=== PATIENT | male | born 1985 | race Caucasian/White ===

== ENCOUNTER 2017-04-21 11:52 | Inpatient (IN) | payer BC, OTHER ==
[2017-04-21] VITALS (11 sets, daily range): BP systolic 168–203; BP diastolic 66–102
[~2017-04-21] VITALS: Ht 180.3 cm; Wt 75.3 kg
[~2017-04-21 11:52] MED LIST: Insulin
[2017-04-21] MEDS ORDERED: PROTONIX40 MG ORAL (12:29)
[2017-04-21] MEDS ORDERED: AMLODIPINE BES2.5 MG ORAL (12:29)
[2017-04-21] MEDS ORDERED: ZOLOFT25 MG ORAL (12:29)
[2017-04-21] MEDS ORDERED: RENVELA0.8 GM ORAL (12:29)
[2017-04-21] MEDS ORDERED: ZANTAC150 MG ORAL (12:29)
[2017-04-21] MEDS ORDERED: LANTUS SOL100 UNIT/1 SUBQ (12:29)
[2017-04-21] MEDS ORDERED: REGLAN5 MG ORAL (12:29)
[2017-04-21] MEDS ORDERED: LYRICA75 M1 ORAL (12:29)
[2017-04-21] MEDS ORDERED: ZOFRAN4 M3 ORAL (12:29)
[2017-04-21 12:49] LABS: ALANINE AMINOTRANSFERASE 16 U/L (12-78); ALBUMIN/GLOBULIN RATIO 0.8 (1.0-2.7); ANION GAP 18 mmol/L (5-15); ASPARTATE AMINO TRANSFERASE 17 U/L (15-37); CALCIUM 9.2 MG/DL (8.5-10.1); CARBON DIOXIDE 20 MMOL/L (21-32); CHLORIDE 90 MMOL/L (98-107); CREATININE 9.5 MG/DL (0.55-1.30); GLOMERULAR FILTRATION RATE 6.4 mL/min (>60); MAGNESIUM 2.8 MG/DL (1.8-2.4); POTASSIUM 6.1 MMOL/L (3.5-5.1); SODIUM 128 MMOL/L (136-145)
[2017-04-21 12:53] LABS: EOSINOPHILS % (AUTO) 1.8 % (0.0-3.0); LYMPHOCYTES % (AUTO) 12.3 % (20.0-45.0); MEAN CORPUSCULAR HEMOGLOBIN 25.8 PG (27.0-31.0); MEAN CORPUSCULAR HGB CONC 29.6 G/DL (32.0-36.0); MEAN CORPUSCULAR VOLUME 87 FL (80-99); MEAN PLATELET VOLUME 6.9 FL (6.5-10.1); MONOCYTES % (AUTO) 4.1 % (1.0-10.0); NEUTROPHILS % (AUTO) 80.8 % (45.0-75.0); PLATELET COUNT 200 K/UL (150-450); RED BLOOD COUNT 4.18 M/UL (4.70-6.10); RED CELL DISTRIBUTION WIDTH 16.1 % (11.6-14.8); WHITE BLOOD COUNT 6.6 K/UL (4.8-10.8)
--- NOTE | 2017-04-21 13:00 | Diagnostic Imaging Report ---
Indications: Altered metal status Technique: Spiral acquisitions obtained through the brain. Angled axial and coronal 5 x 5 mm slices were reconstructed. Total dose length product 1407 mGycm. CTDI vol(s) 70 mGy. Dose reduction achieved using automated exposure control Comparison: None Findings: There is slight image degradation due to slight motion artifact. There is mild prominence of the ventricles and extra-axial CSF spaces. There is some periventricular deep white matter low-attenuation, particular the right frontal region. No acute intracranial hemorrhage or edema. No mass effect or midline shift. Henry-white differentiation is normal. Intact calvarium. Mastoids are clear. Visualized orbits and sinuses are unremarkable. Impression: Negative for acute intracranial bleed or mass effect Somewhat prominent ventricles and extra-axial CSF spaces, consistent with volume loss, advanced for age Periventricular deep white matter low-attenuation, appearance typical of chronic ischemic changes but given patient's age possibility of demyelinating disease should be considered. The CT scanner at [facility] [place] is accredited by the [employer] and the scans are performed using protocols designed to limit radiation exposure to as low as reasonably achievable to attain images of sufficient resolution adequate for diagnostic evaluation.
[2017-04-21] MEDS ORDERED: Calcium Gluconate 1gm/10ml vial IVP ONE ×2 (13:15→14:00)
--- NOTE | 2017-04-21 13:49 | Emergency Room Report ---
History of Present Illness General Chief Complaint: Abnormal Labs Source: Family Member, EMS Present Illness HPI 31-year-old male presents ED for evaluation. Per EMS patient was found down at home. Patient has an insulin pump which was disconnected. Accu-Chek was critically high. Initially patient was confused and altered. Patient also has history of end-stage renal disease and gets dialysis Wednesday. Missed dialysis today. Denies fevers or chills. Denies chest pain or shortness of breath. Father states that patient was recently admitted to [facility] for treatment of a leg infection. No other aggravating relieving factors. Denies any other associated symptoms Allergies: Coded Allergies: No Known Allergies (Verified , 02/14/10) Patient History Past Medical History: HTN, psych hx, renal disease, dialysis Past Surgical History: none Pertinent Family History: none Social History: Denies: smoking, alcohol use, drug use Immunizations: UTD Reviewed Nursing Documentation: PMH: Agreed, PSxH: Agreed Nursing Documentation-PMH Past Medical History: No History, Except For Hx Cardiac Problems: No Hx Hypertension: Yes Hx Diabetes: Yes Hx Cancer: No Hx Gastrointestinal Problems: No Hx Dialysis: Yes - MWF History Of Psychiatric Problem: Yes Hx Neurological Problems: No Review of Systems All Other Systems: negative except mentioned in HPI Physical Exam Vital Signs Date Time Temp Pulse Resp B/P (MAP) Pulse Ox O2 Delivery O2 Flow Rate FiO2 04/21/17 11:42 75 20 206/118 96 Room Air 04/21/17 11:53 97.8 Sp02 EP Interpretation: reviewed, normal General Appearance: lethargic Head: normocephalic, atraumatic Eyes: bilateral eye normal inspection, bilateral eye PERRL ENT: hearing grossly normal, normal pharynx, no angioedema, normal voice Neck: full range of motion, supple/symm/no masses Respiratory: chest non-tender, lungs clear, normal breath sounds, speaking full sentences Cardiovascular #1: regular rate, rhythm, no edema Cardiovascular #2: 2+ carotid (R), 2+ carotid (L), 2+ radial (R), 2+ radial (L) , 2+ dorsalis pedis (R), 2+ dorsalis pedis (L) Gastrointestinal: normal bowel sounds, non tender, soft, non-distended, no guarding, no rebound Rectal: deferred Genitourinary: normal inspection, no CVA tenderness Musculoskeletal: back normal, gait/station normal, normal range of motion, non- tender Neurologic: other - lethargic Psychiatric: other - confused Reflexes: 3+ bicep (R), 3+ bicep (L), 3+ tricep (R), 3+ tricep (L), 3+ knee (R) , 3+ knee (L) Skin: normal color, no rash, warm/dry, well hydrated Lymphatic: no adenopathy Procedures Critical Care Time Critical Care Time i. I feel this is a highly complex case requiring extensive working including EKG/Rhythm strip, Xray/CT/US, Blood/urine lab work, repeat exams while in ED, and administration of strong opiates/narcotics for pain control, admission to hospital or close patient follow up. Total time: 30 min bedside evaluation and treatment excludes procedures (EKG). Reason for critical care: altered mental status. hyperglycemia Possible complications: hypotension, hypertension, MO, shock, arrhythmias, metabolic acidosis, end organ damage, respiratory failure. Interventions: labs, ivfs, ekg, ct head. insulin, calcium. insulin drip Course: Patient presenting with altered mental status. Found down. Insulin pump disconnected. Accu-Chek critically high. missed dialysis today. Potassium elevated. Glucose greater than [address] head unremarkable. Given insulin, calcium. Started on insulin drip. Consultations: nursing staff, EMS, family Performed by: Dr Stein Tolerated well condition = critical j. because of unstable vital signs this patient had a condition that could potentially threaten life or limb. I feel this is a critical patient who required my full attention while patient was considered critical. Total Critical Care Time excluding procedures was greater than 35 minutes Medical Decision Making Diagnostic Impression: Primary Impression: Hyperglycemia Additional Impressions: DKA (diabetic ketoacidoses) Qualified Codes: E13.10 - Other specified diabetes mellitus with ketoacidosis without coma ESRD (end stage renal disease) on dialysis Hyperkalemia, diminished renal excretion Altered level of consciousness ER Course Hospital Course 31-year-old male presenting to ED with altered mental status, glucometer critically high Differential diagnoses include: ETOH/drug ingestion, sepsis, DKA, head injury Clinical course Patient placed on stretcher. On quality assurance monitor chassis. After initial history and physical I ordered labs, EKG, CT Head, IVFs Labs-glucose greater than 600, anion gap 18, bicarbonate 20, BUN/creatinine elevated. K > 6 CT Head unremarkable EKG - NSR, no acute ischemic changes interpreted by me Patient given calcium, insulin bolus. Started on 2 units per hour insulin drip. Discussed case with ship cleaner Dr. Zapien; he agrees that patient should be admitted to ICU will require dialysis today. Case discussed with Dr. Mejia and he agreed to accept the patient to his service for further care and support i. I feel this is a highly complex case requiring extensive working including EKG/Rhythm strip, Xray/CT/US, Blood/urine lab work, repeat exams while in ED, and administration of strong opiates/narcotics for pain control, admission to hospital or close patient follow up. j. because of unstable vital signs this patient had a condition that could potentially threaten life or limb. I feel this is a critical patient who required my full attention while patient was considered critical. Total Critical Care Time excluding procedures was greater than 35 minutes diagnosis - DKA, hyperglycemia, ESRD on dialysis, hyperkalemia, aloc admitted to ICU in critical condition Labs Test 04/21/17 12:00 White Blood Count 6.6 K/UL (4.8-10.8) Red Blood Count 4.18 M/UL (4.70-6.10) Hemoglobin 10.8 G/DL (14.2-18.0) Hematocrit 36.4 % (42.0-52.0) Mean Corpuscular Volume 87 FL (80-99) Mean Corpuscular Hemoglobin 25.8 PG (27.0-31.0) Mean Corpuscular Hemoglobin Concent 29.6 G/DL (32.0-36.0) Red Cell Distribution Width 16.1 % (11.6-14.8) Platelet Count 200 K/UL (150-450) Mean Platelet Volume 6.9 FL (6.5-10.1) Neutrophils (%) (Auto) 80.8 % (45.0-75.0) Lymphocytes (%) (Auto) 12.3 % (20.0-45.0) Monocytes (%) (Auto) 4.1 % (1.0-10.0) Eosinophils (%) (Auto) 1.8 % (0.0-3.0) Basophils (%) (Auto) 1.0 % (0.0-2.0) Sodium Level 128 MMOL/L (136-145) Potassium Level 6.1 MMOL/L (3.5-5.1) Chloride Level 90 MMOL/L (98-107) Carbon Dioxide Level 20 MMOL/L (21-32) Anion Gap 18 mmol/L (5-15) Blood Urea Nitrogen 76 mg/dL (7-18) Creatinine 9.5 MG/DL (0.55-1.30) Estimat Glomerular Filtration Rate 6.4 mL/min (>60) Glucose Level 629 MG/DL (74-106) Calcium Level 9.2 MG/DL (8.5-10.1) Magnesium Level 2.8 MG/DL (1.8-2.4) Total Bilirubin 0.4 MG/DL (0.2-1.0) Aspartate Amino Transf (AST/SGOT) 17 U/L (15-37) Alanine Aminotransferase (ALT/SGPT) 16 U/L (12-78) Alkaline Phosphatase 102 U/L (46-116) Total Protein 9.0 G/DL (6.4-8.2) Albumin 4.1 G/DL (3.4-5.0) Globulin 4.9 g/dL Albumin/Globulin Ratio 0.8 (1.0-2.7) Acetone Level Positive-small (NEGATIVE) EKG Diagnostic Results Rate: normal Rhythm: NSR ST Segments: no acute changes ASA given to the pt in ED: No Rhythm Strip Diag. Results EP Interpretation: yes Rhythm: NSR, no PVC's, no ectopy CT/MRI/US Diagnostic Results CT/MRI/US Diagnostic Results : Imaging Test Ordered: CT head Impression no acute process Last Vital Signs Date Time Temp Pulse Resp B/P (MAP) Pulse Ox O2 Delivery O2 Flow Rate FiO2 04/21/17 11:53 97.8 73 13 203/87 100 Room Air Status: improved Disposition: ADMITTED INPATIENT Condition: Critical Referrals: NON PHYSICIAN (PCP) DRAKE STEIN M.D. Apr 21, 2017 13:49
[2017-04-21] MEDS ORDERED: Morphine Sulfate 2mg/ml Inj IVP PRN (14:00)
[2017-04-21] MEDS ORDERED: Albuterol/Ipratropium 3ml neb HHN PRN (14:00)
[2017-04-21] MEDS ORDERED: Insulin Rate Change 1 Each MISC PRN (14:00)
[2017-04-21] MEDS ORDERED: Zolpidem 5mg tab ORAL PRN (14:00)
[2017-04-21] MEDS ORDERED: Miralax 17gm pkt ORAL PRN (14:00)
[2017-04-21] MEDS ORDERED: Mylanta II UD 30ml ORAL PRN (14:00)
[2017-04-21 14:03] LABS: ABG ALLEN TEST POSITIVE; ABG BASE EXCESS -12.2; ABG PCO2 35.6 mmHg (35.0-45.0)
--- NOTE | 2017-04-21 14:56 | Consultation ---
Consult Note Consult Note asked to eval for dialysis management 31-year-old male presents ED for evaluation. Per EMS patient was found down at home. Patient has an insulin pump which was disconnected. Accu-Chek was critically high. Initially patient was confused and altered. Patient also has history of end-stage renal disease and gets dialysis Wednesday. Missed dialysis today. Denies fevers or chills. Denies chest pain or shortness of breath. Father states that patient was recently admitted to [facility] for treatment of a leg infection. No other aggravating relieving factors. Denies any other associated symptoms Past Medical History: HTN, psych hx, renal disease, dialysis Past Medical History: No History, Except For Hx Hypertension: Yes Hx Diabetes: Yes Hx Dialysis: Yes - MWF History Of Psychiatric Problem: Yes patient confused- examined- history taken from his father discharged from 2 days ago- Last HD 2 days ago due for HD today Assessment/Plan ESRD Type ! DM presents with: Encephalopathy HyperKalemia Hyperglycemia Has a collection on his left lat plantar foot ? infected Anemia Plan: HD hannah check vanco level per ANUPAM Chapman Apr 21, 2017 14:56
[2017-04-21 15:14] LABS: ANION GAP 18 mmol/L (5-15); CALCIUM 9.2 MG/DL (8.5-10.1); CARBON DIOXIDE 19 MMOL/L (21-32); CHLORIDE 91 MMOL/L (98-107); CREATININE 9.8 MG/DL (0.55-1.30); GLOMERULAR FILTRATION RATE 6.2 mL/min (>60); SODIUM 128 MMOL/L (136-145)
[2017-04-21 15:44] LABS: URIC ACID 5.5 MG/DL (2.6-7.2)
[2017-04-21 15:45] LABS: PHOSPHORUS 9.2 MG/DL (2.5-4.9)
[2017-04-21] MEDS ORDERED: Sodium Polystyrene Sulfonate 15gm Powder ORAL ONE (16:00)
[2017-04-21] MEDS: LORazepam Inj 2mg/ml 1ml IV PRN ×3 (16:38→23:00)
[2017-04-21] MEDS: Renvela 800mg Pkt ORAL SCH (18:00)
[2017-04-21] MEDS ORDERED: Vancomycin 500 MG in NS 110 ML IVPB ONE (20:00)
[2017-04-21 20:29] LABS: ANION GAP 11 mmol/L (5-15); CALCIUM 8.8 MG/DL (8.5-10.1); CARBON DIOXIDE 31 MMOL/L (21-32); CHLORIDE 100 MMOL/L (98-107); CREATININE 5.7 MG/DL (0.55-1.30); GLOMERULAR FILTRATION RATE 11.5 mL/min (>60); POTASSIUM 3.3 MMOL/L (3.5-5.1); SODIUM 142 MMOL/L (136-145)
[2017-04-21] MEDS: Insulin Rate Change 1 Each MISC PRN ×2 (20:52→22:01)
[2017-04-21] MEDS: Heparin 5000 units/ml inj SUBQ SCH (21:00)
[2017-04-21] MEDS: Zosyn 2.25 gm in D5W 55ml IV SCH (22:01)
[2017-04-22] VITALS (24 sets, daily range): BP systolic 133–198; BP diastolic 50–98
[2017-04-22] MEDS: Insulin Rate Change 1 Each MISC PRN ×14 (01:11→23:58)
[2017-04-22] MEDS: LORazepam Inj 2mg/ml 1ml IV PRN (01:27)
[2017-04-22 05:04] LABS: BASOPHILS % (AUTO) 0.8 % (0.0-2.0); EOSINOPHILS % (AUTO) 1.1 % (0.0-3.0); LYMPHOCYTES % (AUTO) 16.8 % (20.0-45.0); MEAN CORPUSCULAR HEMOGLOBIN 26.7 PG (27.0-31.0); MEAN CORPUSCULAR HGB CONC 31.9 G/DL (32.0-36.0); MEAN CORPUSCULAR VOLUME 84 FL (80-99); MEAN PLATELET VOLUME 6.6 FL (6.5-10.1); MONOCYTES % (AUTO) 7.8 % (1.0-10.0); NEUTROPHILS % (AUTO) 73.5 % (45.0-75.0); PLATELET COUNT 173 K/UL (150-450); RED BLOOD COUNT 3.64 M/UL (4.70-6.10); RED CELL DISTRIBUTION WIDTH 15.7 % (11.6-14.8); WHITE BLOOD COUNT 7.1 K/UL (4.8-10.8)
[2017-04-22 05:30] LABS: AMMONIA 19 umol/L (11-32)
[2017-04-22 05:45] LABS: CRP QUANT 3.4 mg/dL (0.00-0.90); MAGNESIUM 2.2 MG/DL (1.8-2.4); PHOSPHORUS 4.1 MG/DL (2.5-4.9); URIC ACID 3.7 MG/DL (2.6-7.2)
[2017-04-22 05:46] LABS: ALANINE AMINOTRANSFERASE 15 U/L (12-78); ALBUMIN/GLOBULIN RATIO 0.8 (1.0-2.7); ANION GAP 11 mmol/L (5-15); ASPARTATE AMINO TRANSFERASE 16 U/L (15-37); CALCIUM 9.1 MG/DL (8.5-10.1); CARBON DIOXIDE 28 MMOL/L (21-32); CHLORIDE 99 MMOL/L (98-107); CHOLESTEROL 131 MG/DL (< 200); CREATININE 6.8 MG/DL (0.55-1.30); GLOMERULAR FILTRATION RATE 9.4 mL/min (>60); POTASSIUM 3.7 MMOL/L (3.5-5.1); SODIUM 138 MMOL/L (136-145); THYROID STIMULATING HORMONE 3.145 uiU/mL (0.358-3.740); TOTAL PROTEIN 7.5 G/DL (6.4-8.2)
[2017-04-22 06:00] LABS: HEMOGLOBIN A1C 8.3 % (4.3-6.0)
[2017-04-22] MEDS: Zosyn 2.25 gm in D5W 55ml IV SCH (06:02)
[2017-04-22] MEDS: Renvela 800mg Pkt ORAL SCH ×3 (09:29→17:59)
[2017-04-22] MEDS: Heparin 5000 units/ml inj SUBQ SCH ×2 (09:32→20:55)
--- NOTE | 2017-04-22 10:13 | History and Physical ---
History of Present Illness General Date patient seen: Apr 21, 2017 Reason for Hospitalization: Abnormal Labs Present Illness HPI 31 year old male with hx of DM, insulin pump, ? osteomyelitis brought in by paramedics with CC of ALOC. Apparently pts insulin pump was not functioning. Pt missed his outpatient HD as well. He was found to be in DKA and admitted to ICU, pt has been seen by nephro and HD has been ordered. Allergies: Coded Allergies: GABAPENTIN (Verified Allergy, Unknown, 04/21/17) Dizziness, syncope Medication History Scheduled Amlodipine Besylate* (Amlodipine Besylate*), Unknown Dose ORAL DAILY, (Reported) Insulin Glargine (Lantus), 0 SUBQ BEDTIME, (Reported) Metoclopramide Hcl* (Reglan*), Unknown Dose ORAL EVERY 6 HOURS, (Reported) Pantoprazole* (Protonix*), Unknown Dose ORAL DAILY, (Reported) Pregabalin* (Lyrica*), Unknown Dose ORAL THREE TIMES A DAY, (Reported) Ranitidine Hcl* (Zantac*), Unknown Dose ORAL DAILY, (Reported) Sertraline Hcl* (Zoloft*), Unknown Dose ORAL DAILY, (Reported) Sevelamer Carbonate* (Renvela*), Unknown Dose ORAL THREE TIMES A DAY, (Reported) Scheduled PRN Ondansetron* (Zofran*), Unknown Dose ORAL Q6H PRN for Nausea & Vomiting, ( Reported) Miscellaneous Medications [Insulin], (Reported) Patient History Healthcare decision maker Raad Benites /Father Resuscitation status Full Code Advanced Directive on File No Past Medical/Surgical History Past Medical/Surgical History: (1) Poorly controlled diabetes mellitus (2) ESRD (end stage renal disease) on dialysis Physical Exam General Appearance: WD/WN Lines, tubes and drains: peripheral HEENT: normocephalic, atraumatic Neck: non-tender, normal alignment Respiratory/Chest: chest wall non-tender, lungs clear Breasts: no masses Cardiovascular/Chest: normal peripheral pulses Abdomen: normal bowel sounds, non tender Genitourinary/Rectal: normal genital exam Extremities: normal range of motion Skin Exam: normal pigmentation Neurologic: installation tech 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 normal Last 24 Hour Vital Signs Date Time Temp Pulse Resp B/P (MAP) Pulse Ox O2 Delivery O2 Flow Rate FiO2 04/22/17 09:38 74 147/82 04/22/17 09:01 73 14 Room Air 21 04/22/17 07:00 72 15 145/57 97 Room Air 04/22/17 06:13 195/77 04/22/17 06:00 72 12 195/77 94 Room Air 04/22/17 05:00 72 16 176/68 97 Room Air 04/22/17 04:00 75 04/22/17 04:00 98.2 73 12 173/79 93 Room Air 04/22/17 03:00 75 12 173/60 95 Room Air 04/22/17 02:30 198/75 04/22/17 02:00 75 17 198/75 95 Room Air 04/22/17 01:00 74 17 179/71 97 Room Air 04/22/17 00:00 97.9 74 16 170/67 93 Room Air 04/22/17 00:00 74 04/21/17 23:00 75 17 168/66 99 Room Air 04/21/17 22:32 201/86 04/21/17 22:00 72 18 201/86 97 Room Air 04/21/17 21:00 69 16 187/94 97 Room Air 04/21/17 20:44 69 16 Room Air 21 04/21/17 20:16 191/91 04/21/17 20:00 97.8 70 16 187/93 94 Room Air 04/21/17 20:00 70 04/21/17 19:39 Room Air 04/21/17 19:36 Room Air 04/21/17 19:00 72 16 173/88 99 Room Air 04/21/17 18:00 74 16 172/89 98 Room Air 04/21/17 17:00 71 16 179/94 98 Room Air 04/21/17 16:00 98.2 72 16 200/102 97 Room Air 04/21/17 15:38 75 04/21/17 15:18 181/85 04/21/17 15:15 Room Air 04/21/17 14:33 77 04/21/17 14:30 98.1 77 14 193/93 97 Room Air 04/21/17 14:21 97.8 72 16 187/77 100 Room Air 04/21/17 13:30 98.0 70 16 193/84 100 Room Air 04/21/17 11:53 97.8 73 13 203/87 100 Room Air 04/21/17 11:53 73 13 Room Air 04/21/17 11:42 75 20 206/118 96 Room Air Intake and Output 04/22/17 04/23/17 19:00 07:00 Intake Total 0.4 ml Balance 0.4 ml Intake Oral 0 ml IV Total 0.4 ml Laboratory Tests Test 04/21/17 12:00 04/21/17 13:52 04/21/17 14:35 04/21/17 15:18 White Blood Count 6.6 K/UL (4.8-10.8) Red Blood Count 4.18 M/UL (4.70-6.10) L Hemoglobin 10.8 G/DL (14.2-18.0) L Hematocrit 36.4 % (42.0-52.0) L Mean Corpuscular Volume 87 FL (80-99) Mean Corpuscular Hemoglobin 25.8 PG (27.0-31.0) L Mean Corpuscular Hemoglobin Concent 29.6 G/DL (32.0-36.0) L Red Cell Distribution Width 16.1 % (11.6-14.8) H Platelet Count 200 K/UL (150-450) Mean Platelet Volume 6.9 FL (6.5-10.1) Neutrophils (%) (Auto) 80.8 % (45.0-75.0) H Lymphocytes (%) (Auto) 12.3 % (20.0-45.0) L Monocytes (%) (Auto) 4.1 % (1.0-10.0) Eosinophils (%) (Auto) 1.8 % (0.0-3.0) Basophils (%) (Auto) 1.0 % (0.0-2.0) Sodium Level 128 MMOL/L (136-145) L 128 MMOL/L (136-145) L Potassium Level 6.1 MMOL/L (3.5-5.1) *H 5.0 MMOL/L (3.5-5.1) Chloride Level 90 MMOL/L (98-107) L 91 MMOL/L (98-107) L Carbon Dioxide Level 20 MMOL/L (21-32) L 19 MMOL/L (21-32) L Anion Gap 18 mmol/L (5-15) H 18 mmol/L (5-15) H Blood Urea Nitrogen 76 mg/dL (7-18) H 79 mg/dL (7-18) H Creatinine 9.5 MG/DL (0.55-1.30) H 9.8 MG/DL (0.55-1.30) H Estimat Glomerular Filtration Rate 6.4 mL/min (>60) 6.2 mL/min (>60) Glucose Level 629 MG/DL (74-106) *H 587 MG/DL (74-106) *H Calcium Level 9.2 MG/DL (8.5-10.1) 9.2 MG/DL (8.5-10.1) Magnesium Level 2.8 MG/DL (1.8-2.4) H Total Bilirubin 0.4 MG/DL (0.2-1.0) Aspartate Amino Transf (AST/SGOT) 17 U/L (15-37) Alanine Aminotransferase (ALT/SGPT) 16 U/L (12-78) Alkaline Phosphatase 102 U/L (46-116) Total Protein 9.0 G/DL (6.4-8.2) H Albumin 4.1 G/DL (3.4-5.0) Globulin 4.9 g/dL Albumin/Globulin Ratio 0.8 (1.0-2.7) L Acetone Level Positive-small (NEGATIVE) Arterial Blood pH 7.227 (7.350-7.450) Arterial Blood Partial Pressure CO2 35.6 mmHg (35.0-45.0) Arterial Blood Partial Pressure O2 97.2 mmHg (75.0-100.0) Arterial Blood HCO3 14.5 mmol/L (22.0-26.0) L Arterial Blood Oxygen Saturation 95.5 % (92.0-98.0) Arterial Blood Base Excess -12.2 Andre Test Positive Uric Acid 5.5 MG/DL (2.6-7.2) Phosphorus Level 9.2 MG/DL (2.5-4.9) H Random Vancomycin Level 18.3 ug/mL Test 04/21/17 19:55 04/22/17 04:15 Sodium Level 142 MMOL/L (136-145) # 138 MMOL/L (136-145) Potassium Level 3.3 MMOL/L (3.5-5.1) L 3.7 MMOL/L (3.5-5.1) Chloride Level 100 MMOL/L (98-107) 99 MMOL/L (98-107) Carbon Dioxide Level 31 MMOL/L (21-32) 28 MMOL/L (21-32) Anion Gap 11 mmol/L (5-15) 11 mmol/L (5-15) Blood Urea Nitrogen 43 mg/dL (7-18) H 47 mg/dL (7-18) H Creatinine 5.7 MG/DL (0.55-1.30) H 6.8 MG/DL (0.55-1.30) H Estimat Glomerular Filtration Rate 11.5 mL/min (>60) 9.4 mL/min (>60) Glucose Level 123 MG/DL (74-106) #H 114 MG/DL (74-106) H Calcium Level 8.8 MG/DL (8.5-10.1) 9.1 MG/DL (8.5-10.1) White Blood Count 7.1 K/UL (4.8-10.8) Red Blood Count 3.64 M/UL (4.70-6.10) L Hemoglobin 9.7 G/DL (14.2-18.0) L Hematocrit 30.5 % (42.0-52.0) L Mean Corpuscular Volume 84 FL (80-99) Mean Corpuscular Hemoglobin 26.7 PG (27.0-31.0) L Mean Corpuscular Hemoglobin Concent 31.9 G/DL (32.0-36.0) L Red Cell Distribution Width 15.7 % (11.6-14.8) H Platelet Count 173 K/UL (150-450) Mean Platelet Volume 6.6 FL (6.5-10.1) Neutrophils (%) (Auto) 73.5 % (45.0-75.0) Lymphocytes (%) (Auto) 16.8 % (20.0-45.0) L Monocytes (%) (Auto) 7.8 % (1.0-10.0) Eosinophils (%) (Auto) 1.1 % (0.0-3.0) Basophils (%) (Auto) 0.8 % (0.0-2.0) Hemoglobin A1c 8.3 % (4.3-6.0) H Uric Acid 3.7 MG/DL (2.6-7.2) Phosphorus Level 4.1 MG/DL (2.5-4.9) Magnesium Level 2.2 MG/DL (1.8-2.4) Total Bilirubin 0.4 MG/DL (0.2-1.0) Gamma Glutamyl Transpeptidase 13 U/L (5-85) Aspartate Amino Transf (AST/SGOT) 16 U/L (15-37) Alanine Aminotransferase (ALT/SGPT) 15 U/L (12-78) Alkaline Phosphatase 76 U/L (46-116) Ammonia 19 umol/L (11-32) C-Reactive Protein, Quantitative 3.4 mg/dL (0.00-0.90) H Pro-B-Type Natriuretic Peptide > 46369 pg/mL (0-125) H Total Protein 7.5 G/DL (6.4-8.2) Albumin 3.3 G/DL (3.4-5.0) L Globulin 4.2 g/dL Albumin/Globulin Ratio 0.8 (1.0-2.7) L Triglycerides Level 52 MG/DL (30-150) Cholesterol Level 131 MG/DL (< 200) LDL Cholesterol 89 mg/dL (<100) HDL Cholesterol 33 MG/DL (40-60) L Cholesterol/HDL Ratio 4.0 (3.3-4.4) Thyroid Stimulating Hormone (TSH) 3.145 uiU/mL (0.358-3.740) Height (Feet): 5 Height (Inches): 11.00 Weight (Pounds): 165 Medications Current Medications Medications (Trade) Dose Ordered Sig/Aura Route PRN Reason Start Time Stop Time Status Last Admin Dose Admin Acetaminophen (Tylenol) 650 mg Q4H PRN ORAL fever 04/21/17 14:00 05/21/17 13:59 Albuterol/ Ipratropium (Albuterol/ Ipratropium) 3 ml Q6H PRN HHN dyspnea 04/21/17 14:00 04/26/17 13:59 Amlodipine Besylate (Norvasc) 10 mg DAILY ORAL 04/22/17 09:00 05/22/17 08:59 04/22/17 09:38 Clonidine HCl (Catapres) 0.1 mg Q4H PRN ORAL SBP > 160 04/21/17 14:00 05/21/17 13:59 04/22/17 02:30 Dextrose (Dextrose 50%) PRN PRN IV HYPOGLYCEMIA 04/21/17 20:00 05/21/17 19:59 Heparin Sodium (Porcine) (Heparin 5000 units/ml) 5,000 units EVERY 12 HOURS SUBQ 04/21/17 21:00 05/21/17 20:59 04/22/17 09:32 Hydralazine HCl (Apresoline) 20 mg Q6H PRN IV SBP>160 04/21/17 21:45 05/21/17 21:44 04/22/17 06:13 Insulin Human Regular (NovoLIN R) 5 units PRN PRN IV BS 200-299 04/21/17 20:00 05/21/17 19:59 04/22/17 02:09 Insulin Human Regular (NovoLIN R) 10 units PRN PRN IV BS=>300 04/21/17 20:00 05/21/17 19:59 Insulin Human Regular 100 units/ Sodium Chloride 101 ml @ 0 mls/hr Q24H IV 04/21/17 20:15 05/21/17 20:14 04/21/17 20:23 Lorazepam (Ativan 2mg/ml 1ml) 2 mg EVERY 2 HOURS PRN IV For Anxiety 04/21/17 16:30 04/28/17 16:29 04/22/17 01:27 Miscellaneous Medication (Insulin Rate Change) 1 ea PRN PRN MISC Hyperglycemia 04/21/17 20:00 05/21/17 19:59 04/22/17 09:20 Morphine Sulfate (Morphine Sulfate) 1 mg Q4H PRN IVP For Pain Scale 4-10 04/21/17 14:00 04/28/17 13:59 04/21/17 16:07 Ondansetron HCl (Zofran) 4 mg Q6H PRN IVP Nausea & Vomiting 04/21/17 14:00 05/21/17 13:59 Pantoprazole (Protonix) 40 mg DAILY ORAL 04/22/17 09:00 05/22/17 08:59 04/22/17 09:29 Piperacillin Sod/ Tazobactam Sod 2.25 gm/Dextrose 55 ml @ 110 mls/hr Q8HR IV 04/21/17 22:00 04/26/17 21:59 04/22/17 06:02 Polyethylene Glycol (Miralax) 17 gm HSPRN PRN ORAL Constipation 1st line agent 04/21/17 14:00 05/21/17 13:59 Sevelamer Carbonate (Renvela) 800 mg THREE TIMES A DAY ORAL 04/21/17 18:00 05/21/17 17:59 04/22/17 09:29 Sodium Chloride 1,000 ml @ 50 mls/hr Q20H IV 04/22/17 15:45 05/22/17 15:44 Vancomycin HCl (Vanco rx to dose) 1 ea DAILY PRN MISC . 04/21/17 16:45 05/21/17 16:44 Zolpidem Tartrate (Ambien) 5 mg HSPRN PRN ORAL Insomnia 04/21/17 14:00 04/28/17 13:59 Assessment/Plan Problem List: (1) DKA (diabetic ketoacidoses) ICD Codes: E13.10 - Other specified diabetes mellitus with ketoacidosis without coma SNOMED: 148849025, [id number] Qualifiers: Qualified Codes: E13.10 - Other specified diabetes mellitus with ketoacidosis without coma (2) Altered level of consciousness ICD Codes: R40.4 - Transient alteration of awareness SNOMED: 8604185 (3) ESRD (end stage renal disease) on dialysis ICD Codes: N18.6 - End stage renal disease; Z99.2 - Dependence on renal dialysis SNOMED: [id number], [id number] Assessment/Plan insulin drip IV fluids check electrolytes continue outpatient iv abx review records from [facility]. dvt prophylaxis Podiatry and ID evaluation INEZ MEHTA Apr 22, 2017 10:13
--- NOTE | 2017-04-22 11:14 | Consultation ---
History of Present Illness General Date patient seen: Apr 22, 2017 Time patient seen: 11:38 Chief Complaint: Abnormal Labs Present Illness HPI 31 y/o M with hx of DM 1 on insulin pump, HTN, ESRD on HD MWF, psychiatric illness is brought by paramedics on 04/21 after being found down at home. Apparently insulin pump not functioning and patient has also missed outpatient HD session. In ED found to be on DKA and admitted to ICU. HD done emergently upon admission. Denies f/c, CP, SOB, n/v/d Of note patient has been recently admitted and discharged 2 days ago from [facility] for a treatment of L foot OM. Discharged on Vanco 500mg and Cefepime 2g after HD on HD days planned for 6 weeks; end date 05/28/17 MRI 04/08: L Foot wo: 2.1x 0.7 x2.5 cm fluid collection in plantar aspect of 5th metatarsal head. Cannot exclude abscess. Minimal Bone marrow edema involving 5th metatarsal head. Although no cortical erosive chanegs noted, an early medullary OM cannot be excluded. afebrile, no leukocytosis. Started on Vanco adn Zosyn. Allergies: Coded Allergies: GABAPENTIN (Verified Allergy, Unknown, 04/21/17) Dizziness, syncope Medication History Scheduled Amlodipine Besylate* (Amlodipine Besylate*), Unknown Dose ORAL DAILY, (Reported) Insulin Glargine (Lantus), 0 SUBQ BEDTIME, (Reported) Metoclopramide Hcl* (Reglan*), Unknown Dose ORAL EVERY 6 HOURS, (Reported) Pantoprazole* (Protonix*), Unknown Dose ORAL DAILY, (Reported) Pregabalin* (Lyrica*), Unknown Dose ORAL THREE TIMES A DAY, (Reported) Ranitidine Hcl* (Zantac*), Unknown Dose ORAL DAILY, (Reported) Sertraline Hcl* (Zoloft*), Unknown Dose ORAL DAILY, (Reported) Sevelamer Carbonate* (Renvela*), Unknown Dose ORAL THREE TIMES A DAY, (Reported) Scheduled PRN Ondansetron* (Zofran*), Unknown Dose ORAL Q6H PRN for Nausea & Vomiting, ( Reported) Miscellaneous Medications [Insulin], (Reported) Patient History Healthcare decision maker Raad Benites /Father Resuscitation status Full Code Advanced Directive on File No Patient History Narrative Pmhx: as above Shx: Denies: smoking, alcohol use, drug use Fhx: non contributory Review of Systems All Other Systems: negative except mentioned in HPI Physical Exam Physical Exam Narrative General Appearance: WD/WN Lines, tubes and drains: peripheral HEENT: normocephalic, atraumatic Neck: non-tender, normal alignment Respiratory/Chest: chest wall non-tender, lungs clear Breasts: no masses Cardiovascular/Chest: normal peripheral pulses Abdomen: normal bowel sounds, non tender Genitourinary/Rectal: normal genital exam Extremities: normal range of motion, L foot with area of fluctuance over 5th metatarsum with small and callous opening, no draiange, no TTP, no warmth, slightly erythematous Skin Exam: normal pigmentation Neurologic: printing grey cloth tender II-XII grossly normal Last 24 Hour Vital Signs Date Time Temp Pulse Resp B/P (MAP) Pulse Ox O2 Delivery O2 Flow Rate FiO2 04/22/17 11:00 74 16 142/50 97 Room Air 04/22/17 10:00 72 15 170/66 97 Room Air 04/22/17 09:38 74 147/82 04/22/17 09:01 73 14 Room Air 21 04/22/17 09:00 72 15 144/77 97 Room Air 04/22/17 08:00 98.2 73 12 146/80 93 Room Air 04/22/17 08:00 76 04/22/17 07:00 72 15 145/57 97 Room Air 04/22/17 06:13 195/77 04/22/17 06:00 72 12 195/77 94 Room Air 04/22/17 05:00 72 16 176/68 97 Room Air 04/22/17 04:00 75 04/22/17 04:00 98.2 73 12 173/79 93 Room Air 04/22/17 03:00 75 12 173/60 95 Room Air 04/22/17 02:30 198/75 04/22/17 02:00 75 17 198/75 95 Room Air 04/22/17 01:00 74 17 179/71 97 Room Air 04/22/17 00:00 97.9 74 16 170/67 93 Room Air 04/22/17 00:00 74 04/21/17 23:00 75 17 168/66 99 Room Air 04/21/17 22:32 201/86 04/21/17 22:00 72 18 201/86 97 Room Air 04/21/17 21:00 69 16 187/94 97 Room Air 04/21/17 20:44 69 16 Room Air 21 04/21/17 20:16 191/91 04/21/17 20:00 97.8 70 16 187/93 94 Room Air 04/21/17 20:00 70 04/21/17 19:39 Room Air 04/21/17 19:36 Room Air 04/21/17 19:00 72 16 173/88 99 Room Air 04/21/17 18:00 74 16 172/89 98 Room Air 04/21/17 17:00 71 16 179/94 98 Room Air 04/21/17 16:00 98.2 72 16 200/102 97 Room Air 04/21/17 15:38 75 04/21/17 15:18 181/85 04/21/17 15:15 Room Air 04/21/17 14:33 77 04/21/17 14:30 98.1 77 14 193/93 97 Room Air 04/21/17 14:21 97.8 72 16 187/77 100 Room Air 04/21/17 13:30 98.0 70 16 193/84 100 Room Air 04/21/17 11:53 97.8 73 13 203/87 100 Room Air 04/21/17 11:53 73 13 Room Air 04/21/17 11:42 75 20 206/118 96 Room Air Intake and Output 04/22/17 04/23/17 19:00 07:00 Intake Total 0.4 ml Balance 0.4 ml Intake Oral 0 ml IV Total 0.4 ml Laboratory Tests Test 04/21/17 12:00 04/21/17 13:52 04/21/17 14:35 04/21/17 15:18 White Blood Count 6.6 K/UL (4.8-10.8) Red Blood Count 4.18 M/UL (4.70-6.10) L Hemoglobin 10.8 G/DL (14.2-18.0) L Hematocrit 36.4 % (42.0-52.0) L Mean Corpuscular Volume 87 FL (80-99) Mean Corpuscular Hemoglobin 25.8 PG (27.0-31.0) L Mean Corpuscular Hemoglobin Concent 29.6 G/DL (32.0-36.0) L Red Cell Distribution Width 16.1 % (11.6-14.8) H Platelet Count 200 K/UL (150-450) Mean Platelet Volume 6.9 FL (6.5-10.1) Neutrophils (%) (Auto) 80.8 % (45.0-75.0) H Lymphocytes (%) (Auto) 12.3 % (20.0-45.0) L Monocytes (%) (Auto) 4.1 % (1.0-10.0) Eosinophils (%) (Auto) 1.8 % (0.0-3.0) Basophils (%) (Auto) 1.0 % (0.0-2.0) Sodium Level 128 MMOL/L (136-145) L 128 MMOL/L (136-145) L Potassium Level 6.1 MMOL/L (3.5-5.1) *H 5.0 MMOL/L (3.5-5.1) Chloride Level 90 MMOL/L (98-107) L 91 MMOL/L (98-107) L Carbon Dioxide Level 20 MMOL/L (21-32) L 19 MMOL/L (21-32) L Anion Gap 18 mmol/L (5-15) H 18 mmol/L (5-15) H Blood Urea Nitrogen 76 mg/dL (7-18) H 79 mg/dL (7-18) H Creatinine 9.5 MG/DL (0.55-1.30) H 9.8 MG/DL (0.55-1.30) H Estimat Glomerular Filtration Rate 6.4 mL/min (>60) 6.2 mL/min (>60) Glucose Level 629 MG/DL (74-106) *H 587 MG/DL (74-106) *H Calcium Level 9.2 MG/DL (8.5-10.1) 9.2 MG/DL (8.5-10.1) Magnesium Level 2.8 MG/DL (1.8-2.4) H Total Bilirubin 0.4 MG/DL (0.2-1.0) Aspartate Amino Transf (AST/SGOT) 17 U/L (15-37) Alanine Aminotransferase (ALT/SGPT) 16 U/L (12-78) Alkaline Phosphatase 102 U/L (46-116) Total Protein 9.0 G/DL (6.4-8.2) H Albumin 4.1 G/DL (3.4-5.0) Globulin 4.9 g/dL Albumin/Globulin Ratio 0.8 (1.0-2.7) L Acetone Level Positive-small (NEGATIVE) Arterial Blood pH 7.227 (7.350-7.450) Arterial Blood Partial Pressure CO2 35.6 mmHg (35.0-45.0) Arterial Blood Partial Pressure O2 97.2 mmHg (75.0-100.0) Arterial Blood HCO3 14.5 mmol/L (22.0-26.0) L Arterial Blood Oxygen Saturation 95.5 % (92.0-98.0) Arterial Blood Base Excess -12.2 Andre Test Positive Uric Acid 5.5 MG/DL (2.6-7.2) Phosphorus Level 9.2 MG/DL (2.5-4.9) H Random Vancomycin Level 18.3 ug/mL Test 04/21/17 19:55 04/22/17 04:15 Sodium Level 142 MMOL/L (136-145) # 138 MMOL/L (136-145) Potassium Level 3.3 MMOL/L (3.5-5.1) L 3.7 MMOL/L (3.5-5.1) Chloride Level 100 MMOL/L (98-107) 99 MMOL/L (98-107) Carbon Dioxide Level 31 MMOL/L (21-32) 28 MMOL/L (21-32) Anion Gap 11 mmol/L (5-15) 11 mmol/L (5-15) Blood Urea Nitrogen 43 mg/dL (7-18) H 47 mg/dL (7-18) H Creatinine 5.7 MG/DL (0.55-1.30) H 6.8 MG/DL (0.55-1.30) H Estimat Glomerular Filtration Rate 11.5 mL/min (>60) 9.4 mL/min (>60) Glucose Level 123 MG/DL (74-106) #H 114 MG/DL (74-106) H Calcium Level 8.8 MG/DL (8.5-10.1) 9.1 MG/DL (8.5-10.1) White Blood Count 7.1 K/UL (4.8-10.8) Red Blood Count 3.64 M/UL (4.70-6.10) L Hemoglobin 9.7 G/DL (14.2-18.0) L Hematocrit 30.5 % (42.0-52.0) L Mean Corpuscular Volume 84 FL (80-99) Mean Corpuscular Hemoglobin 26.7 PG (27.0-31.0) L Mean Corpuscular Hemoglobin Concent 31.9 G/DL (32.0-36.0) L Red Cell Distribution Width 15.7 % (11.6-14.8) H Platelet Count 173 K/UL (150-450) Mean Platelet Volume 6.6 FL (6.5-10.1) Neutrophils (%) (Auto) 73.5 % (45.0-75.0) Lymphocytes (%) (Auto) 16.8 % (20.0-45.0) L Monocytes (%) (Auto) 7.8 % (1.0-10.0) Eosinophils (%) (Auto) 1.1 % (0.0-3.0) Basophils (%) (Auto) 0.8 % (0.0-2.0) Hemoglobin A1c 8.3 % (4.3-6.0) H Uric Acid 3.7 MG/DL (2.6-7.2) Phosphorus Level 4.1 MG/DL (2.5-4.9) Magnesium Level 2.2 MG/DL (1.8-2.4) Total Bilirubin 0.4 MG/DL (0.2-1.0) Gamma Glutamyl Transpeptidase 13 U/L (5-85) Aspartate Amino Transf (AST/SGOT) 16 U/L (15-37) Alanine Aminotransferase (ALT/SGPT) 15 U/L (12-78) Alkaline Phosphatase 76 U/L (46-116) Ammonia 19 umol/L (11-32) C-Reactive Protein, Quantitative 3.4 mg/dL (0.00-0.90) H Pro-B-Type Natriuretic Peptide > 79888 pg/mL (0-125) H Total Protein 7.5 G/DL (6.4-8.2) Albumin 3.3 G/DL (3.4-5.0) L Globulin 4.2 g/dL Albumin/Globulin Ratio 0.8 (1.0-2.7) L Triglycerides Level 52 MG/DL (30-150) Cholesterol Level 131 MG/DL (< 200) LDL Cholesterol 89 mg/dL (<100) HDL Cholesterol 33 MG/DL (40-60) L Cholesterol/HDL Ratio 4.0 (3.3-4.4) Thyroid Stimulating Hormone (TSH) 3.145 uiU/mL (0.358-3.740) Height (Feet): 5 Height (Inches): 11.00 Weight (Pounds): 165 Medications Current Medications Medications (Trade) Dose Ordered Sig/Aura Route PRN Reason Start Time Stop Time Status Last Admin Dose Admin Acetaminophen (Tylenol) 650 mg Q4H PRN ORAL fever 04/21/17 14:00 05/21/17 13:59 Albuterol/ Ipratropium (Albuterol/ Ipratropium) 3 ml Q6H PRN HHN dyspnea 04/21/17 14:00 04/26/17 13:59 Amlodipine Besylate (Norvasc) 10 mg DAILY ORAL 04/22/17 09:00 05/22/17 08:59 04/22/17 09:38 Clonidine HCl (Catapres) 0.1 mg Q4H PRN ORAL SBP > 160 04/21/17 14:00 05/21/17 13:59 04/22/17 02:30 Dextrose (Dextrose 50%) PRN PRN IV HYPOGLYCEMIA 04/21/17 20:00 05/21/17 19:59 Heparin Sodium (Porcine) (Heparin 5000 units/ml) 5,000 units EVERY 12 HOURS SUBQ 04/21/17 21:00 05/21/17 20:59 04/22/17 09:32 Hydralazine HCl (Apresoline) 20 mg Q6H PRN IV SBP>160 04/21/17 21:45 05/21/17 21:44 04/22/17 06:13 Insulin Human Regular (NovoLIN R) 5 units PRN PRN IV BS 200-299 04/21/17 20:00 05/21/17 19:59 04/22/17 02:09 Insulin Human Regular (NovoLIN R) 10 units PRN PRN IV BS=>300 04/21/17 20:00 05/21/17 19:59 Insulin Human Regular 100 units/ Sodium Chloride 101 ml @ 0 mls/hr Q24H IV 04/21/17 20:15 05/21/17 20:14 04/21/17 20:23 Lorazepam (Ativan 2mg/ml 1ml) 2 mg EVERY 2 HOURS PRN IV For Anxiety 04/21/17 16:30 04/28/17 16:29 04/22/17 01:27 Miscellaneous Medication (Insulin Rate Change) 1 ea PRN PRN MISC Hyperglycemia 04/21/17 20:00 05/21/17 19:59 04/22/17 09:20 Morphine Sulfate (Morphine Sulfate) 1 mg Q4H PRN IVP For Pain Scale 4-10 04/21/17 14:00 04/28/17 13:59 04/21/17 16:07 Ondansetron HCl (Zofran) 4 mg Q6H PRN IVP Nausea & Vomiting 04/21/17 14:00 05/21/17 13:59 Pantoprazole (Protonix) 40 mg DAILY ORAL 04/22/17 09:00 05/22/17 08:59 04/22/17 09:29 Piperacillin Sod/ Tazobactam Sod 2.25 gm/Dextrose 55 ml @ 110 mls/hr Q8HR IV 04/21/17 22:00 04/26/17 21:59 04/22/17 06:02 Polyethylene Glycol (Miralax) 17 gm HSPRN PRN ORAL Constipation 1st line agent 04/21/17 14:00 05/21/17 13:59 Sevelamer Carbonate (Renvela) 800 mg THREE TIMES A DAY ORAL 04/21/17 18:00 05/21/17 17:59 04/22/17 09:29 Vancomycin HCl (Vanco rx to dose) 1 ea DAILY PRN MISC . 04/21/17 16:45 05/21/17 16:44 Zolpidem Tartrate (Ambien) 5 mg HSPRN PRN ORAL Insomnia 04/21/17 14:00 04/28/17 13:59 Assessment/Plan Assessment/Plan Abx: Vanco 04/21- Zosyn 04/21- Assesment: DKA ALOC/AMS- 2ry to above -CT head: Negative for acute intracranial bleed or mass effect. Somewhat prominent ventricles and extra-axial CSF spaces, consistent with volume loss, advanced for age. Periventricular deep white matter low-attenuation, appearance typical of chronic ischemic changes but given patient's age possibility of demyelinating disease should be considered.] Afebrile, no leukocytosis Leg 5th metatarsal fluid collection with possible underlying OM- on IV Abx tx -MRI 04/08: L Foot wo: 2.1x 0.7 x2.5 cm fluid collection in plantar aspect of 5th metatarsal head. Cannot exclude abscess. Minimal Bone marrow edema involving 5th metatarsal head. Although no cortical erosive changes noted, an early medullary OM cannot be excluded. -Vanco 500mg and Cefepime 2g after HD on HD days planned for 6 weeks; end date 05/28/17 DM 1 on insulin pump, HTN, ESRD on HD MWF, psychiatric illness Plan: -Continue IV Vancomycin and switch Zosyn to Cefepime as per his already established abx tx for presumed OM -Agree with Podiatry evaluation- ?I+D -ESR, CRP, foot xray -obtain CXR -Monitor CBC/BMP, temperatures Thank you for this consultation. Will continue to follow along with you. Discussed with BECKY. Livier Woods M.D. Apr 22, 2017 11:14
--- NOTE | 2017-04-22 11:44 | Nephrology Progress Note ---
Assessment/Plan Problem List: (1) ESRD (end stage renal disease) on dialysis (2) Hyperkalemia, diminished renal excretion (3) Hyperglycemia Assessment ESRD Type I DM presents with: Encephalopathy improved HyperKalemia improved Hyperglycemia improved Has a collection on his left lat plantar foot ? infected Anemia Plan Plan: HD 04/21 and 04/23 check vanco level: 18 per Endo keep BP and BS in check Objective Objective Last 24 Hour Vital Signs Date Time Temp Pulse Resp B/P (MAP) Pulse Ox O2 Delivery O2 Flow Rate FiO2 04/22/17 11:00 74 16 142/50 97 Room Air 04/22/17 10:00 72 15 170/66 97 Room Air 04/22/17 09:38 74 147/82 04/22/17 09:01 73 14 Room Air 04/22/17 09:00 72 15 144/77 97 Room Air 04/22/17 08:00 98.2 73 12 146/80 93 Room Air 04/22/17 08:00 76 04/22/17 07:00 72 15 145/57 97 Room Air 04/22/17 06:13 195/77 04/22/17 06:00 72 12 195/77 94 Room Air 04/22/17 05:00 72 16 176/68 97 Room Air 04/22/17 04:00 75 04/22/17 04:00 98.2 73 12 173/79 93 Room Air 04/22/17 03:00 75 12 173/60 95 Room Air 04/22/17 02:30 198/75 04/22/17 02:00 75 17 198/75 95 Room Air 04/22/17 01:00 74 17 179/71 97 Room Air 04/22/17 00:00 97.9 74 16 170/67 93 Room Air 04/22/17 00:00 74 04/21/17 23:00 75 17 168/66 99 Room Air 04/21/17 22:32 201/86 04/21/17 22:00 72 18 201/86 97 Room Air 04/21/17 21:00 69 16 187/94 97 Room Air 04/21/17 20:44 69 16 Room Air 21 04/21/17 20:16 191/91 04/21/17 20:00 97.8 70 16 187/93 94 Room Air 04/21/17 20:00 70 04/21/17 19:39 Room Air 04/21/17 19:36 Room Air 04/21/17 19:00 72 16 173/88 99 Room Air 04/21/17 18:00 74 16 172/89 98 Room Air 04/21/17 17:00 71 16 179/94 98 Room Air 04/21/17 16:00 98.2 72 16 200/102 97 Room Air 04/21/17 15:38 75 04/21/17 15:18 181/85 04/21/17 15:15 Room Air 04/21/17 14:33 77 04/21/17 14:30 98.1 77 14 193/93 97 Room Air 04/21/17 14:21 97.8 72 16 187/77 100 Room Air 04/21/17 13:30 98.0 70 16 193/84 100 Room Air 04/21/17 11:53 97.8 73 13 203/87 100 Room Air 04/21/17 11:53 73 13 Room Air 04/21/17 11:42 75 20 206/118 96 Room Air Intake and Output 04/22/17 04/23/17 19:00 07:00 Intake Total 2.0 ml Balance 2.0 ml Intake Oral 0 ml IV Total 2.0 ml Laboratory Tests 04/21/17 12:00: White Blood Count 6.6, Red Blood Count 4.18L, Hemoglobin 10.8L, Hematocrit 36.4L , Mean Corpuscular Volume 87, Mean Corpuscular Hemoglobin 25.8L, Mean Corpuscular Hemoglobin Concent 29.6L, Red Cell Distribution Width 16.1H, Platelet Count 200, Mean Platelet Volume 6.9, Neutrophils (%) (Auto) 80.8H, Lymphocytes (%) (Auto) 12.3L, Monocytes (%) (Auto) 4.1, Eosinophils (%) (Auto) 1.8, Basophils (%) (Auto) 1.0, Sodium Level 128L, Potassium Level 6.1*H, Chloride Level 90L, Carbon Dioxide Level 20L, Anion Gap 18H, Blood Urea Nitrogen 76H, Creatinine 9.5H, Estimat Glomerular Filtration Rate 6.4, Glucose Level 629*H, Calcium Level 9.2, Magnesium Level 2.8H, Total Bilirubin 0.4, Aspartate Amino Transf (AST/SGOT) 17, Alanine Aminotransferase (ALT/SGPT) 16, Alkaline Phosphatase 102, Total Protein 9.0H, Albumin 4.1, Globulin 4.9, Albumin /Globulin Ratio 0.8L, Acetone Level Positive-small 04/21/17 13:52: Arterial Blood pH 7.227*L, Arterial Blood Partial Pressure CO2 35.6, Arterial Blood Partial Pressure O2 97.2, Arterial Blood HCO3 14.5L, Arterial Blood Oxygen Saturation 95.5, Arterial Blood Base Excess -12.2, Andre Test Positive 04/21/17 14:35: Sodium Level 128L, Potassium Level 5.0, Chloride Level 91L, Carbon Dioxide Level 19L, Anion Gap 18H, Blood Urea Nitrogen 79H, Creatinine 9.8H, Estimat Glomerular Filtration Rate 6.2, Glucose Level 587*H, Calcium Level 9.2 04/21/17 15:18: Uric Acid 5.5, Phosphorus Level 9.2H, Random Vancomycin Level 18.3 04/21/17 19:55: Sodium Level 142#, Potassium Level 3.3L, Chloride Level 100, Carbon Dioxide Level 31, Anion Gap 11, Blood Urea Nitrogen 43H, Creatinine 5.7H, Estimat Glomerular Filtration Rate 11.5, Glucose Level 123#H, Calcium Level 8.8 04/22/17 04:15: Sodium Level 138, Potassium Level 3.7, Chloride Level 99, Carbon Dioxide Level 28, Anion Gap 11, Blood Urea Nitrogen 47H, Creatinine 6.8H, Estimat Glomerular Filtration Rate 9.4, Glucose Level 114H, Calcium Level 9.1, White Blood Count 7.1, Red Blood Count 3.64L, Hemoglobin 9.7L, Hematocrit 30.5L, Mean Corpuscular Volume 84, Mean Corpuscular Hemoglobin 26.7L, Mean Corpuscular Hemoglobin Concent 31.9L, Red Cell Distribution Width 15.7H, Platelet Count 173, Mean Platelet Volume 6.6, Neutrophils (%) (Auto) 73.5, Lymphocytes (%) (Auto) 16.8L, Monocytes (%) (Auto) 7.8, Eosinophils (%) (Auto) 1.1, Basophils (%) (Auto) 0.8, Hemoglobin A1c 8.3H, Uric Acid 3.7, Phosphorus Level 4.1, Magnesium Level 2.2, Total Bilirubin 0.4, Gamma Glutamyl Transpeptidase 13, Aspartate Amino Transf ( AST/SGOT) 16, Alanine Aminotransferase (ALT/SGPT) 15, Alkaline Phosphatase 76, Ammonia 19, C-Reactive Protein, Quantitative 3.4H, Pro-B-Type Natriuretic Peptide > [id number], Total Protein 7.5, Albumin 3.3L, Globulin 4.2, Albumin/ Globulin Ratio 0.8L, Triglycerides Level 52, Cholesterol Level 131, LDL Cholesterol 89, HDL Cholesterol 33L, Cholesterol/HDL Ratio 4.0, Thyroid Stimulating Hormone (TSH) 3.145 Height (Feet): 5 Height (Inches): 11.00 Weight (Pounds): 165 General Appearance: no apparent distress Cardiovascular: regular rhythm Respiratory/Chest: lungs clear Abdomen: soft Extremities: other - left lat plantar collection ANUPAM PUENTES Apr 22, 2017 11:44
--- NOTE | 2017-04-22 13:35 | Wound Care Consultation ---
Wound Assessment Wound Assessment #1: Wound Number: 1 Wound Present on Admission: Yes New Wound: No Status Change of Wound: No Wound Location Body Site Modif: left, right, anterior Wound Location Body Site: toe - 2nd Wound Type: other - callus Payton Test: Does not Payton Percent of Wound [place]/Red: 100 Wound Drainage Amount: None Wound Drainage Odor: None/Absent Tissue Surrounding Wound: Intact Wound General Appearance: Reddened Wound Assessment #2: Wound Number: 2 Wound Present on Admission: Yes New Wound: No Status Change of Wound: No Wound Location Body Site Modif: left, plantar Wound Location Body Site: metatarsal head - 5th Wound Type: abscess Payton Test: Does not Payton Wound Thickness: Full Thickness Wound Length: 3.0 Wound Width: 3.0 Percent of Wound [place]/Red: 95 Percent of Wound Black/Brown: 5 Wound Drainage Amount: None Wound Drainage Odor: None/Absent Tissue Surrounding Wound: Indurated Wound General Appearance: Reddened Wound Assessment #3: Wound Number: 3 Wound Present on Admission: Yes New Wound: No Status Change of Wound: No Wound Location Body Site Modif: right, plantar Wound Location Body Site: metatarsal head - 5th Wound Type: other - callus Payton Test: Does not Payton Wound Drainage Amount: None Wound Drainage Odor: None/Absent Tissue Surrounding Wound: Intact Wound General Appearance: Asymptomatic Wound Comment #1 Left and right anterior 2nd toe with callus formation. #2 Left plantar 5th metatarsal head abscess with back scab in the middle. According to father at bed side Pt was admitted in [facility] to treat the abscess with antibiotic and specimen was take with needle from the site. #3 Right plantar 5th metatarsal head with hard callus formation. skin intact Recommendation -F/u with Dr Boudreaux for podiatry consult -Offload both heels -Heel protector on both heels ' -Remind Pt to shift body every 15 min while in bed to prevent pressure related injuries -Assess and f/u with for any changes OSCAR GONZÁLES RN Apr 22, 2017 13:35
[2017-04-22] MEDS ORDERED: Tubing IV Secondary IV ONE (13:37)
[2017-04-22] MEDS ORDERED: Cefepime HCl 1 GM in D5W 55 ML IVPB SCH (14:00)
[2017-04-22 14:21] LABS: IRON 28 ug/dL (50-175); TOTAL IRON BINDING CAPACITY 130 ug/dL (250-450)
--- NOTE | 2017-04-22 14:28 | Diagnostic Imaging Report ---
Indication: Pain Technique: 3 views left foot Comparison: none Findings: Unusual appearance to the first possible phalanx, with an osseous fragment at the medial head surrounded by a bony defect, both of which are somewhat irregular in appearance. There is some overlying soft tissue swelling. There is mild esophagus. There is some bony sclerosis surrounding the defect. No evidence of acute fracture. No dislocations. There are vascular calcifications there is soft tissue swelling adjacent to the fifth metatarsal head.. Impression: Osseous defect in fragment of the medial head of the first proximal phalanx. There is overlying soft tissue swelling, but bony abnormality does not appear acute. May reflect an old injury. Correlate with clinical findings, consider MRI for further evaluation as clinically indicated. Soft tissue swelling in the region of the left fifth metatarsal head. No plain radiographic findings to suggest acute osteomyelitis. Note, however, limited sensitivity of plain radiographs for such. Consider MRI for better characterization if there is high clinical suspicion
[2017-04-22 14:35] LABS: FERRITIN 348 NG/ML (8-388)
--- NOTE | 2017-04-22 14:35 | Diagnostic Imaging Report ---
Indication: SOB Technique: One view of the chest Comparison: 11/22/2012 Findings: The heart appears enlarged, was normal previously. There is equivocal mild interstitial congestion. No focal airspace consolidation. No effusions. Normal variant azygos lobe and fissure again noted Impression: Mild ovale. Borderline interstitial congestion-correlate with clinical findings
[2017-04-23] VITALS (23 sets, daily range): BP systolic 150–206; BP diastolic 76–104
[2017-04-23] MEDS: Insulin Rate Change 1 Each MISC PRN ×3 (01:58→05:02)
[2017-04-23 05:13] LABS: BASOPHILS % (AUTO) 1.1 % (0.0-2.0); EOSINOPHILS % (AUTO) 2.9 % (0.0-3.0); LYMPHOCYTES % (AUTO) 31.6 % (20.0-45.0); MEAN CORPUSCULAR HEMOGLOBIN 26.9 PG (27.0-31.0); MEAN CORPUSCULAR HGB CONC 31.7 G/DL (32.0-36.0); MEAN CORPUSCULAR VOLUME 85 FL (80-99); MEAN PLATELET VOLUME 7.4 FL (6.5-10.1); MONOCYTES % (AUTO) 6.3 % (1.0-10.0); NEUTROPHILS % (AUTO) 58.2 % (45.0-75.0); PLATELET COUNT 178 K/UL (150-450); RED BLOOD COUNT 3.51 M/UL (4.70-6.10); WHITE BLOOD COUNT 6.2 K/UL (4.8-10.8)
[2017-04-23 05:32] LABS: ALANINE AMINOTRANSFERASE 12 U/L (12-78); ALBUMIN/GLOBULIN RATIO 0.8 (1.0-2.7); ANION GAP 11 mmol/L (5-15); ASPARTATE AMINO TRANSFERASE 12 U/L (15-37); CALCIUM 8.9 MG/DL (8.5-10.1); CARBON DIOXIDE 28 MMOL/L (21-32); CHLORIDE 95 MMOL/L (98-107); CREATININE 8.7 MG/DL (0.55-1.30); GLOMERULAR FILTRATION RATE 7.1 mL/min (>60); MAGNESIUM 2.1 MG/DL (1.8-2.4); POTASSIUM 4.6 MMOL/L (3.5-5.1); SODIUM 134 MMOL/L (136-145)
[2017-04-23] MEDS: Enalaprilat 2.5mg/2ml Inj IV PRN (06:19)
[2017-04-23] MEDS: Renvela 800mg Pkt ORAL SCH ×3 (09:04→18:06)
[2017-04-23] MEDS: Heparin 5000 units/ml inj SUBQ SCH ×2 (09:05→21:27)
--- NOTE | 2017-04-23 09:39 | Infectious Diseases Prog Note ---
Assessment/Plan Assessment/Plan Abx: Vanco 04/21- Zosyn 04/21-04/22 Cefepime 04/22- Assesment: DKA, resolved ALOC/AMS- 2ry to above; resolved -CT head: Negative for acute intracranial bleed or mass effect. Somewhat prominent ventricles and extra-axial CSF spaces, consistent with volume loss, advanced for age. Periventricular deep white matter low-attenuation, appearance typical of chronic ischemic changes but given patient's age possibility of demyelinating disease should be considered.] -CXR: There is equivocal mild interstitial congestion. No focal airspace consolidation. No effusions Afebrile, no leukocytosis Leg 5th metatarsal fluid collection with possible underlying OM- on IV Abx tx -XRay L foot 04/22: Osseous defect in fragment of the medial head of the first proximal phalanx. There is overlying soft tissue swelling, but bony abnormality does not appear acute. May reflect an old injury. Correlate with clinical findings, consider MRI for further evaluation as clinically indicated. Soft tissue swelling in the region of the left fifth metatarsal head. No plain radiographic findings to suggest acute osteomyelitis. Note, however, limited sensitivity of plain radiographs for such. Consider MRI for better characterization if there is high clinical suspicion -04/23: ESR 40, CRP 3.4 -MRI 04/08: L Foot wo: 2.1x 0.7 x2.5 cm fluid collection in plantar aspect of 5th metatarsal head. Cannot exclude abscess. Minimal Bone marrow edema involving 5th metatarsal head. Although no cortical erosive changes noted, an early medullary OM cannot be excluded. -Vanco 500mg and Cefepime 2g after HD on HD days planned for 6 weeks; end date 05/28/17 DM 1 on insulin pump, HTN, ESRD on HD MWF, psychiatric illness Plan: -Continue IV Vancomycin and Cefepime as per his already established abx tx for presumed OM (regimen started at [facility])- until 05/28/2017 -04/22 EDWINA Mckenzie #1 -Agree with Podiatry evaluation- ?I+D -Monitor CBC/BMP, temperatures Thank you for this consultation. Will continue to follow along with you. Discussed with RN. Subjective Allergies: Coded Allergies: GABAPENTIN (Verified Allergy, Unknown, 04/21/17) Dizziness, syncope Subjective afebrile no leukocytosis mental stastus back to baseline Objective Vital Signs Last 24 Hour Vital Signs Date Time Temp Pulse Resp B/P (MAP) Pulse Ox O2 Delivery O2 Flow Rate FiO2 04/23/17 09:04 74 150/104 04/23/17 09:00 73 16 168/80 99 Room Air 04/23/17 08:00 98.9 72 15 150/104 98 Room Air 04/23/17 08:00 77 04/23/17 07:47 71 16 Room Air 21 04/23/17 07:00 68 13 161/83 96 Room Air 04/23/17 06:19 182/87 04/23/17 06:00 70 14 182/87 96 Room Air 04/23/17 05:11 173/96 04/23/17 05:00 70 13 173/96 98 Room Air 04/23/17 04:00 73 04/23/17 04:00 98.0 70 13 174/89 98 Room Air 04/23/17 03:00 76 15 166/87 98 Room Air 04/23/17 02:00 69 13 206/83 96 Room Air 04/23/17 01:04 188/76 04/23/17 01:00 70 12 196/78 96 Room Air 04/23/17 00:00 98.0 70 12 188/76 96 Room Air 04/23/17 00:00 70 04/22/17 23:00 70 12 193/78 96 Room Air 04/22/17 22:00 69 16 181/81 97 Room Air 04/22/17 21:13 191/78 04/22/17 21:00 68 12 191/78 96 Room Air 04/22/17 20:51 67 16 Room Air 04/22/17 20:00 97.9 72 14 169/63 98 Room Air 04/22/17 20:00 73 04/22/17 19:00 73 13 162/63 97 Room Air 04/22/17 18:00 72 20 170/67 98 Room Air 04/22/17 17:07 175/74 04/22/17 17:01 74 19 169/70 98 Room Air 04/22/17 16:00 78 04/22/17 16:00 98.0 80 17 165/98 97 Room Air 04/22/17 15:00 77 19 133/57 98 Room Air 04/22/17 14:00 72 18 137/58 98 Room Air 04/22/17 13:05 175/81 04/22/17 13:00 74 17 160/81 97 Room Air 04/22/17 12:00 73 04/22/17 12:00 98.4 73 16 164/66 97 Room Air 04/22/17 11:00 74 16 142/50 97 Room Air 04/22/17 10:00 72 15 170/66 97 Room Air 04/22/17 09:38 74 147/82 Height (Feet): 5 Height (Inches): 11.00 Weight (Pounds): 170 Microbiology Date/Time Source Procedure Growth Status 04/21/17 13:30 Nasal Nares MRSA Culture - Final NO METHICILLIN RESISTANT STAPH AUREUS... Complete 04/21/17 13:30 Rectum VRE Culture - Final NO VANCOMYCIN RESISTANT ENTEROCOCCUS ... Complete Laboratory Tests Test 04/22/17 13:35 04/23/17 03:50 Iron Level 28 ug/dL (50-175) L Total Iron Binding Capacity 130 ug/dL (250-450) L Percent Iron Saturation 22 % (15-50) Unsaturated Iron Binding 102 ug/dL (112-346) L Ferritin 348 NG/ML (8-388) White Blood Count 6.2 K/UL (4.8-10.8) Red Blood Count 3.51 M/UL (4.70-6.10) L Hemoglobin 9.4 G/DL (14.2-18.0) L Hematocrit 29.8 % (42.0-52.0) L Mean Corpuscular Volume 85 FL (80-99) Mean Corpuscular Hemoglobin 26.9 PG (27.0-31.0) L Mean Corpuscular Hemoglobin Concent 31.7 G/DL (32.0-36.0) L Red Cell Distribution Width 16.0 % (11.6-14.8) H Platelet Count 178 K/UL (150-450) Mean Platelet Volume 7.4 FL (6.5-10.1) Neutrophils (%) (Auto) 58.2 % (45.0-75.0) Lymphocytes (%) (Auto) 31.6 % (20.0-45.0) Monocytes (%) (Auto) 6.3 % (1.0-10.0) Eosinophils (%) (Auto) 2.9 % (0.0-3.0) Basophils (%) (Auto) 1.1 % (0.0-2.0) Erythrocyte Sedimentation Rate 40 MM/HR (0-15) H Sodium Level 134 MMOL/L (136-145) L Potassium Level 4.6 MMOL/L (3.5-5.1) Chloride Level 95 MMOL/L (98-107) L Carbon Dioxide Level 28 MMOL/L (21-32) Anion Gap 11 mmol/L (5-15) Blood Urea Nitrogen 56 mg/dL (7-18) H Creatinine 8.7 MG/DL (0.55-1.30) H Estimat Glomerular Filtration Rate 7.1 mL/min (>60) Glucose Level 103 MG/DL (74-106) Calcium Level 8.9 MG/DL (8.5-10.1) Phosphorus Level 7.0 MG/DL (2.5-4.9) H Magnesium Level 2.1 MG/DL (1.8-2.4) Total Bilirubin 0.4 MG/DL (0.2-1.0) Aspartate Amino Transf (AST/SGOT) 12 U/L (15-37) L Alanine Aminotransferase (ALT/SGPT) 12 U/L (12-78) Alkaline Phosphatase 70 U/L (46-116) Total Protein 7.0 G/DL (6.4-8.2) Albumin 3.0 G/DL (3.4-5.0) L Globulin 4.0 g/dL Albumin/Globulin Ratio 0.8 (1.0-2.7) L Current Medications Medications (Trade) Dose Ordered Sig/Aura Route PRN Reason Start Time Stop Time Status Last Admin Dose Admin Acetaminophen (Tylenol) 650 mg Q4H PRN ORAL fever 04/21/17 14:00 05/21/17 13:59 Albuterol/ Ipratropium (Albuterol/ Ipratropium) 3 ml Q6H PRN HHN dyspnea 04/21/17 14:00 04/26/17 13:59 Amlodipine Besylate (Norvasc) 10 mg DAILY ORAL 04/22/17 09:00 05/22/17 08:59 04/23/17 09:04 Cefepime HCl 1 gm/ Dextrose 55 ml @ 110 mls/hr Q24H IVPB 04/22/17 14:00 04/29/17 13:59 04/22/17 14:41 Clonidine HCl (Catapres) 0.1 mg Q4H PRN ORAL SBP > 160 04/21/17 14:00 05/21/17 13:59 04/23/17 05:11 Dextrose (Dextrose 50%) PRN PRN IV HYPOGLYCEMIA 04/21/17 20:00 05/21/17 19:59 Enalaprilat (Vasotec) 2.5 mg EVERY 4 HOURS PRN IV For High Blood Pressure 04/23/17 06:15 05/23/17 06:14 04/23/17 06:19 Heparin Sodium (Porcine) (Heparin 5000 units/ml) 5,000 units EVERY 12 HOURS SUBQ 04/21/17 21:00 05/21/17 20:59 04/23/17 09:05 Insulin Human Regular (NovoLIN R) 5 units PRN PRN IV BS 200-299 04/21/17 20:00 05/21/17 19:59 04/22/17 14:15 Insulin Human Regular (NovoLIN R) 10 units PRN PRN IV BS=>300 04/21/17 20:00 05/21/17 19:59 Insulin Human Regular 100 units/ Sodium Chloride 101 ml @ 0 mls/hr Q24H IV 04/21/17 20:15 05/21/17 20:14 04/22/17 23:57 Lorazepam (Ativan 2mg/ml 1ml) 2 mg EVERY 2 HOURS PRN IV For Anxiety 04/21/17 16:30 04/28/17 16:29 04/22/17 01:27 Miscellaneous Medication (Insulin Rate Change) 1 ea PRN PRN MISC Hyperglycemia 04/21/17 20:00 05/21/17 19:59 04/23/17 05:02 Morphine Sulfate (Morphine Sulfate) 1 mg Q4H PRN IVP For Pain Scale 4-10 04/21/17 14:00 04/28/17 13:59 04/21/17 16:07 Ondansetron HCl (Zofran) 4 mg Q6H PRN IVP Nausea & Vomiting 04/21/17 14:00 05/21/17 13:59 Pantoprazole (Protonix) 40 mg DAILY ORAL 04/22/17 09:00 05/22/17 08:59 04/23/17 09:04 Polyethylene Glycol (Miralax) 17 gm HSPRN PRN ORAL Constipation 1st line agent 04/21/17 14:00 05/21/17 13:59 Sevelamer Carbonate (Renvela) 800 mg THREE TIMES A DAY ORAL 04/21/17 18:00 05/21/17 17:59 04/23/17 09:04 Vancomycin HCl (Vanco rx to dose) 1 ea DAILY PRN MISC . 04/21/17 16:45 05/21/17 16:44 Zolpidem Tartrate (Ambien) 5 mg HSPRN PRN ORAL Insomnia 04/21/17 14:00 04/28/17 13:59 Livier Woods M.D. Apr 23, 2017 09:39
--- NOTE | 2017-04-23 12:49 | Pulmonolgy Critical Care Note ---
Critical Care - Asmt/Plan Problems: (1) DKA (diabetic ketoacidoses) (2) Altered level of consciousness (3) Poorly controlled diabetes mellitus (4) ESRD (end stage renal disease) on dialysis Respiratory: monitor respiratory rate, adjust FIO2, CXR Cardiac: d/c vehicle monitor technician Renal: F/U I&O, keep IV fluid Infectious Disease: check cultures Gastrointestinal: continue feedings/current rate Endocrine: monitor blood sugar, check HgA1C, d/c insulin drip, continue sliding scale insulin Affect: PRN ativan Disposition: transfer to - med/surg Critical Care - Objective Last 24 Hour Vital Signs Date Time Temp Pulse Resp B/P (MAP) Pulse Ox O2 Delivery O2 Flow Rate FiO2 04/23/17 12:00 98.2 69 18 161/90 98 Room Air 04/23/17 12:00 70 04/23/17 11:00 70 16 154/88 95 Room Air 04/23/17 10:00 69 17 158/82 99 Room Air 04/23/17 09:04 74 150/104 04/23/17 09:00 73 16 168/80 99 Room Air 04/23/17 08:00 98.9 72 15 150/104 98 Room Air 04/23/17 08:00 77 04/23/17 07:47 71 16 Room Air 21 04/23/17 07:00 68 13 161/83 96 Room Air 04/23/17 06:19 182/87 04/23/17 06:00 70 14 182/87 96 Room Air 04/23/17 05:11 173/96 04/23/17 05:00 70 13 173/96 98 Room Air 04/23/17 04:00 73 04/23/17 04:00 98.0 70 13 174/89 98 Room Air 04/23/17 03:00 76 15 166/87 98 Room Air 04/23/17 02:00 69 13 206/83 96 Room Air 04/23/17 01:04 188/76 04/23/17 01:00 70 12 196/78 96 Room Air 04/23/17 00:00 98.0 70 12 188/76 96 Room Air 04/23/17 00:00 70 04/22/17 23:00 70 12 193/78 96 Room Air 04/22/17 22:00 69 16 181/81 97 Room Air 04/22/17 21:13 191/78 04/22/17 21:00 68 12 191/78 96 Room Air 04/22/17 20:51 67 16 Room Air 21 04/22/17 20:00 97.9 72 14 169/63 98 Room Air 04/22/17 20:00 73 04/22/17 19:00 73 13 162/63 97 Room Air 04/22/17 18:00 72 20 170/67 98 Room Air 04/22/17 17:07 175/74 04/22/17 17:01 74 19 169/70 98 Room Air 04/22/17 16:00 78 04/22/17 16:00 98.0 80 17 165/98 97 Room Air 04/22/17 15:00 77 19 133/57 98 Room Air 04/22/17 14:00 72 18 137/58 98 Room Air 04/22/17 13:05 175/81 04/22/17 13:00 74 17 160/81 97 Room Air Status: awake Condition: critical HEENT: atraumatic Neck: full ROM Lungs: clear Heart: HR/BP stable, HR/BP unstable Abdomen: soft, non-tender, active bowel sounds, feeding tube Extremities: no C/C/E Decubiti: location Micro: Microbiology Date/Time Source Procedure Growth Status 04/21/17 13:30 Nasal Nares MRSA Culture - Final NO METHICILLIN RESISTANT STAPH AUREUS... Complete 04/21/17 13:30 Rectum VRE Culture - Final NO VANCOMYCIN RESISTANT ENTEROCOCCUS ... Complete Accucheck: 131 Critical Care - Subjective ROS Limited/Unobtainable: No Interval Events: ate well, no new complains Condition: improving EKG Rhythm: Sinus Rhythm FI02: 21 I&O: Intake and Output 04/23/17 04/24/17 19:00 07:00 Intake Total 43.7 ml Balance 43.7 ml Intake Oral 40 ml IV Total 3.7 ml Labs: Laboratory Tests Test 04/22/17 13:35 04/23/17 03:50 Iron Level 28 ug/dL (50-175) L Total Iron Binding Capacity 130 ug/dL (250-450) L Percent Iron Saturation 22 % (15-50) Unsaturated Iron Binding 102 ug/dL (112-346) L Ferritin 348 NG/ML (8-388) White Blood Count 6.2 K/UL (4.8-10.8) Red Blood Count 3.51 M/UL (4.70-6.10) L Hemoglobin 9.4 G/DL (14.2-18.0) L Hematocrit 29.8 % (42.0-52.0) L Mean Corpuscular Volume 85 FL (80-99) Mean Corpuscular Hemoglobin 26.9 PG (27.0-31.0) L Mean Corpuscular Hemoglobin Concent 31.7 G/DL (32.0-36.0) L Red Cell Distribution Width 16.0 % (11.6-14.8) H Platelet Count 178 K/UL (150-450) Mean Platelet Volume 7.4 FL (6.5-10.1) Neutrophils (%) (Auto) 58.2 % (45.0-75.0) Lymphocytes (%) (Auto) 31.6 % (20.0-45.0) Monocytes (%) (Auto) 6.3 % (1.0-10.0) Eosinophils (%) (Auto) 2.9 % (0.0-3.0) Basophils (%) (Auto) 1.1 % (0.0-2.0) Erythrocyte Sedimentation Rate 40 MM/HR (0-15) H Sodium Level 134 MMOL/L (136-145) L Potassium Level 4.6 MMOL/L (3.5-5.1) Chloride Level 95 MMOL/L (98-107) L Carbon Dioxide Level 28 MMOL/L (21-32) Anion Gap 11 mmol/L (5-15) Blood Urea Nitrogen 56 mg/dL (7-18) H Creatinine 8.7 MG/DL (0.55-1.30) H Estimat Glomerular Filtration Rate 7.1 mL/min (>60) Glucose Level 103 MG/DL (74-106) Calcium Level 8.9 MG/DL (8.5-10.1) Phosphorus Level 7.0 MG/DL (2.5-4.9) H Magnesium Level 2.1 MG/DL (1.8-2.4) Total Bilirubin 0.4 MG/DL (0.2-1.0) Aspartate Amino Transf (AST/SGOT) 12 U/L (15-37) L Alanine Aminotransferase (ALT/SGPT) 12 U/L (12-78) Alkaline Phosphatase 70 U/L (46-116) Total Protein 7.0 G/DL (6.4-8.2) Albumin 3.0 G/DL (3.4-5.0) L Globulin 4.0 g/dL Albumin/Globulin Ratio 0.8 (1.0-2.7) L INEZ MEHTA Apr 23, 2017 12:49
--- NOTE | 2017-04-23 15:38 | Internal Med Progress Note ---
Subjective Physician Name Nickolas Mills Attending Physician Mellissa Mejia Current Medications Medications (Trade) Dose Ordered Sig/Aura Route PRN Reason Start Time Stop Time Status Last Admin Dose Admin Acetaminophen (Tylenol) 650 mg Q4H PRN ORAL fever 04/21/17 14:00 05/21/17 13:59 Albuterol/ Ipratropium (Albuterol/ Ipratropium) 3 ml Q6H PRN HHN dyspnea 04/21/17 14:00 04/26/17 13:59 Amlodipine Besylate (Norvasc) 10 mg DAILY ORAL 04/22/17 09:00 05/22/17 08:59 04/23/17 09:04 Cefepime HCl 0.5 gm/Sodium Chloride 55 ml @ 110 mls/hr Q24H IVPB 04/23/17 18:00 04/30/17 17:59 Clonidine HCl (Catapres) 0.1 mg Q4H PRN ORAL SBP > 160 04/21/17 14:00 05/21/17 13:59 04/23/17 05:11 Dextrose (Dextrose 50%) PRN PRN IV HYPOGLYCEMIA 04/21/17 20:00 05/21/17 19:59 Enalaprilat (Vasotec) 2.5 mg EVERY 4 HOURS PRN IV For High Blood Pressure 04/23/17 06:15 05/23/17 06:14 04/23/17 06:19 Heparin Sodium (Porcine) (Heparin 5000 units/ml) 5,000 units EVERY 12 HOURS SUBQ 04/21/17 21:00 05/21/17 20:59 04/23/17 09:05 Insulin Human Regular (NovoLIN R) 5 units PRN PRN IV BS 200-299 04/21/17 20:00 05/21/17 19:59 04/22/17 14:15 Insulin Human Regular (NovoLIN R) 10 units PRN PRN IV BS=>300 04/21/17 20:00 05/21/17 19:59 Insulin Human Regular 100 units/ Sodium Chloride 101 ml @ 0 mls/hr Q24H IV 04/21/17 20:15 05/21/17 20:14 04/22/17 23:57 Lorazepam (Ativan 2mg/ml 1ml) 2 mg EVERY 2 HOURS PRN IV For Anxiety 04/21/17 16:30 04/28/17 16:29 04/22/17 01:27 Miscellaneous Medication (Insulin Rate Change) 1 ea PRN PRN MISC Hyperglycemia 04/21/17 20:00 05/21/17 19:59 04/23/17 05:02 Morphine Sulfate (Morphine Sulfate) 1 mg Q4H PRN IVP For Pain Scale 4-10 04/21/17 14:00 04/28/17 13:59 04/21/17 16:07 Ondansetron HCl (Zofran) 4 mg Q6H PRN IVP Nausea & Vomiting 04/21/17 14:00 05/21/17 13:59 Pantoprazole (Protonix) 40 mg DAILY ORAL 04/22/17 09:00 05/22/17 08:59 04/23/17 09:04 Polyethylene Glycol (Miralax) 17 gm HSPRN PRN ORAL Constipation 1st line agent 04/21/17 14:00 05/21/17 13:59 Sevelamer Carbonate (Renvela) 800 mg THREE TIMES A DAY ORAL 04/21/17 18:00 05/21/17 17:59 04/23/17 13:09 Vancomycin HCl (Vanco rx to dose) 1 ea DAILY PRN MISC . 04/21/17 16:45 05/21/17 16:44 Zolpidem Tartrate (Ambien) 5 mg HSPRN PRN ORAL Insomnia 04/21/17 14:00 04/28/17 13:59 Allergies: Coded Allergies: GABAPENTIN (Verified Allergy, Unknown, 04/21/17) Dizziness, syncope Subjective awake, responsive, father at bedside, in ICU, confused and forgetful, NAD Objective Last Vital Signs Date Time Temp Pulse Resp B/P (MAP) Pulse Ox O2 Delivery O2 Flow Rate FiO2 04/23/17 15:00 72 12 169/98 100 Room Air 04/23/17 12:00 98.2 04/23/17 07:47 21 Laboratory Tests Test 04/23/17 03:50 White Blood Count 6.2 K/UL (4.8-10.8) Red Blood Count 3.51 M/UL (4.70-6.10) L Hemoglobin 9.4 G/DL (14.2-18.0) L Hematocrit 29.8 % (42.0-52.0) L Mean Corpuscular Volume 85 FL (80-99) Mean Corpuscular Hemoglobin 26.9 PG (27.0-31.0) L Mean Corpuscular Hemoglobin Concent 31.7 G/DL (32.0-36.0) L Red Cell Distribution Width 16.0 % (11.6-14.8) H Platelet Count 178 K/UL (150-450) Mean Platelet Volume 7.4 FL (6.5-10.1) Neutrophils (%) (Auto) 58.2 % (45.0-75.0) Lymphocytes (%) (Auto) 31.6 % (20.0-45.0) Monocytes (%) (Auto) 6.3 % (1.0-10.0) Eosinophils (%) (Auto) 2.9 % (0.0-3.0) Basophils (%) (Auto) 1.1 % (0.0-2.0) Erythrocyte Sedimentation Rate 40 MM/HR (0-15) H Sodium Level 134 MMOL/L (136-145) L Potassium Level 4.6 MMOL/L (3.5-5.1) Chloride Level 95 MMOL/L (98-107) L Carbon Dioxide Level 28 MMOL/L (21-32) Anion Gap 11 mmol/L (5-15) Blood Urea Nitrogen 56 mg/dL (7-18) H Creatinine 8.7 MG/DL (0.55-1.30) H Estimat Glomerular Filtration Rate 7.1 mL/min (>60) Glucose Level 103 MG/DL (74-106) Calcium Level 8.9 MG/DL (8.5-10.1) Phosphorus Level 7.0 MG/DL (2.5-4.9) H Magnesium Level 2.1 MG/DL (1.8-2.4) Total Bilirubin 0.4 MG/DL (0.2-1.0) Aspartate Amino Transf (AST/SGOT) 12 U/L (15-37) L Alanine Aminotransferase (ALT/SGPT) 12 U/L (12-78) Alkaline Phosphatase 70 U/L (46-116) Total Protein 7.0 G/DL (6.4-8.2) Albumin 3.0 G/DL (3.4-5.0) L Globulin 4.0 g/dL Albumin/Globulin Ratio 0.8 (1.0-2.7) L Microbiology Date/Time Source Procedure Growth Status 04/21/17 13:30 Nasal Nares MRSA Culture - Final NO METHICILLIN RESISTANT STAPH AUREUS... Complete 04/21/17 13:30 Rectum VRE Culture - Final NO VANCOMYCIN RESISTANT ENTEROCOCCUS ... Complete Intake and Output 04/23/17 04/24/17 19:00 07:00 Intake Total 176.0 ml Balance 176.0 ml Intake Oral 170 ml IV Total 6.0 ml Objective General: No acute distress, awake and alert HEENT: NCAT, sclera anicteric, PERRL, EOMI. Neck: Supple, no significant jugular venous distention, Lungs: Good inspiratory effort, clear to auscultation bilaterally, no Wheeze or Rales. Heart: Regular rate and rhythm, normal S1/S2, no murmurs Abdomen: soft, nontender, nondistended. Normoactive bowel sounds. / Rectal: Refused and deferred. Extremities: No Cyanosis , clubbing or edema. Left UE AVF, Left foot 5th metatarsal ulceration. Neuro: A&O x 3, Able to move all extremities Skin: warm, no rashes or lesions Psych: Normal mood and affect Assessment/Plan Assessment/Plan DKA (diabetic ketoacidoses) Altered level of consciousness most likely due to toxic Metabolic encephalopathy Poorly controlled diabetes mellitus type 1 ESRD (end stage renal disease) on dialysis Leg 5th metatarsal fluid collection with underlining osteomyelitis Anemia of CKD Plan: start on Insulin pump discuss with father at bedside transfer to medical floor Stat MRI of brain R/O CVA Abx: Vanco and Cefepime IV F/U with Dr. Zapien Recommendations Nickolas Mills MD Apr 23, 2017 15:38
--- NOTE | 2017-04-23 16:39 | Nephrology Progress Note ---
Assessment/Plan Problem List: (1) ESRD (end stage renal disease) on dialysis (2) Hyperkalemia, diminished renal excretion (3) Hyperglycemia Assessment ESRD Type I DM presents with: Encephalopathy improved HyperKalemia improved Hyperglycemia improved Has a collection on his left lat plantar foot ? infected Anemia Plan Plan: suggest MRI , r/o stroke for decrease memory HD 04/21 and 04/23 check vanco level: 18 per Endo keep BP and BS in check Subjective ROS Limited/Unobtainable: No Constitutional: Reports: other - poor memory Objective Objective Last 24 Hour Vital Signs Date Time Temp Pulse Resp B/P (MAP) Pulse Ox O2 Delivery O2 Flow Rate FiO2 04/23/17 15:00 72 12 169/98 100 Room Air 04/23/17 14:00 76 20 158/84 96 Room Air 04/23/17 13:00 76 22 163/93 96 Room Air 04/23/17 12:00 98.2 69 18 161/90 98 Room Air 04/23/17 12:00 70 04/23/17 11:00 70 16 154/88 95 Room Air 04/23/17 10:00 69 17 158/82 99 Room Air 04/23/17 09:04 74 150/104 04/23/17 09:00 73 16 168/80 99 Room Air 04/23/17 08:00 98.9 72 15 150/104 98 Room Air 04/23/17 08:00 77 04/23/17 07:47 71 16 Room Air 21 04/23/17 07:00 68 13 161/83 96 Room Air 04/23/17 06:19 182/87 04/23/17 06:00 70 14 182/87 96 Room Air 04/23/17 05:11 173/96 04/23/17 05:00 70 13 173/96 98 Room Air 04/23/17 04:00 73 04/23/17 04:00 98.0 70 13 174/89 98 Room Air 04/23/17 03:00 76 15 166/87 98 Room Air 04/23/17 02:00 69 13 206/83 96 Room Air 04/23/17 01:04 188/76 04/23/17 01:00 70 12 196/78 96 Room Air 04/23/17 00:00 98.0 70 12 188/76 96 Room Air 12/1/17 00:00 70 04/22/17 23:00 70 12 193/78 96 Room Air 04/22/17 22:00 69 16 181/81 97 Room Air 04/22/17 21:13 191/78 04/22/17 21:00 68 12 19178 96 Room Air 04/22/17 20:51 67 16 Room Air 21 04/22/17 20:00 97.9 72 14 169/63 98 Room Air 04/22/17 20:00 73 04/22/17 19:00 73 13 162/63 97 Room Air 04/22/17 18:00 72 20 170/67 98 Room Air 04/22/17 17:07 175/74 04/22/17 17:01 74 19 169/70 98 Room Air Intake and Output 04/23/17 04/24/17 19:00 07:00 Intake Total 177.0 ml Balance 177.0 ml Intake Oral 170 ml IV Total 7.0 ml Laboratory Tests 04/23/17 03:50: White Blood Count 6.2, Red Blood Count 3.51L, Hemoglobin 9.4L, Hematocrit 29.8L , Mean Corpuscular Volume 85, Mean Corpuscular Hemoglobin 26.9L, Mean Corpuscular Hemoglobin Concent 31.7L, Red Cell Distribution Width 16.0H, Platelet Count 178, Mean Platelet Volume 7.4, Neutrophils (%) (Auto) 58.2, Lymphocytes (%) (Auto) 31.6, Monocytes (%) (Auto) 6.3, Eosinophils (%) (Auto) 2.9, Basophils (%) (Auto) 1.1, Erythrocyte Sedimentation Rate 40H, Sodium Level 134L, Potassium Level 4.6, Chloride Level 95L, Carbon Dioxide Level 28, Anion Gap 11, Blood Urea Nitrogen 56H, Creatinine 8.7H, Estimat Glomerular Filtration Rate 7.1, Glucose Level 103, Calcium Level 8.9, Phosphorus Level 7.0H, Magnesium Level 2.1, Total Bilirubin 0.4, Aspartate Amino Transf (AST/SGOT) 12L , Alanine Aminotransferase (ALT/SGPT) 12, Alkaline Phosphatase 70, Total Protein 7.0, Albumin 3.0L, Globulin 4.0, Albumin/Globulin Ratio 0.8L Height (Feet): 5 Height (Inches): 11.00 Weight (Pounds): 170 General Appearance: no apparent distress Respiratory/Chest: lungs clear Abdomen: soft ANUPAM PUENTES Apr 23, 2017 16:39
--- NOTE | 2017-04-23 17:28 | Diagnostic Imaging Report ---
Indication: Headaches altered mental status, dizziness Technique: sagittal T1 fast spin echo, axial T1 FLAIR, axial T2 FLAIR, axial T2 FS PROPELLER, axial T2* GRE, axial diffusion weighted images. ADC and exponential ADC maps generated Comparison: Reference made to brain CT 04/21/2017 Findings: No abnormal areas of restricted diffusion to suggest acute infarction. No acute hemorrhage or edema. No mass effect nor midline shift. Prominent, for age, ventricles and extra axial CSF spaces. Only minimal periventricular T2 deep white matter abnormality, predominantly in the right frontal and bilateral occipital deep white matter. Visualized orbits and sinuses are unremarkable. There is a small focus of left posterior temporal cortical hyperintensity on the T2 FLAIR images, not seen on the other sequences, could represent a tiny old cortical infarct Vascular flow-voids are preserved Impression: Negative for acute intracranial bleed, mass effect, or infarct Prominent ventricles and extra-axial CSF spaces, consistent with your volume loss, advanced for patient's age. Correlate with clinical history Possible old tiny left posterior temporal cortical infarct. Minimal periventricular deep white matter T2 hyperintensities, consistent with chronic ischemic changes.
[2017-04-23] MEDS ORDERED: Cefepime HCl 0.5 GM in NS 55 ML IVPB SCH (18:00)
--- NOTE | 2017-04-23 18:30 | Consultation ---
DATE OF CONSULTATION: 04/23/2017 ENDOCRINOLOGY CONSULTATION REFERRING PHYSICIAN: Nickolas Mills M.D. REASON FOR CONSULTATION: Diabetic ketoacidosis. HISTORY OF PRESENT ILLNESS: The patient is a 31-year-old male with longstanding history of type 1 diabetes, well known to me and I will follow him as an outpatient for type 1 diabetes management. He is managed with insulin pump therapy and continues glucose monitor. The patient had a recent stay to the hospital at [facility] with a right foot infection, early osteomyelitis and he was on treatment with long-term intravenous antibiotics. He was discharged on Wednesday and Wednesday night apparently he went to a shower and after that he does not remember what happened right now. He apparently forgot to connect his pump. The paramedics came to check him the next day and found him down and brought him to the emergency room. He was in ketoacidosis. He was admitted to the ICU, treated with insulin intravenous and mental status gradually improved. Currently, his anion gap is closed and his mental status has improved. PAST MEDICAL HISTORY: 1. Type 1 diabetes. 2. End-stage disease on hemodialysis. 3. Neuropathy. 4. Right foot osteomyelitis. PAST SURGICAL HISTORY: Dialysis access placement. FAMILY HISTORY: Noncontributory. SOCIAL HISTORY: No smoking, alcohol, or drug use. REVIEW OF SYSTEMS: As per history of present illness. LABORATORY AND DIAGNOSTIC DATA: Sodium 134, potassium 4.6, chloride 95, bicarbonate 28, BUN 56, creatinine 8.7, and blood glucose of 103. Phosphorus of 7. PHYSICAL EXAMINATION: GENERAL: He is awake and alert. VITAL SIGNS: Blood pressure is 152/84, temperature of 98 degrees, respiratory rate of 20, and pulse rate of 76. HEENT: Pupils are equal and reactive to light and accommodation. Sclerae are anicteric. NECK: No JVD. No thyromegaly. No bruits. LUNGS: Clear. HEART: Regular rate and rhythm. ABDOMEN: Positive bowel sounds. Soft. EXTREMITIES: No clubbing, cyanosis, or edema. DIAGNOSES: 1. Diabetic ketoacidosis, resolved. 2. End-stage renal disease, on hemodialysis. 3. Hypertension. 4. Right foot osteomyelitis. PLAN: 1. Start insulin drip. 2. Resume insulin pump therapy. 3. Blood glucose monitoring before meals and after meals. 4. The patient will administer his own insulin. 5. Okay to transfer out to Medical/Surgical from ICU. Hopefully, discharge home tomorrow. Skyler Zapien M.D. DR: CASS JOB#: [id number] CC:
[2017-04-23] MEDS ORDERED: Vancomycin 500 MG in NS 110 ML IVPB ONE (21:00)
[2017-04-24] VITALS (24 sets, daily range): BP systolic 159–190; BP diastolic 80–115
[2017-04-24 07:10] LABS: BASOPHILS % (AUTO) 1.4 % (0.0-2.0); EOSINOPHILS % (AUTO) 3.2 % (0.0-3.0); LYMPHOCYTES % (AUTO) 28.9 % (20.0-45.0); MEAN CORPUSCULAR HEMOGLOBIN 26.3 PG (27.0-31.0); MEAN CORPUSCULAR HGB CONC 31.3 G/DL (32.0-36.0); MEAN CORPUSCULAR VOLUME 84 FL (80-99); MEAN PLATELET VOLUME 7.5 FL (6.5-10.1); NEUTROPHILS % (AUTO) 58.5 % (45.0-75.0); PLATELET COUNT 196 K/UL (150-450); RED CELL DISTRIBUTION WIDTH 15.5 % (11.6-14.8); WHITE BLOOD COUNT 4.1 K/UL (4.8-10.8)
[2017-04-24 07:29] LABS: ALANINE AMINOTRANSFERASE 16 U/L (12-78); ALBUMIN/GLOBULIN RATIO 0.8 (1.0-2.7); ANION GAP 9 mmol/L (5-15); ASPARTATE AMINO TRANSFERASE 16 U/L (15-37); CALCIUM 8.9 MG/DL (8.5-10.1); CARBON DIOXIDE 31 MMOL/L (21-32); CHLORIDE 96 MMOL/L (98-107); CREATININE 7.3 MG/DL (0.55-1.30); GLOMERULAR FILTRATION RATE 8.7 mL/min (>60); PHOSPHORUS 5.4 MG/DL (2.5-4.9); POTASSIUM 3.5 MMOL/L (3.5-5.1); SODIUM 136 MMOL/L (136-145); TOTAL PROTEIN 7.1 G/DL (6.4-8.2)
--- NOTE | 2017-04-24 08:05 | Pulmonolgy Critical Care Note ---
Critical Care - Asmt/Plan Assessment/Plan: ASSESSMENT DKA-resolved ESRD, on HD acute toxic metabolic encephalopathy hyperkalemia due to decreased renal excretion Left 5 th metatarsal fluid collection with ? OM Anemia of CKD HTN PLAN OF CARE ICU on insulin gtt, anion gap closed, but patient unable to resume his own insulin pump due to AMS MRI brain no acute IC pathology, possible old tiny infarct no fevers, no GOMEZ to suggest meningitis not producing any urine to obtain urine tox screen hold all mind altering medications neuro eval Abx for presumptive OM ID follows podiatry eval appreciated ( per MRI done in [place] - no evidence of OM) further abx management as epr ID recommendations Nephro follows, HD as per nephro, monitor renal parameters, lytes anemia w/up c/w anemia of chronic disease BP management with current regimen and optimize as needed O2 HHN prn DVT, GI prophylaxis pain management bowel regimen case discussed and evaluated by supervising physician Critical Care - Objective Last 24 Hour Vital Signs Date Time Temp Pulse Resp B/P (MAP) Pulse Ox O2 Delivery O2 Flow Rate FiO2 04/24/17 07:36 83 20 Room Air 21 04/24/17 07:00 80 19 159/89 100 Room Air 04/24/17 06:06 Room Air 21 04/24/17 06:00 80 16 159/102 98 Room Air 04/24/17 05:00 79 16 167/85 98 Room Air 04/24/17 05:00 79 16 167/85 98 Room Air 04/24/17 04:30 97.7 82 16 190/98 Room Air 04/24/17 04:30 Room Air 04/24/17 04:00 81 04/24/17 04:00 97.7 81 16 171/89 98 Room Air 04/24/17 03:00 82 15 180/94 97 Room Air 04/24/17 02:00 78 19 178/108 97 Room Air 04/24/17 01:30 Room Air 04/24/17 01:30 97.0 76 12 172/86 Room Air 04/24/17 01:00 76 20 172/86 98 Room Air 04/24/17 00:00 96.8 75 20 175/93 98 Room Air 04/24/17 00:00 75 04/23/17 23:00 75 23 180/93 100 Room Air 04/23/17 22:00 76 13 193/104 100 Room Air 04/23/17 21:00 98.0 76 13 193/104 100 Room Air 04/23/17 20:11 73 04/23/17 20:00 77 04/23/17 20:00 98.0 73 8 178/100 99 Room Air 04/23/17 19:52 74 15 Room Air 04/23/17 19:00 70 16 150/92 97 Room Air 04/23/17 19:00 74 12 174/92 100 Room Air 04/23/17 18:00 98.4 72 15 154/96 97 Room Air 04/23/17 17:00 71 10 164/103 97 Room Air 04/23/17 16:00 77 04/23/17 15:00 72 12 169/98 100 Room Air 04/23/17 14:00 76 20 158/84 96 Room Air 04/23/17 13:00 76 22 163/93 96 Room Air 04/23/17 12:00 98.2 69 18 161/90 98 Room Air 04/23/17 12:00 70 04/23/17 11:00 70 16 154/88 95 Room Air 04/23/17 10:00 69 17 158/82 99 Room Air 04/23/17 09:04 74 150/104 04/23/17 09:00 73 16 168/80 99 Room Air Status: awake, other - alert, responsive, confused, aguilar not rememeber certain things Condition: critical HEENT: atraumatic, normocephalic Neck: full ROM Lungs: clear Heart: HR/BP stable Abdomen: soft, non-tender, active bowel sounds Extremities: no C/C/E Decubiti: other - Left plantar 5th metatarsal head abscess with back scab in the middle. Objective: Micro: Microbiology Date/Time Source Procedure Growth Status 04/21/17 13:30 Nasal Nares MRSA Culture - Final NO METHICILLIN RESISTANT STAPH AUREUS... Complete 04/21/17 13:30 Rectum VRE Culture - Final NO VANCOMYCIN RESISTANT ENTEROCOCCUS ... Complete Accucheck: 149 Critical Care - Subjective ROS Limited/Unobtainable: Yes Interval Events: anion gap closed patient remains confused and unable to use his own insulin pump, therefore remains on insulin gtt in ICU afebrile, no leukocytosis patient does not remember things and admits himself of being confused MRI brain no evidence of acute IC pathology but probably tiny old CVA Condition: improving FI02: 21 Sputum Amount: None Drips: insluin tt at 1.2 u/hr CXR: CXR 04/23 - Borderline interstitial congestion Chilo (Jenna Steel NP Apr 24, 2017 08:05
[2017-04-24] MEDS: Renvela 800mg Pkt ORAL SCH ×3 (09:01→17:52)
[2017-04-24] MEDS: Heparin 5000 units/ml inj SUBQ SCH ×2 (09:03→21:18)
--- NOTE | 2017-04-24 09:11 | Nephrology Progress Note ---
Assessment/Plan Problem List: (1) ESRD (end stage renal disease) on dialysis (2) Hyperkalemia, diminished renal excretion (3) Hyperglycemia Assessment ESRD Type I DM presents with: Encephalopathy improved HyperKalemia improved Hyperglycemia improved Has a collection on his left lat plantar foot ? infected Anemia Plan Plan: add zestril for BP suggest MRI , r/o stroke for decrease memory HD 04/21 and 04/23 next 04/26 check vanco level: 18 per Endo keep BP and BS in check Subjective ROS Limited/Unobtainable: No Objective Objective Last 24 Hour Vital Signs Date Time Temp Pulse Resp B/P (MAP) Pulse Ox O2 Delivery O2 Flow Rate FiO2 04/24/17 09:00 82 179/97 04/24/17 08:00 82 04/24/17 08:00 97.9 80 21 179/97 97 Room Air 04/24/17 07:36 83 20 Room Air 04/24/17 07:00 80 19 159/89 100 Room Air 04/24/17 06:06 Room Air 04/24/17 06:00 80 16 159/102 98 Room Air 04/24/17 05:00 79 16 167/85 98 Room Air 04/24/17 05:00 79 16 167/85 98 Room Air 04/24/17 04:30 97.7 82 16 190/98 Room Air 04/24/17 04:30 Room Air 04/24/17 04:00 81 04/24/17 04:00 97.7 81 16 171/89 98 Room Air 04/24/17 03:00 82 15 180/94 97 Room Air 04/24/17 02:00 78 19 178/108 97 Room Air 04/24/17 01:30 Room Air 04/24/17 01:30 97.0 76 12 172/86 Room Air 04/24/17 01:00 76 20 172/86 98 Room Air 04/24/17 00:00 96.8 75 20 175/93 98 Room Air 04/24/17 00:00 75 04/23/17 23:00 75 23 180/93 100 Room Air 04/23/17 22:00 76 13 193/104 100 Room Air 04/23/17 21:00 98.0 76 13 193/104 100 Room Air 04/23/17 20:11 73 04/23/17 20:00 77 04/23/17 20:00 98.0 73 8 178/100 99 Room Air 04/23/17 19:52 74 15 Room Air 04/23/17 19:00 70 16 150/92 97 Room Air 04/23/17 19:00 74 12 174/92 100 Room Air 04/23/17 18:00 98.4 72 15 154/96 97 Room Air 04/23/17 17:00 71 10 164/103 97 Room Air 04/23/17 16:00 77 04/23/17 15:00 72 12 169/98 100 Room Air 04/23/17 14:00 76 20 158/84 96 Room Air 04/23/17 13:00 76 22 163/93 96 Room Air 04/23/17 12:00 98.2 69 18 161/90 98 Room Air 04/23/17 12:00 70 04/23/17 11:00 70 16 154/88 95 Room Air 04/23/17 10:00 69 17 158/82 99 Room Air Intake and Output 04/24/17 04/25/17 19:00 07:00 Intake Total 50 ml Balance 50 ml Intake Oral 50 ml Laboratory Tests 04/23/17 18:15: Random Vancomycin Level 16.7 04/24/17 06:10: White Blood Count 4.1L, Red Blood Count 3.50L, Hemoglobin 9.2L, Hematocrit 29.4L , Mean Corpuscular Volume 84, Mean Corpuscular Hemoglobin 26.3L, Mean Corpuscular Hemoglobin Concent 31.3L, Red Cell Distribution Width 15.5H, Platelet Count 196, Mean Platelet Volume 7.5, Neutrophils (%) (Auto) 58.5, Lymphocytes (%) (Auto) 28.9, Monocytes (%) (Auto) 8.0, Eosinophils (%) (Auto) 3.2H, Basophils (%) (Auto) 1.4, Sodium Level 136, Potassium Level 3.5, Chloride Level 96L, Carbon Dioxide Level 31, Anion Gap 9, Blood Urea Nitrogen 42H, Creatinine 7.3H, Estimat Glomerular Filtration Rate 8.7, Glucose Level 167H, Calcium Level 8.9, Phosphorus Level 5.4H, Magnesium Level 2.0, Total Bilirubin 0.4, Aspartate Amino Transf (AST/SGOT) 16, Alanine Aminotransferase (ALT/SGPT) 16, Alkaline Phosphatase 67, Total Protein 7.1, Albumin 3.1L, Globulin 4.0, Albumin/Globulin Ratio 0.8L Height (Feet): 5 Height (Inches): 11.00 Weight (Pounds): 174 General Appearance: no apparent distress Cardiovascular: normal rate Respiratory/Chest: lungs clear Abdomen: soft ANUPAM PUENTES Apr 24, 2017 09:11
[2017-04-24] MEDS ORDERED: Lisinopril 10mg tab ORAL SCH (09:15)
--- NOTE | 2017-04-24 09:28 | Consultation ---
Consult Note Assessment/Plan Podiatry Consult Dictated A/ 1) Cyst left foot 2) DM 3) ESRD P/ 1) Extensive chart review performed from outside facility and [facility]. After evaluating all of the information patient very likely had a cyst in the left foot as no growth was noted from cultures of the Ultz guided aspiration of the left foot. MRI done at outside facility and re-evaluated by [facility] radiologist suggest that no osteomyelitis is present in either foot. 2) This was discussed in detail with patient with RN at bedside. 3) Patient can rehab with PT without restrictions from my standpoint Thank you for the courtesy of the consultation Cisco Momin DPM Apr 24, 2017 09:28
[2017-04-24] MEDS: Enalaprilat 2.5mg/2ml Inj IV PRN ×2 (14:06→18:56)
--- NOTE | 2017-04-24 14:23 | Infectious Diseases Prog Note ---
Assessment/Plan Assessment/Plan A: Assesment: ALOC/AMS- has not improved, ? etio at this point worse than yesterday as per father Meningitis , in DDX but less likely no GOMEZ, N/V , no neck rigidity -CT head: Negative for acute intracranial bleed or mass effect. Somewhat prominent ventricles and extra-axial CSF spaces, consistent with volume loss, advanced for age. Periventricular deep white matter low-attenuation, appearance typical of chronic ischemic changes but given patient's age possibility of demyelinating disease should be considered.] -CXR: There is equivocal mild interstitial congestion. No focal airspace consolidation. No effusions Afebrile no leukocytosis Leg 5th metatarsal fluid collection no evid of of OM-as per Pod : MRI done at outside facility and re-evaluated by [facility] radiologist suggest that no osteomyelitis is present in either foot. -XRay L foot 04/22: Osseous defect in fragment of the medial head of the first proximal phalanx. There is overlying soft tissue swelling, but bony abnormality does not appear acute. May reflect an old injury. Correlate with clinical findings, consider MRI for further evaluation as clinically indicated. Soft tissue swelling in the region of the left fifth metatarsal head. No plain radiographic findings to suggest acute osteomyelitis. Note, however, limited sensitivity of plain radiographs for such. Consider MRI for better characterization if there is high clinical suspicion -04/23: ESR 40, CRP 3.4 -MRI 04/08: L Foot wo: 2.1x 0.7 x2.5 cm fluid collection in plantar aspect of 5th metatarsal head. Cannot exclude abscess. Minimal Bone marrow edema involving 5th metatarsal head. Although no cortical erosive changes noted, an early medullary OM cannot be excluded. -Vanco 500mg and Cefepime 2g after HD on HD days planned for 6 weeks; end date 05/28/17 DKA, resolved DM 1 on insulin pump, HTN, ESRD on HD MWF, psychiatric illness Plan: -Continue IV Vancomycin and change Cefepime to Rocephin d# 1 ( [employer] ) , Add Acyclovir d # 1 -04/22 SP Zosyn #1 -Agree with Podiatry evaluation- ?I+D -Monitor CBC/BMP, temperaturesA: - Rec Neuro cons -Rec LP ( DW PCP ) - HIV - Blood tox screen ( Hx of Meth abuse 4 yr ago ) - blood cx Subjective Allergies: Coded Allergies: GABAPENTIN (Verified Allergy, Unknown, 04/21/17) Dizziness, syncope Subjective father the bedside , confusion has not improved , Objective Vital Signs Last 24 Hour Vital Signs Date Time Temp Pulse Resp B/P (MAP) Pulse Ox O2 Delivery O2 Flow Rate FiO2 04/24/17 14:06 184/105 04/24/17 12:00 98.2 75 19 167/94 98 Room Air 04/24/17 12:00 79 04/24/17 11:00 75 19 170/80 98 Room Air 04/24/17 10:37 164/83 04/24/17 10:00 76 19 164/83 100 Room Air 04/24/17 09:00 80 19 176/93 100 Room Air 04/24/17 09:00 82 179/97 04/24/17 08:00 82 04/24/17 08:00 97.9 80 21 179/97 97 Room Air 04/24/17 07:36 83 20 Room Air 04/24/17 07:00 80 19 159/89 100 Room Air 04/24/17 06:06 Room Air 04/24/17 06:00 80 16 159/102 98 Room Air 04/24/17 05:00 79 16 167/85 98 Room Air 04/24/17 05:00 79 16 167/85 98 Room Air 04/24/17 04:30 97.7 82 16 190/98 Room Air 04/24/17 04:30 Room Air 04/24/17 04:00 81 04/24/17 04:00 97.7 81 16 171/89 98 Room Air 04/24/17 03:00 82 15 180/94 97 Room Air 04/24/17 02:00 78 19 178/108 97 Room Air 04/24/17 01:30 Room Air 04/24/17 01:30 97.0 76 12 172/86 Room Air 04/24/17 01:00 76 20 172/86 98 Room Air 04/24/17 00:00 96.8 75 20 175/93 98 Room Air 04/24/17 00:00 75 04/23/17 23:00 75 23 180/93 100 Room Air 04/23/17 22:00 76 13 193/104 100 Room Air 04/23/17 21:00 98.0 76 13 193/104 100 Room Air 04/23/17 20:11 73 04/23/17 20:00 77 04/23/17 20:00 98.0 73 8 178/100 99 Room Air 04/23/17 19:52 74 15 Room Air 04/23/17 19:00 70 16 150/92 97 Room Air 04/23/17 19:00 74 12 174/92 100 Room Air 04/23/17 18:00 98.4 72 15 154/96 97 Room Air 04/23/17 17:00 71 10 164/103 97 Room Air 04/23/17 16:00 77 04/23/17 15:00 72 12 169/98 100 Room Air Height (Feet): 5 Height (Inches): 11.00 Weight (Pounds): 174 HEENT: mucous membranes moist Respiratory/Chest: no respiratory distress Abdomen: no mass Laboratory Tests Test 04/23/17 18:15 04/24/17 06:10 Random Vancomycin Level 16.7 ug/mL White Blood Count 4.1 K/UL (4.8-10.8) L Red Blood Count 3.50 M/UL (4.70-6.10) L Hemoglobin 9.2 G/DL (14.2-18.0) L Hematocrit 29.4 % (42.0-52.0) L Mean Corpuscular Volume 84 FL (80-99) Mean Corpuscular Hemoglobin 26.3 PG (27.0-31.0) L Mean Corpuscular Hemoglobin Concent 31.3 G/DL (32.0-36.0) L Red Cell Distribution Width 15.5 % (11.6-14.8) H Platelet Count 196 K/UL (150-450) Mean Platelet Volume 7.5 FL (6.5-10.1) Neutrophils (%) (Auto) 58.5 % (45.0-75.0) Lymphocytes (%) (Auto) 28.9 % (20.0-45.0) Monocytes (%) (Auto) 8.0 % (1.0-10.0) Eosinophils (%) (Auto) 3.2 % (0.0-3.0) H Basophils (%) (Auto) 1.4 % (0.0-2.0) Sodium Level 136 MMOL/L (136-145) Potassium Level 3.5 MMOL/L (3.5-5.1) Chloride Level 96 MMOL/L (98-107) L Carbon Dioxide Level 31 MMOL/L (21-32) Anion Gap 9 mmol/L (5-15) Blood Urea Nitrogen 42 mg/dL (7-18) H Creatinine 7.3 MG/DL (0.55-1.30) H Estimat Glomerular Filtration Rate 8.7 mL/min (>60) Glucose Level 167 MG/DL (74-106) H Calcium Level 8.9 MG/DL (8.5-10.1) Phosphorus Level 5.4 MG/DL (2.5-4.9) H Magnesium Level 2.0 MG/DL (1.8-2.4) Total Bilirubin 0.4 MG/DL (0.2-1.0) Aspartate Amino Transf (AST/SGOT) 16 U/L (15-37) Alanine Aminotransferase (ALT/SGPT) 16 U/L (12-78) Alkaline Phosphatase 67 U/L (46-116) Total Protein 7.1 G/DL (6.4-8.2) Albumin 3.1 G/DL (3.4-5.0) L Globulin 4.0 g/dL Albumin/Globulin Ratio 0.8 (1.0-2.7) L Current Medications Medications (Trade) Dose Ordered Sig/Aura Route PRN Reason Start Time Stop Time Status Last Admin Dose Admin Acetaminophen (Tylenol) 650 mg Q4H PRN ORAL fever 04/21/17 14:00 05/21/17 13:59 Albuterol/ Ipratropium (Albuterol/ Ipratropium) 3 ml Q6H PRN HHN dyspnea 04/21/17 14:00 04/26/17 13:59 Amlodipine Besylate (Norvasc) 10 mg DAILY ORAL 04/22/17 09:00 05/22/17 08:59 04/24/17 09:00 Cefepime HCl 0.5 gm/Sodium Chloride 55 ml @ 110 mls/hr Q24H IVPB 04/23/17 18:00 04/30/17 17:59 04/23/17 18:18 Clonidine HCl (Catapres) 0.1 mg Q4H PRN ORAL SBP > 160 04/21/17 14:00 05/21/17 13:59 04/23/17 05:11 Dextrose (Dextrose 50%) PRN PRN IV HYPOGLYCEMIA 04/21/17 20:00 05/21/17 19:59 Enalaprilat (Vasotec) 2.5 mg EVERY 4 HOURS PRN IV For High Blood Pressure 04/23/17 06:15 05/23/17 06:14 04/24/17 14:06 Heparin Sodium (Porcine) (Heparin 5000 units/ml) 5,000 units EVERY 12 HOURS SUBQ 04/21/17 21:00 05/21/17 20:59 04/24/17 09:03 Insulin Human Regular (NovoLIN R) 5 units PRN PRN IV BS 200-299 04/21/17 20:00 05/21/17 19:59 04/23/17 18:39 Insulin Human Regular (NovoLIN R) 10 units PRN PRN IV BS=>300 04/21/17 20:00 05/21/17 19:59 Insulin Human Regular 100 units/ Sodium Chloride 101 ml @ 0 mls/hr Q24H IV 04/21/17 20:15 05/21/17 20:14 04/23/17 18:17 Lisinopril (Zestril) 10 mg DAILY ORAL 04/24/17 09:15 05/24/17 09:14 04/24/17 10:37 Miscellaneous Medication (Insulin Rate Change) 1 ea PRN PRN MISC Hyperglycemia 04/21/17 20:00 05/21/17 19:59 04/23/17 05:02 Morphine Sulfate (Morphine Sulfate) 1 mg Q4H PRN IVP For Pain Scale 4-10 04/21/17 14:00 04/28/17 13:59 04/21/17 16:07 Ondansetron HCl (Zofran) 4 mg Q6H PRN IVP Nausea & Vomiting 04/21/17 14:00 05/21/17 13:59 Pantoprazole (Protonix) 40 mg DAILY ORAL 04/22/17 09:00 05/22/17 08:59 04/24/17 09:00 Polyethylene Glycol (Miralax) 17 gm HSPRN PRN ORAL Constipation 1st line agent 04/21/17 14:00 05/21/17 13:59 Sevelamer Carbonate (Renvela) 1,600 mg THREE TIMES A DAY ORAL 04/23/17 18:00 05/23/17 17:59 12/2/17 14:06 Vancomycin HCl (Vanco rx to dose) 1 ea DAILY PRN MISC . 04/21/17 16:45 05/21/17 16:44 Zolpidem Tartrate (Ambien) 5 mg HSPRN PRN ORAL Insomnia 04/21/17 14:00 04/28/17 13:59 04/24/17 00:30 ROSENDO RIVAS M.D. Apr 24, 2017 14:23
--- NOTE | 2017-04-24 14:38 | Internal Med Progress Note ---
Subjective Date of Service: Apr 24, 2017 Physician Name Link,David Attending Physician Mellissa Mejia Current Medications Medications (Trade) Dose Ordered Sig/Aura Route PRN Reason Start Time Stop Time Status Last Admin Dose Admin Acetaminophen (Tylenol) 650 mg Q4H PRN ORAL fever 04/21/17 14:00 05/21/17 13:59 Albuterol/ Ipratropium (Albuterol/ Ipratropium) 3 ml Q6H PRN HHN dyspnea 04/21/17 14:00 04/26/17 13:59 Amlodipine Besylate (Norvasc) 10 mg DAILY ORAL 04/22/17 09:00 05/22/17 08:59 04/24/17 09:00 Cefepime HCl 0.5 gm/Sodium Chloride 55 ml @ 110 mls/hr Q24H IVPB 04/23/17 18:00 04/30/17 17:59 04/23/17 18:18 Clonidine HCl (Catapres) 0.1 mg Q4H PRN ORAL SBP > 160 04/21/17 14:00 05/21/17 13:59 04/23/17 05:11 Dextrose (Dextrose 50%) PRN PRN IV HYPOGLYCEMIA 04/21/17 20:00 05/21/17 19:59 Enalaprilat (Vasotec) 2.5 mg EVERY 4 HOURS PRN IV For High Blood Pressure 04/23/17 06:15 05/23/17 06:14 04/24/17 14:06 Heparin Sodium (Porcine) (Heparin 5000 units/ml) 5,000 units EVERY 12 HOURS SUBQ 04/21/17 21:00 05/21/17 20:59 04/24/17 09:03 Insulin Human Regular (NovoLIN R) 5 units PRN PRN IV BS 200-299 04/21/17 20:00 05/21/17 19:59 04/23/17 18:39 Insulin Human Regular (NovoLIN R) 10 units PRN PRN IV BS=>300 04/21/17 20:00 05/21/17 19:59 Insulin Human Regular 100 units/ Sodium Chloride 101 ml @ 0 mls/hr Q24H IV 04/21/17 20:15 05/21/17 20:14 04/23/17 18:17 Lisinopril (Zestril) 10 mg DAILY ORAL 04/24/17 09:15 05/24/17 09:14 04/24/17 10:37 Miscellaneous Medication (Insulin Rate Change) 1 ea PRN PRN MISC Hyperglycemia 04/21/17 20:00 05/21/17 19:59 04/23/17 05:02 Morphine Sulfate (Morphine Sulfate) 1 mg Q4H PRN IVP For Pain Scale 4-10 04/21/17 14:00 04/28/17 13:59 04/21/17 16:07 Ondansetron HCl (Zofran) 4 mg Q6H PRN IVP Nausea & Vomiting 04/21/17 14:00 05/21/17 13:59 Pantoprazole (Protonix) 40 mg DAILY ORAL 04/22/17 09:00 05/22/17 08:59 04/24/17 09:00 Polyethylene Glycol (Miralax) 17 gm HSPRN PRN ORAL Constipation 1st line agent 04/21/17 14:00 05/21/17 13:59 Sevelamer Carbonate (Renvela) 1,600 mg THREE TIMES A DAY ORAL 04/23/17 18:00 05/23/17 17:59 04/24/17 14:06 Vancomycin HCl (Vanco rx to dose) 1 ea DAILY PRN MISC . 04/21/17 16:45 05/21/17 16:44 Zolpidem Tartrate (Ambien) 5 mg HSPRN PRN ORAL Insomnia 04/21/17 14:00 04/28/17 13:59 04/24/17 00:30 Allergies: Coded Allergies: GABAPENTIN (Verified Allergy, Unknown, 04/21/17) Dizziness, syncope ROS Limited/Unobtainable: No Constitutional: Reports: no symptoms HEENT: Reports: no symptoms Cardiovascular: Reports: no symptoms Respiratory: Reports: no symptoms Gastrointestinal/Abdominal: Reports: no symptoms Genitourinary: Reports: no symptoms Neurologic/Psychiatric: Reports: no symptoms Subjective 31 YO M admitted with diabetic ketoacidosis. Cover for Int Med-Dr Mills. ICU Objective Last Vital Signs Date Time Temp Pulse Resp B/P (MAP) Pulse Ox O2 Delivery O2 Flow Rate FiO2 04/24/17 14:06 184/105 04/24/17 14:00 79 19 98 Room Air 04/24/17 12:00 98.2 04/24/17 07:36 21 General Appearance: WD/WN, no apparent distress, alert EENT: PERRL/EOMI, normal ENT inspection Neck: non-tender, normal alignment, supple, normal inspection Cardiovascular: normal peripheral pulses, normal rate, regular rhythm, no gallop/murmur, no JVD Respiratory/Chest: chest wall non-tender, lungs clear, normal breath sounds, no respiratory distress, no accessory muscle use Abdomen: normal bowel sounds, non tender, soft, no organomegaly, no mass Extremities: normal range of motion, non-tender 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: 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5 % (45.0-75.0) Lymphocytes (%) (Auto) 28.9 % (20.0-45.0) Monocytes (%) (Auto) 8.0 % (1.0-10.0) Eosinophils (%) (Auto) 3.2 % (0.0-3.0) H Basophils (%) (Auto) 1.4 % (0.0-2.0) Sodium Level 136 MMOL/L (136-145) Potassium Level 3.5 MMOL/L (3.5-5.1) Chloride Level 96 MMOL/L (98-107) L Carbon Dioxide Level 31 MMOL/L (21-32) Anion Gap 9 mmol/L (5-15) Blood Urea Nitrogen 42 mg/dL (7-18) H Creatinine 7.3 MG/DL (0.55-1.30) H Estimat Glomerular Filtration Rate 8.7 mL/min (>60) Glucose Level 167 MG/DL (74-106) H Calcium Level 8.9 MG/DL (8.5-10.1) Phosphorus Level 5.4 MG/DL (2.5-4.9) H Magnesium Level 2.0 MG/DL (1.8-2.4) Total Bilirubin 0.4 MG/DL (0.2-1.0) Aspartate Amino Transf (AST/SGOT) 16 U/L (15-37) Alanine Aminotransferase (ALT/SGPT) 16 U/L (12-78) Alkaline Phosphatase 67 U/L (46-116) Total Protein 7.1 G/DL (6.4-8.2) Albumin 3.1 G/DL (3.4-5.0) L Globulin 4.0 g/dL Albumin/Globulin Ratio 0.8 (1.0-2.7) L Intake and Output 04/24/17 04/25/17 19:00 07:00 Intake Total 257.6 ml Balance 257.6 ml Intake Oral 250 ml IV Total 7.6 ml Assessment/Plan Problem List: (1) Diabetes type I Assessment & Plan: Cont insulin drip and sliding scale per endocrinology (2) HTN (hypertension) Assessment & Plan: Continue lisinopril and vasotec (3) Other cyst of bone, left ankle and foot Assessment & Plan: See podiatry note.. Continue vanco and cefepime per ID (4) DKA (diabetic ketoacidoses) (5) ESRD (end stage renal disease) on dialysis Assessment & Plan: Last hemodialysis 04/23/17-see nephrology note. (6) Hyperglycemia Status: progressing DAVID LINK Apr 24, 2017 14:38
[2017-04-24] MEDS ORDERED: cefTRIAXone 2 GM in D5W 55 ML IVPB SCH (16:00)
--- NOTE | 2017-04-24 16:00 | Consultation ---
DATE OF CONSULTATION: 04/24/2017 CONSULTING PHYSICIAN: Cisco Boudreaux D.P.M. REQUESTING PHYSICIAN: Mellissa Mejia M.D. REASON FOR CONSULTATION: Fluid collection in the left foot, possible osteomyelitis bilateral feet and uncontrolled diabetes mellitus. HISTORY OF PRESENT ILLNESS: The patient is a 31-year-old male, who was admitted to [facility] on 04/21/2017 for hyperglycemia, hyperkalemia, and diabetic ketoacidosis. The patient is confused and unable to provide a thorough history. History is obtained through chart review. The patient was admitted to [facility] in March for multiple reasons. The patient was seen by podiatry service for possible abscess of the left foot as well as osteomyelitis. MRIs of both feet were done at an outside facility and re-reviewed at [facility] by [facility] radiologist. Also, an ultrasound-guided aspiration was performed on the left foot of a possible fluid collection in the left foot. PAST MEDICAL HISTORY: Significant for diabetes mellitus, end-stage renal disease. ALLERGIES: Gabapentin. MEDICATIONS: Per MAR. SOCIAL HISTORY: Noncontributory. FAMILY HISTORY: Noncontributory. REVIEW OF SYSTEMS: Unremarkable at this point from my standpoint. PHYSICAL EXAMINATION: VITAL SIGNS: Temperature is 97.9 degrees, pulse is 82, respirations 21, blood pressure is 179/97, saturating 97% on room air. EXTREMITIES: Lower extremity physical exam, vascular 2+ palpable dorsalis pedis and posterior tibial arteries noted bilaterally. Feet are equally warm. There is no edema or cyanosis noted. DERMATOLOGICAL: There are no open sores or lesions noted. No signs of acute bacterial or fungal infection. Digital interspaces are clear. NEUROLOGICAL: Protective threshold is diminished. Achilles deep tendon reflexes are 2+ bilateral. No spasticity noted. MUSCULOSKELETAL: There is 4/5 muscle strength noted in anterolateral and posterior muscle groups of bilateral lower extremities. Contracture of the second toe is noted bilaterally. No other gross deformities are noted. LABORATORY AND DIAGNOSTIC DATA: White blood cell count is 4.1, hemoglobin and hematocrit is 9.2 and 29.4, and platelet count is 196,00. Sedimentation rate is 40. Potassium is 3.5, BUN is 42, creatinine is 7.3. Hemoglobin A1c is 8.3. C-reactive protein is 3.4. Albumin is 3.1. [facility] chart review on 04/08/2017, right foot MRI was reviewed and fluid collection was noted in the plantar aspect of the fifth metatarsal head. No edema is noted in the fifth metatarsal head of the left foot. This outside MRI of both feet was reevaluated by a [facility] radiologist on 04/16/2017 and was read as negative osteomyelitis bilaterally. Also, an ultrasound-guided aspiration was performed on the left foot on 04/16/2017 and bloody sanguinous drainage was aspirated. Review of the cultures from that aspiration showed no aerobic growth, no anaerobic growth, no fungal growth, no acid-fast bacillus growth. Sedimentation rate on that admission was 22, CRP was 18.7. ASSESSMENT: 1. Cyst of the left foot. 2. Uncontrolled diabetes mellitus. 3. End-stage renal disease. PLAN: 1. Extensive chart review was performed by outside facility and [facility] charts. After evaluating all the information, patient very likely had a cyst in the left foot as no growth was noted from the cultures, the ultrasound-guided aspiration of the left foot. MRI done at outside facility and re-evaluated by the [facility] radiologist suggests no osteomyelitis is present in either foot. 2. This was discussed in detail with the patient with the RN at bedside. 3. The patient can rehab with PT without restrictions from my standpoint. Thank you for the courtesy of consultation, Dr. Mejia. Cisco Boudreaux D.P.M. DR: Rober JOB#: [id number] CC: MELISSA
--- NOTE | 2017-04-24 16:25 | Cardiology Report ---
APPROVED REPORT EKG Measurement Heart [id number] Normal sinus rhythm Possible Left atrial enlargement Minimal voltage for LVH Borderline ECG
[2017-04-24] MEDS ORDERED: Levemir Flexpen SUBQ SCH (16:30)
[2017-04-24] MEDS ORDERED: NovoLOG Insulin Flexpen SUBQ SCH ×2 (16:30)
[2017-04-24] MEDS ORDERED: Acyclovir 1,000 MG in D5W 275 ML IV SCH (17:00)
--- NOTE | 2017-04-24 17:25 | Neurology Progress Note ---
Interim History Interim History ROS Limited/Unobtainable: No Objective Physical Exam Last Vital Signs Date Time Temp Pulse Resp B/P (MAP) Pulse Ox O2 Delivery O2 Flow Rate FiO2 04/24/17 16:00 83 04/24/17 14:06 184/105 04/24/17 14:00 19 98 Room Air 04/24/17 12:00 98.2 04/24/17 07:36 21 Laboratory Tests Test 04/23/17 18:15 04/24/17 06:10 Random Vancomycin Level 16.7 ug/mL White Blood Count 4.1 K/UL (4.8-10.8) L Red Blood Count 3.50 M/UL (4.70-6.10) L Hemoglobin 9.2 G/DL (14.2-18.0) L Hematocrit 29.4 % (42.0-52.0) L Mean Corpuscular Volume 84 FL (80-99) Mean Corpuscular Hemoglobin 26.3 PG (27.0-31.0) L Mean Corpuscular Hemoglobin Concent 31.3 G/DL (32.0-36.0) L Red Cell Distribution Width 15.5 % (11.6-14.8) H Platelet Count 196 K/UL (150-450) Mean Platelet Volume 7.5 FL (6.5-10.1) Neutrophils (%) (Auto) 58.5 % (45.0-75.0) Lymphocytes (%) (Auto) 28.9 % (20.0-45.0) Monocytes (%) (Auto) 8.0 % (1.0-10.0) Eosinophils (%) (Auto) 3.2 % (0.0-3.0) H Basophils (%) (Auto) 1.4 % (0.0-2.0) Sodium Level 136 MMOL/L (136-145) Potassium Level 3.5 MMOL/L (3.5-5.1) Chloride Level 96 MMOL/L (98-107) L Carbon Dioxide Level 31 MMOL/L (21-32) Anion Gap 9 mmol/L (5-15) Blood Urea Nitrogen 42 mg/dL (7-18) H Creatinine 7.3 MG/DL (0.55-1.30) H Estimat Glomerular Filtration Rate 8.7 mL/min (>60) Glucose Level 167 MG/DL (74-106) H Calcium Level 8.9 MG/DL (8.5-10.1) Phosphorus Level 5.4 MG/DL (2.5-4.9) H Magnesium Level 2.0 MG/DL (1.8-2.4) Total Bilirubin 0.4 MG/DL (0.2-1.0) Aspartate Amino Transf (AST/SGOT) 16 U/L (15-37) Alanine Aminotransferase (ALT/SGPT) 16 U/L (12-78) Alkaline Phosphatase 67 U/L (46-116) Total Protein 7.1 G/DL (6.4-8.2) Albumin 3.1 G/DL (3.4-5.0) L Globulin 4.0 g/dL Albumin/Globulin Ratio 0.8 (1.0-2.7) L Impression/Recommendations Status: progressing Recommendations #[id number] NOHEMI KING Apr 24, 2017 17:25
[2017-04-24 19:24] LABS: AMMONIA 25 umol/L (11-32)
[2017-04-24] MEDS ORDERED: Insulin Rate Change 1 Each MISC PRN (20:00)
[2017-04-24] MEDS ORDERED: Tubing IV Secondary IV ONE (20:09)
[2017-04-24] MEDS: NovoLOG Insulin Flexpen SUBQ SCH (20:58)
[2017-04-24] MEDS ORDERED: Enalaprilat 2.5mg/2ml Inj IV PRN (21:00)
[2017-04-24] MEDS ORDERED: Zolpidem 5mg tab ORAL PRN (21:30)
[2017-04-24] MEDS ORDERED: Morphine Sulfate 2mg/ml Inj IVP PRN (22:00)
--- NOTE | 2017-04-24 23:00 | Consultation ---
DATE OF CONSULTATION: 04/24/2017 NEUROLOGICAL CONSULTATION REQUESTING PHYSICIAN: Mellissa Mejia M.D. HISTORY OF PRESENT ILLNESS: This is a 31-year-old gentleman seen in neurological consultation to evaluate new onset of changes in mental status. According to medical records, the patient unable to provide with any information stating that his memory "shut off". So according to note by paramedics, they were requested to be seen the patient for changes in mental status, his father saw him day prior, described him as being in his usual state of health. As paramedics arrived to the scene, his blood pressure was 206/118, heart rate of 73, and respirations 18. He was lying supine in bed, oriented to self, but confused. His father who was present indicating that last known well time was day after the dialysis. The patient was ambulating with assistance. He was speaking in full sentences. His insulin pump was found to be detached from the patient, unknown if he was using it. There was no neurological deficit otherwise described. His glucose reading on glucometer was high. The patient described as being pale and cool to touch. During transporting, he became more alert and oriented to himself and location. He was brought to the emergency room where he informed that he missed dialysis today. His vital signs remained high, ____. His initial diagnostic studies included CBC study with hemoglobin 10.8 and hematocrit 36.4, sedimentation rate of 40. Repeat study revealed hemoglobin down to 9.2 and hematocrit 29.4. Chemistry panel included potassium 6.1, sodium 128, anion gap of 18, BUN of 76 with creatinine 9.5, and blood sugar 229. Total protein 9.0. Lipid panel was unremarkable as well as TSH. BNP 35,000. CRP of 3.4. Toxicology panel positive for acetone. His imaging initially included CT of the brain, which revealed somewhat prominent ventricles consistent with volume loss, advanced for the age, but no evidence of acute abnormalities. MRI of the brain was obtained, this was negative for intracranial abnormalities. There was volume loss advanced for the patient's age, prominent ventricles, possibly tiny left posterior temporal cortical infarct, and there was minimal chronic ischemic changes. Since admission till present, the patient described as being confused and disoriented, speaking in a short sentences and unable to provide with history. The patient has type 1 diabetes and he is managed with insulin pump therapy, continued with glucose monitoring, recently hospitalized at [facility] for right foot infection with early osteomyelitis with a long-term intravenous antibiotics. He has a history of chronic renal insufficiency, end-stage renal disease on hemodialysis, and diabetic polyneuropathy. MEDICATIONS: His treatment prior to admission included Reglan, insulin, amlodipine, Protonix, Lyrica, ranitidine, Zoloft, and Renvela. ALLERGIES: Gabapentin. FAMILY HISTORY: Noncontributory. SOCIAL HISTORY: Lives alone, . Father informed that the patient had a similar to current episode some time ago but that when he was also using drugs. REVIEW OF SYMPTOMS: The patient indicated he is feeling fine and he did not present with any specific complaints. He was denying headache or dizziness. No chest pain. No palpitations. No respiratory problems. PHYSICAL EXAMINATION: GENERAL: This is a well-developed and well-nourished, somewhat pale man, not in acute distress, sitting at the bedside. VITAL SIGNS: Now are stable, although blood pressure is still 194/105, his temperature 98.2 degrees, and heart rate of 79. HEENT: Head, normocephalic. There is no evidence of trauma. Eyes, ears, and throat are clear. NECK: Supple. No meningeal signs. MUSCULOSKELETAL: Unremarkable. There is no deformities. Peripheral pulses 1+ symmetric. MENTAL STATUS: The patient is alert and oriented to his name and age, but unable to give his address, unable to provide his parents address, he did know what the year now, he knew he was at the hospital, but did not known the name. He was unable to repeat the same name within one minute. He was very pleasant, cooperative, follow commands. His speech is slow, non-fluent with some word-finding difficulties. The patient indicated it seems like "I am stupid" and later added so I did not pass this test. CRANIAL NERVE II: Pupils both responding to light and accommodation. Extraocular movement intact. No nystagmus. CRANIAL NERVE V: Normal corneal responses. CRANIAL NERVE VII: No facial asymmetry. CRANIAL NERVE VIII: Normal hearing. CRANIAL NERVE IX THROUGH XII: Tongue is in midline. Symmetric palate elevation. MOTOR EXAMINATION: Normal muscle tone. Strength 5/5 in all extremities. No involuntary movement. Deep tendon reflexes 1+ symmetric with downgoing toes on both sides. SENSORY EXAM: Inconsistent responses. Gait, the patient was able to make few steps quite stable. IMPRESSION: 1. New onset of persistent amnestic episodes, rule out toxic metabolic encephalopathy due to diabetic ketoacidosis/poorly-controlled hypertension. 2. End-stage renal disease, on hemodialysis. 3. Diabetic polyneuropathy. 4. History of depression. DISCUSSION: The patient has no focal or lateralizing neurological deficit except abnormal mental status, which developed two days ago as he stopped using insulin pump, developed ketoacidosis, and presented with hypertension out of control. He remained essentially unchanged in the last two days with significant cognitive loss, confusion, and disorientation. MRI of the brain revealed no acute intracranial abnormalities. At this time, we will have to rule out transient global amnesia, epileptiform activity, residual of severe hyperglycemia/uncontrolled blood pressure. The patient to continue with current supportive care. I will obtain electroencephalogram. If necessary, we will proceed with spinal tap. His treatment to avoid sedatives and opiates. We will follow with you. Thank you for allowing me to see this interesting patient in neurological consultation. Shubham Riggs M.D. DR: MICHELLE JOB#: [id number] CC:
[2017-04-25] VITALS (11 sets, daily range): BP systolic 139–201; BP diastolic 58–104
[2017-04-25] MEDS: Acyclovir 1,000 MG in D5W 275 ML IV SCH ×2 (00:37→08:25)
[2017-04-25] MEDS ORDERED: Albuterol/Ipratropium 3ml neb HHN PRN ×2 (02:00→20:00)
[2017-04-25] MEDS ORDERED: cefTRIAXone 2 GM in D5W 55 ML IVPB SCH ×2 (04:00→16:00)
[2017-04-25] MEDS: NovoLOG Insulin Flexpen SUBQ SCH ×7 (06:15→20:19)
[2017-04-25] MEDS: Heparin 5000 units/ml inj SUBQ SCH ×2 (08:14→20:20)
[2017-04-25] MEDS: Renvela 800mg Pkt ORAL SCH ×3 (08:15→17:41)
[2017-04-25] MEDS ORDERED: Lisinopril 10mg tab ORAL SCH (09:00)
--- NOTE | 2017-04-25 11:16 | General Progress Note ---
Assessment/Plan Problem List: (1) Altered level of consciousness ICD Codes: R40.4 - Transient alteration of awareness SNOMED: 2062954 (2) DKA (diabetic ketoacidoses) ICD Codes: E13.10 - Other specified diabetes mellitus with ketoacidosis without coma SNOMED: 002210683, 64318357 Qualifiers: Qualified Codes: E13.10 - Other specified diabetes mellitus with ketoacidosis without coma (3) Diabetes type I ICD Codes: E10.9 - Type 1 diabetes mellitus without complications SNOMED: 32543990 (4) HTN (hypertension) ICD Codes: I10 - Essential (primary) hypertension SNOMED: 34129886 (5) ESRD (end stage renal disease) on dialysis ICD Codes: N18.6 - End stage renal disease; Z99.2 - Dependence on renal dialysis SNOMED: 256699149, 73205208 Assessment/Plan he is not able to operated his insulin pump - will keep him disconnected continue Levemir 20 units qhs + Novolog 6 units ac tid + SSI MRI brain unremarkable - follow up with neurology evaluation and recommendation Subjective ROS Limited/Unobtainable: Yes Allergies: Coded Allergies: GABAPENTIN (Verified Allergy, Unknown, 04/21/17) Dizziness, syncope Subjective remained confused BG values are reasonable Objective Last 24 Hour Vital Signs Date Time Temp Pulse Resp B/P (MAP) Pulse Ox O2 Delivery O2 Flow Rate FiO2 04/25/17 08:15 85 178/101 04/25/17 08:14 178/101 04/25/17 08:14 178/101 04/25/17 08:00 96.4 78 20 177/96 99 04/25/17 04:20 178/101 04/25/17 04:00 97.0 85 21 178/101 96 04/25/17 00:00 97.2 76 18 149/96 97 Room Air 04/24/17 23:12 96.6 78 20 97 Room Air 79 04/24/17 21:45 97.7 04/24/17 21:15 163/94 04/24/17 20:47 163/94 04/24/17 20:00 97.7 82 18 163/94 97 Room Air 04/24/17 19:06 88 12 Room Air 21 04/24/17 19:00 84 16 162/90 100 Room Air 04/24/17 18:56 174/91 04/24/17 18:00 88 16 174/91 100 Room Air 04/24/17 17:54 177/88 04/24/17 17:00 80 16 171/88 100 Room Air 04/24/17 16:00 83 04/24/17 16:00 98.1 80 19 171/86 99 Room Air 04/24/17 15:00 80 19 180/95 98 Room Air 04/24/17 14:06 184/105 04/24/17 14:00 79 19 184/105 98 Room Air 04/24/17 13:00 80 19 172/115 98 Room Air 04/24/17 12:00 98.2 75 19 167/94 98 Room Air 04/24/17 12:00 79 Intake and Output 04/25/17 04/26/17 19:00 07:00 Intake Total 275 ml Balance 275 ml IV Total 275 ml Laboratory Tests 04/24/17 18:13: Ammonia 25, Vitamin B6 Level [Pending], Vitamin B12 Level 929, Vitamin D 25- Hydroxy [Pending], 25-Hydroxy Vitamin D2 [Pending], 25-Hydroxy Vitamin D3 [ Pending], Alpha-Tocopherol Level [Pending], Anti-Nuclear Antibody Screen [ Pending], HIV (1&2) Antibody Rapid Negative Height (Feet): 5 Height (Inches): 11.00 Weight (Pounds): 174 General Appearance: no apparent distress Neck: normal alignment Cardiovascular: normal rate Respiratory/Chest: lungs clear Abdomen: normal bowel sounds Objective Current Medications Medications (Trade) Dose Ordered Sig/Aura Route PRN Reason Start Time Stop Time Status Last Admin Dose Admin Acetaminophen (Tylenol) 650 mg Q4H PRN ORAL fever 04/24/17 22:00 05/21/17 13:59 Acyclovir 1000 mg/ Dextrose 275 ml @ 275 mls/hr Q8H IV 04/25/17 01:00 05/24/17 16:59 04/25/17 08:25 Albuterol/ Ipratropium (Albuterol/ Ipratropium) 3 ml Q6H PRN HHN dyspnea 04/25/17 02:00 04/26/17 13:59 Amlodipine Besylate (Norvasc) 10 mg DAILY ORAL 04/25/17 09:00 05/22/17 08:59 04/25/17 08:15 Ceftriaxone Sodium 2 gm/ Dextrose 55 ml @ 110 mls/hr Q12H IVPB 04/25/17 04:00 05/01/17 15:59 04/25/17 03:32 Clonidine HCl (Catapres) 0.1 mg Q4H PRN ORAL SBP > 160 04/24/17 22:00 05/21/17 13:59 04/25/17 04:20 Dextrose (Dextrose 50%) STAT PRN IV Hypoglycemia 04/25/17 15:45 05/24/17 15:44 Enalapril Maleate (Vasotec) 10 mg EVERY 12 HOURS ORAL 04/25/17 09:00 05/25/17 08:59 04/25/17 08:14 Enalaprilat (Vasotec) 2.5 mg Q4H PRN IV For High Blood Pressure 04/24/17 21:00 05/24/17 20:59 Heparin Sodium (Porcine) (Heparin 5000 units/ml) 5,000 units EVERY 12 HOURS SUBQ 04/24/17 21:00 05/21/17 20:59 04/25/17 08:14 Insulin Aspart (NovoLOG) BEFORE MEALS AND HS SUBQ 04/24/17 21:00 05/24/17 16:29 Insulin Aspart (NovoLOG) 6 units BEFORE MEALS SUBQ 04/25/17 06:30 05/24/17 16:29 Lisinopril (Zestril) 10 mg DAILY ORAL 04/25/17 09:00 05/24/17 09:14 04/25/17 08:14 Morphine Sulfate (Morphine Sulfate) 1 mg Q4H PRN IVP For Pain Scale 4-10 04/24/17 22:00 04/28/17 13:59 04/24/17 21:15 Ondansetron HCl (Zofran) 4 mg Q6H PRN IVP Nausea & Vomiting 04/25/17 02:00 05/21/17 13:59 04/25/17 06:24 Pantoprazole (Protonix) 40 mg DAILY ORAL 04/25/17 09:00 05/22/17 08:59 04/25/17 08:15 Polyethylene Glycol (Miralax) 17 gm HSPRN PRN ORAL Constipation 1st line agent 04/25/17 14:00 05/21/17 13:59 Sevelamer Carbonate (Renvela) 1,600 mg THREE TIMES A DAY ORAL 04/25/17 09:00 05/23/17 17:59 04/25/17 08:15 Vancomycin HCl (Vanco rx to dose) 1 ea DAILY PRN MISC . 04/25/17 09:00 05/21/17 16:44 Zolpidem Tartrate (Ambien) 5 mg HSPRN PRN ORAL Insomnia 04/24/17 21:30 05/01/17 21:29 04/24/17 21:34 Item Value Date Time Bedside Blood Glucose 87 mg/dl 04/25/17 0630 Bedside Blood Glucose 92 mg/dl 04/24/17 2058 Bedside Blood Glucose 185 mg/dl H 04/24/17 1644 Bedside Blood Glucose 147 mg/dl H 04/24/17 1400 TSERING TORRES Apr 25, 2017 11:16
--- NOTE | 2017-04-25 11:39 | Nephrology Progress Note ---
Assessment/Plan Problem List: (1) ESRD (end stage renal disease) on dialysis (2) Hyperkalemia, diminished renal excretion (3) Hyperglycemia Assessment ESRD- Type I DM- presents with: Encephalopathy improved HyperKalemia improved Hyperglycemia improved Has a collection on his left lat plantar foot ? infected Anemia Plan Plan: increase zestril for BP add Lopressor MRI , r/o stroke for decrease memory: negative HD 04/21 and 04/23 next 04/26 check vanco level: 18 per Endo keep BP and BS in check EEG? Subjective ROS Limited/Unobtainable: No Constitutional: Reports: malaise, other - forgetful Objective Objective Last 24 Hour Vital Signs Date Time Temp Pulse Resp B/P (MAP) Pulse Ox O2 Delivery O2 Flow Rate FiO2 04/25/17 08:15 85 178/101 04/25/17 08:14 178/101 04/25/17 08:14 178/101 04/25/17 08:00 96.4 78 20 177/96 99 04/25/17 04:20 178/101 04/25/17 04:00 97.0 85 21 178/101 96 04/25/17 00:00 97.2 76 18 149/96 97 Room Air 04/24/17 23:12 96.6 78 20 97 Room Air 79 04/24/17 21:45 97.7 04/24/17 21:15 163/94 04/24/17 20:47 163/94 04/24/17 20:00 97.7 82 18 163/94 97 Room Air 04/24/17 19:06 88 12 Room Air 21 04/24/17 19:00 84 16 162/90 100 Room Air 04/24/17 18:56 174/91 04/24/17 18:00 88 16 174/91 100 Room Air 04/24/17 17:54 177/88 04/24/17 17:00 80 16 171/88 100 Room Air 04/24/17 16:00 83 04/24/17 16:00 98.1 80 19 171/86 99 Room Air 04/24/17 15:00 80 19 180/95 98 Room Air 04/24/17 14:06 184/105 04/24/17 14:00 79 19 184/105 98 Room Air 04/24/17 13:00 80 19 172/115 98 Room Air 04/24/17 12:00 98.2 75 19 167/94 98 Room Air 04/24/17 12:00 79 Intake and Output 04/25/17 04/26/17 19:00 07:00 Intake Total 275 ml Balance 275 ml IV Total 275 ml Laboratory Tests 04/24/17 18:13: Ammonia 25, Vitamin B6 Level [Pending], Vitamin B12 Level 929, Vitamin D 25- Hydroxy [Pending], 25-Hydroxy Vitamin D2 [Pending], 25-Hydroxy Vitamin D3 [ Pending], Alpha-Tocopherol Level [Pending], Anti-Nuclear Antibody Screen [ Pending], HIV (1&2) Antibody Rapid Negative Height (Feet): 5 Height (Inches): 11.00 Weight (Pounds): 174 General Appearance: no apparent distress Neurologic: other - poor memory- repeating words ANUPAM PUENTES Apr 25, 2017 11:39
[2017-04-25] MEDS ORDERED: Metoprolol 25mg tab ORAL ONE (12:00)
--- NOTE | 2017-04-25 12:50 | Pulmonology Progress Note ---
Assessment/Plan Assessment/Plan ASSESSMENT DKA-resolved ESRD, on HD acute toxic metabolic encephalopathy New onset of persistent amnestic episodes, due to diabetic ketoacidosis/poorly- controlled hypertension. hyperkalemia due to decreased renal excretion Left 5 th metatarsal fluid collection with ? OM Anemia of CKD HTN urgency PLAN OF CARE [facility] floor on insulin SQ as per endo management anion gap closed, but patient was unable to resume his own insulin pump due to AMS MRI brain no acute IC pathology, possible old tiny infarct no fevers, no GOMEZ to suggest meningitis not producing any urine to obtain urine tox screen hold all mind altering medications HIV test negative ammonia elvel WNL neuro eval appreciated EEG pending Abx ID follows podiatry eval appreciated ( per MRI done in [facility] - no evidence of OM) Nephro follows, HD as per nephro, monitor renal parameters, lytes anemia w/up c/w anemia of chronic disease BP management up titrated as per nephro O2 HHN prn DVT, GI prophylaxis pain management bowel regimen case discussed and evaluated by supervising physician Subjective Allergies: Coded Allergies: GABAPENTIN (Verified Allergy, Unknown, 04/21/17) Dizziness, syncope Objective Last 24 Hour Vital Signs Date Time Temp Pulse Resp B/P (MAP) Pulse Ox O2 Delivery O2 Flow Rate FiO2 04/25/17 08:15 85 178/101 04/25/17 08:14 178/101 04/25/17 08:14 178/101 04/25/17 08:00 96.4 78 20 177/96 99 04/25/17 04:20 178/101 04/25/17 04:00 97.0 85 21 178/101 96 04/25/17 00:00 97.2 76 18 149/96 97 Room Air 04/24/17 23:12 96.6 78 20 97 Room Air 79 04/24/17 21:45 97.7 04/24/17 21:15 163/94 04/24/17 20:47 163/94 04/24/17 20:00 97.7 82 18 163/94 97 Room Air 04/24/17 19:06 88 12 Room Air 21 04/24/17 19:00 84 16 162/90 100 Room Air 04/24/17 18:56 174/91 04/24/17 18:00 88 16 174/91 100 Room Air 04/24/17 17:54 177/88 04/24/17 17:00 80 16 171/88 100 Room Air 04/24/17 16:00 83 04/24/17 16:00 98.1 80 19 171/86 99 Room Air 04/24/17 15:00 80 19 180/95 98 Room Air 04/24/17 14:06 184/105 04/24/17 14:00 79 19 184/105 98 Room Air 04/24/17 13:00 80 19 172/115 98 Room Air Intake and Output 04/25/17 04/26/17 19:00 07:00 Intake Total 275 ml Balance 275 ml IV Total 275 ml Objective Status: awake, alert, responsive, very confused, HEENT: atraumatic, normocephalic, mmm Neck: full ROM, supple, trachea midline Lungs: CTAB Heart: S1S2, RRR, no murmur Abdomen: soft, non-tender, active bowel sounds Extremities: no C/C/E Decubiti: Left plantar 5th metatarsal head abscess with back scab in the middle. Laboratory Tests 04/24/17 18:13: Ammonia 25, Vitamin B6 Level [Pending], Vitamin B12 Level 929, Vitamin D 25- Hydroxy [Pending], 25-Hydroxy Vitamin D2 [Pending], 25-Hydroxy Vitamin D3 [ Pending], Alpha-Tocopherol Level [Pending], Anti-Nuclear Antibody Screen [ Pending], HIV (1&2) Antibody Rapid Negative Current Medications Medications (Trade) Dose Ordered Sig/Aura Route PRN Reason Start Time Stop Time Status Last Admin Dose Admin Acetaminophen (Tylenol) 650 mg Q4H PRN ORAL fever 04/24/17 22:00 05/21/17 13:59 Acyclovir 1000 mg/ Dextrose 275 ml @ 275 mls/hr Q8H IV 04/25/17 01:00 05/24/17 16:59 04/25/17 08:25 Albuterol/ Ipratropium (Albuterol/ Ipratropium) 3 ml Q6H PRN HHN dyspnea 04/25/17 02:00 04/26/17 13:59 Amlodipine Besylate (Norvasc) 10 mg DAILY ORAL 04/25/17 09:00 05/22/17 08:59 04/25/17 08:15 Ceftriaxone Sodium 2 gm/ Dextrose 55 ml @ 110 mls/hr Q12H IVPB 04/25/17 04:00 05/01/17 15:59 04/25/17 03:32 Clonidine HCl (Catapres) 0.1 mg Q4H PRN ORAL SBP > 160 04/24/17 22:00 05/21/17 13:59 04/25/17 04:20 Dextrose (Dextrose 50%) STAT PRN IV Hypoglycemia 04/25/17 11:30 05/25/17 11:29 Enalaprilat (Vasotec) 2.5 mg Q4H PRN IV For High Blood Pressure 04/24/17 21:00 05/24/17 20:59 Heparin Sodium (Porcine) (Heparin 5000 units/ml) 5,000 units EVERY 12 HOURS SUBQ 04/24/17 21:00 05/21/17 20:59 04/25/17 08:14 Insulin Aspart (NovoLOG) BEFORE MEALS AND HS SUBQ 04/24/17 21:00 05/24/17 16:29 04/25/17 12:13 Insulin Aspart (NovoLOG) 6 units BEFORE MEALS SUBQ 04/25/17 06:30 05/24/17 16:29 Insulin Detemir (Levemir) 20 units BEDTIME SUBQ 04/25/17 21:00 05/25/17 20:59 Lisinopril (Prinivil) 20 mg BID ORAL 04/25/17 18:00 05/24/17 09:14 Metoprolol Tartrate (Lopressor) 25 mg Q12HR ORAL 04/25/17 22:00 05/25/17 21:59 Morphine Sulfate (Morphine Sulfate) 1 mg Q4H PRN IVP For Pain Scale 4-10 04/24/17 22:00 04/28/17 13:59 04/24/17 21:15 Ondansetron HCl (Zofran) 4 mg Q6H PRN IVP Nausea & Vomiting 04/25/17 02:00 05/21/17 13:59 04/25/17 06:24 Pantoprazole (Protonix) 40 mg DAILY ORAL 04/25/17 09:00 05/22/17 08:59 04/25/17 08:15 Polyethylene Glycol (Miralax) 17 gm HSPRN PRN ORAL Constipation 1st line agent 04/25/17 14:00 05/21/17 13:59 Sevelamer Carbonate (Renvela) 1,600 mg THREE TIMES A DAY ORAL 04/25/17 09:00 05/23/17 17:59 04/25/17 08:15 Vancomycin HCl (Vanco rx to dose) 1 ea DAILY PRN MISC . 04/25/17 09:00 05/21/17 16:44 Zolpidem Tartrate (Ambien) 5 mg HSPRN PRN ORAL Insomnia 04/24/17 21:30 05/01/17 21:29 04/24/17 21:34 Chilo (Kita)Jenna NP Apr 25, 2017 12:50
--- NOTE | 2017-04-25 13:17 | Internal Med Progress Note ---
Subjective Date of Service: Apr 25, 2017 Physician Name LinkDavid vines Attending Physician Mellissa Mejia Current Medications Medications (Trade) Dose Ordered Sig/Aura Route PRN Reason Start Time Stop Time Status Last Admin Dose Admin Acetaminophen (Tylenol) 650 mg Q4H PRN ORAL fever 04/24/17 22:00 05/21/17 13:59 Acyclovir 1000 mg/ Dextrose 275 ml @ 275 mls/hr Q8H IV 04/25/17 01:00 05/24/17 16:59 04/25/17 08:25 Albuterol/ Ipratropium (Albuterol/ Ipratropium) 3 ml Q6H PRN HHN dyspnea 04/25/17 02:00 04/26/17 13:59 Amlodipine Besylate (Norvasc) 10 mg DAILY ORAL 04/25/17 09:00 05/22/17 08:59 04/25/17 08:15 Ceftriaxone Sodium 2 gm/ Dextrose 55 ml @ 110 mls/hr Q12H IVPB 04/25/17 04:00 05/01/17 15:59 04/25/17 03:32 Clonidine HCl (Catapres) 0.1 mg Q4H PRN ORAL SBP > 160 04/24/17 22:00 05/21/17 13:59 04/25/17 04:20 Dextrose (Dextrose 50%) STAT PRN IV Hypoglycemia 04/25/17 11:30 05/25/17 11:29 Enalaprilat (Vasotec) 2.5 mg Q4H PRN IV For High Blood Pressure 04/24/17 21:00 05/24/17 20:59 Heparin Sodium (Porcine) (Heparin 5000 units/ml) 5,000 units EVERY 12 HOURS SUBQ 04/24/17 21:00 05/21/17 20:59 04/25/17 08:14 Insulin Aspart (NovoLOG) BEFORE MEALS AND HS SUBQ 04/24/17 21:00 05/24/17 16:29 04/25/17 12:13 Insulin Aspart (NovoLOG) 6 units BEFORE MEALS SUBQ 04/25/17 06:30 05/24/17 16:29 Insulin Detemir (Levemir) 20 units BEDTIME SUBQ 04/25/17 21:00 05/25/17 20:59 Lisinopril (Prinivil) 20 mg BID ORAL 04/25/17 18:00 05/24/17 09:14 Metoprolol Tartrate (Lopressor) 25 mg Q12HR ORAL 04/25/17 22:00 05/25/17 21:59 Morphine Sulfate (Morphine Sulfate) 1 mg Q4H PRN IVP For Pain Scale 4-10 04/24/17 22:00 04/28/17 13:59 04/24/17 21:15 Ondansetron HCl (Zofran) 4 mg Q6H PRN IVP Nausea & Vomiting 04/25/17 02:00 05/21/17 13:59 04/25/17 06:24 Pantoprazole (Protonix) 40 mg DAILY ORAL 04/25/17 09:00 05/22/17 08:59 04/25/17 08:15 Polyethylene Glycol (Miralax) 17 gm HSPRN PRN ORAL Constipation 1st line agent 04/25/17 14:00 05/21/17 13:59 Sevelamer Carbonate (Renvela) 1,600 mg THREE TIMES A DAY ORAL 04/25/17 09:00 05/23/17 17:59 04/25/17 08:15 Vancomycin HCl (Vanco rx to dose) 1 ea DAILY PRN MISC . 04/25/17 09:00 05/21/17 16:44 Zolpidem Tartrate (Ambien) 5 mg HSPRN PRN ORAL Insomnia 04/24/17 21:30 05/01/17 21:29 04/24/17 21:34 Allergies: Coded Allergies: GABAPENTIN (Verified Allergy, Unknown, 04/21/17) Dizziness, syncope ROS Limited/Unobtainable: No Constitutional: Reports: no symptoms HEENT: Reports: no symptoms Cardiovascular: Reports: no symptoms Respiratory: Reports: no symptoms Gastrointestinal/Abdominal: Reports: no symptoms Genitourinary: Reports: no symptoms Neurologic/Psychiatric: Reports: no symptoms Subjective 31 YO M admitted with diabetic ketoacidosis. Cover for Int Mike-Dr Mills. Objective Last Vital Signs Date Time Temp Pulse Resp B/P (MAP) Pulse Ox O2 Delivery O2 Flow Rate FiO2 04/25/17 12:00 97.3 81 20 180/86 100 04/25/17 00:00 Room Air 04/24/17 19:06 21 Laboratory Tests Test 04/24/17 18:13 Ammonia 25 umol/L (11-32) Vitamin B6 Level Pending Vitamin B12 Level 929 PG/ML (193-986) Vitamin D 25-Hydroxy Pending 25-Hydroxy Vitamin D2 Pending 25-Hydroxy Vitamin D3 Pending Alpha-Tocopherol Level Pending Anti-Nuclear Antibody Screen Pending HIV (1&2) Antibody Rapid Negative (NEGATIVE) Intake and Output 04/25/17 04/26/17 19:00 07:00 Intake Total 275 ml Balance 275 ml IV Total 275 ml Objective General Appearance: WD/WN, no apparent distress, alert EENT: PERRL/EOMI, normal ENT inspection Neck: non-tender, normal alignment, supple, normal inspection Cardiovascular: normal peripheral pulses, normal rate, regular rhythm, no gallop/murmur, no JVD Respiratory/Chest: chest wall non-tender, lungs clear, normal breath sounds, no respiratory distress, no accessory muscle use Abdomen: normal bowel sounds, non tender, soft, no organomegaly, no mass Extremities: normal range of motion, non-tender 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 Cont Levemir insulin and Novolog sliding scale per endocrinology (2) HTN (hypertension) Assessment & Plan: Continue lisinopril and vasotec (3) Other cyst of bone, left ankle and foot Assessment & Plan: See podiatry note.. Continue vanco and cefepime per ID (4) DKA (diabetic ketoacidoses) (5) ESRD (end stage renal disease) on dialysis Assessment & Plan: Next hemodialysis 04/26/17-see nephrology note. (6) Hyperglycemia Status: progressing DAVID LINK Apr 25, 2017 13:17
[2017-04-25] MEDS ORDERED: Zolpidem 5mg tab ORAL PRN ×2 (14:00→21:30)
[2017-04-25] MEDS ORDERED: Miralax 17gm pkt ORAL PRN ×2 (14:00→16:00)
[2017-04-25] MEDS ORDERED: NS 500ML ONE (14:51)
[2017-04-25] MEDS ORDERED: 1/2 NS 1000ml IV ONE (14:51)
[2017-04-25] MEDS ORDERED: Tubing IV Secondary IV ONE (14:51)
--- NOTE | 2017-04-25 15:18 | Neurology Progress Note ---
Interim History Interim History ROS Limited/Unobtainable: Yes Complaints: none Events: more obtunded, nonverbal Objective Physical Exam Last Vital Signs Date Time Temp Pulse Resp B/P (MAP) Pulse Ox O2 Delivery O2 Flow Rate FiO2 04/25/17 13:16 81 180/86 04/25/17 12:00 97.3 20 100 04/25/17 00:00 Room Air 04/24/17 19:06 21 Laboratory Tests Test 04/24/17 18:13 Ammonia 25 umol/L (11-32) Vitamin B6 Level Pending Vitamin B12 Level 929 PG/ML (193-986) Vitamin D 25-Hydroxy Pending 25-Hydroxy Vitamin D2 Pending 25-Hydroxy Vitamin D3 Pending Alpha-Tocopherol Level Pending Anti-Nuclear Antibody Screen Pending HIV (1&2) Antibody Rapid Negative (NEGATIVE) General: well developed, well nourished, no acute distress Head: normocophalic, atraumatic Neck: no rigidity Neurologic Exam Mental Status: other - drowsy arousable mumbling incoherent Speech: other - nonberbal Language: other Cranial Nerve II: no papilledema Cranial Nerves III, IV, : other Cranial Nerve V: other Cranial Nerve VII: other Cranial Nerve VIII: other Cranial Nerve IX: other Cranial Nerve XI: other Cranial Nerve XII: other Motor System: normal muscle tone, no involuntary movement, no muscle wasting, other - moves all limbbs Sensory: other Coordination: other Deep Tendon Reflexes: 0 bicep (L), 0 bicep (R), 0 tricep (L), 0 tricep (R), 0 brachioradialis (L), 0 brachioradialis (R), 0 knee (L), 0 knee (R), 0 ankle (L) , 0 ankle (R) Reflexes: mute plantar (L), mute plantar (R) Impression/Recommendations Problems: (1) severe toxic/metabolic encephalopathy 2/2 protracted DKA/ESRD (2) Poorly controlled diabetes mellitus (3) ESRD (end stage renal disease) on dialysis (4) Diabetes type I Status: progressing Recommendations #[id number] cont HD b12/vit levels joya,esr, EEG no sz event MRI brai no acute lesions d/w father NOHEMI KING Apr 25, 2017 15:18
[2017-04-25] MEDS: Enalaprilat 2.5mg/2ml Inj IV PRN ×2 (16:26→20:16)
[2017-04-25] MEDS ORDERED: Acyclovir 1,000 MG in D5W 275 ML IV SCH (17:00)
[2017-04-25] MEDS ORDERED: cefTRIAXone 2 GM in NS 55 ML IVPB SCH (17:15)
[2017-04-25] MEDS: Lisinopril 20mg tab ORAL SCH (17:40)
[2017-04-25] MEDS ORDERED: Lisinopril 20mg tab ORAL SCH (18:00)
[2017-04-25] MEDS: Levemir Flexpen SUBQ SCH (18:57)
[2017-04-25] MEDS ORDERED: Levemir Flexpen SUBQ SCH ×3 (19:00→21:00)
[2017-04-25] MEDS: Morphine Sulfate 2mg/ml Inj IVP PRN (20:17)
[2017-04-25] MEDS: Metoprolol 25mg tab ORAL SCH (20:20)
[2017-04-25] MEDS ORDERED: Acyclovir 1,000 MG in NS 275 ML IV SCH (22:00)
[2017-04-25] MEDS ORDERED: Metoprolol 25mg tab ORAL SCH (22:00)
[2017-04-26] VITALS (17 sets, daily range): BP systolic 145–194; BP diastolic 73–111
[2017-04-26] MEDS ORDERED: HydrALAZINE 25mg tab ORAL SCH (01:00)
[2017-04-26] MEDS: Enalaprilat 2.5mg/2ml Inj IV PRN ×3 (01:03→16:39)
[2017-04-26] MEDS: cefTRIAXone 2 GM in NS 55 ML IVPB SCH ×2 (03:31→16:22)
[2017-04-26] MEDS: Morphine Sulfate 2mg/ml Inj IVP PRN (03:33)
[2017-04-26 05:37] LABS: BASOPHILS % (AUTO) 0.4 % (0.0-2.0); EOSINOPHILS % (AUTO) 0.1 % (0.0-3.0); LYMPHOCYTES % (AUTO) 12.4 % (20.0-45.0); MEAN CORPUSCULAR HEMOGLOBIN 26.6 PG (27.0-31.0); MEAN CORPUSCULAR HGB CONC 31.8 G/DL (32.0-36.0); MEAN CORPUSCULAR VOLUME 84 FL (80-99); MEAN PLATELET VOLUME 7.4 FL (6.5-10.1); MONOCYTES % (AUTO) 3.4 % (1.0-10.0); NEUTROPHILS % (AUTO) 83.7 % (45.0-75.0); PLATELET COUNT 191 K/UL (150-450); RED BLOOD COUNT 3.37 M/UL (4.70-6.10); RED CELL DISTRIBUTION WIDTH 14.9 % (11.6-14.8); WHITE BLOOD COUNT 4.8 K/UL (4.8-10.8)
[2017-04-26] MEDS: NovoLOG Insulin Flexpen SUBQ SCH ×7 (05:39→20:57)
[2017-04-26 06:12] LABS: ANION GAP 15 mmol/L (5-15); CALCIUM 9.2 MG/DL (8.5-10.1); CARBON DIOXIDE 27 MMOL/L (21-32); CHLORIDE 91 MMOL/L (98-107); CREATININE 10.1 MG/DL (0.55-1.30); POTASSIUM 4.5 MMOL/L (3.5-5.1); SODIUM 133 MMOL/L (136-145)
[2017-04-26] MEDS: Heparin 5000 units/ml inj SUBQ SCH ×2 (08:27→20:57)
[2017-04-26] MEDS: Metoprolol 25mg tab ORAL SCH ×2 (08:31→20:57)
[2017-04-26] MEDS: Lisinopril 20mg tab ORAL SCH ×2 (08:32→17:51)
[2017-04-26] MEDS: Renvela 800mg Pkt ORAL SCH ×3 (08:33→17:52)
--- NOTE | 2017-04-26 11:09 | Nephrology Progress Note ---
Assessment/Plan Problem List: (1) ESRD (end stage renal disease) on dialysis (2) Hyperkalemia, diminished renal excretion (3) Hyperglycemia Assessment remains encephalopathic ESRD- Type I DM- presents with: Encephalopathy unchanged HyperKalemia improved Hyperglycemia improved Has a collection on his left lat plantar foot ? infected Anemia Plan Plan: increase zestril for BP add Lopressor MRI , r/o stroke for decrease memory: negative HD 04/26 in process check vanco level: 18 per Endo keep BP and BS in check EEG? Subjective ROS Limited/Unobtainable: Yes Objective Objective Last 24 Hour Vital Signs Date Time Temp Pulse Resp B/P (MAP) Pulse Ox O2 Delivery O2 Flow Rate FiO2 04/26/17 09:30 Room Air 04/26/17 09:00 145/86 04/26/17 08:32 171/101 04/26/17 08:32 89 171/101 04/26/17 08:31 89 171/101 04/26/17 08:25 171/101 04/26/17 08:00 97.5 89 18 171/101 96 Room Air 04/26/17 08:00 88 04/26/17 05:00 156/106 04/26/17 04:00 88 04/26/17 04:00 97.8 88 16 176/109 97 Room Air 04/26/17 03:00 156/73 04/26/17 02:08 186/108 04/26/17 02:00 165/93 04/26/17 01:03 191/106 04/26/17 01:00 192/106 04/26/17 00:00 97.9 95 16 191/106 95 Room Air 04/26/17 00:00 84 04/25/17 23:10 77 16 187/100 98 Room Air 04/25/17 22:00 175/99 04/25/17 21:00 195/101 04/25/17 20:16 199/89 04/25/17 20:00 97.7 85 16 199/104 95 04/25/17 20:00 81 04/25/17 19:20 87 12 Room Air 21 04/25/17 17:47 81 04/25/17 17:40 175/92 04/25/17 17:00 180/80 04/25/17 16:26 201/101 04/25/17 16:00 04/25/17 16:00 201/101 04/25/17 15:10 97.3 81 20 169/80 93 04/25/17 13:16 81 180/86 04/25/17 13:16 180/86 04/25/17 12:00 97.3 81 20 180/86 100 Laboratory Tests 04/26/17 03:40: White Blood Count 4.8, Red Blood Count 3.37L, Hemoglobin 9.0L, Hematocrit 28.2L , Mean Corpuscular Volume 84, Mean Corpuscular Hemoglobin 26.6L, Mean Corpuscular Hemoglobin Concent 31.8L, Red Cell Distribution Width 14.9H, Platelet Count 191, Mean Platelet Volume 7.4, Neutrophils (%) (Auto) 83.7H, Lymphocytes (%) (Auto) 12.4L, Monocytes (%) (Auto) 3.4, Eosinophils (%) (Auto) 0.1, Basophils (%) (Auto) 0.4, Erythrocyte Sedimentation Rate 39H, Sodium Level 133L, Potassium Level 4.5, Chloride Level 91L, Carbon Dioxide Level 27, Anion Gap 15, Blood Urea Nitrogen 60H, Creatinine 10.1H, Estimat Glomerular Filtration Rate 6.0, Glucose Level 78, Calcium Level 9.2, Thyroid Stimulating Hormone (TSH) 2.983 Height (Feet): 5 Height (Inches): 11.00 Weight (Pounds): 166 General Appearance: no apparent distress, confused Objective other PE not changed ANUPAM PUENTES Apr 26, 2017 11:09
[2017-04-26] MEDS ORDERED: Haloperidol 5mg/ml Inj IM PRN (11:15)
--- NOTE | 2017-04-26 11:29 | Internal Med Progress Note ---
Subjective Date of Service: Apr 26, 2017 Physician Name Link,David Attending Physician Mellissa Mejia Current Medications Medications (Trade) Dose Ordered Sig/Aura Route PRN Reason Start Time Stop Time Status Last Admin Dose Admin Acetaminophen (Tylenol) 650 mg Q4H PRN ORAL fever 04/25/17 18:00 05/21/17 13:59 Acyclovir 400 mg/ Sodium Chloride 275 ml @ 275 mls/hr DAILY@2200 IV 04/26/17 22:00 05/26/17 21:59 Albuterol/ Ipratropium (Albuterol/ Ipratropium) 3 ml Q6H PRN HHN dyspnea 04/25/17 20:00 04/26/17 13:59 Amlodipine Besylate (Norvasc) 10 mg DAILY ORAL 04/26/17 09:00 05/22/17 08:59 Ceftriaxone Sodium 2 gm/ Sodium Chloride 55 ml @ 110 mls/hr Q12HR@0400,1600 IVPB 04/26/17 04:00 05/03/17 03:59 04/26/17 03:31 Clonidine HCl (Catapres) 0.1 mg Q4H PRN ORAL SBP > 160 04/25/17 18:00 05/21/17 13:59 Dextrose (Dextrose 50%) STAT PRN IV Hypoglycemia 04/26/17 11:30 05/25/17 11:29 Enalaprilat (Vasotec) 2.5 mg Q4H PRN IV For High Blood Pressure 04/25/17 17:00 05/24/17 20:59 04/26/17 08:25 Haloperidol Lactate (Haldol) 5 mg Q6H PRN IM Agitation 04/26/17 11:15 05/26/17 11:14 Heparin Sodium (Porcine) (Heparin 5000 units/ml) 5,000 units EVERY 12 HOURS SUBQ 04/25/17 21:00 05/21/17 20:59 04/26/17 08:27 Hydralazine HCl (Apresoline) 20 mg Q4H PRN IV For High Blood Pressure 04/26/17 01:15 05/26/17 01:14 04/26/17 02:08 Insulin Aspart (NovoLOG) BEFORE MEALS AND HS SUBQ 04/25/17 16:30 05/24/17 16:29 04/25/17 20:19 Insulin Aspart (NovoLOG) 6 units BEFORE MEALS SUBQ 04/25/17 16:30 05/24/17 16:29 04/25/17 16:30 Insulin Detemir (Levemir) 18 units Q24H SUBQ 04/25/17 19:00 05/25/17 18:59 Lisinopril (Prinivil) 20 mg BID ORAL 04/25/17 18:00 05/24/17 09:14 Metoprolol Tartrate (Lopressor) 25 mg Q12HR ORAL 04/25/17 22:00 05/25/17 21:59 Morphine Sulfate (Morphine Sulfate) 1 mg Q4H PRN IVP For Pain Scale 4-10 04/25/17 18:00 04/28/17 13:59 04/26/17 03:33 Ondansetron HCl (Zofran) 4 mg Q6H PRN IVP Nausea & Vomiting 04/25/17 20:00 05/21/17 13:59 Pantoprazole (Protonix) 40 mg DAILY ORAL 04/26/17 09:00 05/22/17 08:59 Polyethylene Glycol (Miralax) 17 gm HSPRN PRN ORAL Constipation 1st line agent 04/25/17 16:00 05/25/17 15:59 Sevelamer Carbonate (Renvela) 1,600 mg THREE TIMES A DAY ORAL 04/25/17 18:00 05/23/17 17:59 Vancomycin HCl (Vanco rx to dose) 1 ea DAILY PRN MISC . 04/26/17 09:00 05/21/17 16:44 Zolpidem Tartrate (Ambien) 5 mg HSPRN PRN ORAL Insomnia 04/25/17 21:30 05/01/17 21:29 Allergies: Coded Allergies: GABAPENTIN (Verified Allergy, Unknown, 04/21/17) Dizziness, syncope ROS Limited/Unobtainable: Yes Subjective 31 YO M admitted with diabetic ketoacidosis. Worsening altered mental status- non verbal. Refusing oral meds. Cover for Int Med-Dr Mills. Objective Last Vital Signs Date Time Temp Pulse Resp B/P (MAP) Pulse Ox O2 Delivery O2 Flow Rate FiO2 04/26/17 09:30 Room Air 21 04/26/17 09:00 145/86 04/26/17 08:32 89 04/26/17 08:00 97.5 18 96 Laboratory Tests Test 04/26/17 03:40 White Blood Count 4.8 K/UL (4.8-10.8) Red Blood Count 3.37 M/UL (4.70-6.10) L Hemoglobin 9.0 G/DL (14.2-18.0) L Hematocrit 28.2 % (42.0-52.0) L Mean Corpuscular Volume 84 FL (80-99) Mean Corpuscular Hemoglobin 26.6 PG (27.0-31.0) L Mean Corpuscular Hemoglobin Concent 31.8 G/DL (32.0-36.0) L Red Cell Distribution Width 14.9 % (11.6-14.8) H Platelet Count 191 K/UL (150-450) Mean Platelet Volume 7.4 FL (6.5-10.1) Neutrophils (%) (Auto) 83.7 % (45.0-75.0) H Lymphocytes (%) (Auto) 12.4 % (20.0-45.0) L Monocytes (%) (Auto) 3.4 % (1.0-10.0) Eosinophils (%) (Auto) 0.1 % (0.0-3.0) Basophils (%) (Auto) 0.4 % (0.0-2.0) Erythrocyte Sedimentation Rate 39 MM/HR (0-15) H Sodium Level 133 MMOL/L (136-145) L Potassium Level 4.5 MMOL/L (3.5-5.1) Chloride Level 91 MMOL/L (98-107) L Carbon Dioxide Level 27 MMOL/L (21-32) Anion Gap 15 mmol/L (5-15) Blood Urea Nitrogen 60 mg/dL (7-18) H Creatinine 10.1 MG/DL (0.55-1.30) H Estimat Glomerular Filtration Rate 6.0 mL/min (>60) Glucose Level 78 MG/DL (74-106) Calcium Level 9.2 MG/DL (8.5-10.1) Thyroid Stimulating Hormone (TSH) 2.983 uiU/mL (0.358-3.740) Microbiology Date/Time Source Procedure Growth Status 04/24/17 17:26 Blood Blood Culture - Preliminary NO GROWTH AFTER 24 HOURS Resulted 04/24/17 17:10 Blood Blood Culture - Preliminary NO GROWTH AFTER 24 HOURS Resulted Objective General Appearance: WD/WN, no apparent distress, alert EENT: PERRL/EOMI, normal ENT inspection Neck: non-tender, normal alignment, supple, normal inspection Cardiovascular: normal peripheral pulses, normal rate, regular rhythm, no gallop/murmur, no JVD Respiratory/Chest: chest wall non-tender, lungs clear, normal breath sounds, no respiratory distress, no accessory muscle use Abdomen: normal bowel sounds, non tender, soft, no organomegaly, no mass Extremities: normal range of motion, non-tender 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 Cont Levemir insulin and Novolog sliding scale per endocrinology (2) HTN (hypertension) Assessment & Plan: Continue lisinopril and vasotec (3) Other cyst of bone, left ankle and foot Assessment & Plan: See podiatry note.. Continue vanco and cefepime per ID (4) DKA (diabetic ketoacidoses) (5) ESRD (end stage renal disease) on dialysis Assessment & Plan: Hemodialysis today 04/26/17-see nephrology note. (6) Hyperglycemia (7) Altered mental status Assessment & Plan: See neuro note. Await psych consult. Status: deteriorating DAVID LINK Apr 26, 2017 11:29
--- NOTE | 2017-04-26 11:38 | Infectious Diseases Prog Note ---
Assessment/Plan Assessment/Plan ALOC/AMS- has not improved, ? etio Meningitis/encephalitis , in DDX but less likely no GOMEZ, N/V , no neck rigidity -MRI brain: Negative for acute intracranial bleed, mass effect, or infarct. Prominent ventricles and extra-axial CSF spaces, consistent with your volume loss, advanced for patient's age. Correlate with clinical history Possible old tiny left posterior temporal cortical infarct. Minimal periventricular deep white matter T2 hyperintensities, consistent with chronic ischemic changes. -CT head: Negative for acute intracranial bleed or mass effect. Somewhat prominent ventricles and extra-axial CSF spaces, consistent with volume loss, advanced for age. Periventricular deep white matter low-attenuation, appearance typical of chronic ischemic changes but given patient's age possibility of demyelinating disease should be considered.] -CXR: There is equivocal mild interstitial congestion. No focal airspace consolidation. No effusions -Rapid HIV test- neg Afebrile no leukocytosis Leg 5th metatarsal fluid collection no evid of of OM, possiby cyst-as per Pod : MRI done at outside facility and re-evaluated by [facility] radiologist suggest that no osteomyelitis is present in either foot. -XRay L foot 04/22: Osseous defect in fragment of the medial head of the first proximal phalanx. There is overlying soft tissue swelling, but bony abnormality does not appear acute. May reflect an old injury. Correlate with clinical findings, consider MRI for further evaluation as clinically indicated. Soft tissue swelling in the region of the left fifth metatarsal head. No plain radiographic findings to suggest acute osteomyelitis. Note, however, limited sensitivity of plain radiographs for such. Consider MRI for better characterization if there is high clinical suspicion -04/23: ESR 40, CRP 3.4 -MRI 04/08: L Foot wo: 2.1x 0.7 x2.5 cm fluid collection in plantar aspect of 5th metatarsal head. Cannot exclude abscess. Minimal Bone marrow edema involving 5th metatarsal head. Although no cortical erosive changes noted, an early medullary OM cannot be excluded. -u/s guided dranacristian at [facility]- cx negative -Vanco 500mg and Cefepime 2g after HD on HD days planned for 6 weeks; end date 05/28/17 DKA, resolved DM 1 on insulin pump, HTN, ESRD on HD MWF, psychiatric illness Plan: -Continue IV Vancomycin #5 and Rocephin(meningitis dose) abx d #5 , and Acyclovir d # 3 -04/24 SP Cefepime #3 -04/22 SP Zosyn #1 - abx duration: until 05/28/2017- for presumed OM (regimen started at [facility]) -For LP today -CSF analysis, bacterial, fungal, AFB cultures, HSV PCR, VDRL -Check HIV ag/ab, Cocci ab, Cr Ag, RPR serum -Monitor CBC/BMP, temperatures: - f/u cx Subjective Allergies: Coded Allergies: GABAPENTIN (Verified Allergy, Unknown, 04/21/17) Dizziness, syncope Subjective afebrile no leukocytosis remains confused Objective Vital Signs Last 24 Hour Vital Signs Date Time Temp Pulse Resp B/P (MAP) Pulse Ox O2 Delivery O2 Flow Rate FiO2 04/26/17 09:30 Room Air 04/26/17 09:00 145/86 04/26/17 08:32 171/101 04/26/17 08:32 89 171/101 04/26/17 08:31 89 171/101 04/26/17 08:25 171/101 04/26/17 08:00 97.5 89 18 171/101 96 Room Air 04/26/17 08:00 88 04/26/17 05:00 156/106 04/26/17 04:00 88 04/26/17 04:00 97.8 88 16 176/109 97 Room Air 04/26/17 03:00 156/73 04/26/17 02:08 186/108 04/26/17 02:00 165/93 04/26/17 01:03 191/106 04/26/17 01:00 192/106 04/26/17 00:00 97.9 95 16 191/106 95 Room Air 04/26/17 00:00 84 04/25/17 23:10 77 16 187/100 98 Room Air 04/25/17 22:00 175/99 04/25/17 21:00 195/101 04/25/17 20:16 199/89 04/25/17 20:00 97.7 85 16 199/104 95 04/25/17 20:00 81 04/25/17 19:20 87 12 Room Air 21 04/25/17 17:47 81 04/25/17 17:40 175/92 04/25/17 17:00 180/80 04/25/17 16:26 201/101 04/25/17 16:00 04/25/17 16:00 201/101 04/25/17 15:10 97.3 81 20 169/80 93 04/25/17 13:16 81 180/86 04/25/17 13:16 180/86 04/25/17 12:00 97.3 81 20 180/86 100 Height (Feet): 5 Height (Inches): 11.00 Weight (Pounds): 166 Objective Status: awake, alert, responsive, very confused, HEENT: atraumatic, normocephalic, mmm Neck: full ROM, supple, trachea midline Lungs: CTAB Heart: S1S2, RRR, no murmur Abdomen: soft, non-tender, active bowel sounds Extremities: no C/C/E Decubiti: Left plantar 5th metatarsal head abscess with back scab in the middle. Microbiology Date/Time Source Procedure Growth Status 04/24/17 17:26 Blood Blood Culture - Preliminary NO GROWTH AFTER 24 HOURS Resulted 04/24/17 17:10 Blood Blood Culture - Preliminary NO GROWTH AFTER 24 HOURS Resulted Laboratory Tests Test 04/26/17 03:40 White Blood Count 4.8 K/UL (4.8-10.8) Red Blood Count 3.37 M/UL (4.70-6.10) L Hemoglobin 9.0 G/DL (14.2-18.0) L Hematocrit 28.2 % (42.0-52.0) L Mean Corpuscular Volume 84 FL (80-99) Mean Corpuscular Hemoglobin 26.6 PG (27.0-31.0) L Mean Corpuscular Hemoglobin Concent 31.8 G/DL (32.0-36.0) L Red Cell Distribution Width 14.9 % (11.6-14.8) H Platelet Count 191 K/UL (150-450) Mean Platelet Volume 7.4 FL (6.5-10.1) Neutrophils (%) (Auto) 83.7 % (45.0-75.0) H Lymphocytes (%) (Auto) 12.4 % (20.0-45.0) L Monocytes (%) (Auto) 3.4 % (1.0-10.0) Eosinophils (%) (Auto) 0.1 % (0.0-3.0) Basophils (%) (Auto) 0.4 % (0.0-2.0) Erythrocyte Sedimentation Rate 39 MM/HR (0-15) H Sodium Level 133 MMOL/L (136-145) L Potassium Level 4.5 MMOL/L (3.5-5.1) Chloride Level 91 MMOL/L (98-107) L Carbon Dioxide Level 27 MMOL/L (21-32) Anion Gap 15 mmol/L (5-15) Blood Urea Nitrogen 60 mg/dL (7-18) H Creatinine 10.1 MG/DL (0.55-1.30) H Estimat Glomerular Filtration Rate 6.0 mL/min (>60) Glucose Level 78 MG/DL (74-106) Calcium Level 9.2 MG/DL (8.5-10.1) Thyroid Stimulating Hormone (TSH) 2.983 uiU/mL (0.358-3.740) Current Medications Medications (Trade) Dose Ordered Sig/Aura Route PRN Reason Start Time Stop Time Status Last Admin Dose Admin Acetaminophen (Tylenol) 650 mg Q4H PRN ORAL fever 04/25/17 18:00 05/21/17 13:59 Acyclovir 400 mg/ Sodium Chloride 275 ml @ 275 mls/hr DAILY@2200 IV 04/26/17 22:00 05/26/17 21:59 Albuterol/ Ipratropium (Albuterol/ Ipratropium) 3 ml Q6H PRN HHN dyspnea 04/25/17 20:00 04/26/17 13:59 Amlodipine Besylate (Norvasc) 10 mg DAILY ORAL 04/26/17 09:00 05/22/17 08:59 Ceftriaxone Sodium 2 gm/ Sodium Chloride 55 ml @ 110 mls/hr Q12HR@0400,1600 IVPB 04/26/17 04:00 05/03/17 03:59 04/26/17 03:31 Clonidine HCl (Catapres) 0.1 mg Q4H PRN ORAL SBP > 160 04/25/17 18:00 05/21/17 13:59 Dextrose (Dextrose 50%) STAT PRN IV Hypoglycemia 04/26/17 11:30 05/25/17 11:29 Enalaprilat (Vasotec) 2.5 mg Q4H PRN IV For High Blood Pressure 04/25/17 17:00 05/24/17 20:59 04/26/17 08:25 Haloperidol Lactate (Haldol) 5 mg Q6H PRN IM Agitation 04/26/17 11:15 05/26/17 11:14 Heparin Sodium (Porcine) (Heparin 5000 units/ml) 5,000 units EVERY 12 HOURS SUBQ 04/25/17 21:00 05/21/17 20:59 04/26/17 08:27 Hydralazine HCl (Apresoline) 20 mg Q4H PRN IV For High Blood Pressure 04/26/17 01:15 05/26/17 01:14 04/26/17 02:08 Insulin Aspart (NovoLOG) BEFORE MEALS AND HS SUBQ 04/25/17 16:30 05/24/17 16:29 04/25/17 20:19 Insulin Aspart (NovoLOG) 6 units BEFORE MEALS SUBQ 04/25/17 16:30 05/24/17 16:29 04/25/17 16:30 Insulin Detemir (Levemir) 18 units Q24H SUBQ 04/25/17 19:00 05/25/17 18:59 Lisinopril (Prinivil) 20 mg BID ORAL 04/25/17 18:00 05/24/17 09:14 Metoprolol Tartrate (Lopressor) 25 mg Q12HR ORAL 04/25/17 22:00 05/25/17 21:59 Morphine Sulfate (Morphine Sulfate) 1 mg Q4H PRN IVP For Pain Scale 4-10 04/25/17 18:00 04/28/17 13:59 04/26/17 03:33 Ondansetron HCl (Zofran) 4 mg Q6H PRN IVP Nausea & Vomiting 04/25/17 20:00 05/21/17 13:59 Pantoprazole (Protonix) 40 mg DAILY ORAL 04/26/17 09:00 05/22/17 08:59 Polyethylene Glycol (Miralax) 17 gm HSPRN PRN ORAL Constipation 1st line agent 04/25/17 16:00 05/25/17 15:59 Sevelamer Carbonate (Renvela) 1,600 mg THREE TIMES A DAY ORAL 04/25/17 18:00 05/23/17 17:59 Vancomycin HCl (Vanco rx to dose) 1 ea DAILY PRN MISC . 04/26/17 09:00 05/21/17 16:44 Zolpidem Tartrate (Ambien) 5 mg HSPRN PRN ORAL Insomnia 04/25/17 21:30 05/01/17 21:29 Livier Woods M.D. Apr 26, 2017 11:38
--- NOTE | 2017-04-26 12:14 | Neurology Progress Note ---
Interim History Interim History ROS Limited/Unobtainable: Yes Complaints: none Events: more obtunded, nonverbal now in HD Objective Physical Exam Last Vital Signs Date Time Temp Pulse Resp B/P (MAP) Pulse Ox O2 Delivery O2 Flow Rate FiO2 04/26/17 09:30 Room Air 21 04/26/17 09:00 145/86 04/26/17 08:32 89 04/26/17 08:00 97.5 18 96 Laboratory Tests Test 04/26/17 03:40 White Blood Count 4.8 K/UL (4.8-10.8) Red Blood Count 3.37 M/UL (4.70-6.10) L Hemoglobin 9.0 G/DL (14.2-18.0) L Hematocrit 28.2 % (42.0-52.0) L Mean Corpuscular Volume 84 FL (80-99) Mean Corpuscular Hemoglobin 26.6 PG (27.0-31.0) L Mean Corpuscular Hemoglobin Concent 31.8 G/DL (32.0-36.0) L Red Cell Distribution Width 14.9 % (11.6-14.8) H Platelet Count 191 K/UL (150-450) Mean Platelet Volume 7.4 FL (6.5-10.1) Neutrophils (%) (Auto) 83.7 % (45.0-75.0) H Lymphocytes (%) (Auto) 12.4 % (20.0-45.0) L Monocytes (%) (Auto) 3.4 % (1.0-10.0) Eosinophils (%) (Auto) 0.1 % (0.0-3.0) Basophils (%) (Auto) 0.4 % (0.0-2.0) Erythrocyte Sedimentation Rate 39 MM/HR (0-15) H Sodium Level 133 MMOL/L (136-145) L Potassium Level 4.5 MMOL/L (3.5-5.1) Chloride Level 91 MMOL/L (98-107) L Carbon Dioxide Level 27 MMOL/L (21-32) Anion Gap 15 mmol/L (5-15) Blood Urea Nitrogen 60 mg/dL (7-18) H Creatinine 10.1 MG/DL (0.55-1.30) H Estimat Glomerular Filtration Rate 6.0 mL/min (>60) Glucose Level 78 MG/DL (74-106) Calcium Level 9.2 MG/DL (8.5-10.1) Thyroid Stimulating Hormone (TSH) 2.983 uiU/mL (0.358-3.740) General: well developed, well nourished, no acute distress Head: normocophalic, atraumatic Neck: no rigidity Neurologic Exam Mental Status: other - drowsy arousable mumbling incoherent at times wake up screaming Speech: other - nonberbal Language: other Cranial Nerve II: no papilledema Cranial Nerves III, IV, : other Cranial Nerve V: other Cranial Nerve VII: other Cranial Nerve VIII: other Cranial Nerve IX: other Cranial Nerve XI: other Cranial Nerve XII: other Motor System: normal muscle tone, no involuntary movement, no muscle wasting, other - moves all limbbs Sensory: other Coordination: other Deep Tendon Reflexes: 0 bicep (L), 0 bicep (R), 0 tricep (L), 0 tricep (R), 0 brachioradialis (L), 0 brachioradialis (R), 0 knee (L), 0 knee (R), 0 ankle (L) , 0 ankle (R) Reflexes: mute plantar (L), mute plantar (R) Impression/Recommendations Problems: (1) severe toxic/metabolic encephalopathy 2/2 protracted DKA/ESRD (2) Poorly controlled diabetes mellitus (3) ESRD (end stage renal disease) on dialysis (4) Diabetes type I (5) r/o meningoencephalitis Status: not improved, deteriorating Recommendations #[id number] cont HD b12/vit levels joya,esr, EEG no sz event MRI brai no acute lesions NOHEMI LUU Apr 26, 2017 12:14
--- NOTE | 2017-04-26 12:45 | GI Initial Consult Note ---
History of Present Illness General Date patient seen: Apr 26, 2017 Time patient seen: 12:39 Reason for Hospitalization: Abnormal Labs Referring physician: ZHEN PITTS Reason for Consultation: DECREASED PO INTAKE Present Illness HPI 31-year-old male presents ED for evaluation. Per EMS patient was found down at home. Patient has an insulin pump which was disconnected. Accu-Chek was critically high. Initially patient was confused and altered. Patient also has history of end-stage renal disease and gets dialysis Wednesday. Missed dialysis today. Denies fevers or chills. Denies chest pain or shortness of breath. Father states that patient was recently admitted to [facility] for treatment of a leg infection. No other aggravating relieving factors. Denies any other associated symptoms GI consulted for decreased PO intake, possible NGT placement. HPI as noted above. ROS limited, patient fatigue and sleepy. Elevated BP, normal HR. Per RN report, the patients appetite has declined over the past few days and has not taken any PO intake. Labs show anemia, most likely 2/2 to renal disease. No history of endoscopy or colonoscopy. Home Meds Reported Medications Ranitidine Hcl* (ZANTAC*) 150 Mg Tablet, ORAL DAILY, #30 TAB 0 Refills 04/21/17 Ondansetron* (ZOFRAN*) 4 Mg Tablet, ORAL Q6H Y for Nausea & Vomiting, TAB 04/21/17 Amlodipine Besylate* (AMLODIPINE BESYLATE*) 2.5 Mg Tablet, ORAL DAILY, TAB 04/21/17 Metoclopramide Hcl* (REGLAN*) 5 Mg Tablet, ORAL EVERY 6 HOURS, TAB 04/21/17 Pregabalin* (LYRICA*) 75 Mg Capsule, ORAL THREE TIMES A DAY, CAP 04/21/17 Sertraline Hcl* (ZOLOFT*) 25 Mg Tablet, ORAL DAILY, TAB 04/21/17 Pantoprazole* (PROTONIX*) 40 Mg Tablet.dr, ORAL DAILY, TAB 04/21/17 Sevelamer Carbonate* (RENVELA*) 0.8 Gm Powd.pack, ORAL THREE TIMES A DAY, PACK 04/21/17 Insulin Glargine (LANTUS) 100 Unit/1 Ml Insuln.pen, 0 SUBQ BEDTIME, #1 EA 0 Refills 04/21/17 [Insulin] No Conflict Check 11/22/12 Allergies: Coded Allergies: GABAPENTIN (Verified Allergy, Unknown, 04/21/17) Dizziness, syncope Patient History PMH Narrative Past Medical History: HTN, psych hx, renal disease, dialysis Past Surgical History: none Pertinent Family History: none Social History: Denies: smoking, alcohol use, drug use Immunizations: UTD Reviewed Nursing Documentation: PMH: Agreed, PSxH: Agreed Nursing Documentation-PMH Past Medical History: No History, Except For Hx Cardiac Problems: No Hx Hypertension: Yes Hx Diabetes: Yes Hx Cancer: No Hx Gastrointestinal Problems: No Hx Dialysis: Yes - MWF History Of Psychiatric Problem: Yes Hx Neurological Problems: No Review of Systems All Other Systems: limited Physical Exam Vital Signs Date Time Temp Pulse Resp B/P (MAP) Pulse Ox O2 Delivery O2 Flow Rate FiO2 04/22/17 07:00 72 15 145/57 97 Room Air 04/22/17 08:00 98.2 04/22/17 09:01 21 Sp02 EP Interpretation: reviewed, normal Labs Laboratory Tests Test 04/26/17 03:40 White Blood Count 4.8 K/UL (4.8-10.8) Red Blood Count 3.37 M/UL (4.70-6.10) L Hemoglobin 9.0 G/DL (14.2-18.0) L Hematocrit 28.2 % (42.0-52.0) L Mean Corpuscular Volume 84 FL (80-99) Mean Corpuscular Hemoglobin 26.6 PG (27.0-31.0) L Mean Corpuscular Hemoglobin Concent 31.8 G/DL (32.0-36.0) L Red Cell Distribution Width 14.9 % (11.6-14.8) H Platelet Count 191 K/UL (150-450) Mean Platelet Volume 7.4 FL (6.5-10.1) Neutrophils (%) (Auto) 83.7 % (45.0-75.0) H Lymphocytes (%) (Auto) 12.4 % (20.0-45.0) L Monocytes (%) (Auto) 3.4 % (1.0-10.0) Eosinophils (%) (Auto) 0.1 % (0.0-3.0) Basophils (%) (Auto) 0.4 % (0.0-2.0) Erythrocyte Sedimentation Rate 39 MM/HR (0-15) H Sodium Level 133 MMOL/L (136-145) L Potassium Level 4.5 MMOL/L (3.5-5.1) Chloride Level 91 MMOL/L (98-107) L Carbon Dioxide Level 27 MMOL/L (21-32) Anion Gap 15 mmol/L (5-15) Blood Urea Nitrogen 60 mg/dL (7-18) H Creatinine 10.1 MG/DL (0.55-1.30) H Estimat Glomerular Filtration Rate 6.0 mL/min (>60) Glucose Level 78 MG/DL (74-106) Calcium Level 9.2 MG/DL (8.5-10.1) Thyroid Stimulating Hormone (TSH) 2.983 uiU/mL (0.358-3.740) General Appearance: well appearing, no apparent distress, alert Head: normocephalic EENT: PERRL/EOMI, normal ENT inspection Neck: supple Respiratory: normal breath sounds, no respiratory distress Cardiovascular: normal rate Gastrointestinal: normal inspection, non tender, soft, normal bowel sounds, non -distended Rectal: deferred Genitourinary: deferred Musculoskeletal: normal inspection, back normal Neurologic: normal inspection, alert, oriented x3, responsive Psychiatric: normal inspection, judgement/insight normal, memory normal Skin: normal inspection, normal color, no rash, warm/dry, palpation normal, well hydrated Lymphatic: normal inspection, no adenopathy Current Medications Current Medications Medications (Trade) Dose Ordered Sig/Aura Route PRN Reason Start Time Stop Time Status Last Admin Dose Admin Acetaminophen (Tylenol) 650 mg Q4H PRN ORAL fever 04/25/17 18:00 05/21/17 13:59 Acyclovir 400 mg/ Sodium Chloride 275 ml @ 275 mls/hr DAILY@2200 IV 04/26/17 22:00 05/26/17 21:59 Albuterol/ Ipratropium (Albuterol/ Ipratropium) 3 ml Q6H PRN HHN dyspnea 04/25/17 20:00 04/26/17 13:59 Amlodipine Besylate (Norvasc) 10 mg DAILY ORAL 04/26/17 09:00 05/22/17 08:59 Ceftriaxone Sodium 2 gm/ Sodium Chloride 55 ml @ 110 mls/hr Q12HR@0400,1600 IVPB 04/26/17 04:00 05/03/17 03:59 04/26/17 03:31 Clonidine HCl (Catapres) 0.1 mg Q4H PRN ORAL SBP > 160 04/25/17 18:00 05/21/17 13:59 Dextrose (Dextrose 50%) STAT PRN IV Hypoglycemia 04/26/17 11:30 05/25/17 11:29 Enalaprilat (Vasotec) 2.5 mg Q4H PRN IV For High Blood Pressure 04/25/17 17:00 05/24/17 20:59 04/26/17 08:25 Haloperidol Lactate (Haldol) 5 mg Q6H PRN IM Agitation 04/26/17 11:15 05/26/17 11:14 Heparin Sodium (Porcine) (Heparin 5000 units/ml) 5,000 units EVERY 12 HOURS SUBQ 04/25/17 21:00 05/21/17 20:59 04/26/17 08:27 Hydralazine HCl (Apresoline) 20 mg Q4H PRN IV For High Blood Pressure 04/26/17 01:15 05/26/17 01:14 04/26/17 02:08 Insulin Aspart (NovoLOG) BEFORE MEALS AND HS SUBQ 04/25/17 16:30 05/24/17 16:29 04/25/17 20:19 Insulin Aspart (NovoLOG) 6 units BEFORE MEALS SUBQ 04/25/17 16:30 05/24/17 16:29 04/25/17 16:30 Insulin Detemir (Levemir) 18 units Q24H SUBQ 04/25/17 19:00 05/25/17 18:59 Lisinopril (Prinivil) 20 mg BID ORAL 04/25/17 18:00 05/24/17 09:14 Metoprolol Tartrate (Lopressor) 25 mg Q12HR ORAL 04/25/17 22:00 05/25/17 21:59 Morphine Sulfate (Morphine Sulfate) 1 mg Q4H PRN IVP For Pain Scale 4-10 04/25/17 18:00 04/28/17 13:59 04/26/17 03:33 Ondansetron HCl (Zofran) 4 mg Q6H PRN IVP Nausea & Vomiting 04/25/17 20:00 05/21/17 13:59 Pantoprazole (Protonix) 40 mg DAILY ORAL 04/26/17 09:00 05/22/17 08:59 Polyethylene Glycol (Miralax) 17 gm HSPRN PRN ORAL Constipation 1st line agent 04/25/17 16:00 05/25/17 15:59 Sevelamer Carbonate (Renvela) 1,600 mg THREE TIMES A DAY ORAL 04/25/17 18:00 05/23/17 17:59 Vancomycin HCl (Vanco rx to dose) 1 ea DAILY PRN MISC . 04/26/17 09:00 05/21/17 16:44 Zolpidem Tartrate (Ambien) 5 mg HSPRN PRN ORAL Insomnia 04/25/17 21:30 05/01/17 21:29 GI: Plan Problems: (1) Altered mental status (2) severe toxic/metabolic encephalopathy 2/2 protracted DKA/ESRD (3) Poorly controlled diabetes mellitus (4) Altered level of consciousness (5) Hyperglycemia Plan fu neurology recs supportive care at this time hold NGT placement at this time, will reassess mental status ordered calorie count DM control fu labs, ammonia Discussed with Dr. Morales. Thank you for this patient referral, we will follow. Karma Oneill N.P. Apr 26, 2017 12:45
--- NOTE | 2017-04-26 13:15 | Pulmonology Progress Note ---
Assessment/Plan Problems: (1) DKA (diabetic ketoacidoses) (2) Altered level of consciousness (3) ESRD (end stage renal disease) on dialysis Assessment/Plan BS better getting HD f/u neuro recommendations for ALOC, f/y Id recommendations for IV abx. Subjective ROS Limited/Unobtainable: Yes Interval Events: somnolent Allergies: Coded Allergies: GABAPENTIN (Verified Allergy, Unknown, 04/21/17) Dizziness, syncope Objective Last 24 Hour Vital Signs Date Time Temp Pulse Resp B/P (MAP) Pulse Ox O2 Delivery O2 Flow Rate FiO2 04/26/17 13:12 194/86 04/26/17 13:07 Room Air 21 04/26/17 12:00 91 04/26/17 12:00 98.1 91 20 164/96 92 Room Air 04/26/17 09:30 Room Air 04/26/17 09:00 145/86 04/26/17 08:32 171/101 04/26/17 08:32 89 171/101 04/26/17 08:31 89 171/101 04/26/17 08:25 171/101 04/26/17 08:00 97.5 89 18 171/101 96 Room Air 04/26/17 08:00 88 04/26/17 05:00 156/106 04/26/17 04:00 88 04/26/17 04:00 97.8 88 16 176/109 97 Room Air 04/26/17 03:00 156/73 04/26/17 02:08 186/108 04/26/17 02:00 165/93 04/26/17 01:03 191/106 04/26/17 01:00 192/106 04/26/17 00:00 97.9 95 16 191/106 95 Room Air 04/26/17 00:00 84 04/25/17 23:10 77 16 187/100 98 Room Air 04/25/17 22:00 175/99 04/25/17 21:00 195/101 04/25/17 20:16 199/89 04/25/17 20:00 97.7 85 16 199/104 95 04/25/17 20:00 81 04/25/17 19:20 87 12 Room Air 04/25/17 17:47 81 04/25/17 17:40 175/92 04/25/17 17:00 180/80 04/25/17 16:26 201/101 04/25/17 16:00 04/25/17 16:00 201/101 04/25/17 15:10 97.3 81 20 169/80 93 04/25/17 13:16 81 180/86 04/25/17 13:16 180/86 Intake and Output 04/26/17 04/27/17 19:00 07:00 Output Total 2200 ml Balance -2200 ml Output Hemodialysis UF 2200 ml General Appearance: WD/WN HEENT: normocephalic Respiratory/Chest: chest wall non-tender, lungs clear Cardiovascular: normal peripheral pulses, normal rate, regular rhythm Abdomen: normal bowel sounds, soft, non tender Genitourinary: normal external genitalia Extremities: no cyanosis Skin: no rash Neurologic/Psychiatric: normal mood/affect Lymphatic: no groin adenopathy Musculoskeletal: normal muscle bulk Microbiology Date/Time Source Procedure Growth Status 04/24/17 17:26 Blood Blood Culture - Preliminary NO GROWTH AFTER 24 HOURS Resulted 04/24/17 17:10 Blood Blood Culture - Preliminary NO GROWTH AFTER 24 HOURS Resulted Laboratory Tests 04/26/17 03:40: White Blood Count 4.8, Red Blood Count 3.37L, Hemoglobin 9.0L, Hematocrit 28.2L , Mean Corpuscular Volume 84, Mean Corpuscular Hemoglobin 26.6L, Mean Corpuscular Hemoglobin Concent 31.8L, Red Cell Distribution Width 14.9H, Platelet Count 191, Mean Platelet Volume 7.4, Neutrophils (%) (Auto) 83.7H, Lymphocytes (%) (Auto) 12.4L, Monocytes (%) (Auto) 3.4, Eosinophils (%) (Auto) 0.1, Basophils (%) (Auto) 0.4, Erythrocyte Sedimentation Rate 39H, Sodium Level 133L, Potassium Level 4.5, Chloride Level 91L, Carbon Dioxide Level 27, Anion Gap 15, Blood Urea Nitrogen 60H, Creatinine 10.1H, Estimat Glomerular Filtration Rate 6.0, Glucose Level 78, Calcium Level 9.2, Thyroid Stimulating Hormone (TSH) 2.983 Current Medications Medications (Trade) Dose Ordered Sig/Aura Route PRN Reason Start Time Stop Time Status Last Admin Dose Admin Acetaminophen (Tylenol) 650 mg Q4H PRN ORAL fever 04/25/17 18:00 05/21/17 13:59 Acyclovir 400 mg/ Sodium Chloride 275 ml @ 275 mls/hr DAILY@2200 IV 04/26/17 22:00 05/26/17 21:59 Albuterol/ Ipratropium (Albuterol/ Ipratropium) 3 ml Q6H PRN HHN dyspnea 04/25/17 20:00 04/26/17 13:59 Amlodipine Besylate (Norvasc) 10 mg DAILY ORAL 04/26/17 09:00 05/22/17 08:59 Ceftriaxone Sodium 2 gm/ Sodium Chloride 55 ml @ 110 mls/hr Q12HR@0400,1600 IVPB 04/26/17 04:00 05/03/17 03:59 04/26/17 03:31 Clonidine HCl (Catapres) 0.1 mg Q4H PRN ORAL SBP > 160 04/25/17 18:00 05/21/17 13:59 Dextrose (Dextrose 50%) STAT PRN IV Hypoglycemia 04/26/17 11:30 05/25/17 11:29 Enalaprilat (Vasotec) 2.5 mg Q4H PRN IV For High Blood Pressure 04/25/17 17:00 05/24/17 20:59 04/26/17 08:25 Haloperidol Lactate (Haldol) 5 mg Q6H PRN IM Agitation 04/26/17 11:15 05/26/17 11:14 Heparin Sodium (Porcine) (Heparin 5000 units/ml) 5,000 units EVERY 12 HOURS SUBQ 04/25/17 21:00 05/21/17 20:59 04/26/17 08:27 Hydralazine HCl (Apresoline) 20 mg Q4H PRN IV For High Blood Pressure 04/26/17 01:15 05/26/17 01:14 04/26/17 13:12 Insulin Aspart (NovoLOG) BEFORE MEALS AND HS SUBQ 04/25/17 16:30 05/24/17 16:29 04/25/17 20:19 Insulin Aspart (NovoLOG) 6 units BEFORE MEALS SUBQ 04/25/17 16:30 05/24/17 16:29 04/25/17 16:30 Insulin Detemir (Levemir) 18 units Q24H SUBQ 04/25/17 19:00 05/25/17 18:59 Lisinopril (Prinivil) 20 mg BID ORAL 04/25/17 18:00 05/24/17 09:14 Metoprolol Tartrate (Lopressor) 25 mg Q12HR ORAL 04/25/17 22:00 05/25/17 21:59 Morphine Sulfate (Morphine Sulfate) 1 mg Q4H PRN IVP For Pain Scale 4-10 04/25/17 18:00 04/28/17 13:59 04/26/17 03:33 Ondansetron HCl (Zofran) 4 mg Q6H PRN IVP Nausea & Vomiting 04/25/17 20:00 05/21/17 13:59 Pantoprazole (Protonix) 40 mg DAILY ORAL 04/26/17 09:00 05/22/17 08:59 Polyethylene Glycol (Miralax) 17 gm HSPRN PRN ORAL Constipation 1st line agent 04/25/17 16:00 05/25/17 15:59 Sevelamer Carbonate (Renvela) 1,600 mg THREE TIMES A DAY ORAL 04/25/17 18:00 05/23/17 17:59 Vancomycin HCl (Vanco rx to dose) 1 ea DAILY PRN MISC . 04/26/17 09:00 05/21/17 16:44 Zolpidem Tartrate (Ambien) 5 mg HSPRN PRN ORAL Insomnia 04/25/17 21:30 05/01/17 21:29 INEZ MEHTA Apr 26, 2017 13:15
[2017-04-26 14:14] LABS: ALANINE AMINOTRANSFERASE 16 U/L (12-78); ASPARTATE AMINO TRANSFERASE 23 U/L (15-37); BILIRUBIN,DIRECT < 0.1 MG/DL (0.0-0.3); TOTAL PROTEIN 7.8 G/DL (6.4-8.2)
[2017-04-26] MEDS: Levemir Flexpen SUBQ SCH (18:32)
--- NOTE | 2017-04-26 21:00 | Electroencephalogram ---
DATE OF PROCEDURE: 04/25/2017 REQUESTING PHYSICIAN: Mellissa Mejia M.D. READING PHYSICIAN: Shubham Riggs M.D. PROCEDURE PERFORMED: Electroencephalography. HISTORY: This is a 31-year-old man with a type 1 diabetes and end-stage renal disease, presenting now with a verbal unresponsiveness, suspected to have ongoing seizure activity. During the recording, the patient described as being drowsy, but poorly cooperative, slurred speech, and predominantly stuporous. Treatment include Lopressor, Vasotec, and vancomycin. TECHNIQUE: EEG was done using 18 electrodes placed scalp to scalp, scalp to ear montages according to 10/20 International System. The patient was continuously drowsy, but opened eyes, staring following physical stimulation, with a most wakeful portion of recording, background consists of 4-6 medium voltage theta activities bilaterally with no paroxysmal event. Continuously, there was poorly identifiable 3-5 hertz theta activities with intermittent appearance of multiform bifrontal delta transients, frequently background mixed with the EMG or movement artifacts. There were no spike and wave activities and no significant [id number] amplitude difference noted. IMPRESSION: Abnormal EEG, presence of moderate diffuse slowing with bifrontal delta wave transients, but no paroxysmal event. COMMENT: The above abnormality indicates a global cerebral dysfunction without evidence of paroxysmal activities. Absence of paroxysmal event on a single recording does not rule out seizure disorder. Shubham Riggs M.D. DR: TIRSO JOB#: [id number] CC:
[2017-04-26] MEDS: NS IV SCH (22:49)
[2017-04-26] MEDS: ACYCLOVIR IV SCH (22:49)
[2017-04-26] MEDS ORDERED: Vancomycin 750mg/NS 250ml IVPB ONE (23:00)
--- NOTE | 2017-04-26 23:10 | Consultation ---
History of Present Illness General Chief Complaint: Abnormal Labs Referring physician: ZHEN PITTS Reason for Consultation: DECREASED PO INTAKE Present Illness HPI 31-year-old male, who was admitted to [facility] on 04/21/2017 for hyperglycemia, hyperkalemia, and diabetic ketoacidosis. The patient is confused and unable to provide a thorough history. the pt eyes were closed however he was awake. the pt did not respond to any questions Allergies: Coded Allergies: GABAPENTIN (Verified Allergy, Unknown, 04/21/17) Dizziness, syncope Medication History Scheduled Amlodipine Besylate* (Amlodipine Besylate*), Unknown Dose ORAL DAILY, (Reported) Insulin Glargine (Lantus), 0 SUBQ BEDTIME, (Reported) Metoclopramide Hcl* (Reglan*), Unknown Dose ORAL EVERY 6 HOURS, (Reported) Pantoprazole* (Protonix*), Unknown Dose ORAL DAILY, (Reported) Pregabalin* (Lyrica*), Unknown Dose ORAL THREE TIMES A DAY, (Reported) Ranitidine Hcl* (Zantac*), Unknown Dose ORAL DAILY, (Reported) Sertraline Hcl* (Zoloft*), Unknown Dose ORAL DAILY, (Reported) Sevelamer Carbonate* (Renvela*), Unknown Dose ORAL THREE TIMES A DAY, (Reported) Scheduled PRN Ondansetron* (Zofran*), Unknown Dose ORAL Q6H PRN for Nausea & Vomiting, ( Reported) Miscellaneous Medications [Insulin], (Reported) Patient History History Provided By: Patient, Significant Other, PMD Healthcare decision maker BenitesRaad /Father Resuscitation status Full Code Advanced Directive on File No Past Medical/Surgical History Past Medical/Surgical History: (1) Hyperkalemia, diminished renal excretion (2) DKA (diabetic ketoacidoses) (3) Hyperglycemia (4) Altered level of consciousness (5) Poorly controlled diabetes mellitus (6) ESRD (end stage renal disease) on dialysis (7) HTN (hypertension) (8) Diabetes type I (9) Other cyst of bone, left ankle and foot (10) severe toxic/metabolic encephalopathy 2/2 protracted DKA/ESRD (11) Altered mental status (12) r/o meningoencephalitis Review of Systems Psychiatric: Reports: prior hx, anxiety, depressed feelings, emotional problems Physical Exam General Appearance: WD/WN, no apparent distress, lethargic, confused Neurologic: unresponsiveness, depressed affect Last 24 Hour Vital Signs Date Time Temp Pulse Resp B/P (MAP) Pulse Ox O2 Delivery O2 Flow Rate FiO2 04/26/17 21:09 186/111 04/26/17 20:00 97.5 98 16 186/111 91 Room Air 04/26/17 20:00 95 04/26/17 16:58 161/90 04/26/17 16:39 182/83 04/26/17 16:00 98.2 97 19 182/83 94 Room Air 04/26/17 16:00 97 04/26/17 14:00 147/87 04/26/17 13:12 194/86 04/26/17 13:07 Room Air 21 04/26/17 13:00 194/86 04/26/17 12:00 91 04/26/17 12:00 98.1 91 20 164/96 92 Room Air 04/26/17 09:30 Room Air 21 04/26/17 09:00 145/86 04/26/17 08:32 171/101 04/26/17 08:32 89 171/101 04/26/17 08:31 89 171/101 04/26/17 08:25 171/101 04/26/17 08:00 97.5 89 18 171/101 96 Room Air 04/26/17 08:00 88 04/26/17 05:00 156/106 04/26/17 04:00 88 04/26/17 04:00 97.8 88 16 176/109 97 Room Air 04/26/17 03:00 156/73 04/26/17 02:08 186/108 04/26/17 02:00 165/93 04/26/17 01:03 191/106 04/26/17 01:00 192/106 04/26/17 00:00 97.9 95 16 191/106 95 Room Air 04/26/17 00:00 84 04/25/17 23:10 77 16 187/100 98 Room Air Intake and Output 04/26/17 04/27/17 19:00 07:00 Output Total 2200 ml Balance -2200 ml Output Hemodialysis UF 2200 ml Laboratory Tests Test 04/26/17 03:40 04/26/17 19:55 White Blood Count 4.8 K/UL (4.8-10.8) Red Blood Count 3.37 M/UL (4.70-6.10) L Hemoglobin 9.0 G/DL (14.2-18.0) L Hematocrit 28.2 % (42.0-52.0) L Mean Corpuscular Volume 84 FL (80-99) Mean Corpuscular Hemoglobin 26.6 PG (27.0-31.0) L Mean Corpuscular Hemoglobin Concent 31.8 G/DL (32.0-36.0) L Red Cell Distribution Width 14.9 % (11.6-14.8) H Platelet Count 191 K/UL (150-450) Mean Platelet Volume 7.4 FL (6.5-10.1) Neutrophils (%) (Auto) 83.7 % (45.0-75.0) H Lymphocytes (%) (Auto) 12.4 % (20.0-45.0) L Monocytes (%) (Auto) 3.4 % (1.0-10.0) Eosinophils (%) (Auto) 0.1 % (0.0-3.0) Basophils (%) (Auto) 0.4 % (0.0-2.0) Erythrocyte Sedimentation Rate 39 MM/HR (0-15) H Sodium Level 133 MMOL/L (136-145) L Potassium Level 4.5 MMOL/L (3.5-5.1) Chloride Level 91 MMOL/L (98-107) L Carbon Dioxide Level 27 MMOL/L (21-32) Anion Gap 15 mmol/L (5-15) Blood Urea Nitrogen 60 mg/dL (7-18) H Creatinine 10.1 MG/DL (0.55-1.30) H Estimat Glomerular Filtration Rate 6.0 mL/min (>60) Glucose Level 78 MG/DL (74-106) Calcium Level 9.2 MG/DL (8.5-10.1) Total Bilirubin 0.3 MG/DL (0.2-1.0) Direct Bilirubin < 0.1 MG/DL (0.0-0.3) Aspartate Amino Transf (AST/SGOT) 23 U/L (15-37) Alanine Aminotransferase (ALT/SGPT) 16 U/L (12-78) Alkaline Phosphatase 69 U/L (46-116) Total Protein 7.8 G/DL (6.4-8.2) Albumin 3.5 G/DL (3.4-5.0) Thyroid Stimulating Hormone (TSH) 2.983 uiU/mL (0.358-3.740) HIV (1&2) Antibody Rapid Negative (NEGATIVE) Random Vancomycin Level 15.3 ug/mL Height (Feet): 5 Height (Inches): 11.00 Weight (Pounds): 166 Medications Current Medications Medications (Trade) Dose Ordered Sig/Aura Route PRN Reason Start Time Stop Time Status Last Admin Dose Admin Acetaminophen (Tylenol) 650 mg Q4H PRN ORAL fever 04/25/17 18:00 05/21/17 13:59 Acyclovir 400 mg/ Sodium Chloride 275 ml @ 275 mls/hr DAILY@2200 IV 04/26/17 22:00 05/26/17 21:59 04/26/17 22:49 Amlodipine Besylate (Norvasc) 10 mg DAILY ORAL 04/26/17 09:00 05/22/17 08:59 Ceftriaxone Sodium 2 gm/ Sodium Chloride 55 ml @ 110 mls/hr Q12HR@0400,1600 IVPB 04/26/17 04:00 05/03/17 03:59 04/26/17 16:22 Clonidine HCl (Catapres) 0.1 mg Q4H PRN ORAL SBP > 160 04/25/17 18:00 05/21/17 13:59 Dextrose (Dextrose 50%) STAT PRN IV Hypoglycemia 04/26/17 11:30 05/25/17 11:29 Enalaprilat (Vasotec) 2.5 mg Q4H PRN IV For High Blood Pressure 04/25/17 17:00 05/24/17 20:59 04/26/17 16:39 Haloperidol Lactate (Haldol) 5 mg Q6H PRN IM Agitation 04/26/17 11:15 05/26/17 11:14 Heparin Sodium (Porcine) (Heparin 5000 units/ml) 5,000 units EVERY 12 HOURS SUBQ 04/25/17 21:00 05/21/17 20:59 04/26/17 08:27 Hydralazine HCl (Apresoline) 20 mg Q4H PRN IV For High Blood Pressure 04/26/17 01:15 05/26/17 01:14 04/26/17 21:09 Insulin Aspart (NovoLOG) BEFORE MEALS AND HS SUBQ 04/25/17 16:30 05/24/17 16:29 04/25/17 20:19 Insulin Aspart (NovoLOG) 6 units BEFORE MEALS SUBQ 04/25/17 16:30 05/24/17 16:29 04/26/17 16:26 Insulin Detemir (Levemir) 18 units Q24H SUBQ 04/25/17 19:00 05/25/17 18:59 04/26/17 18:32 Lisinopril (Prinivil) 20 mg BID ORAL 04/25/17 18:00 05/24/17 09:14 Metoprolol Tartrate (Lopressor) 25 mg Q12HR ORAL 04/25/17 22:00 05/25/17 21:59 Morphine Sulfate (Morphine Sulfate) 1 mg Q4H PRN IVP For Pain Scale 4-10 04/25/17 18:00 04/28/17 13:59 04/26/17 03:33 Ondansetron HCl (Zofran) 4 mg Q6H PRN IVP Nausea & Vomiting 04/25/17 20:00 05/21/17 13:59 Pantoprazole (Protonix) 40 mg DAILY ORAL 04/26/17 09:00 05/22/17 08:59 Polyethylene Glycol (Miralax) 17 gm HSPRN PRN ORAL Constipation 1st line agent 04/25/17 16:00 05/25/17 15:59 Sevelamer Carbonate (Renvela) 1,600 mg THREE TIMES A DAY ORAL 04/25/17 18:00 05/23/17 17:59 Vancomycin HCl (Vanco rx to dose) 1 ea DAILY PRN MISC . 04/26/17 09:00 05/21/17 16:44 Vancomycin/Sodium Chloride 250 ml @ 166.667 mls/hr ONCE ONCE IVPB 04/26/17 23:00 04/27/17 00:29 Zolpidem Tartrate (Ambien) 5 mg HSPRN PRN ORAL Insomnia 04/25/17 21:30 05/01/17 21:29 Assessment/Plan Status: stable Assessment/Plan encephalopathy will start on low dose of antipsychotics as the pt is agitated Rory Alcala M.D. Apr 26, 2017 23:10
[2017-04-27] VITALS (9 sets, daily range): BP systolic 151–196; BP diastolic 68–113
[2017-04-27] MEDS: Enalaprilat 2.5mg/2ml Inj IV PRN ×3 (00:18→20:50)
[2017-04-27] MEDS: cefTRIAXone 2 GM in NS 55 ML IVPB SCH ×2 (03:03→17:11)
[2017-04-27] MEDS: NovoLOG Insulin Flexpen SUBQ SCH ×7 (05:43→20:48)
--- NOTE | 2017-04-27 06:06 | General Progress Note ---
Assessment/Plan Problem List: (1) Altered level of consciousness ICD Codes: R40.4 - Transient alteration of awareness SNOMED: 0693884 (2) DKA (diabetic ketoacidoses) ICD Codes: E13.10 - Other specified diabetes mellitus with ketoacidosis without coma SNOMED: 618457061, 82785569 Qualifiers: Qualified Codes: E13.10 - Other specified diabetes mellitus with ketoacidosis without coma (3) Diabetes type I ICD Codes: E10.9 - Type 1 diabetes mellitus without complications SNOMED: 24711770 (4) HTN (hypertension) ICD Codes: I10 - Essential (primary) hypertension SNOMED: 14899446 (5) ESRD (end stage renal disease) on dialysis ICD Codes: N18.6 - End stage renal disease; Z99.2 - Dependence on renal dialysis SNOMED: 685527289, 97639915 Assessment/Plan continue Levemir 20 units qhs + Novolog 6 units ac tid + SSI MRI brain unremarkable - follow up with neurology and ID evaluation and recommendation Subjective ROS Limited/Unobtainable: Yes Allergies: Coded Allergies: GABAPENTIN (Verified Allergy, Unknown, 04/21/17) Dizziness, syncope Subjective remained confused BG values are reasonable Objective Last 24 Hour Vital Signs Date Time Temp Pulse Resp B/P (MAP) Pulse Ox O2 Delivery O2 Flow Rate FiO2 04/27/17 04:00 97.5 99 16 189/98 94 Nasal Cannula 2.0 04/27/17 04:00 96 04/27/17 03:03 193/108 04/27/17 03:00 97.7 97 12 193/108 94 Nasal Cannula 2.0 04/27/17 02:00 98.1 98 12 194/109 91 Nasal Cannula 2.0 04/27/17 01:00 97.6 99 16 190/99 90 Nasal Cannula 2.0 04/27/17 00:18 172/101 04/27/17 00:00 97.7 100 16 196/98 93 Nasal Cannula 2.0 04/27/17 00:00 99 04/26/17 23:00 12 179/102 92 Nasal Cannula 2.0 04/26/17 22:00 186/111 04/26/17 21:09 186/111 04/26/17 21:00 187/105 04/26/17 20:00 97.5 98 16 186/111 91 Room Air 04/26/17 20:00 95 04/26/17 19:00 82 12 Room Air 21 04/26/17 16:58 161/90 04/26/17 16:39 182/83 04/26/17 16:00 98.2 97 19 182/83 94 Room Air 04/26/17 16:00 97 04/26/17 14:00 147/87 04/26/17 13:12 194/86 04/26/17 13:07 Room Air 21 04/26/17 13:00 194/86 04/26/17 12:00 91 04/26/17 12:00 98.1 91 20 164/96 92 Room Air 04/26/17 09:30 Room Air 21 04/26/17 09:00 145/86 04/26/17 08:32 171/101 04/26/17 08:32 89 171/101 04/26/17 08:31 89 171/101 04/26/17 08:25 171/101 04/26/17 08:00 97.5 89 18 171/101 96 Room Air 04/26/17 08:00 88 Laboratory Tests 04/26/17 19:55: Random Vancomycin Level 15.3 Height (Feet): 5 Height (Inches): 11.00 Weight (Pounds): 166 General Appearance: no apparent distress Neck: normal alignment Cardiovascular: normal rate Respiratory/Chest: lungs clear Abdomen: normal bowel sounds Objective Current Medications Medications (Trade) Dose Ordered Sig/Aura Route PRN Reason Start Time Stop Time Status Last Admin Dose Admin Acetaminophen (Tylenol) 650 mg Q4H PRN ORAL fever 04/25/17 18:00 05/21/17 13:59 Acyclovir 400 mg/ Sodium Chloride 275 ml @ 275 mls/hr DAILY@2200 IV 04/26/17 22:00 05/26/17 21:59 04/26/17 22:49 Amlodipine Besylate (Norvasc) 10 mg DAILY ORAL 04/26/17 09:00 05/22/17 08:59 Ceftriaxone Sodium 2 gm/ Sodium Chloride 55 ml @ 110 mls/hr Q12HR@0400,1600 IVPB 04/26/17 04:00 05/03/17 03:59 04/27/17 03:03 Clonidine HCl (Catapres) 0.1 mg Q4H PRN ORAL SBP > 160 04/25/17 18:00 05/21/17 13:59 Dextrose (Dextrose 50%) STAT PRN IV Hypoglycemia 04/26/17 11:30 05/25/17 11:29 Enalaprilat (Vasotec) 2.5 mg Q4H PRN IV For High Blood Pressure 04/25/17 17:00 05/24/17 20:59 04/27/17 00:18 Haloperidol Lactate (Haldol) 5 mg Q6H PRN IM Agitation 04/26/17 11:15 05/26/17 11:14 Heparin Sodium (Porcine) (Heparin 5000 units/ml) 5,000 units EVERY 12 HOURS SUBQ 04/25/17 21:00 05/21/17 20:59 04/26/17 08:27 Hydralazine HCl (Apresoline) 20 mg Q4H PRN IV For High Blood Pressure 04/26/17 01:15 05/26/17 01:14 04/27/17 03:03 Insulin Aspart (NovoLOG) BEFORE MEALS AND HS SUBQ 04/25/17 16:30 05/24/17 16:29 04/27/17 05:45 Insulin Aspart (NovoLOG) 6 units BEFORE MEALS SUBQ 04/25/17 16:30 05/24/17 16:29 04/27/17 05:43 Insulin Detemir (Levemir) 18 units Q24H SUBQ 04/25/17 19:00 05/25/17 18:59 04/26/17 18:32 Lisinopril (Prinivil) 20 mg BID ORAL 04/25/17 18:00 05/24/17 09:14 Metoprolol Tartrate (Lopressor) 25 mg Q12HR ORAL 04/25/17 22:00 05/25/17 21:59 Morphine Sulfate (Morphine Sulfate) 1 mg Q4H PRN IVP For Pain Scale 4-10 04/25/17 18:00 04/28/17 13:59 04/26/17 03:33 Ondansetron HCl (Zofran) 4 mg Q6H PRN IVP Nausea & Vomiting 04/25/17 20:00 05/21/17 13:59 Pantoprazole (Protonix) 40 mg DAILY ORAL 04/26/17 09:00 05/22/17 08:59 Polyethylene Glycol (Miralax) 17 gm HSPRN PRN ORAL Constipation 1st line agent 04/25/17 16:00 05/25/17 15:59 Sevelamer Carbonate (Renvela) 1,600 mg THREE TIMES A DAY ORAL 04/25/17 18:00 05/23/17 17:59 Vancomycin HCl (Vanco rx to dose) 1 ea DAILY PRN MISC . 04/26/17 09:00 05/21/17 16:44 Zolpidem Tartrate (Ambien) 5 mg HSPRN PRN ORAL Insomnia 04/25/17 21:30 05/01/17 21:29 Item Value Date Time Bedside Blood Glucose 151 mg/dl H 04/27/17 0545 Bedside Blood Glucose 104 mg/dl 04/26/17 2100 Bedside Blood Glucose 129 mg/dl H 04/26/17 1832 Bedside Blood Glucose 86 mg/dl 04/26/17 1250 TSERING TORRES Apr 27, 2017 06:05
[2017-04-27 06:15] LABS: BASOPHILS % (AUTO) 0.6 % (0.0-2.0); EOSINOPHILS % (AUTO) 0.4 % (0.0-3.0); LYMPHOCYTES % (AUTO) 9.8 % (20.0-45.0); MEAN CORPUSCULAR HEMOGLOBIN 26.6 PG (27.0-31.0); MEAN CORPUSCULAR HGB CONC 30.9 G/DL (32.0-36.0); MEAN CORPUSCULAR VOLUME 86 FL (80-99); MONOCYTES % (AUTO) 5.3 % (1.0-10.0); PLATELET COUNT 190 K/UL (150-450); RED BLOOD COUNT 3.18 M/UL (4.70-6.10); RED CELL DISTRIBUTION WIDTH 15.7 % (11.6-14.8)
[2017-04-27 06:39] LABS: ANION GAP 13 mmol/L (5-15); CALCIUM 9.3 MG/DL (8.5-10.1); CARBON DIOXIDE 31 MMOL/L (21-32); CHLORIDE 99 MMOL/L (98-107); CREATININE 8.8 MG/DL (0.55-1.30); POTASSIUM 4.1 MMOL/L (3.5-5.1); SODIUM 143 MMOL/L (136-145)
[2017-04-27] MEDS: Heparin 5000 units/ml inj SUBQ SCH ×2 (09:00→20:54)
--- NOTE | 2017-04-27 10:21 | Infectious Diseases Prog Note ---
Assessment/Plan Assessment/Plan ALOC/AMS- has not improved, ? etio Meningitis/encephalitis , in DDX but less likely - r/o HSV acyclovir no GOMEZ, N/V , no neck rigidity -MRI brain: Negative for acute intracranial bleed, mass effect, or infarct. Prominent ventricles and extra-axial CSF spaces, consistent with your volume loss, advanced for patient's age. Correlate with clinical history Possible old tiny left posterior temporal cortical infarct. Minimal periventricular deep white matter T2 hyperintensities, consistent with chronic ischemic changes. -CT head: Negative for acute intracranial bleed or mass effect. Somewhat prominent ventricles and extra-axial CSF spaces, consistent with volume loss, advanced for age. Periventricular deep white matter low-attenuation, appearance typical of chronic ischemic changes but given patient's age possibility of demyelinating disease should be considered.] -CXR: There is equivocal mild interstitial congestion. No focal airspace consolidation. No effusions -Rapid HIV test- neg Afebrile no leukocytosis Leg 5th metatarsal fluid collection no evid of of OM, possiby cyst-as per Pod : MRI done at outside facility and re-evaluated by [facility] radiologist suggest that no osteomyelitis is present in either foot. -XRay L foot 04/22: Osseous defect in fragment of the medial head of the first proximal phalanx. There is overlying soft tissue swelling, but bony abnormality does not appear acute. May reflect an old injury. Correlate with clinical findings, consider MRI for further evaluation as clinically indicated. Soft tissue swelling in the region of the left fifth metatarsal head. No plain radiographic findings to suggest acute osteomyelitis. Note, however, limited sensitivity of plain radiographs for such. Consider MRI for better characterization if there is high clinical suspicion -04/23: ESR 40, CRP 3.4 -MRI 04/08: L Foot wo: 2.1x 0.7 x2.5 cm fluid collection in plantar aspect of 5th metatarsal head. Cannot exclude abscess. Minimal Bone marrow edema involving 5th metatarsal head. Although no cortical erosive changes noted, an early medullary OM cannot be excluded. -u/s guided sriram at [facility]- cx negative -Vanco 500mg and Cefepime 2g after HD on HD days planned for 6 weeks; end date 05/28/17 DKA, resolved DM 1 on insulin pump, HTN, ESRD on HD MWF, psychiatric illness Plan: -Continue IV Vancomycin #6 and Rocephin(meningitis dose) abx d #6 , and Acyclovir d # 4 pending LP -04/24 SP Cefepime #3 -04/22 SP Zosyn #1 - abx duration: until 05/28/2017- for presumed OM (regimen started at [facility]) -For LP today -CSF analysis, bacterial, fungal, AFB cultures, HSV PCR, VDRL -f/u Cocci ab, Cr Ag, RPR serum; check WNV ab -Monitor CBC/BMP, temperatures: - f/u cx Discussed with Dr Mejia. Subjective Allergies: Coded Allergies: GABAPENTIN (Verified Allergy, Unknown, 04/21/17) Dizziness, syncope Subjective afebrile no leukocytosis remains obtunded/non verbal Objective Vital Signs Last 24 Hour Vital Signs Date Time Temp Pulse Resp B/P (MAP) Pulse Ox O2 Delivery O2 Flow Rate FiO2 04/27/17 08:00 98.0 91 22 185/102 96 Nasal Cannula 2.0 04/27/17 08:00 90 04/27/17 06:53 197/100 04/27/17 06:45 197/100 04/27/17 04:00 97.5 99 16 189/98 94 Nasal Cannula 2.0 04/27/17 04:00 96 04/27/17 03:03 193/108 04/27/17 03:00 97.7 97 12 193/108 94 Nasal Cannula 2.0 04/27/17 02:00 98.1 98 12 194/109 91 Nasal Cannula 2.0 04/27/17 01:00 97.6 99 16 190/99 90 Nasal Cannula 2.0 04/27/17 00:18 172/101 04/27/17 00:00 97.7 100 16 196/98 93 Nasal Cannula 2.0 04/27/17 00:00 99 04/26/17 23:00 12 179/102 92 Nasal Cannula 2.0 04/26/17 22:00 186/111 04/26/17 21:09 186/111 04/26/17 21:00 187/105 04/26/17 20:00 97.5 98 16 186/111 91 Room Air 04/26/17 20:00 95 04/26/17 19:00 82 12 Room Air 21 04/26/17 16:58 161/90 04/26/17 16:39 182/83 04/26/17 16:00 98.2 97 19 182/83 94 Room Air 04/26/17 16:00 97 04/26/17 14:00 147/87 04/26/17 13:12 194/86 04/26/17 13:07 Room Air 21 04/26/17 13:00 194/86 04/26/17 12:00 91 04/26/17 12:00 98.1 91 20 164/96 92 Room Air Height (Feet): 5 Height (Inches): 11.00 Weight (Pounds): 167 Objective Status: obtunded, non verbal HEENT: atraumatic, normocephalic, mmm Neck: full ROM, supple, trachea midline Lungs: CTAB Heart: S1S2, RRR, no murmur Abdomen: soft, non-tender, active bowel sounds Extremities: no C/C/E Decubiti: Left plantar 5th metatarsal head abscess with back scab in the middle. Microbiology Date/Time Source Procedure Growth Status 04/24/17 17:26 Blood Blood Culture - Preliminary NO GROWTH AFTER 48 HOURS Resulted 04/24/17 17:10 Blood Blood Culture - Preliminary NO GROWTH AFTER 48 HOURS Resulted Laboratory Tests Test 04/26/17 19:55 04/27/17 05:25 Random Vancomycin Level 15.3 ug/mL White Blood Count 7.0 K/UL (4.8-10.8) Red Blood Count 3.18 M/UL (4.70-6.10) L Hemoglobin 8.4 G/DL (14.2-18.0) L Hematocrit 27.3 % (42.0-52.0) L Mean Corpuscular Volume 86 FL (80-99) Mean Corpuscular Hemoglobin 26.6 PG (27.0-31.0) L Mean Corpuscular Hemoglobin Concent 30.9 G/DL (32.0-36.0) L Red Cell Distribution Width 15.7 % (11.6-14.8) H Platelet Count 190 K/UL (150-450) Mean Platelet Volume 7.0 FL (6.5-10.1) Neutrophils (%) (Auto) 84.0 % (45.0-75.0) H Lymphocytes (%) (Auto) 9.8 % (20.0-45.0) L Monocytes (%) (Auto) 5.3 % (1.0-10.0) Eosinophils (%) (Auto) 0.4 % (0.0-3.0) Basophils (%) (Auto) 0.6 % (0.0-2.0) Sodium Level 143 MMOL/L (136-145) Potassium Level 4.1 MMOL/L (3.5-5.1) Chloride Level 99 MMOL/L (98-107) Carbon Dioxide Level 31 MMOL/L (21-32) Anion Gap 13 mmol/L (5-15) Blood Urea Nitrogen 43 mg/dL (7-18) H Creatinine 8.8 MG/DL (0.55-1.30) H Estimat Glomerular Filtration Rate 7.0 mL/min (>60) Glucose Level 142 MG/DL (74-106) H Calcium Level 9.3 MG/DL (8.5-10.1) Ammonia 10 umol/L (11-32) L Folate 47.9 NG/ML (8.6-58.9) Rapid Plasma Reagin Pending Coccidioides Antibody (Comp Fix) Pending Cryptococcus Antigen Pending HIV (1&2) Antibody Rapid Negative (NEGATIVE) Current Medications Medications (Trade) Dose Ordered Sig/Aura Route PRN Reason Start Time Stop Time Status Last Admin Dose Admin Acetaminophen (Tylenol) 650 mg Q4H PRN ORAL fever 04/25/17 18:00 05/21/17 13:59 Acyclovir 400 mg/ Sodium Chloride 275 ml @ 275 mls/hr DAILY@2200 IV 04/26/17 22:00 05/26/17 21:59 04/26/17 22:49 Amlodipine Besylate (Norvasc) 10 mg DAILY ORAL 04/26/17 09:00 05/22/17 08:59 Ceftriaxone Sodium 2 gm/ Sodium Chloride 55 ml @ 110 mls/hr Q12HR@0400,1600 IVPB 04/26/17 04:00 05/03/17 03:59 04/27/17 03:03 Clonidine HCl (Catapres) 0.1 mg Q4H PRN ORAL SBP > 160 04/25/17 18:00 05/21/17 13:59 04/27/17 06:53 Dextrose (Dextrose 50%) STAT PRN IV Hypoglycemia 04/26/17 11:30 05/25/17 11:29 Enalaprilat (Vasotec) 2.5 mg Q4H PRN IV For High Blood Pressure 04/25/17 17:00 05/24/17 20:59 04/27/17 06:45 Haloperidol Lactate (Haldol) 5 mg Q6H PRN IM Agitation 04/26/17 11:15 05/26/17 11:14 Heparin Sodium (Porcine) (Heparin 5000 units/ml) 5,000 units EVERY 12 HOURS SUBQ 04/25/17 21:00 05/21/17 20:59 04/26/17 08:27 Hydralazine HCl (Apresoline) 20 mg Q4H PRN IV For High Blood Pressure 04/26/17 01:15 05/26/17 01:14 04/27/17 03:03 Insulin Aspart (NovoLOG) BEFORE MEALS AND HS SUBQ 04/25/17 16:30 05/24/17 16:29 04/27/17 05:45 Insulin Aspart (NovoLOG) 6 units BEFORE MEALS SUBQ 04/25/17 16:30 05/24/17 16:29 04/27/17 05:43 Insulin Detemir (Levemir) 18 units Q24H SUBQ 04/25/17 19:00 05/25/17 18:59 04/26/17 18:32 Lisinopril (Prinivil) 20 mg BID ORAL 04/25/17 18:00 05/24/17 09:14 Metoprolol Tartrate (Lopressor) 25 mg Q12HR ORAL 04/25/17 22:00 05/25/17 21:59 Morphine Sulfate (Morphine Sulfate) 1 mg Q4H PRN IVP For Pain Scale 4-10 04/25/17 18:00 04/28/17 13:59 04/26/17 03:33 Ondansetron HCl (Zofran) 4 mg Q6H PRN IVP Nausea & Vomiting 04/25/17 20:00 05/21/17 13:59 Pantoprazole (Protonix) 40 mg DAILY ORAL 04/26/17 09:00 05/22/17 08:59 Polyethylene Glycol (Miralax) 17 gm HSPRN PRN ORAL Constipation 1st line agent 04/25/17 16:00 05/25/17 15:59 Sevelamer Carbonate (Renvela) 1,600 mg THREE TIMES A DAY ORAL 04/25/17 18:00 05/23/17 17:59 Vancomycin HCl (Vanco rx to dose) 1 ea DAILY PRN MISC . 04/26/17 09:00 05/21/17 16:44 Zolpidem Tartrate (Ambien) 5 mg HSPRN PRN ORAL Insomnia 04/25/17 21:30 05/01/17 21:29 Livier Woods M.D. Apr 27, 2017 10:21
--- NOTE | 2017-04-27 10:37 | Pulmonology Progress Note ---
Assessment/Plan Problems: (1) DKA (diabetic ketoacidoses) (2) Altered level of consciousness (3) ESRD (end stage renal disease) on dialysis (4) HTN (hypertension) Assessment/Plan LP pending to rule out meningitis All notes reviewed f/y Id recommendations for IV abx. continue HD check electrolytes. Subjective Interval Events: deep coma Allergies: Coded Allergies: GABAPENTIN (Verified Allergy, Unknown, 04/21/17) Dizziness, syncope Objective Last 24 Hour Vital Signs Date Time Temp Pulse Resp B/P (MAP) Pulse Ox O2 Delivery O2 Flow Rate FiO2 04/27/17 08:00 98.0 91 22 185/102 96 Nasal Cannula 2.0 04/27/17 08:00 90 04/27/17 06:53 197/100 04/27/17 06:45 197/100 04/27/17 04:00 97.5 99 16 189/98 94 Nasal Cannula 2.0 04/27/17 04:00 96 04/27/17 03:03 193/108 04/27/17 03:00 97.7 97 12 193/108 94 Nasal Cannula 2.0 04/27/17 02:00 98.1 98 12 194/109 91 Nasal Cannula 2.0 04/27/17 01:00 97.6 99 16 190/99 90 Nasal Cannula 2.0 04/27/17 00:18 172/101 04/27/17 00:00 97.7 100 16 196/98 93 Nasal Cannula 2.0 04/27/17 00:00 99 04/26/17 23:00 12 179/102 92 Nasal Cannula 2.0 04/26/17 22:00 186/111 04/26/17 21:09 186/111 04/26/17 21:00 187/105 04/26/17 20:00 97.5 98 16 186/111 91 Room Air 04/26/17 20:00 95 04/26/17 19:00 82 12 Room Air 21 04/26/17 16:58 161/90 04/26/17 16:39 182/83 04/26/17 16:00 98.2 97 19 182/83 94 Room Air 04/26/17 16:00 97 04/26/17 14:00 147/87 04/26/17 13:12 194/86 04/26/17 13:07 Room Air 21 04/26/17 13:00 194/86 04/26/17 12:00 91 04/26/17 12:00 98.1 91 20 164/96 92 Room Air HEENT: normocephalic Respiratory/Chest: lungs clear Abdomen: normal bowel sounds, no organomegaly Skin: no rash Neurologic/Psychiatric: no motor/sensory deficits Microbiology Date/Time Source Procedure Growth Status 04/24/17 17:26 Blood Blood Culture - Preliminary NO GROWTH AFTER 48 HOURS Resulted 04/24/17 17:10 Blood Blood Culture - Preliminary NO GROWTH AFTER 48 HOURS Resulted Laboratory Tests 04/26/17 19:55: Random Vancomycin Level 15.3 04/27/17 05:25: White Blood Count 7.0, Red Blood Count 3.18L, Hemoglobin 8.4L, Hematocrit 27.3L , Mean Corpuscular Volume 86, Mean Corpuscular Hemoglobin 26.6L, Mean Corpuscular Hemoglobin Concent 30.9L, Red Cell Distribution Width 15.7H, Platelet Count 190, Mean Platelet Volume 7.0, Neutrophils (%) (Auto) 84.0H, Lymphocytes (%) (Auto) 9.8L, Monocytes (%) (Auto) 5.3, Eosinophils (%) (Auto) 0.4, Basophils (%) (Auto) 0.6, Sodium Level 143, Potassium Level 4.1, Chloride Level 99, Carbon Dioxide Level 31, Anion Gap 13, Blood Urea Nitrogen 43H, Creatinine 8.8H, Estimat Glomerular Filtration Rate 7.0, Glucose Level 142H, Calcium Level 9.3, Ammonia 10L, Folate 47.9, Rapid Plasma Reagin [Pending], Coccidioides Antibody (Comp Fix) [Pending], Cryptococcus Antigen [Pending], HIV (1&2) Antibody Rapid Negative Current Medications Medications (Trade) Dose Ordered Sig/Aura Route PRN Reason Start Time Stop Time Status Last Admin Dose Admin Acetaminophen (Tylenol) 650 mg Q4H PRN ORAL fever 04/25/17 18:00 05/21/17 13:59 Acyclovir 400 mg/ Sodium Chloride 275 ml @ 275 mls/hr DAILY@2200 IV 04/26/17 22:00 05/26/17 21:59 04/26/17 22:49 Amlodipine Besylate (Norvasc) 10 mg DAILY ORAL 04/26/17 09:00 05/22/17 08:59 Ceftriaxone Sodium 2 gm/ Sodium Chloride 55 ml @ 110 mls/hr Q12HR@0400,1600 IVPB 04/26/17 04:00 05/03/17 03:59 04/27/17 03:03 Clonidine HCl (Catapres) 0.1 mg Q4H PRN ORAL SBP > 160 04/25/17 18:00 05/21/17 13:59 04/27/17 06:53 Dextrose (Dextrose 50%) STAT PRN IV Hypoglycemia 04/26/17 11:30 05/25/17 11:29 Enalaprilat (Vasotec) 2.5 mg Q4H PRN IV For High Blood Pressure 04/25/17 17:00 05/24/17 20:59 04/27/17 06:45 Haloperidol Lactate (Haldol) 5 mg Q6H PRN IM Agitation 04/26/17 11:15 05/26/17 11:14 Heparin Sodium (Porcine) (Heparin 5000 units/ml) 5,000 units EVERY 12 HOURS SUBQ 04/25/17 21:00 05/21/17 20:59 04/26/17 08:27 Hydralazine HCl (Apresoline) 20 mg Q4H PRN IV For High Blood Pressure 04/26/17 01:15 05/26/17 01:14 04/27/17 03:03 Insulin Aspart (NovoLOG) BEFORE MEALS AND HS SUBQ 04/25/17 16:30 05/24/17 16:29 04/27/17 05:45 Insulin Aspart (NovoLOG) 6 units BEFORE MEALS SUBQ 04/25/17 16:30 05/24/17 16:29 04/27/17 05:43 Insulin Detemir (Levemir) 18 units Q24H SUBQ 04/25/17 19:00 05/25/17 18:59 04/26/17 18:32 Lisinopril (Prinivil) 20 mg BID ORAL 04/25/17 18:00 05/24/17 09:14 Metoprolol Tartrate (Lopressor) 25 mg Q12HR ORAL 04/25/17 22:00 05/25/17 21:59 Morphine Sulfate (Morphine Sulfate) 1 mg Q4H PRN IVP For Pain Scale 4-10 04/25/17 18:00 04/28/17 13:59 04/26/17 03:33 Ondansetron HCl (Zofran) 4 mg Q6H PRN IVP Nausea & Vomiting 04/25/17 20:00 05/21/17 13:59 Pantoprazole (Protonix) 40 mg DAILY ORAL 04/26/17 09:00 05/22/17 08:59 Polyethylene Glycol (Miralax) 17 gm HSPRN PRN ORAL Constipation 1st line agent 04/25/17 16:00 05/25/17 15:59 Sevelamer Carbonate (Renvela) 1,600 mg THREE TIMES A DAY ORAL 04/25/17 18:00 05/23/17 17:59 Vancomycin HCl (Vanco rx to dose) 1 ea DAILY PRN MISC . 04/26/17 09:00 05/21/17 16:44 Zolpidem Tartrate (Ambien) 5 mg HSPRN PRN ORAL Insomnia 04/25/17 21:30 05/01/17 21:29 INEZ MEHTA Apr 27, 2017 10:37
[2017-04-27] MEDS: Lisinopril 20mg tab ORAL SCH ×2 (12:06→17:18)
[2017-04-27] MEDS: Metoprolol 25mg tab ORAL SCH (12:06)
[2017-04-27] MEDS: Renvela 800mg Pkt ORAL SCH ×3 (12:07→17:18)
--- NOTE | 2017-04-27 13:58 | Neurology Progress Note ---
Interim History Interim History ROS Limited/Unobtainable: Yes Complaints: none Events: eyes open no eye contac mute Objective Physical Exam Last Vital Signs Date Time Temp Pulse Resp B/P (MAP) Pulse Ox O2 Delivery O2 Flow Rate FiO2 04/27/17 12:06 90 185/102 04/27/17 12:00 97.8 20 97 Nasal Cannula 2.0 04/27/17 08:02 21 Laboratory Tests Test 04/26/17 19:55 04/27/17 05:25 Random Vancomycin Level 15.3 ug/mL White Blood Count 7.0 K/UL (4.8-10.8) Red Blood Count 3.18 M/UL (4.70-6.10) L Hemoglobin 8.4 G/DL (14.2-18.0) L Hematocrit 27.3 % (42.0-52.0) L Mean Corpuscular Volume 86 FL (80-99) Mean Corpuscular Hemoglobin 26.6 PG (27.0-31.0) L Mean Corpuscular Hemoglobin Concent 30.9 G/DL (32.0-36.0) L Red Cell Distribution Width 15.7 % (11.6-14.8) H Platelet Count 190 K/UL (150-450) Mean Platelet Volume 7.0 FL (6.5-10.1) Neutrophils (%) (Auto) 84.0 % (45.0-75.0) H Lymphocytes (%) (Auto) 9.8 % (20.0-45.0) L Monocytes (%) (Auto) 5.3 % (1.0-10.0) Eosinophils (%) (Auto) 0.4 % (0.0-3.0) Basophils (%) (Auto) 0.6 % (0.0-2.0) Sodium Level 143 MMOL/L (136-145) Potassium Level 4.1 MMOL/L (3.5-5.1) Chloride Level 99 MMOL/L (98-107) Carbon Dioxide Level 31 MMOL/L (21-32) Anion Gap 13 mmol/L (5-15) Blood Urea Nitrogen 43 mg/dL (7-18) H Creatinine 8.8 MG/DL (0.55-1.30) H Estimat Glomerular Filtration Rate 7.0 mL/min (>60) Glucose Level 142 MG/DL (74-106) H Calcium Level 9.3 MG/DL (8.5-10.1) Ammonia 10 umol/L (11-32) L Folate 47.9 NG/ML (8.6-58.9) Rapid Plasma Reagin Pending Coccidioides Antibody (Comp Fix) Pending Cryptococcus Antigen Pending HIV (1&2) Antibody Rapid Negative (NEGATIVE) General: well developed, well nourished, no acute distress, other - illappearing Head: normocophalic, atraumatic Neck: no rigidity Neurologic Exam Mental Status: other - nonverbal unresponsive no eye contact Speech: other - mute Language: other Cranial Nerve II: no papilledema, other Cranial Nerves III, IV, : PERRLA, EOMI, pupils, other Cranial Nerve V: masseters function normal, other Cranial Nerve VII: normal facial expressions, other Cranial Nerve VIII: no nystagmus, other Cranial Nerve IX: other Cranial Nerve XI: other Cranial Nerve XII: no tongue atrophy/fasciculations, other Motor System: normal muscle tone, no involuntary movement, no muscle wasting, other - moves all limbbs Sensory: other - none Coordination: other Deep Tendon Reflexes: 0 bicep (L), 0 bicep (R), 0 tricep (L), 0 tricep (R), 0 brachioradialis (L), 0 brachioradialis (R), 0 knee (L), 0 knee (R), 0 ankle (L) , 0 ankle (R) Reflexes: mute plantar (L), mute plantar (R) Stance: other Gait: other Impression/Recommendations Problems: (1) severe toxic/metabolic encephalopathy 2/2 protracted DKA/ESRD (2) Poorly controlled diabetes mellitus (3) ESRD (end stage renal disease) on dialysis (4) r/o meningoencephalitis Status: stable Recommendations #[id number] cont HD b12/vit levels done joya,esr, EEG no sz event MRI brai no acute lesions LP pend NOHEMI KING Apr 27, 2017 13:58
--- NOTE | 2017-04-27 14:39 | Nephrology Progress Note ---
Assessment/Plan Problem List: (1) ESRD (end stage renal disease) on dialysis (2) Hyperkalemia, diminished renal excretion (3) Hyperglycemia Assessment remains encephalopathic ESRD- Type I DM- presents with: Encephalopathy unchanged HyperKalemia improved Hyperglycemia improved Has a collection on his left lat plantar foot ? infected Anemia unable to eat Plan Plan: HD in am NGT , meds via NGT increase zestril for BP add Lopressor MRI , r/o stroke for decrease memory: negative HD 04/26 in process check vanco level: 18 per Endo keep BP and BS in check EEG? Subjective ROS Limited/Unobtainable: No Constitutional: Reports: malaise Objective Objective Last 24 Hour Vital Signs Date Time Temp Pulse Resp B/P (MAP) Pulse Ox O2 Delivery O2 Flow Rate FiO2 04/27/17 12:06 90 185/102 04/27/17 12:06 185/102 04/27/17 12:05 90 185/102 04/27/17 12:00 97.8 93 20 189/113 97 Nasal Cannula 2.0 04/27/17 08:02 80 12 Room Air 21 04/27/17 08:00 98.0 91 22 185/102 96 Nasal Cannula 2.0 04/27/17 08:00 90 04/27/17 06:53 197/100 04/27/17 06:45 197/100 04/27/17 04:00 97.5 99 16 189/98 94 Nasal Cannula 2.0 04/27/17 04:00 96 04/27/17 03:03 193/108 04/27/17 03:00 97.7 97 12 193/108 94 Nasal Cannula 2.0 04/27/17 02:00 98.1 98 12 194/109 91 Nasal Cannula 2.0 04/27/17 01:00 97.6 99 16 190/99 90 Nasal Cannula 2.0 04/27/17 00:18 172/101 04/27/17 00:00 97.7 100 16 196/98 93 Nasal Cannula 2.0 04/27/17 00:00 99 04/26/17 23:00 12 179/102 92 Nasal Cannula 2.0 04/26/17 22:00 186/111 04/26/17 21:09 186/111 04/26/17 21:00 187/105 04/26/17 20:00 97.5 98 16 186/111 91 Room Air 04/26/17 20:00 95 04/26/17 19:00 82 12 Room Air 21 04/26/17 16:58 161/90 04/26/17 16:39 182/83 04/26/17 16:00 98.2 97 19 182/83 94 Room Air 04/26/17 16:00 97 Laboratory Tests 04/26/17 19:55: Random Vancomycin Level 15.3 04/27/17 05:25: White Blood Count 7.0, Red Blood Count 3.18L, Hemoglobin 8.4L, Hematocrit 27.3L , Mean Corpuscular Volume 86, Mean Corpuscular Hemoglobin 26.6L, Mean Corpuscular Hemoglobin Concent 30.9L, Red Cell Distribution Width 15.7H, Platelet Count 190, Mean Platelet Volume 7.0, Neutrophils (%) (Auto) 84.0H, Lymphocytes (%) (Auto) 9.8L, Monocytes (%) (Auto) 5.3, Eosinophils (%) (Auto) 0.4, Basophils (%) (Auto) 0.6, Sodium Level 143, Potassium Level 4.1, Chloride Level 99, Carbon Dioxide Level 31, Anion Gap 13, Blood Urea Nitrogen 43H, Creatinine 8.8H, Estimat Glomerular Filtration Rate 7.0, Glucose Level 142H, Calcium Level 9.3, Ammonia 10L, Folate 47.9, Rapid Plasma Reagin [Pending], Coccidioides Antibody (Comp Fix) [Pending], Cryptococcus Antigen [Pending], HIV (1&2) Antibody Rapid Negative Height (Feet): 5 Height (Inches): 11.00 Weight (Pounds): 167 General Appearance: no apparent distress, lethargic, confused Neurologic: other - encephalopathic Objective other PE not changed ANUPAM PUENTES Apr 27, 2017 14:39
[2017-04-27] MEDS ORDERED: NS 500ML ONE (14:59)
--- NOTE | 2017-04-27 15:12 | General Progress Note ---
Assessment/Plan Status: unchanged Assessment/Plan encephalopathy GT cont current meds Subjective Neurologic/Psychiatric: Reports: anxiety, depressed, emotional problems Allergies: Coded Allergies: GABAPENTIN (Verified Allergy, Unknown, 04/21/17) Dizziness, syncope Subjective the pt is confused eyes open cognitive impairment Objective Last 24 Hour Vital Signs Date Time Temp Pulse Resp B/P (MAP) Pulse Ox O2 Delivery O2 Flow Rate FiO2 04/27/17 12:06 90 185/102 04/27/17 12:06 185/102 04/27/17 12:05 90 185/102 04/27/17 12:00 97.8 93 20 189/113 97 Nasal Cannula 2.0 04/27/17 08:02 80 12 Room Air 21 04/27/17 08:00 98.0 91 22 185/102 96 Nasal Cannula 2.0 04/27/17 08:00 90 04/27/17 06:53 197/100 04/27/17 06:45 197/100 04/27/17 04:00 97.5 99 16 189/98 94 Nasal Cannula 2.0 04/27/17 04:00 96 04/27/17 03:03 193/108 04/27/17 03:00 97.7 97 12 193/108 94 Nasal Cannula 2.0 04/27/17 02:00 98.1 98 12 194/109 91 Nasal Cannula 2.0 04/27/17 01:00 97.6 99 16 190/99 90 Nasal Cannula 2.0 04/27/17 00:18 172/101 04/27/17 00:00 97.7 100 16 196/98 93 Nasal Cannula 2.0 04/27/17 00:00 99 04/26/17 23:00 12 179/102 92 Nasal Cannula 2.0 04/26/17 22:00 186/111 04/26/17 21:09 186/111 04/26/17 21:00 187/105 04/26/17 20:00 97.5 98 16 186/111 91 Room Air 04/26/17 20:00 95 04/26/17 19:00 82 12 Room Air 21 04/26/17 16:58 161/90 04/26/17 16:39 182/83 04/26/17 16:00 98.2 97 19 182/83 94 Room Air 04/26/17 16:00 97 Laboratory Tests 04/26/17 19:55: Random Vancomycin Level 15.3 04/27/17 05:25: White Blood Count 7.0, Red Blood Count 3.18L, Hemoglobin 8.4L, Hematocrit 27.3L , Mean Corpuscular Volume 86, Mean Corpuscular Hemoglobin 26.6L, Mean Corpuscular Hemoglobin Concent 30.9L, Red Cell Distribution Width 15.7H, Platelet Count 190, Mean Platelet Volume 7.0, Neutrophils (%) (Auto) 84.0H, Lymphocytes (%) (Auto) 9.8L, Monocytes (%) (Auto) 5.3, Eosinophils (%) (Auto) 0.4, Basophils (%) (Auto) 0.6, Sodium Level 143, Potassium Level 4.1, Chloride Level 99, Carbon Dioxide Level 31, Anion Gap 13, Blood Urea Nitrogen 43H, Creatinine 8.8H, Estimat Glomerular Filtration Rate 7.0, Glucose Level 142H, Calcium Level 9.3, Ammonia 10L, Folate 47.9, Rapid Plasma Reagin [Pending], Coccidioides Antibody (Comp Fix) [Pending], Cryptococcus Antigen [Pending], HIV (1&2) Antibody Rapid Negative Height (Feet): 5 Height (Inches): 11.00 Weight (Pounds): 167 General Appearance: WD/WN, no apparent distress, lethargic, confused Neurologic: disoriented, unresponsive, depressed affect Rory Alcala M.D. Apr 27, 2017 15:12
--- NOTE | 2017-04-27 15:46 | GI Progress Note ---
Assessment/Plan Problems: (1) Altered mental status ICD Codes: R41.82 - Altered mental status, unspecified SNOMED: 856459911 (2) severe toxic/metabolic encephalopathy 2/2 protracted DKA/ESRD (3) Diabetes type I ICD Codes: E10.9 - Type 1 diabetes mellitus without complications SNOMED: 84599107 (4) Altered level of consciousness ICD Codes: R40.4 - Transient alteration of awareness SNOMED: 4232961 (5) Poorly controlled diabetes mellitus ICD Codes: E11.65 - Type 2 diabetes mellitus with hyperglycemia SNOMED: 37042764, 704000324 Status: stable, not improved, unchanged Status Narrative Discussed with Dr. Morales. Assessment/Plan fu neurology recs supportive care at this time NGT placed, NGTFs per dietary DM control fu labs Subjective Subjective limited Objective Last 24 Hour Vital Signs Date Time Temp Pulse Resp B/P (MAP) Pulse Ox O2 Delivery O2 Flow Rate FiO2 04/27/17 15:21 185/102 04/27/17 12:06 90 185/102 04/27/17 12:06 185/102 04/27/17 12:05 90 185/102 04/27/17 12:00 97.8 93 20 189/113 97 Nasal Cannula 2.0 04/27/17 08:02 80 12 Room Air 21 04/27/17 08:00 98.0 91 22 185/102 96 Nasal Cannula 2.0 04/27/17 08:00 90 04/27/17 06:53 197/100 04/27/17 06:45 197/100 04/27/17 04:00 97.5 99 16 189/98 94 Nasal Cannula 2.0 04/27/17 04:00 96 04/27/17 03:03 193/108 04/27/17 03:00 97.7 97 12 193/108 94 Nasal Cannula 2.0 04/27/17 02:00 98.1 98 12 194/109 91 Nasal Cannula 2.0 04/27/17 01:00 97.6 99 16 190/99 90 Nasal Cannula 2.0 04/27/17 00:18 172/101 04/27/17 00:00 97.7 100 16 196/98 93 Nasal Cannula 2.0 04/27/17 00:00 99 04/26/17 23:00 12 179/102 92 Nasal Cannula 2.0 04/26/17 22:00 186/111 04/26/17 21:09 186/111 04/26/17 21:00 187/105 04/26/17 20:00 97.5 98 16 186/111 91 Room Air 04/26/17 20:00 95 04/26/17 19:00 82 12 Room Air 21 04/26/17 16:58 161/90 04/26/17 16:39 182/83 04/26/17 16:00 98.2 97 19 182/83 94 Room Air 04/26/17 16:00 97 Laboratory Tests Test 04/26/17 19:55 04/27/17 05:25 Random Vancomycin Level 15.3 ug/mL White Blood Count 7.0 K/UL (4.8-10.8) Red Blood Count 3.18 M/UL (4.70-6.10) L Hemoglobin 8.4 G/DL (14.2-18.0) L Hematocrit 27.3 % (42.0-52.0) L Mean Corpuscular Volume 86 FL (80-99) Mean Corpuscular Hemoglobin 26.6 PG (27.0-31.0) L Mean Corpuscular Hemoglobin Concent 30.9 G/DL (32.0-36.0) L Red Cell Distribution Width 15.7 % (11.6-14.8) H Platelet Count 190 K/UL (150-450) Mean Platelet Volume 7.0 FL (6.5-10.1) Neutrophils (%) (Auto) 84.0 % (45.0-75.0) H Lymphocytes (%) (Auto) 9.8 % (20.0-45.0) L Monocytes (%) (Auto) 5.3 % (1.0-10.0) Eosinophils (%) (Auto) 0.4 % (0.0-3.0) Basophils (%) (Auto) 0.6 % (0.0-2.0) Sodium Level 143 MMOL/L (136-145) Potassium Level 4.1 MMOL/L (3.5-5.1) Chloride Level 99 MMOL/L (98-107) Carbon Dioxide Level 31 MMOL/L (21-32) Anion Gap 13 mmol/L (5-15) Blood Urea Nitrogen 43 mg/dL (7-18) H Creatinine 8.8 MG/DL (0.55-1.30) H Estimat Glomerular Filtration Rate 7.0 mL/min (>60) Glucose Level 142 MG/DL (74-106) H Calcium Level 9.3 MG/DL (8.5-10.1) Ammonia 10 umol/L (11-32) L Folate 47.9 NG/ML (8.6-58.9) Rapid Plasma Reagin Pending Coccidioides Antibody (Comp Fix) Pending Cryptococcus Antigen Pending HIV (1&2) Antibody Rapid Negative (NEGATIVE) Height (Feet): 5 Height (Inches): 11.00 Weight (Pounds): 167 General Appearance: no apparent distress, other - obtunded, AMS Cardiovascular: normal rate Respiratory/Chest: normal breath sounds, no respiratory distress, other - 2LNC Abdominal Exam: normal bowel sounds, non tender, soft, other - NGT Extremities: normal range of motion, non-tender Karma Oneill N.P. Apr 27, 2017 15:46
--- NOTE | 2017-04-27 17:12 | Internal Med Progress Note ---
Subjective Date of Service: Apr 27, 2017 Physician Name YoliDavid Attending Physician Mellissa Mejia Current Medications Medications (Trade) Dose Ordered Sig/Aura Route PRN Reason Start Time Stop Time Status Last Admin Dose Admin Acetaminophen (Tylenol) 650 mg Q4H PRN ORAL fever 04/25/17 18:00 05/21/17 13:59 Acyclovir 400 mg/ Sodium Chloride 275 ml @ 275 mls/hr DAILY@2200 IV 04/26/17 22:00 05/26/17 21:59 04/26/17 22:49 Amlodipine Besylate (Norvasc) 10 mg DAILY ORAL 04/26/17 09:00 05/22/17 08:59 04/27/17 12:05 Ceftriaxone Sodium 2 gm/ Sodium Chloride 55 ml @ 110 mls/hr Q12HR@0400,1600 IVPB 04/26/17 04:00 05/03/17 03:59 04/27/17 03:03 Clonidine HCl (Catapres) 0.1 mg Q4H PRN ORAL SBP > 160 04/25/17 18:00 05/21/17 13:59 04/27/17 06:53 Dextrose (Dextrose 50%) STAT PRN IV Hypoglycemia 04/26/17 11:30 05/25/17 11:29 Enalaprilat (Vasotec) 2.5 mg Q4H PRN IV For High Blood Pressure 04/25/17 17:00 05/24/17 20:59 04/27/17 06:45 Heparin Sodium (Porcine) (Heparin 5000 units/ml) 5,000 units EVERY 12 HOURS SUBQ 04/25/17 21:00 05/21/17 20:59 04/26/17 08:27 Hydralazine HCl (Apresoline) 20 mg Q4H PRN IV For High Blood Pressure 04/26/17 01:15 05/26/17 01:14 04/27/17 15:21 Insulin Aspart (NovoLOG) BEFORE MEALS AND HS SUBQ 04/25/17 16:30 05/24/17 16:29 04/27/17 12:32 Insulin Aspart (NovoLOG) 6 units BEFORE MEALS SUBQ 04/25/17 16:30 05/24/17 16:29 04/27/17 05:43 Insulin Detemir (Levemir) 18 units Q24H SUBQ 04/25/17 19:00 05/25/17 18:59 04/26/17 18:32 Lisinopril (Prinivil) 20 mg BID ORAL 04/25/17 18:00 05/24/17 09:14 04/27/17 12:06 Metoprolol Tartrate (Lopressor) 25 mg Q12HR ORAL 04/25/17 22:00 05/25/17 21:59 04/27/17 12:06 Ondansetron HCl (Zofran) 4 mg Q6H PRN IVP Nausea & Vomiting 04/25/17 20:00 05/21/17 13:59 Pantoprazole (Protonix) 40 mg DAILY ORAL 04/26/17 09:00 05/22/17 08:59 04/27/17 12:06 Sevelamer Carbonate (Renvela) 1,600 mg THREE TIMES A DAY ORAL 04/25/17 18:00 05/23/17 17:59 04/27/17 12:07 Vancomycin HCl (Vanco rx to dose) 1 ea DAILY PRN MISC . 04/26/17 09:00 05/21/17 16:44 Allergies: Coded Allergies: GABAPENTIN (Verified Allergy, Unknown, 04/21/17) Dizziness, syncope ROS Limited/Unobtainable: Yes Subjective 31 YO M admitted with diabetic ketoacidosis. Continues with altered mental status-non verbal. Refusing oral meds. Cover for Int Med-Dr Mills. Objective Last Vital Signs Date Time Temp Pulse Resp B/P (MAP) Pulse Ox O2 Delivery O2 Flow Rate FiO2 04/27/17 15:21 185/102 04/27/17 12:06 90 04/27/17 12:00 97.8 20 97 Nasal Cannula 2.0 04/27/17 08:02 21 Laboratory Tests Test 04/26/17 19:55 04/27/17 05:25 Random Vancomycin Level 15.3 ug/mL White Blood Count 7.0 K/UL (4.8-10.8) Red Blood Count 3.18 M/UL (4.70-6.10) L Hemoglobin 8.4 G/DL (14.2-18.0) L Hematocrit 27.3 % (42.0-52.0) L Mean Corpuscular Volume 86 FL (80-99) Mean Corpuscular Hemoglobin 26.6 PG (27.0-31.0) L Mean Corpuscular Hemoglobin Concent 30.9 G/DL (32.0-36.0) L Red Cell Distribution Width 15.7 % (11.6-14.8) H Platelet Count 190 K/UL (150-450) Mean Platelet Volume 7.0 FL (6.5-10.1) Neutrophils (%) (Auto) 84.0 % (45.0-75.0) H Lymphocytes (%) (Auto) 9.8 % (20.0-45.0) L Monocytes (%) (Auto) 5.3 % (1.0-10.0) Eosinophils (%) (Auto) 0.4 % (0.0-3.0) Basophils (%) (Auto) 0.6 % (0.0-2.0) Sodium Level 143 MMOL/L (136-145) Potassium Level 4.1 MMOL/L (3.5-5.1) Chloride Level 99 MMOL/L (98-107) Carbon Dioxide Level 31 MMOL/L (21-32) Anion Gap 13 mmol/L (5-15) Blood Urea Nitrogen 43 mg/dL (7-18) H Creatinine 8.8 MG/DL (0.55-1.30) H Estimat Glomerular Filtration Rate 7.0 mL/min (>60) Glucose Level 142 MG/DL (74-106) H Calcium Level 9.3 MG/DL (8.5-10.1) Ammonia 10 umol/L (11-32) L Folate 47.9 NG/ML (8.6-58.9) Rapid Plasma Reagin Pending Coccidioides Antibody (Comp Fix) Pending Cryptococcus Antigen Pending HIV (1&2) Antibody Rapid Negative (NEGATIVE) Microbiology Date/Time Source Procedure Growth Status 04/24/17 17:26 Blood Blood Culture - Preliminary NO GROWTH AFTER 48 HOURS Resulted Objective General Appearance: WD/WN, no apparent distress, alert EENT: PERRL/EOMI, normal ENT inspection Neck: non-tender, normal alignment, supple, normal inspection Cardiovascular: normal peripheral pulses, normal rate, regular rhythm, no gallop/murmur, no JVD Respiratory/Chest: chest wall non-tender, lungs clear, normal breath sounds, no respiratory distress, no accessory muscle use Abdomen: normal bowel sounds, non tender, soft, no organomegaly, no mass Extremities: normal range of motion, non-tender Neurologic: tank car reconditioner II-XII grossly normal, no motor/sensory deficits Skin: normal pigmentation, warm/dry Assessment/Plan Problem List: (1) Diabetes type I Assessment & Plan: Better control. Cont Levemir insulin and Novolog sliding scale per endocrinology (2) HTN (hypertension) Assessment & Plan: Continue lisinopril and vasotec (3) Other cyst of bone, left ankle and foot Assessment & Plan: See podiatry note.. Continue vanco and cefepime per ID (4) DKA (diabetic ketoacidoses) (5) ESRD (end stage renal disease) on dialysis Assessment & Plan: Hemodialysis today 04/26/17-see nephrology note. (6) Hyperglycemia (7) Altered mental status Assessment & Plan: See neuro and psych consults. (8) Encephalopathy Assessment & Plan: See neuro note. Start antipsychotics per psych Status: not improved DAVID LINK Apr 27, 2017 17:12
--- NOTE | 2017-04-27 17:40 | Cardiology Progress Note ---
Assessment/Plan Assessment/Plan [id number] restart clonidine use bystolic and norvasc Objective Last 24 Hour Vital Signs Date Time Temp Pulse Resp B/P (MAP) Pulse Ox O2 Delivery O2 Flow Rate FiO2 04/27/17 15:21 185/102 04/27/17 12:06 90 185/102 04/27/17 12:06 185/102 04/27/17 12:05 90 185/102 04/27/17 12:00 97.8 93 20 189/113 97 Nasal Cannula 2.0 04/27/17 08:02 80 12 Room Air 21 04/27/17 08:00 98.0 91 22 185/102 96 Nasal Cannula 2.0 04/27/17 08:00 90 04/27/17 06:53 197/100 04/27/17 06:45 197/100 04/27/17 04:00 97.5 99 16 189/98 94 Nasal Cannula 2.0 04/27/17 04:00 96 04/27/17 03:03 193/108 04/27/17 03:00 97.7 97 12 193/108 94 Nasal Cannula 2.0 04/27/17 02:00 98.1 98 12 194/109 91 Nasal Cannula 2.0 04/27/17 01:00 97.6 99 16 190/99 90 Nasal Cannula 2.0 04/27/17 00:18 172/101 04/27/17 00:00 97.7 100 16 196/98 93 Nasal Cannula 2.0 04/27/17 00:00 99 04/26/17 23:00 12 179/102 92 Nasal Cannula 2.0 04/26/17 22:00 186/111 04/26/17 21:09 186/111 04/26/17 21:00 187/105 04/26/17 20:00 97.5 98 16 186/111 91 Room Air 04/26/17 20:00 95 04/26/17 19:00 82 12 Room Air 21 Laboratory Tests Test 04/26/17 19:55 04/27/17 05:25 Random Vancomycin Level 15.3 ug/mL White Blood Count 7.0 K/UL (4.8-10.8) Red Blood Count 3.18 M/UL (4.70-6.10) L Hemoglobin 8.4 G/DL (14.2-18.0) L Hematocrit 27.3 % (42.0-52.0) L Mean Corpuscular Volume 86 FL (80-99) Mean Corpuscular Hemoglobin 26.6 PG (27.0-31.0) L Mean Corpuscular Hemoglobin Concent 30.9 G/DL (32.0-36.0) L Red Cell Distribution Width 15.7 % (11.6-14.8) H Platelet Count 190 K/UL (150-450) Mean Platelet Volume 7.0 FL (6.5-10.1) Neutrophils (%) (Auto) 84.0 % (45.0-75.0) H Lymphocytes (%) (Auto) 9.8 % (20.0-45.0) L Monocytes (%) (Auto) 5.3 % (1.0-10.0) Eosinophils (%) (Auto) 0.4 % (0.0-3.0) Basophils (%) (Auto) 0.6 % (0.0-2.0) Sodium Level 143 MMOL/L (136-145) Potassium Level 4.1 MMOL/L (3.5-5.1) Chloride Level 99 MMOL/L (98-107) Carbon Dioxide Level 31 MMOL/L (21-32) Anion Gap 13 mmol/L (5-15) Blood Urea Nitrogen 43 mg/dL (7-18) H Creatinine 8.8 MG/DL (0.55-1.30) H Estimat Glomerular Filtration Rate 7.0 mL/min (>60) Glucose Level 142 MG/DL (74-106) H Calcium Level 9.3 MG/DL (8.5-10.1) Ammonia 10 umol/L (11-32) L Folate 47.9 NG/ML (8.6-58.9) Rapid Plasma Reagin Pending Coccidioides Antibody (Comp Fix) Pending Cryptococcus Antigen Pending HIV (1&2) Antibody Rapid Negative (NEGATIVE) JAN SEPULVEDA Apr 27, 2017 17:40
[2017-04-27] MEDS: Levemir Flexpen SUBQ SCH (18:33)
--- NOTE | 2017-04-27 20:32 | Consultation ---
DATE OF CONSULTATION: 04/27/2017 CARDIOLOGY CONSULTATION CONSULTING PHYSICIAN: Edward Morse M.D. REFERRING PHYSICIAN: Mellissa Mejia M.D. REASON FOR REFERRAL: Heart failure and abnormal natriuretic peptide. HISTORY OF PRESENT ILLNESS: This is a very unfortunate 31-year-old gentleman, who is really unable to provide any meaningful history. Information is obtained from the patient's present chart and from my review of the patient's [facility] data. It appears that the patient was transferred from a convalescent facility with blood pressure of 206/118 and confused. He has an insulin pump that was found to detached from the patient, unknown if he is using it. His blood sugar was very high at that time and was brought to the emergency room. He has been admitted to the hospital because he was noted to have BNP of 35,000 and therefore this consultation was requested. Apparently, he has some psychiatric illness as well. Anyway, the patient does not have the capacity to talk. PAST MEDICAL HISTORY: Information from the old chart at [facility] indicate that the patient has a history of hypoxemia, congestive heart failure decompensated, intractable nausea and vomiting, status post EGD with gastritis and gastroparesis, diabetic gastroparesis, diabetes on insulin pump, history of orthostatic hypotension on Florinef, history of methamphetamine abuse in remission, anemia, depression, end-stage renal disease on hemodialysis, chronic kidney disease, anemia, and pneumonia. He has had retinal surgery, GI biopsy, endoscopy, . The patient has had a history of left foot mass possibly abscess versus ganglion cyst hemodynamically stable, being treated with antibiotics back in 04/19/2017 at [facility]. MEDICATIONS: His medications at this time for blood pressure include amlodipine 10 mg, clonidine p.r.n., hydralazine p.r.n., lisinopril 20 mg twice a day, and metoprolol 25 mg twice a day. His prior medications at [facility] for his blood pressure have included clonidine 0.3 mg three times a day, amlodipine 5 mg everyday, and Bystolic 10 mg daily. He is not getting any clonidine at this time. ALLERGIES: He is allergic to gabapentin. SOCIAL HISTORY: Apparently, he has never smoked. He never used smokeless tobacco. Apparently, he used drugs before including methamphetamines and marijuana. Apparently, he told the other doctors that he was not drinking alcoholic beverages. FAMILY HISTORY: None. REVIEW OF SYSTEMS: Unable to obtain. PHYSICAL EXAMINATION: GENERAL: Shows to be a young gentleman, in no respiratory distress. VITAL SIGNS: Blood pressure is anywhere between 185/102 to 189/113, his heart rates in the 90s, and temperature 97.8. NECK: Supple. No jugular venous distention. LUNGS: Anteriorly clear. CARDIAC: Regular rate and rhythm. There is S4 gallop. ABDOMEN: Soft and nontender. Positive bowel sounds. EXTREMITIES: No clubbing, cyanosis, nor is there any edema. NEUROLOGICAL: Awake. He does have some response. No verbal communications. LABORATORY DATA: White count 7, hemoglobin 8.4, and platelet count of 190. Blood gases, pH of 7.22, pCO2 35, pO2 of 97, and bicarbonate of 14 this is on the 04/21/2017. Sodium 143, potassium 4.1, chloride 99, bicarbonate 31, BUN 43, creatinine of 8.8, and glucose of 142. Uric acid of 9.3. His CPKs in the low at 30. He had natriuretic peptide BNP was greater than 35,000 on 04/22/2017. IMAGING: A chest x-ray showed that he has some mild pulmonary vascular congestion, interstitial congestion correlate clinically. The patient has had an MRI of the brain that showed possibly an old small stroke and enlarged ventricles. EKG shows normal sinus rhythm and some peaking of the T-waves otherwise no ST or T-wave abnormalities being noted. ASSESSMENT: 1. Hypertension, poorly controlled, possibly rebound. 2. Diabetes mellitus with end-organ damage. 3. Diabetic gastroparesis. 4. End-stage renal disease, on hemodialysis. 5. Anemia. 6. Foot abscess with osteomyelitis. PLAN: Dr. Mejia, this patient was seen in cardiac consultation. I will take the liberty of changing his medications to what he is reportedly taking at [facility] including reinstitution of clonidine and discontinuation of metoprolol and start him on Bystolic that he was reportedly taking. We will observe his blood pressure. He needs more dialysis and ultrafiltration although he seems to be oxygenating at this time fine. Edward Morse M.D. DR: VIOLA JOB#: [id number] CC:
[2017-04-27] MEDS: NS IV SCH (22:29)
[2017-04-27] MEDS: ACYCLOVIR IV SCH (22:29)
[2017-04-28] VITALS (12 sets, daily range): BP systolic 132–199; BP diastolic 56–103
[2017-04-28] MEDS: Enalaprilat 2.5mg/2ml Inj IV PRN ×3 (01:54→21:00)
[2017-04-28] MEDS: cefTRIAXone 2 GM in NS 55 ML IVPB SCH ×2 (03:10→14:11)
[2017-04-28 05:19] LABS: ANION GAP 14 mmol/L (5-15); CALCIUM 9.7 MG/DL (8.5-10.1); CARBON DIOXIDE 31 MMOL/L (21-32); CHLORIDE 98 MMOL/L (98-107); CREATININE 10.5 MG/DL (0.55-1.30); GLOMERULAR FILTRATION RATE 5.7 mL/min (>60); MEAN CORPUSCULAR HEMOGLOBIN 27.6 PG (27.0-31.0); MEAN CORPUSCULAR VOLUME 86 FL (80-99); PLATELET COUNT 195 K/UL (150-450); POTASSIUM 4.1 MMOL/L (3.5-5.1); RED BLOOD COUNT 3.04 M/UL (4.70-6.10); RED CELL DISTRIBUTION WIDTH 15.7 % (11.6-14.8); SODIUM 143 MMOL/L (136-145); WHITE BLOOD COUNT 13.5 K/UL (4.8-10.8)
[2017-04-28] MEDS: NovoLOG Insulin Flexpen SUBQ SCH ×7 (06:01→21:15)
[2017-04-28] MEDS: Renvela 800mg Pkt ORAL SCH ×3 (09:00→18:00)
[2017-04-28] MEDS: Lisinopril 20mg tab ORAL SCH ×2 (09:00→18:00)
[2017-04-28] MEDS ORDERED: Bystolic 2.5mg Tab ORAL SCH (09:00)
[2017-04-28] MEDS: Heparin 5000 units/ml inj SUBQ SCH ×2 (09:00→21:07)
[2017-04-28] MEDS ORDERED: NS 500ML ONE (10:25)
[2017-04-28] MEDS ORDERED: Tubing IV Secondary IV ONE (10:25)
--- NOTE | 2017-04-28 10:55 | GI Progress Note ---
Assessment/Plan Problems: (1) Altered mental status ICD Codes: R41.82 - Altered mental status, unspecified SNOMED: 643852657 (2) severe toxic/metabolic encephalopathy 2/2 protracted DKA/ESRD (3) Diabetes type I ICD Codes: E10.9 - Type 1 diabetes mellitus without complications SNOMED: 03787119 (4) Altered level of consciousness ICD Codes: R40.4 - Transient alteration of awareness SNOMED: 3529429 (5) Poorly controlled diabetes mellitus ICD Codes: E11.65 - Type 2 diabetes mellitus with hyperglycemia SNOMED: 07980963, 271312032 Status: not improved, unchanged Status Narrative Discussed with Dr. Morales. Assessment/Plan will consider PEG if no improvement, at this time will start NGTFs per dietary DM control HD fu labs Subjective Subjective limited Objective Last 24 Hour Vital Signs Date Time Temp Pulse Resp B/P (MAP) Pulse Ox O2 Delivery O2 Flow Rate FiO2 04/28/17 08:00 76 04/28/17 07:24 20 151/56 96 Nasal Cannula 2.0 04/28/17 06:29 199/103 04/28/17 06:28 199/103 04/28/17 06:28 199/103 04/28/17 06:00 98.2 86 16 199/103 96 Nasal Cannula 2.0 04/28/17 05:49 153/88 04/28/17 04:02 97.9 80 16 165/89 97 Nasal Cannula 2.0 04/28/17 04:00 86 04/28/17 03:00 87 16 167/93 96 Nasal Cannula 2.0 04/28/17 01:54 187/111 04/28/17 01:54 187/111 04/28/17 01:53 187/111 04/28/17 00:00 88 04/28/17 00:00 98.2 90 16 196/101 95 Nasal Cannula 2.0 04/27/17 22:29 191/98 04/27/17 20:50 190/106 04/27/17 20:50 190/106 04/27/17 20:00 98.2 87 20 190/106 96 Nasal Cannula 2.0 04/27/17 20:00 83 04/27/17 18:32 151/68 04/27/17 17:18 185/102 04/27/17 16:00 96.6 110 20 151/68 99 Nasal Cannula 2.0 04/27/17 16:00 96 04/27/17 15:21 185/102 04/27/17 12:06 90 185/102 04/27/17 12:06 185/102 04/27/17 12:05 90 185/102 04/27/17 12:00 93 04/27/17 12:00 97.8 93 20 189/113 97 Nasal Cannula 2.0 Laboratory Tests Test 04/28/17 03:30 White Blood Count 13.5 K/UL (4.8-10.8) #H Red Blood Count 3.04 M/UL (4.70-6.10) L Hemoglobin 8.4 G/DL (14.2-18.0) L Hematocrit 26.3 % (42.0-52.0) L Mean Corpuscular Volume 86 FL (80-99) Mean Corpuscular Hemoglobin 27.6 PG (27.0-31.0) Mean Corpuscular Hemoglobin Concent 32.0 G/DL (32.0-36.0) Red Cell Distribution Width 15.7 % (11.6-14.8) H Platelet Count 195 K/UL (150-450) Mean Platelet Volume 8.0 FL (6.5-10.1) Neutrophils (%) (Auto) % (45.0-75.0) Lymphocytes (%) (Auto) % (20.0-45.0) Monocytes (%) (Auto) % (1.0-10.0) Eosinophils (%) (Auto) % (0.0-3.0) Basophils (%) (Auto) % (0.0-2.0) Sodium Level 143 MMOL/L (136-145) Potassium Level 4.1 MMOL/L (3.5-5.1) Chloride Level 98 MMOL/L (98-107) Carbon Dioxide Level 31 MMOL/L (21-32) Anion Gap 14 mmol/L (5-15) Blood Urea Nitrogen 53 mg/dL (7-18) H Creatinine 10.5 MG/DL (0.55-1.30) H Estimat Glomerular Filtration Rate 5.7 mL/min (>60) Glucose Level 148 MG/DL (74-106) H Calcium Level 9.7 MG/DL (8.5-10.1) West Nile Virus IgG Antibody Pending West Nile Virus IgM Antibody Pending Height (Feet): 5 Height (Inches): 11.00 Weight (Pounds): 168 General Appearance: no apparent distress, other - obtunded Cardiovascular: normal rate Respiratory/Chest: normal breath sounds, no respiratory distress Abdominal Exam: normal bowel sounds, non tender, soft, other - NGT Karma Oneill N.P. Apr 28, 2017 10:55
--- NOTE | 2017-04-28 11:19 | General Progress Note ---
Assessment/Plan Status: not improved, unchanged, deteriorating Assessment/Plan encephalopathy GT? cj virus? cont current meds Subjective Allergies: Coded Allergies: GABAPENTIN (Verified Allergy, Unknown, 04/21/17) Dizziness, syncope Subjective the pt is confused is more lethargic. the pt is not responding. Objective Last 24 Hour Vital Signs Date Time Temp Pulse Resp B/P (MAP) Pulse Ox O2 Delivery O2 Flow Rate FiO2 04/28/17 11:02 84 16 Room Air 21 04/28/17 08:00 76 04/28/17 07:24 20 151/56 96 Nasal Cannula 2.0 04/28/17 06:29 199/103 04/28/17 06:28 199/103 04/28/17 06:28 199/103 04/28/17 06:00 98.2 86 16 199/103 96 Nasal Cannula 2.0 04/28/17 05:49 153/88 04/28/17 04:02 97.9 80 16 165/89 97 Nasal Cannula 2.0 04/28/17 04:00 86 04/28/17 03:00 87 16 167/93 96 Nasal Cannula 2.0 04/28/17 01:54 187/111 04/28/17 01:54 187/111 04/28/17 01:53 187/111 04/28/17 00:00 88 04/28/17 00:00 98.2 90 16 196/101 95 Nasal Cannula 2.0 04/27/17 22:29 191/98 04/27/17 20:50 190/106 04/27/17 20:50 190/106 04/27/17 20:00 98.2 87 20 190/106 96 Nasal Cannula 2.0 04/27/17 20:00 83 04/27/17 18:32 151/68 04/27/17 17:18 185/102 04/27/17 16:00 96.6 110 20 151/68 99 Nasal Cannula 2.0 04/27/17 16:00 96 04/27/17 15:21 185/102 04/27/17 12:06 90 185/102 04/27/17 12:06 185/102 04/27/17 12:05 90 185/102 04/27/17 12:00 93 04/27/17 12:00 97.8 93 20 189/113 97 Nasal Cannula 2.0 Laboratory Tests 04/28/17 03:30: White Blood Count 13.5#H, Red Blood Count 3.04L, Hemoglobin 8.4L, Hematocrit 26.3L, Mean Corpuscular Volume 86, Mean Corpuscular Hemoglobin 27.6, Mean Corpuscular Hemoglobin Concent 32.0, Red Cell Distribution Width 15.7H, Platelet Count 195, Mean Platelet Volume 8.0, Neutrophils (%) (Auto) , Lymphocytes (%) (Auto) , Monocytes (%) (Auto) , Eosinophils (%) (Auto) , Basophils (%) (Auto) , Sodium Level 143, Potassium Level 4.1, Chloride Level 98 , Carbon Dioxide Level 31, Anion Gap 14, Blood Urea Nitrogen 53H, Creatinine 10.5H, Estimat Glomerular Filtration Rate 5.7, Glucose Level 148H, Calcium Level 9.7, West Nile Virus IgG Antibody [Pending], West Nile Virus IgM Antibody [Pending] Height (Feet): 5 Height (Inches): 11.00 Weight (Pounds): 168 General Appearance: no apparent distress, lethargic, confused Neurologic: disoriented, depressed affect Rory Alcaal M.D. Apr 28, 2017 11:19
--- NOTE | 2017-04-28 11:26 | Nephrology Progress Note ---
Assessment/Plan Problem List: (1) ESRD (end stage renal disease) on dialysis (2) Hyperkalemia, diminished renal excretion (3) Hyperglycemia Assessment remains encephalopathic ESRD- Type I DM- presents with: Encephalopathy unchanged HyperKalemia improved Hyperglycemia improved Has a collection on his left lat plantar foot ? infected Anemia unable to eat Plan Plan: HD today NGT , meds via NGT increase zestril for BP add Lopressor MRI , r/o stroke for decrease memory: negative HD 04/26 in process check vanco level: 18 per Endo keep BP and BS in check Subjective ROS Limited/Unobtainable: No Objective Objective Last 24 Hour Vital Signs Date Time Temp Pulse Resp B/P (MAP) Pulse Ox O2 Delivery O2 Flow Rate FiO2 04/28/17 11:02 84 16 Room Air 21 04/28/17 08:00 76 04/28/17 07:24 20 151/56 96 Nasal Cannula 2.0 04/28/17 06:29 199/103 04/28/17 06:28 199/103 04/28/17 06:28 199/103 04/28/17 06:00 98.2 86 16 199/103 96 Nasal Cannula 2.0 04/28/17 05:49 153/88 04/28/17 04:02 97.9 80 16 165/89 97 Nasal Cannula 2.0 04/28/17 04:00 86 04/28/17 03:00 87 16 167/93 96 Nasal Cannula 2.0 04/28/17 01:54 187/111 04/28/17 01:54 187/111 04/28/17 01:53 187/111 04/28/17 00:00 88 04/28/17 00:00 98.2 90 16 196/101 95 Nasal Cannula 2.0 04/27/17 22:29 191/98 04/27/17 20:50 190/106 04/27/17 20:50 190/106 04/27/17 20:00 98.2 87 20 190/106 96 Nasal Cannula 2.0 04/27/17 20:00 83 04/27/17 18:32 151/68 04/27/17 17:18 185/102 04/27/17 16:00 96.6 110 20 151/68 99 Nasal Cannula 2.0 04/27/17 16:00 96 04/27/17 15:21 185/102 12/5/17 12:06 90 185/102 04/27/17 12:06 185/102 04/27/17 12:05 90 185/102 04/27/17 12:00 93 04/27/17 12:00 97.8 93 20 189/113 97 Nasal Cannula 2.0 Laboratory Tests 04/28/17 03:30: White Blood Count 13.5#H, Red Blood Count 3.04L, Hemoglobin 8.4L, Hematocrit 26.3L, Mean Corpuscular Volume 86, Mean Corpuscular Hemoglobin 27.6, Mean Corpuscular Hemoglobin Concent 32.0, Red Cell Distribution Width 15.7H, Platelet Count 195, Mean Platelet Volume 8.0, Neutrophils (%) (Auto) , Lymphocytes (%) (Auto) , Monocytes (%) (Auto) , Eosinophils (%) (Auto) , Basophils (%) (Auto) , Sodium Level 143, Potassium Level 4.1, Chloride Level 98 , Carbon Dioxide Level 31, Anion Gap 14, Blood Urea Nitrogen 53H, Creatinine 10.5H, Estimat Glomerular Filtration Rate 5.7, Glucose Level 148H, Calcium Level 9.7, West Nile Virus IgG Antibody [Pending], West Nile Virus IgM Antibody [Pending] Height (Feet): 5 Height (Inches): 11.00 Weight (Pounds): 168 Objective other PE not changed ANUPAM PUENTES Apr 28, 2017 11:26
--- NOTE | 2017-04-28 11:35 | Internal Med Progress Note ---
Subjective Date of Service: Apr 28, 2017 Physician Name LinkMaxi Attending Physician Mellissa Mejia Current Medications Medications (Trade) Dose Ordered Sig/Aura Route PRN Reason Start Time Stop Time Status Last Admin Dose Admin Acetaminophen (Tylenol) 650 mg Q4H PRN ORAL fever 04/25/17 18:00 05/21/17 13:59 Acyclovir 400 mg/ Sodium Chloride 275 ml @ 275 mls/hr DAILY@2200 IV 04/26/17 22:00 05/26/17 21:59 04/27/17 22:29 Amlodipine Besylate (Norvasc) 10 mg DAILY ORAL 04/26/17 09:00 05/22/17 08:59 04/27/17 12:05 Ceftriaxone Sodium 2 gm/ Sodium Chloride 55 ml @ 110 mls/hr Q12HR@0400,1600 IVPB 04/26/17 04:00 05/03/17 03:59 04/28/17 03:10 Clonidine HCl (Catapres) 0.1 mg Q4H PRN ORAL SBP > 160 04/25/17 18:00 05/21/17 13:59 04/28/17 06:28 Clonidine HCl (Catapres) 0.3 mg EVERY 8 HOURS ORAL 04/27/17 17:45 05/27/17 17:44 04/28/17 05:49 Dextrose (Dextrose 50%) STAT PRN IV Hypoglycemia 04/26/17 11:30 05/25/17 11:29 Enalaprilat (Vasotec) 2.5 mg Q4H PRN IV For High Blood Pressure 04/25/17 17:00 05/24/17 20:59 04/28/17 06:28 Heparin Sodium (Porcine) (Heparin 5000 units/ml) 5,000 units EVERY 12 HOURS SUBQ 04/25/17 21:00 05/21/17 20:59 04/26/17 08:27 Hydralazine HCl (Apresoline) 20 mg Q4H PRN IV For High Blood Pressure 04/26/17 01:15 05/26/17 01:14 04/28/17 06:29 Insulin Aspart (NovoLOG) BEFORE MEALS AND HS SUBQ 04/25/17 16:30 05/24/17 16:29 04/28/17 06:01 Insulin Aspart (NovoLOG) 6 units BEFORE MEALS SUBQ 04/25/17 16:30 05/24/17 16:29 04/28/17 06:02 Insulin Detemir (Levemir) 18 units Q24H SUBQ 04/25/17 19:00 05/25/17 18:59 04/27/17 18:33 Lisinopril (Prinivil) 20 mg BID ORAL 04/25/17 18:00 05/24/17 09:14 04/27/17 17:18 Nebivolol (Bystolic) 5 mg DAILY ORAL 04/28/17 09:00 05/28/17 08:59 Ondansetron HCl (Zofran) 4 mg Q6H PRN IVP Nausea & Vomiting 04/25/17 20:00 05/21/17 13:59 Pantoprazole (Protonix) 40 mg DAILY ORAL 04/26/17 09:00 05/22/17 08:59 04/27/17 12:06 Sevelamer Carbonate (Renvela) 1,600 mg THREE TIMES A DAY ORAL 04/25/17 18:00 05/23/17 17:59 04/27/17 17:18 Vancomycin HCl (Vanco rx to dose) 1 ea DAILY PRN MISC . 04/26/17 09:00 05/21/17 16:44 Allergies: Coded Allergies: GABAPENTIN (Verified Allergy, Unknown, 04/21/17) Dizziness, syncope ROS Limited/Unobtainable: Yes Subjective 31 YO M admitted with diabetic ketoacidosis. Continues with altered mental status-non verbal. More lethargic today-await lumbar puncture.. Cover for Int Med-Dr Mills. Objective Last Vital Signs Date Time Temp Pulse Resp B/P (MAP) Pulse Ox O2 Delivery O2 Flow Rate FiO2 04/28/17 11:02 84 16 Room Air 21 04/28/17 07:24 151/56 96 2.0 04/28/17 06:00 98.2 Laboratory Tests Test 04/28/17 03:30 White Blood Count 13.5 K/UL (4.8-10.8) #H Red Blood Count 3.04 M/UL (4.70-6.10) L Hemoglobin 8.4 G/DL (14.2-18.0) L Hematocrit 26.3 % (42.0-52.0) L Mean Corpuscular Volume 86 FL (80-99) Mean Corpuscular Hemoglobin 27.6 PG (27.0-31.0) Mean Corpuscular Hemoglobin Concent 32.0 G/DL (32.0-36.0) Red Cell Distribution Width 15.7 % (11.6-14.8) H Platelet Count 195 K/UL (150-450) Mean Platelet Volume 8.0 FL (6.5-10.1) Neutrophils (%) (Auto) % (45.0-75.0) Lymphocytes (%) (Auto) % (20.0-45.0) Monocytes (%) (Auto) % (1.0-10.0) Eosinophils (%) (Auto) % (0.0-3.0) Basophils (%) (Auto) % (0.0-2.0) Sodium Level 143 MMOL/L (136-145) Potassium Level 4.1 MMOL/L (3.5-5.1) Chloride Level 98 MMOL/L (98-107) Carbon Dioxide Level 31 MMOL/L (21-32) Anion Gap 14 mmol/L (5-15) Blood Urea Nitrogen 53 mg/dL (7-18) H Creatinine 10.5 MG/DL (0.55-1.30) H Estimat Glomerular Filtration Rate 5.7 mL/min (>60) Glucose Level 148 MG/DL (74-106) H Calcium Level 9.7 MG/DL (8.5-10.1) West Nile Virus IgG Antibody Pending West Nile Virus IgM Antibody Pending Objective General Appearance: WD/WN, no apparent distress, alert EENT: PERRL/EOMI, normal ENT inspection Neck: non-tender, normal alignment, supple, normal inspection Cardiovascular: normal peripheral pulses, normal rate, regular rhythm, no gallop/murmur, no JVD Respiratory/Chest: chest wall non-tender, lungs clear, normal breath sounds, no respiratory distress, no accessory muscle use Abdomen: normal bowel sounds, non tender, soft, no organomegaly, no mass Extremities: normal range of motion, non-tender Neurologic: medical transcription II-XII grossly normal, no motor/sensory deficits Skin: normal pigmentation, warm/dry Assessment/Plan Problem List: (1) Diabetes type I Assessment & Plan: Better control. Cont Levemir insulin and Novolog sliding scale per endocrinology (2) HTN (hypertension) Assessment & Plan: Continue lisinopril and vasotec (3) Other cyst of bone, left ankle and foot Assessment & Plan: See podiatry note.. Continue vanco and cefepime per ID (4) DKA (diabetic ketoacidoses) (5) ESRD (end stage renal disease) on dialysis Assessment & Plan: Hemodialysis today 04/28/17-see nephrology note. (6) Hyperglycemia (7) Altered mental status Assessment & Plan: See neuro and psych consults. (8) Encephalopathy Assessment & Plan: Severe. Await lumbar puncture. Brain MRI=no lesions. See neuro note. Start antipsychotics per psych MAXI LINK Apr 28, 2017 11:35
--- NOTE | 2017-04-28 11:49 | Pulmonology Progress Note ---
Assessment/Plan Problems: (1) Coma (2) ESRD (end stage renal disease) on dialysis (3) HTN (hypertension) (4) DKA (diabetic ketoacidoses) Assessment/Plan LP pending to rule out meningitis d/w Neurologist, he will repeat the MRI f/y Id recommendations for IV abx. continue HD check electrolytes. tolerating diet Subjective ROS Limited/Unobtainable: No Interval Events: deep coma Allergies: Coded Allergies: GABAPENTIN (Verified Allergy, Unknown, 04/21/17) Dizziness, syncope Objective Last 24 Hour Vital Signs Date Time Temp Pulse Resp B/P (MAP) Pulse Ox O2 Delivery O2 Flow Rate FiO2 04/28/17 11:02 84 16 Room Air 21 04/28/17 08:00 76 04/28/17 07:24 20 151/56 96 Nasal Cannula 2.0 04/28/17 06:29 199/103 04/28/17 06:28 199/103 04/28/17 06:28 199/103 04/28/17 06:00 98.2 86 16 199/103 96 Nasal Cannula 2.0 04/28/17 05:49 153/88 04/28/17 04:02 97.9 80 16 165/89 97 Nasal Cannula 2.0 04/28/17 04:00 86 04/28/17 03:00 87 16 167/93 96 Nasal Cannula 2.0 04/28/17 01:54 187/111 04/28/17 01:54 187/111 04/28/17 01:53 187/111 04/28/17 00:00 88 04/28/17 00:00 98.2 90 16 196/101 95 Nasal Cannula 2.0 04/27/17 22:29 191/98 04/27/17 20:50 190/106 04/27/17 20:50 190/106 04/27/17 20:00 98.2 87 20 190/106 96 Nasal Cannula 2.0 04/27/17 20:00 83 04/27/17 18:32 151/68 04/27/17 17:18 185/102 04/27/17 16:00 96.6 110 20 151/68 99 Nasal Cannula 2.0 04/27/17 16:00 96 04/27/17 15:21 185/102 04/27/17 12:06 90 185/102 04/27/17 12:06 185/102 04/27/17 12:05 90 185/102 04/27/17 12:00 93 04/27/17 12:00 97.8 93 20 189/113 97 Nasal Cannula 2.0 Objective NG tube is in General Appearance: WD/WN, no acute distress HEENT: normocephalic Respiratory/Chest: chest wall non-tender, lungs clear Cardiovascular: normal rate Abdomen: normal bowel sounds, no organomegaly Extremities: no cyanosis Skin: no rash, no ulcers Laboratory Tests 04/28/17 03:30: White Blood Count 13.5#H, Red Blood Count 3.04L, Hemoglobin 8.4L, Hematocrit 26.3L, Mean Corpuscular Volume 86, Mean Corpuscular Hemoglobin 27.6, Mean Corpuscular Hemoglobin Concent 32.0, Red Cell Distribution Width 15.7H, Platelet Count 195, Mean Platelet Volume 8.0, Neutrophils (%) (Auto) , Lymphocytes (%) (Auto) , Monocytes (%) (Auto) , Eosinophils (%) (Auto) , Basophils (%) (Auto) , Sodium Level 143, Potassium Level 4.1, Chloride Level 98 , Carbon Dioxide Level 31, Anion Gap 14, Blood Urea Nitrogen 53H, Creatinine 10.5H, Estimat Glomerular Filtration Rate 5.7, Glucose Level 148H, Calcium Level 9.7, West Nile Virus IgG Antibody [Pending], West Nile Virus IgM Antibody [Pending] Current Medications Medications (Trade) Dose Ordered Sig/Aura Route PRN Reason Start Time Stop Time Status Last Admin Dose Admin Acetaminophen (Tylenol) 650 mg Q4H PRN ORAL fever 04/25/17 18:00 05/21/17 13:59 Acyclovir 400 mg/ Sodium Chloride 275 ml @ 275 mls/hr DAILY@2200 IV 04/26/17 22:00 05/26/17 21:59 04/27/17 22:29 Amlodipine Besylate (Norvasc) 10 mg DAILY ORAL 04/26/17 09:00 05/22/17 08:59 04/27/17 12:05 Ceftriaxone Sodium 2 gm/ Sodium Chloride 55 ml @ 110 mls/hr Q12HR@0400,1600 IVPB 04/26/17 04:00 05/03/17 03:59 04/28/17 03:10 Clonidine HCl (Catapres) 0.1 mg Q4H PRN ORAL SBP > 160 04/25/17 18:00 05/21/17 13:59 04/28/17 06:28 Clonidine HCl (Catapres) 0.3 mg EVERY 8 HOURS ORAL 04/27/17 17:45 05/27/17 17:44 04/28/17 05:49 Dextrose (Dextrose 50%) STAT PRN IV Hypoglycemia 04/26/17 11:30 05/25/17 11:29 Enalaprilat (Vasotec) 2.5 mg Q4H PRN IV For High Blood Pressure 04/25/17 17:00 05/24/17 20:59 04/28/17 06:28 Heparin Sodium (Porcine) (Heparin 5000 units/ml) 5,000 units EVERY 12 HOURS SUBQ 04/25/17 21:00 05/21/17 20:59 04/26/17 08:27 Hydralazine HCl (Apresoline) 20 mg Q4H PRN IV For High Blood Pressure 04/26/17 01:15 05/26/17 01:14 04/28/17 06:29 Insulin Aspart (NovoLOG) BEFORE MEALS AND HS SUBQ 04/25/17 16:30 05/24/17 16:29 04/28/17 06:01 Insulin Aspart (NovoLOG) 6 units BEFORE MEALS SUBQ 04/25/17 16:30 05/24/17 16:29 04/28/17 06:02 Insulin Detemir (Levemir) 18 units Q24H SUBQ 04/25/17 19:00 05/25/17 18:59 04/27/17 18:33 Lisinopril (Prinivil) 20 mg BID ORAL 04/25/17 18:00 05/24/17 09:14 04/27/17 17:18 Nebivolol (Bystolic) 5 mg DAILY ORAL 04/28/17 09:00 05/28/17 08:59 Ondansetron HCl (Zofran) 4 mg Q6H PRN IVP Nausea & Vomiting 04/25/17 20:00 05/21/17 13:59 Pantoprazole (Protonix) 40 mg DAILY ORAL 04/26/17 09:00 05/22/17 08:59 04/27/17 12:06 Sevelamer Carbonate (Renvela) 1,600 mg THREE TIMES A DAY ORAL 04/25/17 18:00 05/23/17 17:59 04/27/17 17:18 Vancomycin HCl (Vanco rx to dose) 1 ea DAILY PRN MISC . 04/26/17 09:00 05/21/17 16:44 INEZ MEHTA Apr 28, 2017 11:49
[2017-04-28] MEDS ORDERED: Lidocaine 1% Plain 30 ml INJ ONE ×2 (12:00→12:30)
--- NOTE | 2017-04-28 12:17 | Infectious Diseases Prog Note ---
Assessment/Plan Assessment/Plan ALOC/AMS- has not improved, ? etio Meningitis/encephalitis , in DDX but less likely - r/o HSV acyclovir no GOMEZ, N/V , no neck rigidity -MRI brain: Negative for acute intracranial bleed, mass effect, or infarct. Prominent ventricles and extra-axial CSF spaces, consistent with your volume loss, advanced for patient's age. Correlate with clinical history Possible old tiny left posterior temporal cortical infarct. Minimal periventricular deep white matter T2 hyperintensities, consistent with chronic ischemic changes. -CT head: Negative for acute intracranial bleed or mass effect. Somewhat prominent ventricles and extra-axial CSF spaces, consistent with volume loss, advanced for age. Periventricular deep white matter low-attenuation, appearance typical of chronic ischemic changes but given patient's age possibility of demyelinating disease should be considered.] -CXR: There is equivocal mild interstitial congestion. No focal airspace consolidation. No effusions -Neg:Rapid HIV test, RPR Afebrile Mild leukocytosis Leg 5th metatarsal fluid collection no evid of of OM, possiby cyst-as per Pod : MRI done at outside facility and re-evaluated by [facility] radiologist suggest that no osteomyelitis is present in either foot. -XRay L foot 04/22: Osseous defect in fragment of the medial head of the first proximal phalanx. There is overlying soft tissue swelling, but bony abnormality does not appear acute. May reflect an old injury. Correlate with clinical findings, consider MRI for further evaluation as clinically indicated. Soft tissue swelling in the region of the left fifth metatarsal head. No plain radiographic findings to suggest acute osteomyelitis. Note, however, limited sensitivity of plain radiographs for such. Consider MRI for better characterization if there is high clinical suspicion -04/23: ESR 40, CRP 3.4 -MRI 04/08: L Foot wo: 2.1x 0.7 x2.5 cm fluid collection in plantar aspect of 5th metatarsal head. Cannot exclude abscess. Minimal Bone marrow edema involving 5th metatarsal head. Although no cortical erosive changes noted, an early medullary OM cannot be excluded. -u/s guided sriram at [facility]- cx negative -Vanco 500mg and Cefepime 2g after HD on HD days planned for 6 weeks; end date 05/28/17 DKA, resolved DM 1 on insulin pump, HTN, ESRD on HD MWF, psychiatric illness Plan: -Continue IV Vancomycin #7 and Rocephin(meningitis dose) abx d #7 , and Acyclovir d # 5 pending LP ; and add IV Ampicillin for Listeria coverage given delay in LP, leukocytosis, and mild immunocompromise due to ESRD on PD -04/24 SP Cefepime #3 -04/22 SP Zosyn #1 - abx duration: until 05/28/2017- for presumed OM (regimen started at [facility]) -For LP today -CSF analysis, bacterial, fungal, AFB cultures, HSV PCR, VDRL, CMV, EBV, VZV PCR -f/u Cocci ab, Cr Ag, WNV ab -Monitor CBC/BMP, temperatures: - f/u cx Discussed with RN. Subjective Allergies: Coded Allergies: GABAPENTIN (Verified Allergy, Unknown, 04/21/17) Dizziness, syncope Subjective afebrile mild leukocytosis to 13 remains obtunded/non verbal still LP not done Objective Vital Signs Last 24 Hour Vital Signs Date Time Temp Pulse Resp B/P (MAP) Pulse Ox O2 Delivery O2 Flow Rate FiO2 04/28/17 11:02 84 16 Room Air 21 04/28/17 08:00 76 04/28/17 07:24 20 151/56 96 Nasal Cannula 2.0 04/28/17 06:29 199/103 04/28/17 06:28 199/103 04/28/17 06:28 199/103 04/28/17 06:00 98.2 86 16 199/103 96 Nasal Cannula 2.0 04/28/17 05:49 153/88 04/28/17 04:02 97.9 80 16 165/89 97 Nasal Cannula 2.0 04/28/17 04:00 86 04/28/17 03:00 87 16 167/93 96 Nasal Cannula 2.0 04/28/17 01:54 187/111 04/28/17 01:54 187/111 04/28/17 01:53 187/111 04/28/17 00:00 88 04/28/17 00:00 98.2 90 16 196/101 95 Nasal Cannula 2.0 04/27/17 22:29 191/98 04/27/17 20:50 190/106 04/27/17 20:50 190/106 04/27/17 20:00 98.2 87 20 190/106 96 Nasal Cannula 2.0 04/27/17 20:00 83 04/27/17 18:32 151/68 04/27/17 17:18 185/102 04/27/17 16:00 96.6 110 20 151/68 99 Nasal Cannula 2.0 04/27/17 16:00 96 04/27/17 15:21 185/102 Height (Feet): 5 Height (Inches): 11.00 Weight (Pounds): 168 Objective Status: obtunded, non verbal HEENT: atraumatic, normocephalic, mmm Neck: full ROM, supple, trachea midline Lungs: CTAB Heart: S1S2, RRR, no murmur Abdomen: soft, non-tender, active bowel sounds Extremities: no C/C/E Decubiti: Left plantar 5th metatarsal head abscess with back scab in the middle. Laboratory Tests Test 04/28/17 03:30 White Blood Count 13.5 K/UL (4.8-10.8) #H Red Blood Count 3.04 M/UL (4.70-6.10) L Hemoglobin 8.4 G/DL (14.2-18.0) L Hematocrit 26.3 % (42.0-52.0) L Mean Corpuscular Volume 86 FL (80-99) Mean Corpuscular Hemoglobin 27.6 PG (27.0-31.0) Mean Corpuscular Hemoglobin Concent 32.0 G/DL (32.0-36.0) Red Cell Distribution Width 15.7 % (11.6-14.8) H Platelet Count 195 K/UL (150-450) Mean Platelet Volume 8.0 FL (6.5-10.1) Neutrophils (%) (Auto) % (45.0-75.0) Lymphocytes (%) (Auto) % (20.0-45.0) Monocytes (%) (Auto) % (1.0-10.0) Eosinophils (%) (Auto) % (0.0-3.0) Basophils (%) (Auto) % (0.0-2.0) Sodium Level 143 MMOL/L (136-145) Potassium Level 4.1 MMOL/L (3.5-5.1) Chloride Level 98 MMOL/L (98-107) Carbon Dioxide Level 31 MMOL/L (21-32) Anion Gap 14 mmol/L (5-15) Blood Urea Nitrogen 53 mg/dL (7-18) H Creatinine 10.5 MG/DL (0.55-1.30) H Estimat Glomerular Filtration Rate 5.7 mL/min (>60) Glucose Level 148 MG/DL (74-106) H Calcium Level 9.7 MG/DL (8.5-10.1) West Nile Virus IgG Antibody Pending West Nile Virus IgM Antibody Pending Current Medications Medications (Trade) Dose Ordered Sig/Aura Route PRN Reason Start Time Stop Time Status Last Admin Dose Admin Acetaminophen (Tylenol) 650 mg Q4H PRN ORAL fever 04/25/17 18:00 05/21/17 13:59 Acyclovir 400 mg/ Sodium Chloride 275 ml @ 275 mls/hr DAILY@2200 IV 04/26/17 22:00 05/26/17 21:59 04/27/17 22:29 Amlodipine Besylate (Norvasc) 10 mg DAILY ORAL 04/26/17 09:00 05/22/17 08:59 04/27/17 12:05 Ceftriaxone Sodium 2 gm/ Sodium Chloride 55 ml @ 110 mls/hr Q12HR@0400,1600 IVPB 04/26/17 04:00 05/03/17 03:59 04/28/17 03:10 Clonidine HCl (Catapres) 0.1 mg Q4H PRN ORAL SBP > 160 04/25/17 18:00 05/21/17 13:59 04/28/17 06:28 Clonidine HCl (Catapres) 0.3 mg EVERY 8 HOURS ORAL 04/27/17 17:45 05/27/17 17:44 04/28/17 05:49 Dextrose (Dextrose 50%) STAT PRN IV Hypoglycemia 04/26/17 11:30 05/25/17 11:29 Enalaprilat (Vasotec) 2.5 mg Q4H PRN IV For High Blood Pressure 04/25/17 17:00 05/24/17 20:59 04/28/17 06:28 Heparin Sodium (Porcine) (Heparin 5000 units/ml) 5,000 units EVERY 12 HOURS SUBQ 04/25/17 21:00 05/21/17 20:59 04/26/17 08:27 Hydralazine HCl (Apresoline) 20 mg Q4H PRN IV For High Blood Pressure 04/26/17 01:15 05/26/17 01:14 04/28/17 06:29 Insulin Aspart (NovoLOG) BEFORE MEALS AND HS SUBQ 04/25/17 16:30 05/24/17 16:29 04/28/17 06:01 Insulin Aspart (NovoLOG) 6 units BEFORE MEALS SUBQ 04/25/17 16:30 05/24/17 16:29 04/28/17 06:02 Insulin Detemir (Levemir) 18 units Q24H SUBQ 04/25/17 19:00 05/25/17 18:59 04/27/17 18:33 Lidocaine HCl (Xylocaine 1% 30ml) 30 ml ONCE ONCE INJ 04/28/17 12:30 04/28/17 12:31 Lisinopril (Prinivil) 20 mg BID ORAL 04/25/17 18:00 05/24/17 09:14 04/27/17 17:18 Nebivolol (Bystolic) 5 mg DAILY ORAL 04/28/17 09:00 05/28/17 08:59 Ondansetron HCl (Zofran) 4 mg Q6H PRN IVP Nausea & Vomiting 04/25/17 20:00 05/21/17 13:59 Pantoprazole (Protonix) 40 mg DAILY ORAL 04/26/17 09:00 05/22/17 08:59 04/27/17 12:06 Sevelamer Carbonate (Renvela) 1,600 mg THREE TIMES A DAY ORAL 04/25/17 18:00 05/23/17 17:59 04/27/17 17:18 Vancomycin HCl (Vanco rx to dose) 1 ea DAILY PRN MISC . 04/26/17 09:00 05/21/17 16:44 Livier Woods M.D. Apr 28, 2017 12:17
--- NOTE | 2017-04-28 12:39 | Pre-Procedure Note/Attestation ---
Pre-Procedure Note/Attestation Complete Prior to Procedure Planned Procedure: not applicable Procedure Narrative: lumbar puncture Indications for Procedure Pre-Operative Diagnosis: altered mental status Attestation I attest that I discussed the nature of the procedure; its benefits; risks and complications; and alternatives (and the risks and benefits of such alternatives ), prior to the procedure, with the patient (or the patient's legal group sales representative). I attest that, if there was a reasonable possibility of needing a blood transfusion, the patient (or the patient's legal group sales representative) was given the [facility] standardized written summary, pursuant to the Neftaly Nikolay Blood Safety Act ([place] Health and Safety Code # 1645, as amended). I attest that I re-evaluated the patient just prior to the surgery and that there has been no change in the patient's H&P, except as documented below: Discussed with patient's father at 1021 a.m. by phone SANDOR UPTON M.D. Apr 28, 2017 12:39
--- NOTE | 2017-04-28 12:57 | Brief Operative Note ---
Immediate Post Operative Note Operative Note Pre-op Diagnosis: altered mental status Post-op Diagnosis: same as pre-op Findings: consistent w/pre-op dx studies - opening pressure 28 closing pressure 15 Surgeon: Rosana UPTON Anesthesia: local Specimen: yes - 8 ml clear CSF Complications: none Condition: stable Fluids: none Implant(s) used?: No SANDOR UPTON M.D. Apr 28, 2017 12:57
[2017-04-28] MEDS: Ampicillin 2 GM in NS 110 ML IVPB SCH (15:21)
[2017-04-28 15:52] LABS: GLUCOSE,CSF 78 mg/dL (50-80)
--- NOTE | 2017-04-28 16:27 | Diagnostic Imaging Report ---
Indication: Altered mental status Technique: Prior imaging studies reviewed. Informed consent obtained prior to commencement of the procedure by phone from patient's father. The skin was sterilely prepped and draped. Local anesthesia with 1% lidocaine. Using a right-sided sublaminar approach, the spinal canal was accessed at L3-4 using a 21-gauge spinal needle. Patient was then turned into the left lateral decubitus position. Opening pressure obtained, found to be 28 cm of H2O. Total of 8 mL of clear cerebrospinal fluid then obtained, divided into 4 vials. Closing pressure been obtained, found to be 15 cm of H2O. The patient tolerated the procedure well, without immediate complication. Total fluoroscopy time 0.7 minutes. Total dose area product 7.5 dGycm2 Comparison: None Findings: Opening pressure 28 cm of H2O. Closing pressure 15 cm of H2O Impression: Successful fluoroscopy-guided lumbar puncture, as described
[2017-04-28 16:57] LABS: COLOR,CSF COLORLESS
[2017-04-28 16:58] LABS: APPEARANCE,CSF CLEAR; WHITE BLOOD CELL,CSF 1 /CU MM (0-5)
--- NOTE | 2017-04-28 19:13 | General Progress Note ---
Assessment/Plan Problem List: (1) Altered level of consciousness ICD Codes: R40.4 - Transient alteration of awareness SNOMED: 3619135 (2) DKA (diabetic ketoacidoses) ICD Codes: E13.10 - Other specified diabetes mellitus with ketoacidosis without coma SNOMED: 503712922, 44154506 Qualifiers: Qualified Codes: E13.10 - Other specified diabetes mellitus with ketoacidosis without coma (3) Diabetes type I ICD Codes: E10.9 - Type 1 diabetes mellitus without complications SNOMED: 74304873 (4) HTN (hypertension) ICD Codes: I10 - Essential (primary) hypertension SNOMED: 50881292 (5) ESRD (end stage renal disease) on dialysis ICD Codes: N18.6 - End stage renal disease; Z99.2 - Dependence on renal dialysis SNOMED: 644406159, 31091818 Assessment/Plan NGTF started - current rate 25 mL / hour - will be increased to goal rate of 55 mL/hour change Levemir to 10 units bid change Novolog sliding scale to every 4 hours Subjective ROS Limited/Unobtainable: Yes Allergies: Coded Allergies: GABAPENTIN (Verified Allergy, Unknown, 04/21/17) Dizziness, syncope Subjective remained obtunded LP done Objective Last 24 Hour Vital Signs Date Time Temp Pulse Resp B/P (MAP) Pulse Ox O2 Delivery O2 Flow Rate FiO2 04/28/17 16:04 94 04/28/17 16:00 98.0 86 21 189/90 94 Nasal Cannula 2.0 04/28/17 14:00 166/95 04/28/17 12:00 97.9 21 166/95 94 Nasal Cannula 2.0 04/28/17 11:52 82 04/28/17 11:02 84 16 Room Air 21 04/28/17 09:00 146/89 04/28/17 09:00 86 146/89 04/28/17 08:00 76 04/28/17 07:24 20 151/56 96 Nasal Cannula 2.0 04/28/17 06:29 199/103 04/28/17 06:28 199/103 04/28/17 06:28 199/103 04/28/17 06:00 98.2 86 16 199/103 96 Nasal Cannula 2.0 04/28/17 05:49 153/88 04/28/17 04:02 97.9 80 16 165/89 97 Nasal Cannula 2.0 04/28/17 04:00 86 04/28/17 03:00 87 16 167/93 96 Nasal Cannula 2.0 04/28/17 01:54 187/111 04/28/17 01:54 187/111 04/28/17 01:53 187/111 04/28/17 00:00 88 04/28/17 00:00 98.2 90 16 196/101 95 Nasal Cannula 2.0 04/27/17 22:29 191/98 04/27/17 20:50 190/106 04/27/17 20:50 190/106 04/27/17 20:00 98.2 87 20 190/106 96 Nasal Cannula 2.0 04/27/17 20:00 83 Intake and Output 04/28/17 04/29/17 19:00 07:00 Intake Total 253 ml Balance 253 ml IV Total 253 ml Laboratory Tests 04/28/17 03:30: White Blood Count 13.5#H, Red Blood Count 3.04L, Hemoglobin 8.4L, Hematocrit 26.3L, Mean Corpuscular Volume 86, Mean Corpuscular Hemoglobin 27.6, Mean Corpuscular Hemoglobin Concent 32.0, Red Cell Distribution Width 15.7H, Platelet Count 195, Mean Platelet Volume 8.0, Neutrophils (%) (Auto) , Lymphocytes (%) (Auto) , Monocytes (%) (Auto) , Eosinophils (%) (Auto) , Basophils (%) (Auto) , Sodium Level 143, Potassium Level 4.1, Chloride Level 98 , Carbon Dioxide Level 31, Anion Gap 14, Blood Urea Nitrogen 53H, Creatinine 10.5H, Estimat Glomerular Filtration Rate 5.7, Glucose Level 148H, Calcium Level 9.7, West Nile Virus IgG Antibody [Pending], West Nile Virus IgM Antibody [Pending] 04/28/17 13:00: CSF Appearance Clear, CSF Color Colorless, CSF WBC 1, CSF RBC 0, CSF Neutrophils % , CSF Lymphocytes % , CSF Monocytes % , CSF Crenated Cells 0, CSF Glucose 78, CSF Total Protein 46H, CSF VDRL [Pending], CSF Herpes Simplex II DNA (PCR) [Pending], Cytomegalovirus DNA Qual (PCR) [Pending], [place] Virus DNA [Pending], Herpes Simplex Virus I DNA (PCR) [Pending], Varicella- Zoster Virus DNA (PCR) [Pending] Height (Feet): 5 Height (Inches): 11.00 Weight (Pounds): 168 General Appearance: lethargic Neck: normal alignment Cardiovascular: normal peripheral pulses Respiratory/Chest: decreased breath sounds Abdomen: normal bowel sounds Objective Current Medications Medications (Trade) Dose Ordered Sig/Aura Route PRN Reason Start Time Stop Time Status Last Admin Dose Admin Acetaminophen (Tylenol) 650 mg Q4H PRN ORAL fever 04/25/17 18:00 05/21/17 13:59 Acyclovir 400 mg/ Sodium Chloride 275 ml @ 275 mls/hr DAILY@2200 IV 04/26/17 22:00 05/26/17 21:59 04/27/17 22:29 Amlodipine Besylate (Norvasc) 10 mg DAILY ORAL 04/26/17 09:00 05/22/17 08:59 04/27/17 12:05 Ampicillin 2 gm/ Sodium Chloride 110 ml @ 220 mls/hr Q12H IVPB 04/28/17 15:00 05/05/17 14:59 04/28/17 15:21 Ceftriaxone Sodium 2 gm/ Sodium Chloride 55 ml @ 110 mls/hr Q12HR@0400,1600 IVPB 04/26/17 04:00 05/03/17 03:59 04/28/17 14:11 Clonidine HCl (Catapres) 0.1 mg Q4H PRN ORAL SBP > 160 04/25/17 18:00 05/21/17 13:59 04/28/17 06:28 Clonidine HCl (Catapres) 0.3 mg EVERY 8 HOURS ORAL 04/27/17 17:45 05/27/17 17:44 04/28/17 05:49 Dextrose (Dextrose 50%) STAT PRN IV Hypoglycemia 04/26/17 11:30 05/25/17 11:29 Enalaprilat (Vasotec) 2.5 mg Q4H PRN IV For High Blood Pressure 04/25/17 17:00 05/24/17 20:59 04/28/17 06:28 Heparin Sodium (Porcine) (Heparin 5000 units/ml) 5,000 units EVERY 12 HOURS SUBQ 04/25/17 21:00 05/21/17 20:59 04/26/17 08:27 Hydralazine HCl (Apresoline) 20 mg Q4H PRN IV For High Blood Pressure 04/26/17 01:15 05/26/17 01:14 04/28/17 06:29 Insulin Aspart (NovoLOG) BEFORE MEALS AND HS SUBQ 04/25/17 16:30 05/24/17 16:29 04/28/17 17:02 Insulin Aspart (NovoLOG) 6 units BEFORE MEALS SUBQ 04/25/17 16:30 05/24/17 16:29 04/28/17 16:59 Insulin Detemir (Levemir) 18 units Q24H SUBQ 04/25/17 19:00 05/25/17 18:59 04/27/17 18:33 Lisinopril (Prinivil) 20 mg BID ORAL 04/25/17 18:00 05/24/17 09:14 04/27/17 17:18 Nebivolol (Bystolic) 5 mg DAILY ORAL 04/28/17 09:00 05/28/17 08:59 Ondansetron HCl (Zofran) 4 mg Q6H PRN IVP Nausea & Vomiting 04/25/17 20:00 05/21/17 13:59 Pantoprazole (Protonix) 40 mg DAILY ORAL 04/26/17 09:00 05/22/17 08:59 04/27/17 12:06 Sevelamer Carbonate (Renvela) 1,600 mg THREE TIMES A DAY ORAL 04/25/17 18:00 05/23/17 17:59 04/27/17 17:18 Vancomycin HCl (Vanco rx to dose) 1 ea DAILY PRN MISC . 04/26/17 09:00 05/21/17 16:44 Item Value Date Time Bedside Blood Glucose 197 mg/dl H 04/28/17 1702 Bedside Blood Glucose 168 mg/dl H 04/28/17 1422 Bedside Blood Glucose 146 mg/dl H 04/28/17 0630 Bedside Blood Glucose 126 mg/dl H 04/27/17 2100 Bedside Blood Glucose 157 mg/dl H 04/27/17 1833 TSERING TORRES Apr 28, 2017 19:13
--- NOTE | 2017-04-28 19:54 | Cardiology Progress Note ---
Assessment/Plan Assessment/Plan 1. Hypertension, poorly controlled, possibly rebound. 2. Diabetes mellitus with end-organ damage. 3. Diabetic gastroparesis. 4. End-stage renal disease, on hemodialysis. 5. Anemia. 6. Foot abscess with osteomyelitis. 7. encephalopathy s/p mri neg fo acute cva lp resutl pending not communicate or responsive to verbal on clonidien , lisinopril and norvasc and lwo dose bystolic having dialysis will add hydralazine d/w rn his mentation apprently worsening since admission Subjective ROS Limited/Unobtainable: Yes Objective Last 24 Hour Vital Signs Date Time Temp Pulse Resp B/P (MAP) Pulse Ox O2 Delivery O2 Flow Rate FiO2 04/28/17 16:04 94 04/28/17 16:00 98.0 86 21 189/90 94 Nasal Cannula 2.0 04/28/17 14:00 166/95 04/28/17 12:00 97.9 21 166/95 94 Nasal Cannula 2.0 04/28/17 11:52 82 04/28/17 11:02 84 16 Room Air 21 04/28/17 09:00 146/89 04/28/17 09:00 86 146/89 04/28/17 08:00 76 04/28/17 07:24 20 151/56 96 Nasal Cannula 2.0 04/28/17 06:29 199/103 04/28/17 06:28 199/103 04/28/17 06:28 199/103 04/28/17 06:00 98.2 86 16 199/103 96 Nasal Cannula 2.0 04/28/17 05:49 153/88 04/28/17 04:02 97.9 80 16 165/89 97 Nasal Cannula 2.0 04/28/17 04:00 86 04/28/17 03:00 87 16 167/93 96 Nasal Cannula 2.0 04/28/17 01:54 187/111 04/28/17 01:54 187/111 04/28/17 01:53 187/111 04/28/17 00:00 88 04/28/17 00:00 98.2 90 16 196/101 95 Nasal Cannula 2.0 04/27/17 22:29 191/98 04/27/17 20:50 190/106 04/27/17 20:50 190/106 04/27/17 20:00 98.2 87 20 190/106 96 Nasal Cannula 2.0 04/27/17 20:00 83 General Appearance: lethargic Cardiovascular: normal rate, regular rhythm Respiratory/Chest: lungs clear, normal breath sounds Abdomen: normal bowel sounds, non tender, soft Extremities: no swelling Neurologic: unresponsiveness Intake and Output 04/28/17 04/29/17 19:00 07:00 Intake Total 253 ml Balance 253 ml IV Total 253 ml Laboratory Tests Test 04/28/17 03:30 04/28/17 13:00 White Blood Count 13.5 K/UL (4.8-10.8) #H Red Blood Count 3.04 M/UL (4.70-6.10) L Hemoglobin 8.4 G/DL (14.2-18.0) L Hematocrit 26.3 % (42.0-52.0) L Mean Corpuscular Volume 86 FL (80-99) Mean Corpuscular Hemoglobin 27.6 PG (27.0-31.0) Mean Corpuscular Hemoglobin Concent 32.0 G/DL (32.0-36.0) Red Cell Distribution Width 15.7 % (11.6-14.8) H Platelet Count 195 K/UL (150-450) Mean Platelet Volume 8.0 FL (6.5-10.1) Neutrophils (%) (Auto) % (45.0-75.0) Lymphocytes (%) (Auto) % (20.0-45.0) Monocytes (%) (Auto) % (1.0-10.0) Eosinophils (%) (Auto) % (0.0-3.0) Basophils (%) (Auto) % (0.0-2.0) Sodium Level 143 MMOL/L (136-145) Potassium Level 4.1 MMOL/L (3.5-5.1) Chloride Level 98 MMOL/L (98-107) Carbon Dioxide Level 31 MMOL/L (21-32) Anion Gap 14 mmol/L (5-15) Blood Urea Nitrogen 53 mg/dL (7-18) H Creatinine 10.5 MG/DL (0.55-1.30) H Estimat Glomerular Filtration Rate 5.7 mL/min (>60) Glucose Level 148 MG/DL (74-106) H Calcium Level 9.7 MG/DL (8.5-10.1) West Nile Virus IgG Antibody Pending West Nile Virus IgM Antibody Pending CSF Appearance Clear CSF Color Colorless CSF WBC 1 /CU MM (0-5) CSF RBC 0 /CU MM CSF Neutrophils % % CSF Lymphocytes % % CSF Monocytes % % CSF Crenated Cells 0 % CSF Glucose 78 mg/dL (50-80) CSF Total Protein 46 MG/DL (15-45) H CSF VDRL Pending CSF Herpes Simplex II DNA (PCR) Pending Cytomegalovirus DNA Qual (PCR) Pending [place] Virus DNA Pending Herpes Simplex Virus I DNA (PCR) Pending Varicella-Zoster Virus DNA (PCR) Pending JAN SEPULVEDA Apr 28, 2017 19:54
[2017-04-28] MEDS: Levemir Flexpen SUBQ SCH (20:30)
[2017-04-28 21:09] LABS: ALPHA TOCOPHEROL 8.2 mg/L (5.3-17.5)
[2017-04-28] MEDS: NS IV SCH (21:16)
[2017-04-28] MEDS: ACYCLOVIR IV SCH (21:16)
[2017-04-28] MEDS: HydrALAZINE 50mg tab ORAL SCH (21:16)
[2017-04-29] VITALS (8 sets, daily range): BP systolic 134–158; BP diastolic 77–88
[2017-04-29] MEDS: HydrALAZINE 50mg tab ORAL SCH ×2 (01:06→05:17)
[2017-04-29] MEDS: NovoLOG Insulin Flexpen SUBQ SCH ×6 (01:08→20:59)
[2017-04-29] MEDS: Ampicillin 2 GM in NS 110 ML IVPB SCH (02:15)
[2017-04-29] MEDS: cefTRIAXone 2 GM in NS 55 ML IVPB SCH (02:45)
[2017-04-29] MEDS: Enalaprilat 2.5mg/2ml Inj IV PRN (02:47)
[2017-04-29 05:12] LABS: BASOPHILS % (AUTO) 0.4 % (0.0-2.0); EOSINOPHILS % (AUTO) 1.2 % (0.0-3.0); LYMPHOCYTES % (AUTO) 11.8 % (20.0-45.0); MEAN CORPUSCULAR HEMOGLOBIN 26.6 PG (27.0-31.0); MEAN CORPUSCULAR HGB CONC 30.3 G/DL (32.0-36.0); MEAN CORPUSCULAR VOLUME 88 FL (80-99); MEAN PLATELET VOLUME 7.2 FL (6.5-10.1); MONOCYTES % (AUTO) 4.5 % (1.0-10.0); NEUTROPHILS % (AUTO) 82.1 % (45.0-75.0); PLATELET COUNT 226 K/UL (150-450); RED BLOOD COUNT 3.01 M/UL (4.70-6.10); RED CELL DISTRIBUTION WIDTH 15.4 % (11.6-14.8); WHITE BLOOD COUNT 11.4 K/UL (4.8-10.8)
[2017-04-29 05:49] LABS: CRP QUANT 4.9 mg/dL (0.00-0.90); PHOSPHORUS 6.6 MG/DL (2.5-4.9)
[2017-04-29 05:53] LABS: ALANINE AMINOTRANSFERASE 19 U/L (12-78); ALBUMIN/GLOBULIN RATIO 0.7 (1.0-2.7); ANION GAP 10 mmol/L (5-15); ANION GAP 7 mmol/L (5-15); ASPARTATE AMINO TRANSFERASE 15 U/L (15-37); CALCIUM 9.2 MG/DL (8.5-10.1); CARBON DIOXIDE 34 MMOL/L (21-32); CARBON DIOXIDE 37 MMOL/L (21-32); CHLORIDE 101 MMOL/L (98-107); GLOMERULAR FILTRATION RATE 7.8 mL/min (>60); POTASSIUM 3.8 MMOL/L (3.5-5.1); POTASSIUM 3.9 MMOL/L (3.5-5.1); SODIUM 145 MMOL/L (136-145); TOTAL PROTEIN 7.1 G/DL (6.4-8.2)
[2017-04-29] MEDS ORDERED: dilTIAZem HCl 60mg tab NG SCH (08:45)
[2017-04-29] MEDS ORDERED: Minoxidil 2.5mg tab ORAL PRN (08:45)
[2017-04-29] MEDS: Lisinopril 20mg tab ORAL SCH ×2 (09:11→17:39)
[2017-04-29] MEDS: Renvela 800mg Pkt ORAL SCH ×3 (09:11→17:40)
[2017-04-29] MEDS: Heparin 5000 units/ml inj SUBQ SCH ×2 (09:13→20:57)
[2017-04-29] MEDS: Levemir Flexpen SUBQ SCH ×2 (10:18→18:43)
--- NOTE | 2017-04-29 10:24 | Infectious Diseases Prog Note ---
Assessment/Plan Assessment/Plan ALOC/AMS- has not improved, ? unclear etiology- CSF analysis not consistent with infectious etiology- only abnormality is mildly elevated protein and elevated OP. CT head and Brain MRI with no acute findings. -s/p LP 04/28: OP 28cm H20, WBC 1, prot 46, glucose 78 no GOMEZ, N/V , no neck rigidity -MRI brain: Negative for acute intracranial bleed, mass effect, or infarct. Prominent ventricles and extra-axial CSF spaces, consistent with your volume loss, advanced for patient's age. Correlate with clinical history Possible old tiny left posterior temporal cortical infarct. Minimal periventricular deep white matter T2 hyperintensities, consistent with chronic ischemic changes. -CT head: Negative for acute intracranial bleed or mass effect. Somewhat prominent ventricles and extra-axial CSF spaces, consistent with volume loss, advanced for age. Periventricular deep white matter low-attenuation, appearance typical of chronic ischemic changes but given patient's age possibility of demyelinating disease should be considered.] -CXR: There is equivocal mild interstitial congestion. No focal airspace consolidation. No effusions -Neg:Rapid HIV test, RPR Afebrile Mild leukocytosis, improving Leg 5th metatarsal fluid collection no evid of of OM, possibly cyst-as per Pod : MRI done at outside facility and re-evaluated by [facility] radiologist suggest that no osteomyelitis is present in either foot. -XRay L foot 04/22: Osseous defect in fragment of the medial head of the first proximal phalanx. There is overlying soft tissue swelling, but bony abnormality does not appear acute. May reflect an old injury. Correlate with clinical findings, consider MRI for further evaluation as clinically indicated. Soft tissue swelling in the region of the left fifth metatarsal head. No plain radiographic findings to suggest acute osteomyelitis. Note, however, limited sensitivity of plain radiographs for such. Consider MRI for better characterization if there is high clinical suspicion -04/23: ESR 40, CRP 3.4 -MRI 04/08: L Foot wo: 2.1x 0.7 x2.5 cm fluid collection in plantar aspect of 5th metatarsal head. Cannot exclude abscess. Minimal Bone marrow edema involving 5th metatarsal head. Although no cortical erosive changes noted, an early medullary OM cannot be excluded. -u/s guided dranacristian at [facility]- cx negative -Vanco 500mg and Cefepime 2g after HD on HD days planned for 6 weeks; end date 05/28/17 DKA, resolved DM 1 on insulin pump, HTN, ESRD on HD MWF, psychiatric illness Plan: -d/c IV ampicillin #2 -Continue IV Vancomycin #8 and Ceftraixone #8 but switch to OM dose; abx per [facility] regimen for possible OM -Continue IV Acyclovir #6 for now pending HSV PCR CSF -04/24 SP Cefepime #3 -04/22 SP Zosyn #1 - abx duration: until 05/28/2017- for presumed OM (regimen started at [facility]) -f/u CSF bacterial, fungal, AFB cultures, HSV PCR, VDRL, CMV, EBV, VZV PCR, Patrice. EE and [place] encephalitis panel and add CHRISTOPHER virus PCR. -f/u Cocci ab, Cr Ag, WNV ab -Monitor CBC/BMP, temperatures: - f/u cx -Neuro f/u; ?repeat MRI brain to evaluate for interval changse -Check RICARDO, ANCA, HIV PCR Discussed with RN. Subjective Allergies: Coded Allergies: GABAPENTIN (Verified Allergy, Unknown, 04/21/17) Dizziness, syncope Subjective afebrile, Tm 99.5 leukocytosis improving s/p lumbar puncture yesterday Objective Vital Signs Last 24 Hour Vital Signs Date Time Temp Pulse Resp B/P (MAP) Pulse Ox O2 Delivery O2 Flow Rate FiO2 04/29/17 09:11 87 158/82 04/29/17 09:11 158/82 04/29/17 08:00 99.5 87 19 158/82 94 Nasal Cannula 2.0 04/29/17 07:03 98.5 04/29/17 05:17 185/99 04/29/17 05:17 185/99 04/29/17 04:00 99.1 89 16 150/88 94 Nasal Cannula 2.0 04/29/17 04:00 90 04/29/17 02:47 134/88 04/29/17 01:06 168/68 04/29/17 01:05 168/81 04/29/17 01:05 168/81 04/29/17 00:00 98.0 85 16 142/77 96 Nasal Cannula 2.0 04/29/17 00:00 93 04/28/17 22:30 81 16 140/76 95 Nasal Cannula 2.0 04/28/17 22:00 87 20 145/73 94 Nasal Cannula 2.0 04/28/17 21:30 90 20 132/77 95 Nasal Cannula 2.0 04/28/17 21:16 186/86 04/28/17 21:16 186/86 04/28/17 21:01 186/86 04/28/17 21:00 186/86 04/28/17 21:00 186/86 04/28/17 21:00 80 20 155/83 96 Nasal Cannula 2.0 04/28/17 20:37 Nasal Cannula 2.0 21 04/28/17 20:00 86 04/28/17 20:00 98.6 84 20 184/89 94 Nasal Cannula 2.0 04/28/17 16:40 Nasal Cannula 2.0 21 04/28/17 16:04 94 04/28/17 16:00 98.0 86 21 189/90 94 Nasal Cannula 2.0 04/28/17 14:00 166/95 04/28/17 12:00 97.9 21 166/95 94 Nasal Cannula 2.0 04/28/17 11:52 82 04/28/17 11:02 84 16 Room Air 21 Height (Feet): 5 Height (Inches): 11.00 Weight (Pounds): 166 Objective Status: obtunded, non verbal HEENT: atraumatic, normocephalic, mmm Neck: full ROM, supple, trachea midline Lungs: CTAB Heart: S1S2, RRR, no murmur Abdomen: soft, non-tender, active bowel sounds Extremities: no C/C/E Decubiti: Left plantar 5th metatarsal head abscess with back scab in the middle. Laboratory Tests Test 04/28/17 13:00 04/29/17 03:20 CSF Appearance Clear CSF Color Colorless CSF WBC 1 /CU MM (0-5) CSF RBC 0 /CU MM CSF Neutrophils % % CSF Lymphocytes % % CSF Monocytes % % CSF Crenated Cells 0 % CSF Glucose 78 mg/dL (50-80) CSF Total Protein 46 MG/DL (15-45) H CSF VDRL Pending CSF Herpes Simplex II DNA (PCR) Pending Cytomegalovirus DNA Qual (PCR) Pending [place] Virus DNA Pending Herpes Simplex Virus I DNA (PCR) Pending Varicella-Zoster Virus DNA (PCR) Pending White Blood Count 11.4 K/UL (4.8-10.8) H Red Blood Count 3.01 M/UL (4.70-6.10) L Hemoglobin 8.0 G/DL (14.2-18.0) L Hematocrit 26.4 % (42.0-52.0) L Mean Corpuscular Volume 88 FL (80-99) Mean Corpuscular Hemoglobin 26.6 PG (27.0-31.0) L Mean Corpuscular Hemoglobin Concent 30.3 G/DL (32.0-36.0) L Red Cell Distribution Width 15.4 % (11.6-14.8) H Platelet Count 226 K/UL (150-450) Mean Platelet Volume 7.2 FL (6.5-10.1) Neutrophils (%) (Auto) 82.1 % (45.0-75.0) H Lymphocytes (%) (Auto) 11.8 % (20.0-45.0) L Monocytes (%) (Auto) 4.5 % (1.0-10.0) Eosinophils (%) (Auto) 1.2 % (0.0-3.0) Basophils (%) (Auto) 0.4 % (0.0-2.0) Erythrocyte Sedimentation Rate 46 MM/HR (0-15) H Sodium Level 145 MMOL/L (136-145) Potassium Level 3.8 MMOL/L (3.5-5.1) Chloride Level 101 MMOL/L (98-107) Carbon Dioxide Level 37 MMOL/L (21-32) H Anion Gap 7 mmol/L (5-15) Blood Urea Nitrogen 40 mg/dL (7-18) H Creatinine 8.0 MG/DL (0.55-1.30) H Estimat Glomerular Filtration Rate 7.8 mL/min (>60) Glucose Level 134 MG/DL (74-106) H Calcium Level 9.2 MG/DL (8.5-10.1) Phosphorus Level 6.6 MG/DL (2.5-4.9) H Magnesium Level 2.0 MG/DL (1.8-2.4) Total Bilirubin 0.3 MG/DL (0.2-1.0) Aspartate Amino Transf (AST/SGOT) 15 U/L (15-37) Alanine Aminotransferase (ALT/SGPT) 19 U/L (12-78) Alkaline Phosphatase 76 U/L (46-116) C-Reactive Protein, Quantitative 4.9 mg/dL (0.00-0.90) H Total Protein 7.1 G/DL (6.4-8.2) Albumin 3.0 G/DL (3.4-5.0) L Globulin 4.1 g/dL Albumin/Globulin Ratio 0.7 (1.0-2.7) L Random Vancomycin Level 18.7 ug/mL Current Medications Medications (Trade) Dose Ordered Sig/Aura Route PRN Reason Start Time Stop Time Status Last Admin Dose Admin Acetaminophen (Tylenol) 650 mg Q4H PRN ORAL fever 04/25/17 18:00 05/21/17 13:59 04/29/17 05:29 Acyclovir 400 mg/ Sodium Chloride 275 ml @ 275 mls/hr DAILY@2200 IV 04/26/17 22:00 05/26/17 21:59 04/28/17 21:16 Ampicillin 2 gm/ Sodium Chloride 110 ml @ 220 mls/hr Q12H IVPB 04/28/17 15:00 05/05/17 14:59 04/29/17 02:15 Ceftriaxone Sodium 2 gm/ Sodium Chloride 55 ml @ 110 mls/hr Q12HR@0400,1600 IVPB 04/26/17 04:00 05/03/17 03:59 04/29/17 02:45 Clonidine HCl (Catapres) 0.2 mg EVERY 8 HOURS ORAL 04/29/17 14:00 05/29/17 13:59 Dextrose (Dextrose 50%) STAT PRN IV Hypoglycemia 04/26/17 11:30 05/25/17 11:29 Diltiazem HCl (Cardizem) 60 mg EVERY 6 HOURS NG 04/29/17 08:45 05/29/17 08:44 04/29/17 09:11 Heparin Sodium (Porcine) (Heparin 5000 units/ml) 5,000 units EVERY 12 HOURS SUBQ 04/25/17 21:00 05/21/17 20:59 04/29/17 09:13 Hydralazine HCl (Apresoline) 50 mg Q6HR NG 04/29/17 12:00 05/29/17 11:59 Insulin Aspart (NovoLOG) EVERY 4 HOURS SUBQ 04/28/17 21:00 05/28/17 20:59 04/29/17 05:16 Insulin Detemir (Levemir) 12 units BID@0900,1900 SUBQ 04/28/17 20:30 05/28/17 20:29 04/28/17 20:30 Lisinopril (Prinivil) 20 mg BID ORAL 04/25/17 18:00 05/24/17 09:14 04/29/17 09:11 Minoxidil (Loniten) 2.5 mg Q4H PRN ORAL bp over 170 syst 04/29/17 08:45 05/29/17 08:44 Ondansetron HCl (Zofran) 4 mg Q6H PRN IVP Nausea & Vomiting 04/25/17 20:00 05/21/17 13:59 Pantoprazole (Protonix) 40 mg DAILY ORAL 04/26/17 09:00 05/22/17 08:59 04/27/17 12:06 Sevelamer Carbonate (Renvela) 1,600 mg THREE TIMES A DAY ORAL 04/25/17 18:00 05/23/17 17:59 04/29/17 09:11 Vancomycin HCl (Vanco rx to dose) 1 ea DAILY PRN MISC . 04/26/17 09:00 05/21/17 16:44 Livier Woods M.D. Apr 29, 2017 10:24
[2017-04-29 11:19] LABS: CRYPTOCOCCAL ANTIGEN SERUM Negative (Negative)
--- NOTE | 2017-04-29 11:40 | GI Progress Note ---
Assessment/Plan Problems: (1) Altered mental status ICD Codes: R41.82 - Altered mental status, unspecified SNOMED: 846484795 (2) severe toxic/metabolic encephalopathy 2/2 protracted DKA/ESRD (3) Diabetes type I ICD Codes: E10.9 - Type 1 diabetes mellitus without complications SNOMED: 95341765 (4) Altered level of consciousness ICD Codes: R40.4 - Transient alteration of awareness SNOMED: 9083795 (5) Poorly controlled diabetes mellitus ICD Codes: E11.65 - Type 2 diabetes mellitus with hyperglycemia SNOMED: 43188307, 793895516 Status: unchanged Status Narrative Discussed with Dr. Morales. Assessment/Plan will consider PEG if no improvement, at this time will start NGTFs per dietary DM control HD fu labs Subjective Subjective limited Objective Last 24 Hour Vital Signs Date Time Temp Pulse Resp B/P (MAP) Pulse Ox O2 Delivery O2 Flow Rate FiO2 04/29/17 09:11 87 158/82 04/29/17 09:11 158/82 04/29/17 08:00 99.5 87 19 158/82 94 Nasal Cannula 2.0 04/29/17 07:03 98.5 04/29/17 05:17 185/99 04/29/17 05:17 185/99 04/29/17 04:00 99.1 89 16 150/88 94 Nasal Cannula 2.0 04/29/17 04:00 90 04/29/17 02:47 134/88 04/29/17 01:06 168/68 04/29/17 01:05 168/81 04/29/17 01:05 168/81 04/29/17 00:00 98.0 85 16 142/77 96 Nasal Cannula 2.0 04/29/17 00:00 93 04/28/17 22:30 81 16 140/76 95 Nasal Cannula 2.0 04/28/17 22:00 87 20 145/73 94 Nasal Cannula 2.0 04/28/17 21:30 90 20 132/77 95 Nasal Cannula 2.0 04/28/17 21:16 186/86 04/28/17 21:16 186/86 04/28/17 21:01 186/86 04/28/17 21:00 186/86 04/28/17 21:00 186/86 04/28/17 21:00 80 20 155/83 96 Nasal Cannula 2.0 04/28/17 20:37 Nasal Cannula 2.0 21 04/28/17 20:00 86 04/28/17 20:00 98.6 84 20 184/89 94 Nasal Cannula 2.0 04/28/17 16:40 Nasal Cannula 2.0 21 04/28/17 16:04 94 04/28/17 16:00 98.0 86 21 189/90 94 Nasal Cannula 2.0 04/28/17 14:00 166/95 04/28/17 12:00 97.9 21 166/95 94 Nasal Cannula 2.0 04/28/17 11:52 82 Laboratory Tests Test 04/28/17 13:00 04/29/17 03:20 CSF Appearance Clear CSF Color Colorless CSF WBC 1 /CU MM (0-5) CSF RBC 0 /CU MM CSF Neutrophils % % CSF Lymphocytes % % CSF Monocytes % % CSF Crenated Cells 0 % CSF Glucose 78 mg/dL (50-80) CSF Total Protein 46 MG/DL (15-45) H CSF VDRL Pending CSF Herpes Simplex II DNA (PCR) Pending Cytomegalovirus DNA Qual (PCR) Pending [place] Virus DNA Pending Herpes Simplex Virus I DNA (PCR) Pending Varicella-Zoster Virus DNA (PCR) Pending White Blood Count 11.4 K/UL (4.8-10.8) H Red Blood Count 3.01 M/UL (4.70-6.10) L Hemoglobin 8.0 G/DL (14.2-18.0) L Hematocrit 26.4 % (42.0-52.0) L Mean Corpuscular Volume 88 FL (80-99) Mean Corpuscular Hemoglobin 26.6 PG (27.0-31.0) L Mean Corpuscular Hemoglobin Concent 30.3 G/DL (32.0-36.0) L Red Cell Distribution Width 15.4 % (11.6-14.8) H Platelet Count 226 K/UL (150-450) Mean Platelet Volume 7.2 FL (6.5-10.1) Neutrophils (%) (Auto) 82.1 % (45.0-75.0) H Lymphocytes (%) (Auto) 11.8 % (20.0-45.0) L Monocytes (%) (Auto) 4.5 % (1.0-10.0) Eosinophils (%) (Auto) 1.2 % (0.0-3.0) Basophils (%) (Auto) 0.4 % (0.0-2.0) Erythrocyte Sedimentation Rate 46 MM/HR (0-15) H Sodium Level 145 MMOL/L (136-145) Potassium Level 3.8 MMOL/L (3.5-5.1) Chloride Level 101 MMOL/L (98-107) Carbon Dioxide Level 37 MMOL/L (21-32) H Anion Gap 7 mmol/L (5-15) Blood Urea Nitrogen 40 mg/dL (7-18) H Creatinine 8.0 MG/DL (0.55-1.30) H Estimat Glomerular Filtration Rate 7.8 mL/min (>60) Glucose Level 134 MG/DL (74-106) H Calcium Level 9.2 MG/DL (8.5-10.1) Phosphorus Level 6.6 MG/DL (2.5-4.9) H Magnesium Level 2.0 MG/DL (1.8-2.4) Total Bilirubin 0.3 MG/DL (0.2-1.0) Aspartate Amino Transf (AST/SGOT) 15 U/L (15-37) Alanine Aminotransferase (ALT/SGPT) 19 U/L (12-78) Alkaline Phosphatase 76 U/L (46-116) C-Reactive Protein, Quantitative 4.9 mg/dL (0.00-0.90) H Total Protein 7.1 G/DL (6.4-8.2) Albumin 3.0 G/DL (3.4-5.0) L Globulin 4.1 g/dL Albumin/Globulin Ratio 0.7 (1.0-2.7) L Random Vancomycin Level 18.7 ug/mL Height (Feet): 5 Height (Inches): 11.00 Weight (Pounds): 166 General Appearance: lethargic Cardiovascular: normal rate Respiratory/Chest: no respiratory distress Abdominal Exam: other - Karma Russo N.PNae Apr 29, 2017 11:40
[2017-04-29] MEDS ORDERED: Vancomycin 500 MG in NS 110 ML IVPB ONE (12:00)
[2017-04-29] MEDS ORDERED: HydrALAZINE 50mg tab NG SCH (12:00)
--- NOTE | 2017-04-29 12:05 | Pulmonology Progress Note ---
Assessment/Plan Problems: (1) Coma (2) ESRD (end stage renal disease) on dialysis (3) HTN (hypertension) (4) DKA (diabetic ketoacidoses) Assessment/Plan LP done, negative for infection d/w Neurologist, continue HD check electrolytes. tolerating diet transfer to higher level of care. Subjective Interval Events: non-responsive Allergies: Coded Allergies: GABAPENTIN (Verified Allergy, Unknown, 04/21/17) Dizziness, syncope Objective Last 24 Hour Vital Signs Date Time Temp Pulse Resp B/P (MAP) Pulse Ox O2 Delivery O2 Flow Rate FiO2 04/29/17 09:11 87 158/82 04/29/17 09:11 158/82 04/29/17 08:00 99.5 87 19 158/82 94 Nasal Cannula 2.0 04/29/17 07:03 98.5 04/29/17 05:17 185/99 04/29/17 05:17 185/99 04/29/17 04:00 99.1 89 16 150/88 94 Nasal Cannula 2.0 04/29/17 04:00 90 04/29/17 02:47 134/88 04/29/17 01:06 168/68 04/29/17 01:05 168/81 04/29/17 01:05 168/81 04/29/17 00:00 98.0 85 16 142/77 96 Nasal Cannula 2.0 04/29/17 00:00 93 04/28/17 22:30 81 16 140/76 95 Nasal Cannula 2.0 04/28/17 22:00 87 20 145/73 94 Nasal Cannula 2.0 04/28/17 21:30 90 20 132/77 95 Nasal Cannula 2.0 04/28/17 21:16 186/86 04/28/17 21:16 186/86 04/28/17 21:01 186/86 04/28/17 21:00 186/86 04/28/17 21:00 186/86 04/28/17 21:00 80 20 155/83 96 Nasal Cannula 2.0 04/28/17 20:37 Nasal Cannula 2.0 04/28/17 20:00 86 04/28/17 20:00 98.6 84 20 184/89 94 Nasal Cannula 2.0 04/28/17 16:40 Nasal Cannula 2.0 04/28/17 16:04 94 04/28/17 16:00 98.0 86 21 189/90 94 Nasal Cannula 2.0 04/28/17 14:00 166/95 Objective LP is done, results are negative HEENT: normocephalic, atraumatic Respiratory/Chest: chest wall non-tender, lungs clear Cardiovascular: normal peripheral pulses, normal rate, no JVD Abdomen: normal bowel sounds, soft, non tender Genitourinary: normal external genitalia Extremities: no clubbing Skin: no ulcers Neurologic/Psychiatric: no motor/sensory deficits, alert, normal mood/affect Lymphatic: no neck adenopathy Musculoskeletal: normal muscle bulk Laboratory Tests 04/28/17 13:00: CSF Appearance Clear, CSF Color Colorless, CSF WBC 1, CSF RBC 0, CSF Neutrophils % , CSF Lymphocytes % , CSF Monocytes % , CSF Crenated Cells 0, CSF Glucose 78, CSF Total Protein 46H, CSF VDRL [Pending], CSF Herpes Simplex II DNA (PCR) [Pending], Cytomegalovirus DNA Qual (PCR) [Pending], [place] Virus DNA [Pending], Herpes Simplex Virus I DNA (PCR) [Pending], Varicella- Zoster Virus DNA (PCR) [Pending] 04/29/17 03:20: White Blood Count 11.4H, Red Blood Count 3.01L, Hemoglobin 8.0L, Hematocrit 26.4L, Mean Corpuscular Volume 88, Mean Corpuscular Hemoglobin 26.6L, Mean Corpuscular Hemoglobin Concent 30.3L, Red Cell Distribution Width 15.4H, Platelet Count 226, Mean Platelet Volume 7.2, Neutrophils (%) (Auto) 82.1H, Lymphocytes (%) (Auto) 11.8L, Monocytes (%) (Auto) 4.5, Eosinophils (%) (Auto) 1.2, Basophils (%) (Auto) 0.4, Erythrocyte Sedimentation Rate 46H, Sodium Level 145, Potassium Level 3.8, Chloride Level 101, Carbon Dioxide Level 37H, Anion Gap 7, Blood Urea Nitrogen 40H, Creatinine 8.0H, Estimat Glomerular Filtration Rate 7.8, Glucose Level 134H, Calcium Level 9.2, Phosphorus Level 6.6H, Magnesium Level 2.0, Total Bilirubin 0.3, Aspartate Amino Transf (AST/SGOT) 15, Alanine Aminotransferase (ALT/SGPT) 19, Alkaline Phosphatase 76, C-Reactive Protein, Quantitative 4.9H, Total Protein 7.1, Albumin 3.0L, Globulin 4.1, Albumin/Globulin Ratio 0.7L, Random Vancomycin Level 18.7 Current Medications Medications (Trade) Dose Ordered Sig/Aura Route PRN Reason Start Time Stop Time Status Last Admin Dose Admin Acetaminophen (Tylenol) 650 mg Q4H PRN ORAL fever 04/25/17 18:00 05/21/17 13:59 04/29/17 05:29 Acyclovir 400 mg/ Sodium Chloride 275 ml @ 275 mls/hr DAILY@2200 IV 04/26/17 22:00 05/26/17 21:59 04/28/17 21:16 Ceftriaxone Sodium 2 gm/ Dextrose 55 ml @ 110 mls/hr Q24H IVPB 04/30/17 06:00 05/07/17 05:59 Clonidine HCl (Catapres) 0.2 mg EVERY 8 HOURS ORAL 04/29/17 14:00 05/29/17 13:59 Dextrose (Dextrose 50%) STAT PRN IV Hypoglycemia 04/26/17 11:30 05/25/17 11:29 Diltiazem HCl (Cardizem) 60 mg EVERY 6 HOURS NG 04/29/17 12:00 05/29/17 11:59 Heparin Sodium (Porcine) (Heparin 5000 units/ml) 5,000 units EVERY 12 HOURS SUBQ 04/25/17 21:00 05/21/17 20:59 04/29/17 09:13 Hydralazine HCl (Apresoline) 50 mg Q6HR NG 04/29/17 12:00 05/29/17 11:59 Insulin Aspart (NovoLOG) EVERY 4 HOURS SUBQ 04/28/17 21:00 05/28/17 20:59 04/29/17 10:19 Insulin Detemir (Levemir) 12 units BID@0900,1900 SUBQ 04/28/17 20:30 05/28/17 20:29 04/29/17 10:18 Lansoprazole (Prevacid) 30 mg DAILY NG 04/29/17 12:00 05/29/17 11:59 UNV Lisinopril (Prinivil) 20 mg BID ORAL 04/25/17 18:00 05/24/17 09:14 04/29/17 09:11 Minoxidil (Loniten) 2.5 mg Q4H PRN ORAL bp over 170 syst 04/29/17 08:45 05/29/17 08:44 Ondansetron HCl (Zofran) 4 mg Q6H PRN IVP Nausea & Vomiting 04/25/17 20:00 05/21/17 13:59 Sevelamer Carbonate (Renvela) 1,600 mg THREE TIMES A DAY ORAL 04/25/17 18:00 05/23/17 17:59 04/29/17 09:11 Vancomycin HCl (Vanco rx to dose) 1 ea DAILY PRN MISC . 04/26/17 09:00 05/21/17 16:44 Vancomycin HCl 500 mg/Sodium Chloride 110 ml @ 110 mls/hr ONCE ONCE IVPB 04/29/17 12:00 04/29/17 12:59 INEZ MEHTA Apr 29, 2017 12:05
--- NOTE | 2017-04-29 12:32 | Neurology Progress Note ---
Interim History Interim History ROS Limited/Unobtainable: Yes Complaints: none Events: eyes closed no eye contact mute unresponcive Objective Physical Exam Last Vital Signs Date Time Temp Pulse Resp B/P (MAP) Pulse Ox O2 Delivery O2 Flow Rate FiO2 04/29/17 12:00 99.0 86 16 152/84 96 Nasal Cannula 2.0 04/28/17 20:37 21 Laboratory Tests Test 04/28/17 13:00 04/29/17 03:20 CSF Appearance Clear CSF Color Colorless CSF WBC 1 /CU MM (0-5) CSF RBC 0 /CU MM CSF Neutrophils % % CSF Lymphocytes % % CSF Monocytes % % CSF Crenated Cells 0 % CSF Glucose 78 mg/dL (50-80) CSF Total Protein 46 MG/DL (15-45) H CSF VDRL Pending CSF Herpes Simplex II DNA (PCR) Pending Cytomegalovirus DNA Qual (PCR) Pending [place] Virus DNA Pending Herpes Simplex Virus I DNA (PCR) Pending Varicella-Zoster Virus DNA (PCR) Pending White Blood Count 11.4 K/UL (4.8-10.8) H Red Blood Count 3.01 M/UL (4.70-6.10) L Hemoglobin 8.0 G/DL (14.2-18.0) L Hematocrit 26.4 % (42.0-52.0) L Mean Corpuscular Volume 88 FL (80-99) Mean Corpuscular Hemoglobin 26.6 PG (27.0-31.0) L Mean Corpuscular Hemoglobin Concent 30.3 G/DL (32.0-36.0) L Red Cell Distribution Width 15.4 % (11.6-14.8) H Platelet Count 226 K/UL (150-450) Mean Platelet Volume 7.2 FL (6.5-10.1) Neutrophils (%) (Auto) 82.1 % (45.0-75.0) H Lymphocytes (%) (Auto) 11.8 % (20.0-45.0) L Monocytes (%) (Auto) 4.5 % (1.0-10.0) Eosinophils (%) (Auto) 1.2 % (0.0-3.0) Basophils (%) (Auto) 0.4 % (0.0-2.0) Erythrocyte Sedimentation Rate 46 MM/HR (0-15) H Sodium Level 145 MMOL/L (136-145) Potassium Level 3.8 MMOL/L (3.5-5.1) Chloride Level 101 MMOL/L (98-107) Carbon Dioxide Level 37 MMOL/L (21-32) H Anion Gap 7 mmol/L (5-15) Blood Urea Nitrogen 40 mg/dL (7-18) H Creatinine 8.0 MG/DL (0.55-1.30) H Estimat Glomerular Filtration Rate 7.8 mL/min (>60) Glucose Level 134 MG/DL (74-106) H Calcium Level 9.2 MG/DL (8.5-10.1) Phosphorus Level 6.6 MG/DL (2.5-4.9) H Magnesium Level 2.0 MG/DL (1.8-2.4) Total Bilirubin 0.3 MG/DL (0.2-1.0) Aspartate Amino Transf (AST/SGOT) 15 U/L (15-37) Alanine Aminotransferase (ALT/SGPT) 19 U/L (12-78) Alkaline Phosphatase 76 U/L (46-116) C-Reactive Protein, Quantitative 4.9 mg/dL (0.00-0.90) H Total Protein 7.1 G/DL (6.4-8.2) Albumin 3.0 G/DL (3.4-5.0) L Globulin 4.1 g/dL Albumin/Globulin Ratio 0.7 (1.0-2.7) L Random Vancomycin Level 18.7 ug/mL General: well developed, well nourished, no acute distress, other - illappearing Head: normocophalic, atraumatic Neck: no rigidity Neurologic Exam Mental Status: other - nonverbal unresponsive no eye contact Speech: other - mute Language: other Cranial Nerve II: no papilledema, other Cranial Nerves III, IV, : PERRLA, EOMI, pupils, other Cranial Nerve V: masseters function normal, other Cranial Nerve VII: normal facial expressions, other Cranial Nerve VIII: no nystagmus, other Cranial Nerve IX: other Cranial Nerve XI: other Cranial Nerve XII: no tongue atrophy/fasciculations, other Motor System: normal muscle tone, no involuntary movement, no muscle wasting, other - moves all limbbs Sensory: other - none Coordination: other Deep Tendon Reflexes: 0 bicep (L), 0 bicep (R), 0 tricep (L), 0 tricep (R), 0 brachioradialis (L), 0 brachioradialis (R), 0 knee (L), 0 knee (R), 0 ankle (L) , 0 ankle (R) Reflexes: mute plantar (L), mute plantar (R) Stance: other Gait: other Impression/Recommendations Problems: (1) severe toxic/metabolic encephalopathy 2/2 protracted DKA/ESRD (2) Poorly controlled diabetes mellitus (3) ESRD (end stage renal disease) on dialysis Status: unchanged Recommendations #[id number] cont HD b12/vit levels done joya,esr, done EEG no sz event MRI brai no acute lesions LP normal study, virals pending d/w family suggested transfer to [facility] for comprehensive reeval/rx .2nd opinions. NOHEMI KING Apr 29, 2017 12:32
[2017-04-29] MEDS: HydrALAZINE 50mg tab NG SCH ×2 (12:57→17:39)
[2017-04-29] MEDS: dilTIAZem HCl 60mg tab NG SCH ×2 (12:57→17:39)
--- NOTE | 2017-04-29 13:01 | Nephrology Progress Note ---
Assessment/Plan Problem List: (1) ESRD (end stage renal disease) on dialysis (2) Hyperkalemia, diminished renal excretion (3) Hyperglycemia (4) Encephalopathy Assessment remains encephalopathic ESRD- Type I DM- presents with: Encephalopathy unchanged HyperKalemia improved Hyperglycemia improved Has a collection on his left lat plantar foot ? infected Anemia unable to eat Plan Plan: HD in am NGT , meds via NGT adjust BP meds per neuro and ID per Endo keep BP and BS in check per orders Subjective ROS Limited/Unobtainable: Yes Objective Objective Last 24 Hour Vital Signs Date Time Temp Pulse Resp B/P (MAP) Pulse Ox O2 Delivery O2 Flow Rate FiO2 04/29/17 12:00 99.0 86 16 152/84 96 Nasal Cannula 2.0 04/29/17 09:11 87 158/82 04/29/17 09:11 158/82 04/29/17 08:00 99.5 87 19 158/82 94 Nasal Cannula 2.0 04/29/17 07:03 98.5 04/29/17 05:17 185/99 04/29/17 05:17 185/99 04/29/17 04:00 99.1 89 16 150/88 94 Nasal Cannula 2.0 04/29/17 04:00 90 04/29/17 02:47 134/88 04/29/17 01:06 168/68 04/29/17 01:05 168/81 04/29/17 01:05 168/81 04/29/17 00:00 98.0 85 16 142/77 96 Nasal Cannula 2.0 04/29/17 00:00 93 04/28/17 22:30 81 16 140/76 95 Nasal Cannula 2.0 04/28/17 22:00 87 20 145/73 94 Nasal Cannula 2.0 04/28/17 21:30 90 20 132/77 95 Nasal Cannula 2.0 04/28/17 21:16 186/86 04/28/17 21:16 186/86 04/28/17 21:01 186/86 04/28/17 21:00 186/86 04/28/17 21:00 186/86 04/28/17 21:00 80 20 155/83 96 Nasal Cannula 2.0 04/28/17 20:37 Nasal Cannula 2.0 21 04/28/17 20:00 86 04/28/17 20:00 98.6 84 20 184/89 94 Nasal Cannula 2.0 04/28/17 16:40 Nasal Cannula 2.0 21 04/28/17 16:04 94 04/28/17 16:00 98.0 86 21 189/90 94 Nasal Cannula 2.0 04/28/17 14:00 166/95 Intake and Output 04/29/17 04/30/17 19:00 07:00 Intake Total 355 ml Balance 355 ml Free Water 100 ml Tube Feeding 255 ml Laboratory Tests 04/28/17 13:00: CSF Appearance Clear, CSF Color Colorless, CSF WBC 1, CSF RBC 0, CSF Neutrophils % , CSF Lymphocytes % , CSF Monocytes % , CSF Crenated Cells 0, CSF Glucose 78, CSF Total Protein 46H, CSF VDRL [Pending], CSF Herpes Simplex II DNA (PCR) [Pending], Cytomegalovirus DNA Qual (PCR) [Pending], [place] Virus DNA [Pending], Herpes Simplex Virus I DNA (PCR) [Pending], Varicella- Zoster Virus DNA (PCR) [Pending] 04/29/17 03:20: White Blood Count 11.4H, Red Blood Count 3.01L, Hemoglobin 8.0L, Hematocrit 26.4L, Mean Corpuscular Volume 88, Mean Corpuscular Hemoglobin 26.6L, Mean Corpuscular Hemoglobin Concent 30.3L, Red Cell Distribution Width 15.4H, Platelet Count 226, Mean Platelet Volume 7.2, Neutrophils (%) (Auto) 82.1H, Lymphocytes (%) (Auto) 11.8L, Monocytes (%) (Auto) 4.5, Eosinophils (%) (Auto) 1.2, Basophils (%) (Auto) 0.4, Erythrocyte Sedimentation Rate 46H, Sodium Level 145, Potassium Level 3.8, Chloride Level 101, Carbon Dioxide Level 37H, Anion Gap 7, Blood Urea Nitrogen 40H, Creatinine 8.0H, Estimat Glomerular Filtration Rate 7.8, Glucose Level 134H, Calcium Level 9.2, Phosphorus Level 6.6H, Magnesium Level 2.0, Total Bilirubin 0.3, Aspartate Amino Transf (AST/SGOT) 15, Alanine Aminotransferase (ALT/SGPT) 19, Alkaline Phosphatase 76, C-Reactive Protein, Quantitative 4.9H, Total Protein 7.1, Albumin 3.0L, Globulin 4.1, Albumin/Globulin Ratio 0.7L, Random Vancomycin Level 18.7 Height (Feet): 5 Height (Inches): 11.00 Weight (Pounds): 166 General Appearance: no apparent distress, other - mental status worse Cardiovascular: normal rate Respiratory/Chest: decreased breath sounds Abdomen: distended Neurologic: other - poor responsive Objective other PE not changed ANUPAM PUENTES Apr 29, 2017 13:01
[2017-04-29] MEDS ORDERED: cloNIDine 0.2mg Tab ORAL SCH (14:00)
--- NOTE | 2017-04-29 15:00 | Internal Med Progress Note ---
Subjective Physician Name Nickolas Mills Attending Physician Mellissa Mejia Current Medications Medications (Trade) Dose Ordered Sig/Aura Route PRN Reason Start Time Stop Time Status Last Admin Dose Admin Acetaminophen (Tylenol) 650 mg Q4H PRN ORAL fever 04/25/17 18:00 05/21/17 13:59 04/29/17 05:29 Acyclovir 400 mg/ Sodium Chloride 275 ml @ 275 mls/hr DAILY@2200 IV 04/26/17 22:00 05/26/17 21:59 04/28/17 21:16 Ceftriaxone Sodium 2 gm/ Dextrose 55 ml @ 110 mls/hr Q24H IVPB 04/30/17 06:00 05/07/17 05:59 Clonidine HCl (Catapres) 0.2 mg EVERY 8 HOURS ORAL 04/29/17 14:00 05/29/17 13:59 04/29/17 14:12 Dextrose (Dextrose 50%) STAT PRN IV Hypoglycemia 04/26/17 11:30 05/25/17 11:29 Diltiazem HCl (Cardizem) 60 mg EVERY 6 HOURS NG 04/29/17 12:00 05/29/17 11:59 04/29/17 12:57 Heparin Sodium (Porcine) (Heparin 5000 units/ml) 5,000 units EVERY 12 HOURS SUBQ 04/25/17 21:00 05/21/17 20:59 04/29/17 09:13 Hydralazine HCl (Apresoline) 50 mg Q6HR NG 04/29/17 12:00 05/29/17 11:59 04/29/17 12:57 Insulin Aspart (NovoLOG) EVERY 4 HOURS SUBQ 04/28/17 21:00 05/28/17 20:59 04/29/17 12:50 Insulin Detemir (Levemir) 12 units BID@0900,1900 SUBQ 04/28/17 20:30 05/28/17 20:29 04/29/17 10:18 Lansoprazole (Prevacid) 30 mg DAILY NG 04/29/17 12:00 05/29/17 11:59 04/29/17 12:57 Lisinopril (Prinivil) 20 mg BID ORAL 04/25/17 18:00 05/24/17 09:14 04/29/17 09:11 Minoxidil (Loniten) 2.5 mg Q4H PRN ORAL bp over 170 syst 04/29/17 08:45 05/29/17 08:44 Ondansetron HCl (Zofran) 4 mg Q6H PRN IVP Nausea & Vomiting 04/25/17 20:00 05/21/17 13:59 Sevelamer Carbonate (Renvela) 1,600 mg THREE TIMES A DAY ORAL 04/25/17 18:00 05/23/17 17:59 04/29/17 12:58 Vancomycin HCl (Vanco rx to dose) 1 ea DAILY PRN MISC . 04/26/17 09:00 05/21/17 16:44 Allergies: Coded Allergies: GABAPENTIN (Verified Allergy, Unknown, 04/21/17) Dizziness, syncope Subjective Unresponsive, unable to f/u commands or open eyes , father at bedside, in PCU Objective Last Vital Signs Date Time Temp Pulse Resp B/P (MAP) Pulse Ox O2 Delivery O2 Flow Rate FiO2 04/29/17 14:12 153/83 04/29/17 14:09 83 16 95 Nasal Cannula 2.0 04/29/17 12:00 99.0 04/28/17 20:37 21 Laboratory Tests Test 04/29/17 03:20 White Blood Count 11.4 K/UL (4.8-10.8) H Red Blood Count 3.01 M/UL (4.70-6.10) L Hemoglobin 8.0 G/DL (14.2-18.0) L Hematocrit 26.4 % (42.0-52.0) L Mean Corpuscular Volume 88 FL (80-99) Mean Corpuscular Hemoglobin 26.6 PG (27.0-31.0) L Mean Corpuscular Hemoglobin Concent 30.3 G/DL (32.0-36.0) L Red Cell Distribution Width 15.4 % (11.6-14.8) H Platelet Count 226 K/UL (150-450) Mean Platelet Volume 7.2 FL (6.5-10.1) Neutrophils (%) (Auto) 82.1 % (45.0-75.0) H Lymphocytes (%) (Auto) 11.8 % (20.0-45.0) L Monocytes (%) (Auto) 4.5 % (1.0-10.0) Eosinophils (%) (Auto) 1.2 % (0.0-3.0) Basophils (%) (Auto) 0.4 % (0.0-2.0) Erythrocyte Sedimentation Rate 46 MM/HR (0-15) H Sodium Level 145 MMOL/L (136-145) Potassium Level 3.8 MMOL/L (3.5-5.1) Chloride Level 101 MMOL/L (98-107) Carbon Dioxide Level 37 MMOL/L (21-32) H Anion Gap 7 mmol/L (5-15) Blood Urea Nitrogen 40 mg/dL (7-18) H Creatinine 8.0 MG/DL (0.55-1.30) H Estimat Glomerular Filtration Rate 7.8 mL/min (>60) Glucose Level 134 MG/DL (74-106) H Calcium Level 9.2 MG/DL (8.5-10.1) Phosphorus Level 6.6 MG/DL (2.5-4.9) H Magnesium Level 2.0 MG/DL (1.8-2.4) Total Bilirubin 0.3 MG/DL (0.2-1.0) Aspartate Amino Transf (AST/SGOT) 15 U/L (15-37) Alanine Aminotransferase (ALT/SGPT) 19 U/L (12-78) Alkaline Phosphatase 76 U/L (46-116) C-Reactive Protein, Quantitative 4.9 mg/dL (0.00-0.90) H Total Protein 7.1 G/DL (6.4-8.2) Albumin 3.0 G/DL (3.4-5.0) L Globulin 4.1 g/dL Albumin/Globulin Ratio 0.7 (1.0-2.7) L Random Vancomycin Level 18.7 ug/mL Intake and Output 04/29/17 04/30/17 19:00 07:00 Intake Total 510 ml Balance 510 ml Free Water 200 ml Tube Feeding 310 ml Objective General: not responsive, Not verbal, coma HEENT: NCAT, sclera anicteric, PERRL, NG Tube Neck: Supple, no significant jugular venous distention, Lungs: Fair inspiratory effort, clear to auscultation bilaterally, + Expiratory Wheeze, No Rales. Heart: Regular rate and rhythm, normal S1/S2, no murmurs Abdomen: soft, nontender, nondistended. Normoactive bowel sounds. Extremities: No Cyanosis , clubbing or edema. Left UE AVF, Left foot 5th metatarsal ulceration. Neuro: coma, unable to move any extremities. Skin: warm, no rashes Assessment/Plan Assessment/Plan DKA (diabetic ketoacidoses) resolved Altered level of consciousness most likely due to Acute toxic Metabolic encephalopathy. Poorly controlled diabetes mellitus type 1 ESRD (end stage renal disease) on dialysis Leg 5th metatarsal fluid collection with underlining osteomyelitis Anemia of CKD Plan: Called transfer center at [facility] for transfer to higher level of care. discuss with father at bedside Abx: Acyclovir, Vanco IV and Rocephin IV F/U with Dr. Zapien Recommendations Tube feeding Nickolas Mills MD Apr 29, 2017 15:00
[2017-04-29] MEDS ORDERED: Tubing IV Secondary IV ONE (16:22)
[2017-04-29] MEDS ORDERED: NS 500ML ONE ×2 (16:22)
--- NOTE | 2017-04-29 17:02 | Cardiology Report ---
APPROVED REPORT EKG Measurement Heart [id number] Normal sinus rhythm Possible Left atrial enlargement Borderline ECG
--- NOTE | 2017-04-29 18:09 | Cardiology Progress Note ---
Assessment/Plan Assessment/Plan 1. Hypertension, poorly controlled, possibly rebound. 2. Diabetes mellitus with end-organ damage. 3. Diabetic gastroparesis. 4. End-stage renal disease, on hemodialysis. 5. Anemia. 6. Foot abscess with osteomyelitis. 7. encephalopathy s/p mri neg fo acute cva lp performed not communicate or responsive to verbal on clonidien , lisinopril and norvasc and lwo dose bystolic adn hdralazien , bp finally controlled for now having dialysis d/w rn await transfer to [facility] echo Subjective ROS Limited/Unobtainable: Yes Objective Last 24 Hour Vital Signs Date Time Temp Pulse Resp B/P (MAP) Pulse Ox O2 Delivery O2 Flow Rate FiO2 04/29/17 17:39 85 141/81 04/29/17 17:39 141/81 04/29/17 17:39 141/81 04/29/17 17:25 85 16 141/81 95 Nasal Cannula 2.0 04/29/17 16:00 81 04/29/17 16:00 99.8 93 16 134/84 96 Nasal Cannula 2.0 04/29/17 14:12 153/83 04/29/17 14:09 83 16 153/83 95 Nasal Cannula 2.0 04/29/17 12:57 86 152/84 04/29/17 12:57 152/84 04/29/17 12:00 86 04/29/17 12:00 99.0 86 16 152/84 96 Nasal Cannula 2.0 04/29/17 09:11 87 158/82 04/29/17 09:11 158/82 04/29/17 08:00 99.5 87 19 158/82 94 Nasal Cannula 2.0 04/29/17 07:37 86 04/29/17 07:03 98.5 04/29/17 05:17 185/99 04/29/17 05:17 185/99 04/29/17 04:00 99.1 89 16 150/88 94 Nasal Cannula 2.0 04/29/17 04:00 90 04/29/17 02:47 134/88 04/29/17 01:06 168/68 04/29/17 01:05 168/81 04/29/17 01:05 168/81 04/29/17 00:00 98.0 85 16 142/77 96 Nasal Cannula 2.0 04/29/17 00:00 93 04/28/17 22:30 81 16 140/76 95 Nasal Cannula 2.0 04/28/17 22:00 87 20 145/73 94 Nasal Cannula 2.0 04/28/17 21:30 90 20 132/77 95 Nasal Cannula 2.0 04/28/17 21:16 186/86 04/28/17 21:16 186/86 04/28/17 21:01 186/86 04/28/17 21:00 186/86 04/28/17 21:00 186/86 04/28/17 21:00 80 20 155/83 96 Nasal Cannula 2.0 04/28/17 20:37 Nasal Cannula 2.0 21 04/28/17 20:00 86 04/28/17 20:00 98.6 84 20 184/89 94 Nasal Cannula 2.0 General Appearance: other - not communicative not reponsive Neck: no JVD Cardiovascular: normal rate, regular rhythm, systolic murmur Respiratory/Chest: lungs clear Abdomen: normal bowel sounds, non tender, soft Extremities: no swelling Intake and Output 04/29/17 04/30/17 19:00 07:00 Intake Total 510 ml Balance 510 ml Free Water 200 ml Tube Feeding 310 ml Laboratory Tests Test 04/29/17 03:20 White Blood Count 11.4 K/UL (4.8-10.8) H Red Blood Count 3.01 M/UL (4.70-6.10) L Hemoglobin 8.0 G/DL (14.2-18.0) L Hematocrit 26.4 % (42.0-52.0) L Mean Corpuscular Volume 88 FL (80-99) Mean Corpuscular Hemoglobin 26.6 PG (27.0-31.0) L Mean Corpuscular Hemoglobin Concent 30.3 G/DL (32.0-36.0) L Red Cell Distribution Width 15.4 % (11.6-14.8) H Platelet Count 226 K/UL (150-450) Mean Platelet Volume 7.2 FL (6.5-10.1) Neutrophils (%) (Auto) 82.1 % (45.0-75.0) H Lymphocytes (%) (Auto) 11.8 % (20.0-45.0) L Monocytes (%) (Auto) 4.5 % (1.0-10.0) Eosinophils (%) (Auto) 1.2 % (0.0-3.0) Basophils (%) (Auto) 0.4 % (0.0-2.0) Erythrocyte Sedimentation Rate 46 MM/HR (0-15) H Sodium Level 145 MMOL/L (136-145) Potassium Level 3.8 MMOL/L (3.5-5.1) Chloride Level 101 MMOL/L (98-107) Carbon Dioxide Level 37 MMOL/L (21-32) H Anion Gap 7 mmol/L (5-15) Blood Urea Nitrogen 40 mg/dL (7-18) H Creatinine 8.0 MG/DL (0.55-1.30) H Estimat Glomerular Filtration Rate 7.8 mL/min (>60) Glucose Level 134 MG/DL (74-106) H Calcium Level 9.2 MG/DL (8.5-10.1) Phosphorus Level 6.6 MG/DL (2.5-4.9) H Magnesium Level 2.0 MG/DL (1.8-2.4) Total Bilirubin 0.3 MG/DL (0.2-1.0) Aspartate Amino Transf (AST/SGOT) 15 U/L (15-37) Alanine Aminotransferase (ALT/SGPT) 19 U/L (12-78) Alkaline Phosphatase 76 U/L (46-116) C-Reactive Protein, Quantitative 4.9 mg/dL (0.00-0.90) H Total Protein 7.1 G/DL (6.4-8.2) Albumin 3.0 G/DL (3.4-5.0) L Globulin 4.1 g/dL Albumin/Globulin Ratio 0.7 (1.0-2.7) L Random Vancomycin Level 18.7 ug/mL JAN SEPULVEDA Apr 29, 2017 18:09
[2017-04-29] MEDS: cloNIDine 0.2mg Tab GT SCH (20:59)
[2017-04-29] MEDS: ACYCLOVIR IV SCH (20:59)
[2017-04-29] MEDS: NS IV SCH (20:59)
[2017-04-30] VITALS (8 sets, daily range): BP systolic 122–168; BP diastolic 70–90
[2017-04-30] MEDS: HydrALAZINE 50mg tab NG SCH ×4 (00:41→18:19)
[2017-04-30] MEDS: dilTIAZem HCl 60mg tab NG SCH ×5 (00:41→18:20)
[2017-04-30] MEDS: NovoLOG Insulin Flexpen SUBQ SCH ×6 (00:43→21:13)
[2017-04-30 05:14] LABS: MEAN CORPUSCULAR HEMOGLOBIN 27.2 PG (27.0-31.0); MEAN CORPUSCULAR HGB CONC 31.1 G/DL (32.0-36.0); MEAN CORPUSCULAR VOLUME 87 FL (80-99); MEAN PLATELET VOLUME 6.7 FL (6.5-10.1); PLATELET COUNT 234 K/UL (150-450); RED BLOOD COUNT 2.83 M/UL (4.70-6.10); RED CELL DISTRIBUTION WIDTH 15.7 % (11.6-14.8); WHITE BLOOD COUNT 10.8 K/UL (4.8-10.8)
[2017-04-30] MEDS: cloNIDine 0.2mg Tab GT SCH (05:29)
[2017-04-30 05:39] LABS: ANION GAP 9 mmol/L (5-15); CALCIUM 9.2 MG/DL (8.5-10.1); CARBON DIOXIDE 33 MMOL/L (21-32); CHLORIDE 100 MMOL/L (98-107); CREATININE 9.9 MG/DL (0.55-1.30); GLOMERULAR FILTRATION RATE 6.1 mL/min (>60); POTASSIUM 3.5 MMOL/L (3.5-5.1); SODIUM 142 MMOL/L (136-145)
[2017-04-30] MEDS ORDERED: cefTRIAXone 2 GM in D5W 55 ML IVPB SCH (06:00)
--- NOTE | 2017-04-30 08:52 | Diagnostic Imaging Report ---
Indication: NG tube placement Technique: Portable frontal view of the lower chest and upper abdomen Comparison: Chest ray graft from 03/26/2017 Findings: Placement of NG tube. Tip in the proximal stomach with side-port in the region of the gastroesophageal junction. Slight advancement is recommended for more optimal positioning. Bowel gas pattern is nonobstructive. Heart appears enlarged but is not completely evaluated. Definite focal airspace consolidation is seen. Impression: Interval placement of NG tube. Tip in the proximal stomach, side port in the region of the gastro-esophageal junction. Advancement is recommended for better to positioning.
[2017-04-30] MEDS ORDERED: Lisinopril 20mg tab NG SCH ×2 (09:00→16:00)
[2017-04-30] MEDS: Renvela 800mg Pkt NG SCH ×3 (09:45→18:21)
[2017-04-30] MEDS: Heparin 5000 units/ml inj SUBQ SCH ×2 (09:47→21:13)
[2017-04-30] MEDS: Levemir Flexpen SUBQ SCH (10:01)
[2017-04-30 10:23] LABS: WEST NILE VIRUS IGG AB Negative (Negative); WEST NILE VIRUS IGM SERUM Negative (Negative)
--- NOTE | 2017-04-30 11:31 | Nephrology Progress Note ---
Assessment/Plan Problem List: (1) ESRD (end stage renal disease) on dialysis (2) Hyperkalemia, diminished renal excretion (3) Hyperglycemia (4) Encephalopathy Assessment remains encephalopathic- MS not better- ESRD- on regular HD Type I DM- presented with: Encephalopathy unchanged HyperKalemia improved Hyperglycemia improved Has a collection on his left lat plantar foot ? infected Anemia unable to eat Plan Plan: HD today- NGT , meds via NGT adjust BP meds with parameters per neuro and ID per Endo keep BP and BS in check per orders Subjective ROS Limited/Unobtainable: Yes Objective Objective Last 24 Hour Vital Signs Date Time Temp Pulse Resp B/P (MAP) Pulse Ox O2 Delivery O2 Flow Rate FiO2 04/30/17 09:45 145/74 04/30/17 08:00 96.4 80 18 145/74 100 Nasal Cannula 2.0 04/30/17 05:31 81 157/80 04/30/17 05:29 157/80 04/30/17 05:23 157/80 04/30/17 04:00 81 04/30/17 04:00 97.4 86 16 157/80 96 Nasal Cannula 2.0 04/30/17 00:41 84 152/83 04/30/17 00:41 152/83 04/30/17 00:00 98.1 84 16 152/83 96 Nasal Cannula 2.0 04/30/17 00:00 86 04/29/17 20:59 158/84 04/29/17 20:00 99.4 87 16 153/81 96 Nasal Cannula 2.0 04/29/17 20:00 87 04/29/17 17:39 85 141/81 04/29/17 17:39 141/81 04/29/17 17:39 141/81 04/29/17 17:25 85 16 141/81 95 Nasal Cannula 2.0 04/29/17 16:00 81 04/29/17 16:00 99.8 93 16 134/84 96 Nasal Cannula 2.0 04/29/17 14:12 153/83 04/29/17 14:09 83 16 153/83 95 Nasal Cannula 2.0 04/29/17 12:57 86 152/84 04/29/17 12:57 152/84 04/29/17 12:00 86 04/29/17 12:00 99.0 86 16 152/84 96 Nasal Cannula 2.0 Intake and Output 04/30/17 05/01/17 19:00 07:00 # Bowel Movements 1 Laboratory Tests 04/30/17 03:40: White Blood Count 10.8, Red Blood Count 2.83L, Hemoglobin 7.7L, Hematocrit 24.7L , Mean Corpuscular Volume 87, Mean Corpuscular Hemoglobin 27.2, Mean Corpuscular Hemoglobin Concent 31.1L, Red Cell Distribution Width 15.7H, Platelet Count 234, Mean Platelet Volume 6.7, Neutrophils (%) (Auto) , Lymphocytes (%) (Auto) , Monocytes (%) (Auto) , Eosinophils (%) (Auto) , Basophils (%) (Auto) , Sodium Level 142, Potassium Level 3.5, Chloride Level 100 , Carbon Dioxide Level 33H, Anion Gap 9, Blood Urea Nitrogen 62H, Creatinine 9.9H, Estimat Glomerular Filtration Rate 6.1, Glucose Level 126H, Calcium Level 9.2, Anti-Nuclear Antibody Screen [Pending], c-ANCA Titer [Pending], p-ANCA Titer [Pending], HIV-1 RNA (PCR) log10 Value [Pending], HIV-1 RNA Ultraquantitative (PCR) [Pending] Height (Feet): 5 Height (Inches): 11.00 Weight (Pounds): 166 General Appearance: no apparent distress, other - poorly responsive Cardiovascular: regular rhythm Respiratory/Chest: decreased breath sounds Abdomen: soft Neurologic: other - poorly responsive- Objective other PE not changed ANUPAM PUENTES Apr 30, 2017 11:31
--- NOTE | 2017-04-30 11:33 | Internal Med Progress Note ---
Subjective Physician Name GeneNickolas macedo Attending Physician Mellissa Mejia Current Medications Medications (Trade) Dose Ordered Sig/Aura Route PRN Reason Start Time Stop Time Status Last Admin Dose Admin Acetaminophen (Tylenol) 650 mg Q4H PRN ORAL fever 04/25/17 18:00 05/21/17 13:59 04/29/17 05:29 Acyclovir 400 mg/ Sodium Chloride 275 ml @ 275 mls/hr DAILY@2200 IV 04/26/17 22:00 05/26/17 21:59 04/29/17 20:59 Ceftriaxone Sodium 2 gm/ Dextrose 55 ml @ 110 mls/hr Q24H IVPB 04/30/17 06:00 05/07/17 05:59 04/30/17 05:21 Clonidine HCl (Catapres) 0.2 mg EVERY 8 HOURS GT 04/30/17 14:00 05/30/17 13:59 UNV Dextrose (Dextrose 50%) STAT PRN IV Hypoglycemia 04/26/17 11:30 05/25/17 11:29 Diltiazem HCl (Cardizem) 60 mg EVERY 6 HOURS NG 04/29/17 12:00 05/29/17 11:59 04/30/17 05:31 Heparin Sodium (Porcine) (Heparin 5000 units/ml) 5,000 units EVERY 12 HOURS SUBQ 04/25/17 21:00 05/21/17 20:59 04/30/17 09:47 Hydralazine HCl (Apresoline) 50 mg Q6HR NG 04/30/17 12:00 05/30/17 11:59 UNV Insulin Aspart (NovoLOG) EVERY 4 HOURS SUBQ 04/28/17 21:00 05/28/17 20:59 04/30/17 09:59 Insulin Detemir (Levemir) 12 units BID@0900,1900 SUBQ 04/28/17 20:30 05/28/17 20:29 04/30/17 10:01 Lansoprazole (Prevacid) 30 mg DAILY NG 04/29/17 12:00 05/29/17 11:59 04/30/17 09:45 Lisinopril (Prinivil) 20 mg BID NG 04/30/17 18:00 05/30/17 17:59 UNV Minoxidil (Loniten) 2.5 mg Q4H PRN ORAL bp over 170 syst 04/29/17 08:45 05/29/17 08:44 Ondansetron HCl (Zofran) 4 mg Q6H PRN IVP Nausea & Vomiting 04/25/17 20:00 05/21/17 13:59 Sevelamer Carbonate (Renvela) 1,600 mg THREE TIMES A DAY NG 04/30/17 09:00 05/30/17 08:59 04/30/17 09:45 Vancomycin HCl (Vanco rx to dose) 1 ea DAILY PRN MISC . 04/26/17 09:00 05/21/17 16:44 Allergies: Coded Allergies: GABAPENTIN (Verified Allergy, Unknown, 04/21/17) Dizziness, syncope Subjective Unresponsive, unable to f/u commands or open eyes , father at bedside, in PCU, Hgb @ 7.7 Objective Last Vital Signs Date Time Temp Pulse Resp B/P (MAP) Pulse Ox O2 Delivery O2 Flow Rate FiO2 04/30/17 09:45 145/74 04/30/17 08:00 96.4 80 18 100 Nasal Cannula 2.0 04/28/17 20:37 21 Laboratory Tests Test 04/30/17 03:40 White Blood Count 10.8 K/UL (4.8-10.8) Red Blood Count 2.83 M/UL (4.70-6.10) L Hemoglobin 7.7 G/DL (14.2-18.0) L Hematocrit 24.7 % (42.0-52.0) L Mean Corpuscular Volume 87 FL (80-99) Mean Corpuscular Hemoglobin 27.2 PG (27.0-31.0) Mean Corpuscular Hemoglobin Concent 31.1 G/DL (32.0-36.0) L Red Cell Distribution Width 15.7 % (11.6-14.8) H Platelet Count 234 K/UL (150-450) Mean Platelet Volume 6.7 FL (6.5-10.1) Neutrophils (%) (Auto) % (45.0-75.0) Lymphocytes (%) (Auto) % (20.0-45.0) Monocytes (%) (Auto) % (1.0-10.0) Eosinophils (%) (Auto) % (0.0-3.0) Basophils (%) (Auto) % (0.0-2.0) Sodium Level 142 MMOL/L (136-145) Potassium Level 3.5 MMOL/L (3.5-5.1) Chloride Level 100 MMOL/L (98-107) Carbon Dioxide Level 33 MMOL/L (21-32) H Anion Gap 9 mmol/L (5-15) Blood Urea Nitrogen 62 mg/dL (7-18) H Creatinine 9.9 MG/DL (0.55-1.30) H Estimat Glomerular Filtration Rate 6.1 mL/min (>60) Glucose Level 126 MG/DL (74-106) H Calcium Level 9.2 MG/DL (8.5-10.1) Anti-Nuclear Antibody Screen Pending c-ANCA Titer Pending p-ANCA Titer Pending HIV-1 RNA (PCR) log10 Value Pending HIV-1 RNA Ultraquantitative (PCR) Pending Intake and Output 04/30/17 05/01/17 19:00 07:00 # Bowel Movements 1 Objective General: not responsive, Not verbal, coma HEENT: NCAT, sclera anicteric, PERRL, NG Tube Neck: Supple, no significant jugular venous distention, Lungs: Fair inspiratory effort, clear to auscultation bilaterally, No Wheeze, No Rales. Heart: Regular rate and rhythm, normal S1/S2, no murmurs Abdomen: soft, nontender, nondistended. Normoactive bowel sounds. Extremities: No Cyanosis , clubbing or edema. Left UE AVF, Left foot 5th metatarsal ulceration. Neuro: coma, unable to move any extremities. Skin: warm, no rashes Assessment/Plan Assessment/Plan DKA (diabetic ketoacidoses) resolved Altered level of consciousness most likely due to Acute toxic Metabolic encephalopathy. Poorly controlled diabetes mellitus type 1 ESRD (end stage renal disease) on dialysis Leg 5th metatarsal fluid collection with underlining osteomyelitis Anemia of CKD Plan: Called transfer center at [facility] again for transfer to higher level of care. discuss with father at bedside Abx: Acyclovir, Vanco IV and Rocephin IV F/U with Dr. Zapien Recommendations Tube feeding @ 55 cc/hr dialysis at bedside consider PRBC transfusion today Nickolas Mills MD Apr 30, 2017 11:33
--- NOTE | 2017-04-30 11:55 | Pulmonology Progress Note ---
Assessment/Plan Problems: (1) Coma (2) ESRD (end stage renal disease) on dialysis (3) HTN (hypertension) (4) DKA (diabetic ketoacidoses) Assessment/Plan prbc time one today, hem is less than 7 LP done, negative for infection d/w Neurologist, continue HD check electrolytes. tolerating diet transfer to higher level of care for continuos EEG monitoring Subjective ROS Limited/Unobtainable: Yes - no response Allergies: Coded Allergies: GABAPENTIN (Verified Allergy, Unknown, 04/21/17) Dizziness, syncope Objective Last 24 Hour Vital Signs Date Time Temp Pulse Resp B/P (MAP) Pulse Ox O2 Delivery O2 Flow Rate FiO2 04/30/17 09:45 145/74 04/30/17 08:00 96.4 80 18 145/74 100 Nasal Cannula 2.0 04/30/17 05:31 81 157/80 04/30/17 05:29 157/80 04/30/17 05:23 157/80 04/30/17 04:00 81 04/30/17 04:00 97.4 86 16 157/80 96 Nasal Cannula 2.0 04/30/17 00:41 84 152/83 04/30/17 00:41 152/83 04/30/17 00:00 98.1 84 16 152/83 96 Nasal Cannula 2.0 04/30/17 00:00 86 04/29/17 20:59 158/84 04/29/17 20:00 99.4 87 16 153/81 96 Nasal Cannula 2.0 04/29/17 20:00 87 04/29/17 17:39 85 141/81 04/29/17 17:39 141/81 04/29/17 17:39 141/81 04/29/17 17:25 85 16 141/81 95 Nasal Cannula 2.0 04/29/17 16:00 81 04/29/17 16:00 99.8 93 16 134/84 96 Nasal Cannula 2.0 04/29/17 14:12 153/83 04/29/17 14:09 83 16 153/83 95 Nasal Cannula 2.0 04/29/17 12:57 86 152/84 04/29/17 12:57 152/84 04/29/17 12:00 86 04/29/17 12:00 99.0 86 16 152/84 96 Nasal Cannula 2.0 Intake and Output 04/30/17 05/01/17 19:00 07:00 # Bowel Movements 1 Objective LP is done, results are negative HEENT: normocephalic, atraumatic, PERRL Respiratory/Chest: chest wall non-tender, lungs clear Cardiovascular: normal peripheral pulses, normal rate Abdomen: normal bowel sounds, soft, non tender Extremities: no cyanosis Skin: no rash, no ulcers Laboratory Tests 04/30/17 03:40: White Blood Count 10.8, Red Blood Count 2.83L, Hemoglobin 7.7L, Hematocrit 24.7L , Mean Corpuscular Volume 87, Mean Corpuscular Hemoglobin 27.2, Mean Corpuscular Hemoglobin Concent 31.1L, Red Cell Distribution Width 15.7H, Platelet Count 234, Mean Platelet Volume 6.7, Neutrophils (%) (Auto) , Lymphocytes (%) (Auto) , Monocytes (%) (Auto) , Eosinophils (%) (Auto) , Basophils (%) (Auto) , Sodium Level 142, Potassium Level 3.5, Chloride Level 100 , Carbon Dioxide Level 33H, Anion Gap 9, Blood Urea Nitrogen 62H, Creatinine 9.9H, Estimat Glomerular Filtration Rate 6.1, Glucose Level 126H, Calcium Level 9.2, Anti-Nuclear Antibody Screen [Pending], c-ANCA Titer [Pending], p-ANCA Titer [Pending], HIV-1 RNA (PCR) log10 Value [Pending], HIV-1 RNA Ultraquantitative (PCR) [Pending] Current Medications Medications (Trade) Dose Ordered Sig/Aura Route PRN Reason Start Time Stop Time Status Last Admin Dose Admin Acetaminophen (Tylenol) 650 mg Q4H PRN ORAL fever 04/25/17 18:00 05/21/17 13:59 04/29/17 05:29 Acyclovir 400 mg/ Sodium Chloride 275 ml @ 275 mls/hr DAILY@2200 IV 04/26/17 22:00 05/26/17 21:59 04/29/17 20:59 Ceftriaxone Sodium 2 gm/ Dextrose 55 ml @ 110 mls/hr Q24H IVPB 04/30/17 06:00 05/07/17 05:59 04/30/17 05:21 Clonidine HCl (Catapres) 0.2 mg EVERY 8 HOURS GT 04/30/17 14:00 05/30/17 13:59 Dextrose (Dextrose 50%) STAT PRN IV Hypoglycemia 04/26/17 11:30 05/25/17 11:29 Diltiazem HCl (Cardizem) 60 mg EVERY 6 HOURS NG 04/29/17 12:00 05/29/17 11:59 04/30/17 05:31 Epoetin Forrest (Procrit (for ESRD on dialysis)) 10,000 units WED-WED-WED SUBQ 04/30/17 21:00 05/30/17 20:59 Heparin Sodium (Porcine) (Heparin 5000 units/ml) 5,000 units EVERY 12 HOURS SUBQ 04/25/17 21:00 05/21/17 20:59 04/30/17 09:47 Hydralazine HCl (Apresoline) 50 mg Q6HR NG 04/30/17 12:00 05/30/17 11:59 Insulin Aspart (NovoLOG) EVERY 4 HOURS SUBQ 04/28/17 21:00 05/28/17 20:59 04/30/17 09:59 Insulin Detemir (Levemir) 12 units BID@0900,1900 SUBQ 04/28/17 20:30 05/28/17 20:29 04/30/17 10:01 Iron Sucrose 200 mg/Sodium Chloride 120 ml @ 240 mls/hr ONCE ONCE IV 04/30/17 13:00 04/30/17 13:29 Lansoprazole (Prevacid) 30 mg DAILY NG 04/29/17 12:00 05/29/17 11:59 04/30/17 09:45 Lisinopril (Prinivil) 20 mg BID NG 04/30/17 18:00 05/30/17 17:59 Minoxidil (Loniten) 2.5 mg Q4H PRN ORAL bp over 170 syst 04/29/17 08:45 05/29/17 08:44 Ondansetron HCl (Zofran) 4 mg Q6H PRN IVP Nausea & Vomiting 04/25/17 20:00 05/21/17 13:59 Sevelamer Carbonate (Renvela) 1,600 mg THREE TIMES A DAY NG 04/30/17 09:00 05/30/17 08:59 04/30/17 09:45 Vancomycin HCl (Vanco rx to dose) 1 ea DAILY PRN MISC . 04/26/17 09:00 05/21/17 16:44 INEZ MEHTA Apr 30, 2017 11:55
[2017-04-30] MEDS ORDERED: Iron Sucrose 200 MG in NS 110 ML IV ONE (13:00)
--- NOTE | 2017-04-30 13:26 | General Progress Note ---
Assessment/Plan Status: unchanged, deteriorating Assessment/Plan encephalopathy GT? cj virus? cont current meds transfer to [facility] Subjective Date patient seen: Apr 29, 2017 Neurologic/Psychiatric: Reports: anxiety, depressed, emotional problems Allergies: Coded Allergies: GABAPENTIN (Verified Allergy, Unknown, 04/21/17) Dizziness, syncope Subjective the pt is more lethargic and not responding at all. Objective Last 24 Hour Vital Signs Date Time Temp Pulse Resp B/P (MAP) Pulse Ox O2 Delivery O2 Flow Rate FiO2 04/30/17 13:16 78 193/91 04/30/17 09:45 145/74 04/30/17 08:00 96.4 80 18 145/74 100 Nasal Cannula 2.0 04/30/17 05:31 81 157/80 04/30/17 05:29 157/80 04/30/17 05:23 157/80 04/30/17 04:00 81 04/30/17 04:00 97.4 86 16 157/80 96 Nasal Cannula 2.0 04/30/17 00:41 84 152/83 04/30/17 00:41 152/83 04/30/17 00:00 98.1 84 16 152/83 96 Nasal Cannula 2.0 04/30/17 00:00 86 04/29/17 20:59 158/84 04/29/17 20:00 99.4 87 16 153/81 96 Nasal Cannula 2.0 04/29/17 20:00 87 04/29/17 17:39 85 141/81 04/29/17 17:39 141/81 04/29/17 17:39 141/81 04/29/17 17:25 85 16 141/81 95 Nasal Cannula 2.0 04/29/17 16:00 81 04/29/17 16:00 99.8 93 16 134/84 96 Nasal Cannula 2.0 04/29/17 14:12 153/83 04/29/17 14:09 83 16 153/83 95 Nasal Cannula 2.0 Intake and Output 04/30/17 05/01/17 19:00 07:00 # Bowel Movements 1 Laboratory Tests 04/30/17 03:40: White Blood Count 10.8, Red Blood Count 2.83L, Hemoglobin 7.7L, Hematocrit 24.7L , Mean Corpuscular Volume 87, Mean Corpuscular Hemoglobin 27.2, Mean Corpuscular Hemoglobin Concent 31.1L, Red Cell Distribution Width 15.7H, Platelet Count 234, Mean Platelet Volume 6.7, Neutrophils (%) (Auto) , Lymphocytes (%) (Auto) , Monocytes (%) (Auto) , Eosinophils (%) (Auto) , Basophils (%) (Auto) , Sodium Level 142, Potassium Level 3.5, Chloride Level 100 , Carbon Dioxide Level 33H, Anion Gap 9, Blood Urea Nitrogen 62H, Creatinine 9.9H, Estimat Glomerular Filtration Rate 6.1, Glucose Level 126H, Calcium Level 9.2, Anti-Nuclear Antibody Screen [Pending], c-ANCA Titer [Pending], p-ANCA Titer [Pending], HIV-1 RNA (PCR) log10 Value [Pending], HIV-1 RNA Ultraquantitative (PCR) [Pending] Height (Feet): 5 Height (Inches): 11.00 Weight (Pounds): 166 General Appearance: no apparent distress, lethargic, confused Neurologic: disoriented, unresponsive Rory Alcala M.D. Apr 30, 2017 13:26
--- NOTE | 2017-04-30 13:28 | General Progress Note ---
Assessment/Plan Status: not improved, unchanged Assessment/Plan encephalopathy GT? cj virus? cont current meds transfer to [facility] Subjective Date patient seen: Apr 30, 2017 Neurologic/Psychiatric: Reports: anxiety, depressed, emotional problems Allergies: Coded Allergies: GABAPENTIN (Verified Allergy, Unknown, 04/21/17) Dizziness, syncope Subjective the pt is more lethargic and not responding at all. Objective Last 24 Hour Vital Signs Date Time Temp Pulse Resp B/P (MAP) Pulse Ox O2 Delivery O2 Flow Rate FiO2 04/30/17 13:16 78 193/91 04/30/17 09:45 145/74 04/30/17 08:00 96.4 80 18 145/74 100 Nasal Cannula 2.0 04/30/17 05:31 81 157/80 04/30/17 05:29 157/80 04/30/17 05:23 157/80 04/30/17 04:00 81 04/30/17 04:00 97.4 86 16 157/80 96 Nasal Cannula 2.0 04/30/17 00:41 84 152/83 04/30/17 00:41 152/83 04/30/17 00:00 98.1 84 16 152/83 96 Nasal Cannula 2.0 04/30/17 00:00 86 04/29/17 20:59 158/84 04/29/17 20:00 99.4 87 16 153/81 96 Nasal Cannula 2.0 04/29/17 20:00 87 04/29/17 17:39 85 141/81 04/29/17 17:39 141/81 04/29/17 17:39 141/81 04/29/17 17:25 85 16 141/81 95 Nasal Cannula 2.0 04/29/17 16:00 81 04/29/17 16:00 99.8 93 16 134/84 96 Nasal Cannula 2.0 04/29/17 14:12 153/83 04/29/17 14:09 83 16 153/83 95 Nasal Cannula 2.0 Intake and Output 04/30/17 05/01/17 19:00 07:00 # Bowel Movements 1 Laboratory Tests 04/30/17 03:40: White Blood Count 10.8, Red Blood Count 2.83L, Hemoglobin 7.7L, Hematocrit 24.7L , Mean Corpuscular Volume 87, Mean Corpuscular Hemoglobin 27.2, Mean Corpuscular Hemoglobin Concent 31.1L, Red Cell Distribution Width 15.7H, Platelet Count 234, Mean Platelet Volume 6.7, Neutrophils (%) (Auto) , Lymphocytes (%) (Auto) , Monocytes (%) (Auto) , Eosinophils (%) (Auto) , Basophils (%) (Auto) , Sodium Level 142, Potassium Level 3.5, Chloride Level 100 , Carbon Dioxide Level 33H, Anion Gap 9, Blood Urea Nitrogen 62H, Creatinine 9.9H, Estimat Glomerular Filtration Rate 6.1, Glucose Level 126H, Calcium Level 9.2, Anti-Nuclear Antibody Screen [Pending], c-ANCA Titer [Pending], p-ANCA Titer [Pending], HIV-1 RNA (PCR) log10 Value [Pending], HIV-1 RNA Ultraquantitative (PCR) [Pending] Height (Feet): 5 Height (Inches): 11.00 Weight (Pounds): 166 General Appearance: no apparent distress, lethargic Neurologic: disoriented, unresponsive Rory Alcala M.D. Apr 30, 2017 13:28
--- NOTE | 2017-04-30 13:59 | Infectious Diseases Prog Note ---
Assessment/Plan Assessment/Plan acute Encephalopathy- ? unclear etiology- CSF analysis not consistent with infectious etiology- only abnormality is mildly elevated protein and elevated OP. CT head and Brain MRI with no acute findings. -s/p LP 04/28: OP 28cm H20, WBC 1, prot 46, glucose 78 no GOMEZ, N/V , no neck rigidity -MRI brain: Negative for acute intracranial bleed, mass effect, or infarct. Prominent ventricles and extra-axial CSF spaces, consistent with your volume loss, advanced for patient's age. Correlate with clinical history Possible old tiny left posterior temporal cortical infarct. Minimal periventricular deep white matter T2 hyperintensities, consistent with chronic ischemic changes. -CT head: Negative for acute intracranial bleed or mass effect. Somewhat prominent ventricles and extra-axial CSF spaces, consistent with volume loss, advanced for age. Periventricular deep white matter low-attenuation, appearance typical of chronic ischemic changes but given patient's age possibility of demyelinating disease should be considered.] -CXR: There is equivocal mild interstitial congestion. No focal airspace consolidation. No effusions -Neg:Rapid HIV test, RPR, WNV ab serum, CrAg serum, RICARDO sc Afebrile Mild leukocytosis, resolved Leg 5th metatarsal fluid collection no evid of of OM, possibly cyst-as per Pod : MRI done at outside facility and re-evaluated by [facility] radiologist suggest that no osteomyelitis is present in either foot. -XRay L foot 04/22: Osseous defect in fragment of the medial head of the first proximal phalanx. There is overlying soft tissue swelling, but bony abnormality does not appear acute. May reflect an old injury. Correlate with clinical findings, consider MRI for further evaluation as clinically indicated. Soft tissue swelling in the region of the left fifth metatarsal head. No plain radiographic findings to suggest acute osteomyelitis. Note, however, limited sensitivity of plain radiographs for such. Consider MRI for better characterization if there is high clinical suspicion -04/23: ESR 40, CRP 3.4 -MRI 04/08: L Foot wo: 2.1x 0.7 x2.5 cm fluid collection in plantar aspect of 5th metatarsal head. Cannot exclude abscess. Minimal Bone marrow edema involving 5th metatarsal head. Although no cortical erosive changes noted, an early medullary OM cannot be excluded. -u/s guided dranacristian at [facility]- cx negative -Vanco 500mg and Cefepime 2g after HD on HD days planned for 6 weeks; end date 05/28/17 DKA, resolved DM 1 on insulin pump, HTN, ESRD on HD MWF, psychiatric illness Plan: -Continue IV Vancomycin #9 and Ceftriaxone #9 ; abx per [facility] regimen for possible OM (until 05/28/17) -Continue IV Acyclovir #6 for now pending HSV PCR CSF -04/29 SP Ampicillin #2 -04/24 SP Cefepime #3 -04/22 SP Zosyn #1 -f/u CSF bacterial, fungal, AFB cultures, HSV PCR, VDRL, CMV, EBV, VZV PCR, Patrice. EE and [place] encephalitis panel and add CHRISTOPHER virus PCR, ANCA, HIV PCR -f/u Cocci ab serum -Monitor CBC/BMP, temperatures: - f/u cx -Neuro f/u; ?repeat MRI brain to evaluate for interval change -Awaiting transfer to [facility] for higher level of care/2nd opinion Discussed with RN. Subjective Allergies: Coded Allergies: GABAPENTIN (Verified Allergy, Unknown, 04/21/17) Dizziness, syncope Subjective afebrile leukocytosis resolved awaiting transfer to [facility] for higher level of care Objective Vital Signs Last 24 Hour Vital Signs Date Time Temp Pulse Resp B/P (MAP) Pulse Ox O2 Delivery O2 Flow Rate FiO2 04/30/17 13:17 193/91 04/30/17 13:16 78 193/91 04/30/17 12:00 97.8 77 19 166/90 100 Nasal Cannula 2.0 04/30/17 09:45 145/74 04/30/17 08:00 96.4 80 18 145/74 100 Nasal Cannula 2.0 04/30/17 05:31 81 157/80 04/30/17 05:29 157/80 04/30/17 05:23 157/80 04/30/17 04:00 81 04/30/17 04:00 97.4 86 16 157/80 96 Nasal Cannula 2.0 04/30/17 00:41 84 152/83 04/30/17 00:41 152/83 04/30/17 00:00 98.1 84 16 152/83 96 Nasal Cannula 2.0 04/30/17 00:00 86 04/29/17 20:59 158/84 04/29/17 20:00 99.4 87 16 153/81 96 Nasal Cannula 2.0 04/29/17 20:00 87 04/29/17 17:39 85 141/81 04/29/17 17:39 141/81 04/29/17 17:39 141/81 04/29/17 17:25 85 16 141/81 95 Nasal Cannula 2.0 04/29/17 16:00 81 04/29/17 16:00 99.8 93 16 134/84 96 Nasal Cannula 2.0 04/29/17 14:12 153/83 04/29/17 14:09 83 16 153/83 95 Nasal Cannula 2.0 Height (Feet): 5 Height (Inches): 11.00 Weight (Pounds): 166 Objective Status: obtunded, non verbal HEENT: atraumatic, normocephalic, mmm Neck: full ROM, supple, trachea midline Lungs: CTAB Heart: S1S2, RRR, no murmur Abdomen: soft, non-tender, active bowel sounds Extremities: no C/C/E Decubiti: Left plantar 5th metatarsal head abscess with back scab in the middle. Microbiology Date/Time Source Procedure Growth Status 04/28/17 13:00 Body Fluid Aspirate AFB Specimen Processing Tissue - Final Resulted 04/28/17 13:00 Body Fluid Aspirate Acid Fast Bacilli Smear - Final Resulted 04/28/17 13:00 Body Fluid Aspirate Acid Fast Bacilli Culture Pending Resulted Laboratory Tests Test 04/30/17 03:40 White Blood Count 10.8 K/UL (4.8-10.8) Red Blood Count 2.83 M/UL (4.70-6.10) L Hemoglobin 7.7 G/DL (14.2-18.0) L Hematocrit 24.7 % (42.0-52.0) L Mean Corpuscular Volume 87 FL (80-99) Mean Corpuscular Hemoglobin 27.2 PG (27.0-31.0) Mean Corpuscular Hemoglobin Concent 31.1 G/DL (32.0-36.0) L Red Cell Distribution Width 15.7 % (11.6-14.8) H Platelet Count 234 K/UL (150-450) Mean Platelet Volume 6.7 FL (6.5-10.1) Neutrophils (%) (Auto) % (45.0-75.0) Lymphocytes (%) (Auto) % (20.0-45.0) Monocytes (%) (Auto) % (1.0-10.0) Eosinophils (%) (Auto) % (0.0-3.0) Basophils (%) (Auto) % (0.0-2.0) Sodium Level 142 MMOL/L (136-145) Potassium Level 3.5 MMOL/L (3.5-5.1) Chloride Level 100 MMOL/L (98-107) Carbon Dioxide Level 33 MMOL/L (21-32) H Anion Gap 9 mmol/L (5-15) Blood Urea Nitrogen 62 mg/dL (7-18) H Creatinine 9.9 MG/DL (0.55-1.30) H Estimat Glomerular Filtration Rate 6.1 mL/min (>60) Glucose Level 126 MG/DL (74-106) H Calcium Level 9.2 MG/DL (8.5-10.1) Anti-Nuclear Antibody Screen Pending c-ANCA Titer Pending p-ANCA Titer Pending HIV-1 RNA (PCR) log10 Value Pending HIV-1 RNA Ultraquantitative (PCR) Pending Current Medications Medications (Trade) Dose Ordered Sig/Aura Route PRN Reason Start Time Stop Time Status Last Admin Dose Admin Acetaminophen (Tylenol) 650 mg Q4H PRN ORAL fever 04/25/17 18:00 05/21/17 13:59 04/29/17 05:29 Acyclovir 400 mg/ Sodium Chloride 275 ml @ 275 mls/hr DAILY@2200 IV 04/26/17 22:00 05/26/17 21:59 04/29/17 20:59 Ceftriaxone Sodium 2 gm/ Dextrose 55 ml @ 110 mls/hr Q24H IVPB 04/30/17 06:00 05/28/17 05:59 04/30/17 05:21 Clonidine HCl (Catapres) 0.2 mg EVERY 8 HOURS GT 04/30/17 14:00 05/30/17 13:59 Dextrose (Dextrose 50%) STAT PRN IV Hypoglycemia 04/26/17 11:30 05/25/17 11:29 Diltiazem HCl (Cardizem) 60 mg EVERY 6 HOURS NG 04/29/17 12:00 05/29/17 11:59 04/30/17 13:16 Epoetin Forrest (Procrit (for ESRD on dialysis)) 10,000 units WED-WED-WED SUBQ 04/30/17 21:00 05/30/17 20:59 Heparin Sodium (Porcine) (Heparin 5000 units/ml) 5,000 units EVERY 12 HOURS SUBQ 04/25/17 21:00 05/21/17 20:59 04/30/17 09:47 Hydralazine HCl (Apresoline) 50 mg Q6HR NG 04/30/17 12:00 05/30/17 11:59 04/30/17 13:17 Insulin Aspart (NovoLOG) EVERY 4 HOURS SUBQ 04/28/17 21:00 05/28/17 20:59 04/30/17 13:24 Insulin Detemir (Levemir) 12 units BID@0900,1900 SUBQ 04/28/17 20:30 05/28/17 20:29 04/30/17 10:01 Lansoprazole (Prevacid) 30 mg DAILY NG 04/29/17 12:00 05/29/17 11:59 04/30/17 09:45 Lisinopril (Prinivil) 20 mg BID NG 04/30/17 18:00 05/30/17 17:59 Minoxidil (Loniten) 2.5 mg Q4H PRN ORAL bp over 170 syst 04/29/17 08:45 05/29/17 08:44 Ondansetron HCl (Zofran) 4 mg Q6H PRN IVP Nausea & Vomiting 04/25/17 20:00 05/21/17 13:59 Sevelamer Carbonate (Renvela) 1,600 mg THREE TIMES A DAY NG 04/30/17 09:00 05/30/17 08:59 04/30/17 13:18 Vancomycin HCl (Vanco rx to dose) 1 ea DAILY PRN MISC . 04/26/17 09:00 05/28/17 08:59 Livier Woods M.D. Apr 30, 2017 13:59
[2017-04-30] MEDS ORDERED: cloNIDine 0.2mg Tab GT SCH (14:00)
[2017-04-30 14:18] LABS: VDRL CSF Non Reactive (Non Rea:<1:1)
[2017-04-30 14:18] LABS: VITAMIN D 25-OH TOTAL 64 ng/mL (.)
--- NOTE | 2017-04-30 14:30 | GI Progress Note ---
Assessment/Plan Problems: (1) Altered mental status ICD Codes: R41.82 - Altered mental status, unspecified SNOMED: 651576400 (2) severe toxic/metabolic encephalopathy 2/2 protracted DKA/ESRD (3) Diabetes type I ICD Codes: E10.9 - Type 1 diabetes mellitus without complications SNOMED: 39080523 (4) Altered level of consciousness ICD Codes: R40.4 - Transient alteration of awareness SNOMED: 2212587 (5) Poorly controlled diabetes mellitus ICD Codes: E11.65 - Type 2 diabetes mellitus with hyperglycemia SNOMED: 74391051, 167425626 Status: not improved, unchanged Status Narrative Discussed with Dr. Morales. Assessment/Plan pending transfer to [facility] consider PEG if no improvement >> cont NGTFs per dietary DM control HD fu labs Subjective Subjective limited Objective Last 24 Hour Vital Signs Date Time Temp Pulse Resp B/P (MAP) Pulse Ox O2 Delivery O2 Flow Rate FiO2 04/30/17 13:17 193/91 04/30/17 13:16 78 193/91 04/30/17 12:00 97.8 77 19 166/90 100 Nasal Cannula 2.0 04/30/17 09:45 145/74 04/30/17 08:00 96.4 80 18 145/74 100 Nasal Cannula 2.0 04/30/17 05:31 81 157/80 04/30/17 05:29 157/80 04/30/17 05:23 157/80 04/30/17 04:00 81 04/30/17 04:00 97.4 86 16 157/80 96 Nasal Cannula 2.0 04/30/17 00:41 84 152/83 04/30/17 00:41 152/83 04/30/17 00:00 98.1 84 16 152/83 96 Nasal Cannula 2.0 04/30/17 00:00 86 04/29/17 20:59 158/84 04/29/17 20:00 99.4 87 16 153/81 96 Nasal Cannula 2.0 04/29/17 20:00 87 04/29/17 17:39 85 141/81 04/29/17 17:39 141/81 04/29/17 17:39 141/81 04/29/17 17:25 85 16 141/81 95 Nasal Cannula 2.0 04/29/17 16:00 81 04/29/17 16:00 99.8 93 16 134/84 96 Nasal Cannula 2.0 Intake and Output 04/30/17 05/01/17 19:00 07:00 # Bowel Movements 2 Laboratory Tests Test 04/30/17 03:40 White Blood Count 10.8 K/UL (4.8-10.8) Red Blood Count 2.83 M/UL (4.70-6.10) L Hemoglobin 7.7 G/DL (14.2-18.0) L Hematocrit 24.7 % (42.0-52.0) L Mean Corpuscular Volume 87 FL (80-99) Mean Corpuscular Hemoglobin 27.2 PG (27.0-31.0) Mean Corpuscular Hemoglobin Concent 31.1 G/DL (32.0-36.0) L Red Cell Distribution Width 15.7 % (11.6-14.8) H Platelet Count 234 K/UL (150-450) Mean Platelet Volume 6.7 FL (6.5-10.1) Neutrophils (%) (Auto) % (45.0-75.0) Lymphocytes (%) (Auto) % (20.0-45.0) Monocytes (%) (Auto) % (1.0-10.0) Eosinophils (%) (Auto) % (0.0-3.0) Basophils (%) (Auto) % (0.0-2.0) Sodium Level 142 MMOL/L (136-145) Potassium Level 3.5 MMOL/L (3.5-5.1) Chloride Level 100 MMOL/L (98-107) Carbon Dioxide Level 33 MMOL/L (21-32) H Anion Gap 9 mmol/L (5-15) Blood Urea Nitrogen 62 mg/dL (7-18) H Creatinine 9.9 MG/DL (0.55-1.30) H Estimat Glomerular Filtration Rate 6.1 mL/min (>60) Glucose Level 126 MG/DL (74-106) H Calcium Level 9.2 MG/DL (8.5-10.1) Anti-Nuclear Antibody Screen Pending c-ANCA Titer Pending p-ANCA Titer Pending HIV-1 RNA (PCR) log10 Value Pending HIV-1 RNA Ultraquantitative (PCR) Pending Height (Feet): 5 Height (Inches): 11.00 Weight (Pounds): 166 General Appearance: no apparent distress, lethargic, other - obtunded Cardiovascular: normal rate Respiratory/Chest: normal breath sounds, no respiratory distress, other - NC Abdominal Exam: normal bowel sounds, non tender, soft Objective responds to stimuli with grunts and groans. Karma Oneill N.P. Apr 30, 2017 14:30
--- NOTE | 2017-04-30 15:54 | General Progress Note ---
Assessment/Plan Problem List: (1) Altered level of consciousness ICD Codes: R40.4 - Transient alteration of awareness SNOMED: 7338250 (2) DKA (diabetic ketoacidoses) ICD Codes: E13.10 - Other specified diabetes mellitus with ketoacidosis without coma SNOMED: 641846894, 62135363 Qualifiers: Qualified Codes: E13.10 - Other specified diabetes mellitus with ketoacidosis without coma (3) Diabetes type I ICD Codes: E10.9 - Type 1 diabetes mellitus without complications SNOMED: 88602418 (4) HTN (hypertension) ICD Codes: I10 - Essential (primary) hypertension SNOMED: 89456866 (5) ESRD (end stage renal disease) on dialysis ICD Codes: N18.6 - End stage renal disease; Z99.2 - Dependence on renal dialysis SNOMED: 193387181, 67129006 (6) Coma ICD Codes: R40.20 - Unspecified coma SNOMED: 694408186 Assessment/Plan increase Levemir to 14 units bid continue Novolog sliding scale every 4 hours HD in progress awaiting transfer to [facility] pending bed availability discussed with father at bedside Subjective ROS Limited/Unobtainable: Yes Allergies: Coded Allergies: GABAPENTIN (Verified Allergy, Unknown, 04/21/17) Dizziness, syncope Subjective in coma father at bedside HD in progress Objective Last 24 Hour Vital Signs Date Time Temp Pulse Resp B/P (MAP) Pulse Ox O2 Delivery O2 Flow Rate FiO2 04/30/17 14:34 193/91 04/30/17 13:17 193/91 04/30/17 13:16 78 193/91 04/30/17 12:00 97.8 77 19 166/90 100 Nasal Cannula 2.0 04/30/17 09:45 145/74 04/30/17 08:00 96.4 80 18 145/74 100 Nasal Cannula 2.0 04/30/17 07:43 79 04/30/17 05:31 81 157/80 04/30/17 05:29 157/80 04/30/17 05:23 157/80 04/30/17 04:00 81 04/30/17 04:00 97.4 86 16 157/80 96 Nasal Cannula 2.0 04/30/17 00:41 84 152/83 04/30/17 00:41 152/83 04/30/17 00:00 98.1 84 16 152/83 96 Nasal Cannula 2.0 04/30/17 00:00 86 04/29/17 20:59 158/84 04/29/17 20:00 99.4 87 16 153/81 96 Nasal Cannula 2.0 04/29/17 20:00 87 04/29/17 17:39 85 141/81 04/29/17 17:39 141/81 04/29/17 17:39 141/81 04/29/17 17:25 85 16 141/81 95 Nasal Cannula 2.0 04/29/17 16:00 81 04/29/17 16:00 99.8 93 16 134/84 96 Nasal Cannula 2.0 Intake and Output 04/30/17 05/01/17 19:00 07:00 # Bowel Movements 3 Laboratory Tests 04/30/17 03:40: White Blood Count 10.8, Red Blood Count 2.83L, Hemoglobin 7.7L, Hematocrit 24.7L , Mean Corpuscular Volume 87, Mean Corpuscular Hemoglobin 27.2, Mean Corpuscular Hemoglobin Concent 31.1L, Red Cell Distribution Width 15.7H, Platelet Count 234, Mean Platelet Volume 6.7, Neutrophils (%) (Auto) , Lymphocytes (%) (Auto) , Monocytes (%) (Auto) , Eosinophils (%) (Auto) , Basophils (%) (Auto) , Sodium Level 142, Potassium Level 3.5, Chloride Level 100 , Carbon Dioxide Level 33H, Anion Gap 9, Blood Urea Nitrogen 62H, Creatinine 9.9H, Estimat Glomerular Filtration Rate 6.1, Glucose Level 126H, Calcium Level 9.2, Anti-Nuclear Antibody Screen [Pending], c-ANCA Titer [Pending], p-ANCA Titer [Pending], HIV-1 RNA (PCR) log10 Value [Pending], HIV-1 RNA Ultraquantitative (PCR) [Pending] Height (Feet): 5 Height (Inches): 11.00 Weight (Pounds): 166 General Appearance: other - comatose Neck: normal alignment Cardiovascular: normal rate Respiratory/Chest: lungs clear Abdomen: normal bowel sounds Edema: no edema noted Arm (L), no edema noted Arm (R), no edema noted Leg (L), no edema noted Leg (R), no edema noted Pedal (L), no edema noted Pedal (R), no edema noted Generalized Objective Current Medications Medications (Trade) Dose Ordered Sig/Aura Route PRN Reason Start Time Stop Time Status Last Admin Dose Admin Acetaminophen (Tylenol) 650 mg Q4H PRN ORAL fever 04/25/17 18:00 05/21/17 13:59 04/29/17 05:29 Acyclovir 400 mg/ Sodium Chloride 275 ml @ 275 mls/hr DAILY@2200 IV 04/26/17 22:00 05/26/17 21:59 04/29/17 20:59 Ceftriaxone Sodium 2 gm/ Dextrose 55 ml @ 110 mls/hr Q24H IVPB 04/30/17 06:00 05/28/17 05:59 04/30/17 05:21 Clonidine HCl (Catapres) 0.2 mg EVERY 8 HOURS GT 04/30/17 14:00 05/30/17 13:59 04/30/17 14:34 Dextrose (Dextrose 50%) STAT PRN IV Hypoglycemia 04/26/17 11:30 05/25/17 11:29 Diltiazem HCl (Cardizem) 60 mg EVERY 6 HOURS NG 04/29/17 12:00 05/29/17 11:59 04/30/17 13:16 Epoetin Forrest (Procrit (for ESRD on dialysis)) 10,000 units WED-WED-WED SUBQ 04/30/17 21:00 05/30/17 20:59 Heparin Sodium (Porcine) (Heparin 5000 units/ml) 5,000 units EVERY 12 HOURS SUBQ 04/25/17 21:00 05/21/17 20:59 04/30/17 09:47 Hydralazine HCl (Apresoline) 50 mg Q6HR NG 04/30/17 12:00 05/30/17 11:59 04/30/17 13:17 Insulin Aspart (NovoLOG) EVERY 4 HOURS SUBQ 04/28/17 21:00 05/28/17 20:59 04/30/17 13:24 Insulin Detemir (Levemir) 12 units BID@0900,1900 SUBQ 04/28/17 20:30 05/28/17 20:29 04/30/17 10:01 Lansoprazole (Prevacid) 30 mg DAILY NG 04/29/17 12:00 05/29/17 11:59 04/30/17 09:45 Lisinopril (Prinivil) 20 mg BID NG 04/30/17 16:00 05/30/17 15:59 Minoxidil (Loniten) 2.5 mg Q4H PRN ORAL bp over 170 syst 04/29/17 08:45 05/29/17 08:44 Ondansetron HCl (Zofran) 4 mg Q6H PRN IVP Nausea & Vomiting 04/25/17 20:00 05/21/17 13:59 Sevelamer Carbonate (Renvela) 1,600 mg THREE TIMES A DAY NG 04/30/17 09:00 05/30/17 08:59 04/30/17 13:18 Vancomycin HCl (Vanco rx to dose) 1 ea DAILY PRN MISC . 04/26/17 09:00 05/28/17 08:59 Item Value Date Time Bedside Blood Glucose 251 mg/dl H 04/30/17 1324 Bedside Blood Glucose 249 mg/dl H 04/30/17 1001 Bedside Blood Glucose 110 mg/dl 04/30/17 0500 Bedside Blood Glucose 188 mg/dl H 04/30/17 0043 Bedside Blood Glucose 139 mg/dl H 04/29/17 2059 Bedside Blood Glucose 179 mg/dl H 04/29/17 1843 Bedside Blood Glucose 257 mg/dl H 04/29/17 1250 TSERING TORRES Apr 30, 2017 15:54
[2017-04-30] MEDS ORDERED: Levemir Flexpen SUBQ SCH (19:00)
[2017-04-30] MEDS ORDERED: Epogen (for ESRD on dialysis) SUBQ SCH (21:00)
[2017-04-30] MEDS ORDERED: NS 500ML ONE (21:54)
[2017-04-30] MEDS ORDERED: Sterile Water Irrig 1000ml IRRIG ONE (21:54)
[2017-04-30] MEDS ORDERED: Tubing Blood Filter IV ONE (21:54)
[2017-05-01 16:29] LABS: ANTI-NUCLEAR ANTIBODY SCREEN Negative (Negative)
--- NOTE | 2017-05-03 10:03 | Cardiology Report ---
APPROVED REPORT EXAM: Two-dimensional and M-mode echocardiogram with Doppler and color Doppler. INDICATION MITRAL VALVE DISORDER M-Mode DIMENSIONS IVSd0.8 (0.7-1.1cm)Left Atrium (MM)3.6 (1.6-4.0cm) LVDd4.6 (3.5-5.6cm)Aortic Root3.0 (2.0-3.7cm) PWd1.1 (0.7-1.1cm)Aortic Cusp Exc.1.9 (1.5-2.0cm) IVSs1.4 cm LVDs3.2 (2.5-4.0cm) PWs1.3 cm Normal left ventricular chamber size, systolic function and wall motion. Left ventricular ejection fraction estimated to be 60%. No evidenceof left ventricular hypertrophy. No evidence of pericardial effusion. Mild Left atrial enlargement. Right cardiac chamber sizes are within normal limits. Mild Focal aortic valve sclerosis with adequate cusp excursion. Mild Thickened mitral valve leaflets with normal excursion. Mild Mitral annulus and aortic root calcification. Normal pulmonic valve structure. IVC at normal size with physiologic collapse. A color flow and spectral Doppler study was performed and revealed: No aortic regurgitation Trace mitral regurgitation . Normal left ventricular diastolic function . Mild tricuspid regurgitation. Tricuspid systolic velocities suggests peak right ventricular systolic pressure of 29 mmHg. No Pulmonic regurgitation present.
[2017-05-04 07:27] LABS: HIV RNA PCR QUANT <20 copies/mL (.)
[2017-05-04 07:27] LABS: CMV DNA PCR QUAL BLOOD/CSF Negative (Negative); EPSTEIN BARR VIRUS DNA QL PCR Negative (Negative); V.ZOSTER DNA RT-PCR BLOOD/CSF Negative (Negative)
--- NOTE | 2017-05-04 14:08 | Discharge Summary ---
Discharge Summary Hospital Course Date of Admission Apr 21, 2017 at 13:23 Date of Discharge Apr 30, 2017 at 21:55 Admitting Diagnosis hyperkalemia/hyperglycemia/ams HPI Phani Benites is a 31 year old male who was admitted on Apr 21, 2017 at 13: 23 for Hyperkalemia,Hyperglycemia,Altered Mental Status Hospital Course dc summary #[id number] Discharge Discharge Disposition Patient was discharged to [facility] for higher level of care Discharge Diagnoses: Chilo (Carlilauren),Jenna CADENA May 04, 2017 14:08
--- NOTE | 2017-05-05 05:30 | Discharge Summary 2 SIG ---
DATE OF ADMISSION: 04/21/2017 DATE OF DISCHARGE: 04/30/2017 REASON FOR ADMISSION: 31-year-old male with history of end-stage renal disease, on hemodialysis, hypertension, was brought to the emergency room for evaluation. He was found down at home. The patient had insulin pump, which was disconnected. Accu-Chek was critically ill. The patient was altered, confused, and unable to provide any information. He missed his last dialysis, which was due the day when he came to emergency room for evaluation. He denied fever, chills, chest pain, and shortness of breath. Father reported that the patient was recently admitted to [facility] for treatment of leg infection. Workup in the emergency room revealed blood glucose above 600, blood pressure 206/118, anion gap- 18, and bicarbonate -20. BUN and creatinine were elevated and consistent with a known history of end-stage renal disease. Potassium was above 6. EKG revealed normal sinus rhythm. No acute ischemic changes. CT of the head revealed no acute intracranial pathology. Hyperkalemia was treated in ED. The patient was started on insulin drip. The patient was admitted to intensive care unit with the diagnoses of diabetic ketoacidosis, hyperglycemia, end-stage renal disease, hyperkalemia, and altered level of consciousness. HOSPITAL COURSE: The patient was initially admitted to ICU. The patient was on insulin drip as per protocol. The patient was also started on IV fluids in addition to insulin drip. Electrolytes were closely monitored. Anion gap closed, but the patient was unable to resume his own insulin pump due to the altered mental status. Production Material Coordinator followed. Production Material Coordinator started the patient on long-acting Levemir and sliding scale of NovoLog every 4 hours as needed. Hemoglobin A1c - 8.3, not at goal. The patient needs further optimization of anti-glycemic regimen. MRI of the brain revealed no acute intracranial pathology, but demonstrated possibly old tiny infarct. No fevers. No headache to suggest meningitis. No nuchal rigidity. Unable to have urine toxicology screen since the patient was not producing any urine. All mind-altering medications were held. Neurology consult was requested. Per neurologist, the patient had acute severe toxic metabolic encephalopathy likely secondary to protracted DKA and end-stage renal disease. The patient undergone EEG. EEG showed no seizure activity, but was abnormal with presence of moderate diffuse slowing. No paroxysmal events. MRI of the brain, as mentioned above, revealed no acute lesion. The patient subsequently undergone lumbar puncture, which was normal, slightly elevated opening pressure of 28, closing pressure of 15. 8 mm of clear cerebrospinal fluid was withdrawn. Culture of spinal fluid was checked for acid-fast bacilli and was negative. Spinal fluid analysis was negative except borderline protein. Cerebrospinal fluid was checked for herpes type 2 and VDRL and was negative and nonreactive. RICARDO screen was negative. The c-ANCA titer, p-ANCA titer, and atypical p-ANCA were all with a low titer. Serology revealed nonreactive RPR, negative cryptococcal antigen, and negative HIV status. Virology was also all negative: cytomegalovirus, , [place] virus, and herpes simplex virus along with varicella zoster virus by DNA were all negative. The patient was on antibiotics for presumptive osteomyelitis. The patient had a left fifth metatarsal fluid collection with possible osteomyelitis. ID followed. Blood culture was negative. Patient Accounts Coordinator seen and evaluated the patient. Per MRI done at [facility], no evidence of osteomyelitis. However, antibiotics were managed per ID specialist and recommended empiric coverage for possible underlying osteomyelitis or proceed with MRI of the foot when the main problem resolves. Hemodialysis was arranged as per husbandry person. Renal parameters and electrolytes were closely monitored and electrolyte imbalances were corrected. Nephrotoxics were avoided. Anemia workup revealed evidence of anemia of chronic disease. Blood pressure was not controlled, and according to Cardiology, the patient had poorly controlled hypertension, possibly rebound. The patient was on multiple regimen of antihypertensives including clonidine, SHITAL inhibitor, calcium channel milan, low-dose Bystolic, and hydralazine. Prior to transfer, blood pressure was controlled. Echocardiogram revealed preserved ejection fraction of 60 and right ventricular systolic pressure of 29. Supplemental oxygen was provided as needed along with pulmonary toilet. DVT and GI prophylaxes provided. Pain management was addressed. Bowel regimen was instituted. While blood pressure was controlled and diabetic ketoacidosis resolved, the patient continued to be altered. NG-tube was placed with followup of KUB to confirm placement. Tube was slowly advanced as per Radiology recommendation. Strict aspiration precautions were maintained. The patient was on NG-tube feeding. Medications were given through the NG tube. The patient continued to be unresponsive and transfer was arranged to a higher level of care at [facility]. Family agreed with arrangement. Prior to transfer, the patient was transfused with one unit of packed red blood cells for hemoglobin -7.7 and hematocrit- 24.7. The patient was stable for transfer. Stool was sent for C. difficile colitis. Results were back after the patient left, and revealed positive C. diff colitis. Primary medical doctor was informed and will notify medical provider at [facility] , involved in the care of this patient. FINAL DIAGNOSES: 1. End-stage renal disease, on hemodialysis. 2. Diabetic ketoacidosis, resolved. 3. Hyperglycemia secondary to diabetes. 4. Diabetes mellitus type 1 with end-organ damage. 5. End-stage renal disease. 6. Hyperkalemia with diminished renal excretion. 7. Altered level of consciousness. 8. Acute severe toxic metabolic encephalopathy secondary to protracted diabetic ketoacidosis/end-stage renal disease. 9. Status post lumbar puncture. 10. Fifth metatarsal fluid collection left leg with possible underlying osteomyelitis. 11. Hypertension, poorly controlled 12. Likely hypertensive urgency. 13. Clostridium difficile colitis. 14. Anemia of chronic disease and acute anemia requiring blood transfusion DISCHARGE MEDICATIONS: List of medication was sent to admitting facility. DISCHARGE INSTRUCTIONS: The patient was transferred to [facility] for a higher level of care. Follow up with medical doctor at the facility. Nickolas Mills M.D. Jenna Rubiolacey N.PNae DR: GERTRUDE JOB#: [id number] CC: MELISSA
== END 2017-04-30 21:55 | disposition short-term general hospital (02) | DRG 637 ==
LOC: EDBD 11:52 → EMR 12:10 → EDBEDREQSVC 13:20 → EDBEDREQ 13:20 → ICU 13:23 → EDBEDREQ 13:26 → 4E 04-24 20:23 → 2W 04-25 15:15
PROC: 5A1D70Z Performance of Urinary Filtration, Intermittent, Less than 6 Hours Per Day (ICD-10-PCS; principal; 2017-04-21)
PROC: 009U3ZX Drainage of Spinal Canal, Percutaneous Approach, Diagnostic (ICD-10-PCS; 2017-04-28)
DX: E10.10 Type 1 diabetes mellitus with ketoacidosis without coma (principal); N18.6 End stage renal disease; I13.2 Hypertensive heart and chronic kidney disease with heart failure and with stage 5 chronic kidney disease, or end stage renal disease; G92 Toxic encephalopathy; L02.612 Cutaneous abscess of left foot; A04.72 Enterocolitis due to Clostridium difficile, not specified as recurrent; I16.0 Hypertensive urgency; Z79.4 Long term (current) use of insulin; Z96.41 Presence of insulin pump (external) (internal); E87.5 Hyperkalemia; E10.42 Type 1 diabetes mellitus with diabetic polyneuropathy; E10.22 Type 1 diabetes mellitus with diabetic chronic kidney disease; E10.65 Type 1 diabetes mellitus with hyperglycemia; Z99.2 Dependence on renal dialysis; D63.1 Anemia in chronic kidney disease
CPT/HCPCS: 36415; 36600; 70450; 70551; 71010; 74000; 80048; 80053; 80061; 80076; 80202; 82009; 82140; 82306; 82607; 82728; 82746; 82803; 82945; 82962; 82977; 83036; 83540; 83550; 83735; 83880; 84100; 84157; 84207; 84443; 84446; 84550; 85025; 85651; 86021; 86039; 86140; 86592; 86635; 86703; 86790; 86850; 86900; 86901; 86920; 87040; 87081; 87116; 87324; 87449; 87496; 87529; 87536; 87798; 89051; 93005; 93306; 94664; 95819; J1815; J2405; S5561